=== PATIENT | male | born 1955 | race Caucasian/White ===

== ENCOUNTER 2023-08-25 13:01 | Inpatient (IN) ==
--- NOTE | 2023-08-25 13:27 | ED Triage Note ---
Date of Service August 25, 2023 Provider in Triage Author: Stephanie Wiggins History of Present Illness This patient was briefly evaluated while in triage. An abbreviated physical exam was performed. This patient is a 68-year-old Male who presents to the ED for evaluation of trembling, hallucination, dizziness and difficulty sleeping for past 2 weeks. On Jul 16, had 2nd Hep B vaccine, dizziness started the next day after that. ALl the other symptoms have progressively developed since then. Also having headaches that come and go. No fevers. Has been having some "liver issues." States "he's never been right after a bad concussion in March 2022." Physical Exam CONSTITUTIONAL: No acute distress. Well appearing. HEENT: Atraumatic, PERRL. NECK: Full ROM RESPIRATORY: Clear to auscultation bilaterally. Equal expansion bilaterally. CARDIOVASCULAR: Regular rate and rhythm. GASTROINTESTINAL: Soft NEUROLOGIC: Alert and oriented X 4 with normal affect. Initial orders for labs and / or imaging were placed and patient was placed in the waiting area until a bed is available. Please see further documentation for the full ED course.
--- NOTE | 2023-08-25 13:54 | CT Scan Report ---
CT head/brain wo con CLINICAL HISTORY: 68 years-old Male with headaches, hallucinations, dizziness. Acute headache with d izziness TECHNIQUE: Multiple axial CT images of the head were obtained without contrast. A dose lowering tech nique was utilized adhering to the principles of ALARA. CT DOSE: 625.8 mGy.cm COMPARISON: 04/03/2022 FINDINGS: No acute intracranial hemorrhage, midline shift, intracranial mass, hydrocephalus, territorial ischem ia or abnormal extra-axial collection. White matter hypodensities are again seen suggestive of chroni c microvascular ischemic disease. The calvarium is intact. The paranasal sinuses, mastoid air cells, and middle ear cavities are clear . IMPRESSION: No acute intracranial abnormality. ACT 112: Negative or not required by law. The above report was generated using voice recognition software. It may contain grammatical, syntax o r spelling errors. Electronically signed by: Teodoro Boles M.D. 08/25/2023 1:53 PM
[2023-08-25 15:37] LABS: Basophils # (auto) 0.07 K/uL (0.00-0.20); Basophils % (auto) 0.7 %; Eosinophils # (auto) 0.08 K/uL (0.00-0.50); Eosinophils % (auto) 0.8 %; Hematocrit (blood only) 53.2 % (42.0-52.0); Hemoglobin 17.7 g/dl (14.0-18.0); Immature Granulocytes # (auto) 0.04 K/uL (0.01-0.20); Immature Granulocytes % (auto) 0.4 %; Lymphocytes # (auto) 1.51 K/uL (1.20-3.40); Lymphocytes % (auto) 15.9 %; Mean Corpuscular Hemoglobin 30.2 pg (25.0-34.0); Mean Corpuscular Hgb Conc 33.3 g/dL (32.0-36.0); Mean Corpuscular Volume 90.6 fL (80.0-100.0); Mean Platelet Volume 10.2 fL (9.4-12.4); Monocytes # (auto) 0.76 K/uL (0.11-0.59); Neutrophils # (auto) 7.05 K/uL (1.40-6.50); Neutrophils % (auto) 74.2 %; Platelet Count 303 K/uL (130-400); RDW Coefficient of Variation 15.1 % (11.5-14.5); RDW Standard Deviation 50.1 fL (36.4-46.3); Red Blood Count 5.87 M/uL (4.70-6.10); White Blood Count 9.51 K/ul (4.8-10.8)
[2023-08-25 15:54] LABS: Alanine Aminotransferase 97 U/L (7-52); Albumin Globulin Ratio 1.4 (0.9-2); Albumin Level 4.9 gm/dl (3.4-5.0); Alkaline Phosphatase 27 U/L (34-104); Anion Gap 9 (3-11); Aspartate Aminotransferase 61 U/L (13-39); BUN Creatinine Ratio 24.3 (10-20); Bilirubin,Total 1.1 mg/dl (0.2-1.0); Blood Urea Nitrogen 26 mg/dl (6-23); Calcium 9.7 mg/dl (8.6-10.3); Carbon Dioxide 27 mmol/L (21-32); Chloride 100 mmol/L (98-107); Est GFR (African American) 83.4 ml/min; Globulin 3.5 gm/dl (2.5-4.0); Glucose 92 mg/dl (70-99(Fasting)); Potassium 4.2 mmol/L (3.5-5.1); Sodium 136 mmol/L (136-145); Total Protein 8.4 gm/dl (6.0-8.3)
[2023-08-25 16:00] LABS: Troponin I High Sensitivity 6.8 pg/ml (0-20)
[2023-08-25 16:02] LABS: INR 1.1 (0.9-1.1); Partial Thromboplastin Time 27 Seconds (21-31); Prothrombin Time 12.2 Seconds (9.0-12.0)
[2023-08-25 16:42] LABS: Appearance Urine Clear (Clear); Bacteria Urine Automated Negative (Negative); Blood Urine Negative (Negative); Color Urine Dark Yellow; Glucose Urine UA Negative (Negative); Ketones Urine 2+ (Negative); Leukocyte Esterase Urine Negative (Negative); Nitrite Urine Negative (Negative); Protein Urine 2+ (Negative); RBC Urine Automated 0-4 /hpf (0-4); Urobilinogen Urine Negative (Negative)
[2023-08-25 16:45] LABS: Magnesium 2.2 mg/dl (1.7-2.4)
[2023-08-25 16:50] LABS: Acetaminophen 5 ug/ml (10-30); Salicylate < 3.0 mg/dl (3.0-30)
[2023-08-25 16:55] LABS: Bilirubin Urine 1+ (Negative)
--- NOTE | 2023-08-25 16:59 | Electrocardiogram Report ---
Test Reason : Blood Pressure : / mmHG Vent. Rate : 080 BPM Atrial Rate : 080 BPM P-R Int : 144 ms QRS Dur : 086 ms QT Int : 348 ms P-R-T Axes : 083 116 080 degrees QTc Int : 401 ms Normal sinus rhythm Right axis deviation Abnormal ECG Confirmed by Irving Carvalho ([id number]) on 08/25/2023 4:59:11 PM Referred By: Confirmed By:Serafin Carvalho
[2023-08-25 17:06] LABS: Amphetamines+Metham, Urine Neg (Neg); Barbiturates, Urine Neg (Neg); Benzodiazepine, Urine Pos (Neg); Cocaine, Urine Neg (Neg); MDMA (Ecstacy), Urine Neg (Neg); Marijuana, Urine Neg (Neg); Methadone, Urine Neg (Neg); Opiate, Urine Neg (Neg); Phencyclidine, Urine Neg (Neg)
[2023-08-25 17:19] LABS: Thyroid Stimulating Hormone 3.214 uIu/ml (0.300-4.500)
[2023-08-25] MEDS ORDERED: ALUMINUM/MAGNESIUM SUSP 30 ML UDC PO PRN (20:10)
[2023-08-25] MEDS ORDERED: MAGNESIUM HYDROXIDE SUSP 30 ML UDC PO PRN (20:10)
[2023-08-25] MEDS ORDERED: SODIUM CHLORIDE 0.65% NA SOLN 45 ML (OCEAN) PRN (20:10)
[2023-08-25] MEDS ORDERED: BISMUTH SUBSALICYLATE LIQD 236 ML PO PRN (20:10)
[2023-08-25] MEDS: hydrOXYzine HCl 25 MG TAB PO PRN ×2 (21:11→23:35)
[2023-08-25] MEDS: NICOTINE POLACRILEX 2 MG GUM MT PRN (21:11)
--- NOTE | 2023-08-25 23:56 | Emergency Department Note ---
History of Present Illness General Chief complaint: Mental Health Evaluation Stated complaint: HALLUCINATIONS/HAND TREMBLE/TROUBLES SLEEPING Time Seen by Provider: 08/25/23 15:58 Source: patient and family History of Present Illness Provider complaint: Hallucination Maximum Pain Intensity: 6 68-year-old male on Suboxone presents emergency department for hallucinations. Family reports that the patient's symptoms began worse over the last 2 months. They report he has had increased tremor, hallucinations, both visual and auditory. They report has not been eating or sleeping. Patient reports he has "mental problems" and wants to "shoot himself". Patient is also reporting homicidal ideation. Home Medications Medication Instructions Recorded Confirmed Type amlodipine 5 mg tablet 5 mg PO QAM 08/25/23 08/25/23 History buprenorphine 2 mg-naloxone 0.5 mg 0.5 tab sublingual QAM 08/25/23 08/25/23 History sublingual tablet famotidine 20 mg tablet 20 mg PO QAM 08/25/23 08/25/23 History levalbuterol tartrate 45 1 puff inhalation Q4H PRN Wheezing 08/25/23 08/25/23 History mcg/actuation aerosol inhaler levothyroxine 25 mcg tablet 25 mcg PO DAILYBB 08/25/23 08/25/23 History Allergies Allergy/AdvReac Type Severity Reaction Status Date / Time No Known Allergies Allergy Verified 08/25/23 16:19 Past Med/Surg History Medical History HTN (hypertension) Surgical History No pertinent past surgical history Social History Smoking Status: Current every day smoker Tobacco Type: Cigarettes Hx Alcohol Use: No Hx Substance Use: Yes Non-Prescribed Medications: Marijuana and Other Non- Prescribed Medications Comment: Opiates Preferred Language: Portuguese Communication Ability: Effective 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 Beliefs That Will Affect Care: None Feels Safe at Home: Yes Gender Identity: Male Assistive Devices: Glasses Physical Exam Vital Signs Vital Signs - 24 hr 08/25/23 13:25 08/25/23 15:58 08/25/23 15:58 Temperature 36.3 C L Temperature Source Temporal Artery Scan Pulse Rate 104 H Pulse Rate [Apical] 83 Pulse Rhythm [Apical] Pulse Strength [Apical] Respiratory Rate 18 20 Respiratory Effort / Characteristics Non-Labored Spontaneous Non-Labored Respiratory Depth Normal Normal Respiratory Pattern Regular Blood Pressure 189/100 H Blood Pressure [Right Arm] 189/102 H Blood Pressure Mean 129 Blood Pressure Mean [Right Arm] 131 Blood Pressure Position Sitting Blood Pressure Position [Right Arm] Pulse Oximetry 94 98 98 Oxygen Delivery Method Room Air Room Air Room Air Sepsis Recent Fever Within 48 Hours No Sepsis New/Unexplained Change in Mental Status N/A Sepsis Action Taken by Nursing No Action Required 08/25/23 16:21 08/25/23 18:32 08/25/23 20:11 Temperature Temperature Source Pulse Rate 78 Pulse Rate [Apical] 84 95 H Pulse Rhythm [Apical] Regular Pulse Strength [Apical] Normal Respiratory Rate 20 18 Respiratory Effort / Characteristics Non-Labored Spontaneous Respiratory Depth Normal Respiratory Pattern Regular Blood Pressure Blood Pressure [Right Arm] 139/81 197/93 H Blood Pressure Mean Blood Pressure Mean [Right Arm] 100 127 Blood Pressure Position Blood Pressure Position [Right Arm] Sitting Standing Pulse Oximetry 96 92 Oxygen Delivery Method Room Air Room Air Sepsis Recent Fever Within 48 Hours Sepsis New/Unexplained Change in Mental Status Sepsis Action Taken by Nursing 08/25/23 20:36 Temperature Temperature Source Pulse Rate Pulse Rate [Apical] Pulse Rhythm [Apical] Pulse Strength [Apical] Respiratory Rate Respiratory Effort / Characteristics Respiratory Depth Respiratory Pattern Blood Pressure Blood Pressure [Right Arm] Blood Pressure Mean Blood Pressure Mean [Right Arm] Blood Pressure Position Blood Pressure Position [Right Arm] Pulse Oximetry Oxygen Delivery Method Room Air Sepsis Recent Fever Within 48 Hours Sepsis New/Unexplained Change in Mental Status Sepsis Action Taken by Nursing Physical Exam GENERAL: He is oriented to person, place, and time. He appears well-developed and well-nourished. He does not appear distressed. HENT: Exam performed. - Head: Normocephalic and atraumatic. - Right Ear: External ear normal. No mastoid erythema - Left Ear: External ear normal. No mastoid erythema - Mouth/Throat: The oropharynx is clear and moist. No trismus in the jaw. No dental abscesses or uvula swelling. No oropharyngeal exudate or tonsillar abscesses. EYES: Conjunctivae and EOM are normal. Pupils are equal, round, and reactive to light. Right eye exhibits no discharge. Left eye exhibits no discharge. No scleral icterus. NECK: Normal range of motion. Neck supple. No JVD present. No rigidity. No tracheal deviation and normal range of motion present. No Brudzinski's sign and no Kernig's sign noted. CV: Normal rate, regular rhythm, normal heart sounds and intact distal pulses. There is no peripheral edema. Palpable radial pulses bue. PULM/CHEST: Effort normal and breath sounds normal. No respiratory distress. No stridor. He has no wheezes. He has no rales. - Chest Wall: He exhibits no tenderness. ABD: The abdomen is soft. He has no distension. No mass is present. There is no tenderness. There is no rebound, no guarding, no Abbott's sign and no tenderness at McBurney's point. Rovsig negative. MUSC/SKEL: Normal range of motion. There is no peripheral edema, tenderness or deformity. LYMPH: No cervical adenopathy. NEURO: He is alert and oriented to person, place, and time. He has normal strength. No cranial nerve deficit or sensory deficit. Coordination and gait normal. GCS eye subscore is 4. GCS verbal subscore is 5. GCS motor subscore is 6. Cerebellar tests wnl. Mild tremor. SKIN: Skin is warm and dry. He is not diaphoretic. PSYCH: Suicidal homicidal ideation. Course Course 1558: The patient was evaluated in room B4. A complete history and physical exam was performed Cardiac monitoring: An order was placed for continuous cardiac monitoring. The monitor shows a rate of 80 with sinusrhythm interpreted by me Patient will be moved back to the mental health area of the emergency department. 2030: Patient medically cleared. Patient will be admitted to [facility] [address]. for inpatient psychiatric treatment. Administered Medications Hydroxyzine HCl (Hydroxyzine Hcl 25 Mg Tab) 50 mg PO HSZ PRN PRN Reason: Insomnia Stop: 09/24/23 20:09 Last Admin: 08/25/23 23:35 Dose: 50 mg Documented By: DMT Hydroxyzine HCl (Hydroxyzine Hcl 25 Mg Tab) 25 mg PO Q4H PRN PRN Reason: Anxiety Stop: 09/24/23 20:09 Last Admin: 08/25/23 21:11 Dose: 25 mg Documented By: ANAI Nicotine Polacrilex (Nicotine Polacrilex 2 Mg Gum) 2 piece MT PRN PRN PRN Reason: Nicotine Withdrawal Symptoms Stop: 09/24/23 20:09 Last Admin: 08/25/23 21:11 Dose: 2 piece Documented By: ANAI Medical Decision Making Laboratory Data Attestation: I reviewed the patient's lab results. 08/25/23 15:15 08/25/23 15:15 Lab Results 08/25/23 08/25/23 08/25/23 Range/Units 15:15 16:17 16:47 WBC 9.51 (4.8-10.8) K/ul RBC 5.87 (4.70-6.10) M/uL Hgb 17.7 (14.0-18.0) g/dl Hct 53.2 H (42.0-52.0) % MCV 90.6 (80.0-100.0) fL MCH 30.2 (25.0-34.0) pg MCHC 33.3 (32.0-36.0) g/dL RDW Std Deviation 50.1 H (36.4-46.3) fL RDW Coeff of Naun 15.1 H (11.5-14.5) % Plt Count 303 (130-400) K/uL MPV 10.2 (9.4-12.4) fL Immature Gran % (Auto) 0.4 % Neut % (Auto) 74.2 % Lymph % (Auto) 15.9 % Alexander % (Auto) 8.0 % Eos % (Auto) 0.8 % Baso % (Auto) 0.7 % Neut # (Auto) 7.05 H (1.40-6.50) K/uL Lymph # (Auto) 1.51 (1.20-3.40) K/uL Alexander # (Auto) 0.76 H (0.11-0.59) K/uL Eos # (Auto) 0.08 (0.00-0.50) K/uL Baso # (Auto) 0.07 (0.00-0.20) K/uL Immature Gran # (Auto) 0.04 (0.01-0.20) K/uL PT 12.2 H (9.0-12.0) Seconds INR 1.1 (0.9-1.1) APTT 27 (21-31) Seconds PTT Ratio 1.0 Sodium 136 (136-145) mmol/L Potassium 4.2 (3.5-5.1) mmol/L Chloride 100 (98-107) mmol/L Carbon Dioxide 27 (21-32) mmol/L Anion Gap 9 (3-11) BUN 26 H (6-23) mg/dl Creatinine 1.07 (0.6-1.4) mg/dl Est Cr Clr Drug Dosing Not Reportable Est GFR ( Amer) 83.4 ml/min Est GFR (Non-Af Amer) 72.0 ml/min BUN/Creatinine Ratio 24.3 H (10-20) Glucose 92 (70-99(Fasting)) mg/dl Calcium 9.7 (8.6-10.3) mg/dl Magnesium 2.2 (1.7-2.4) mg/dl Total Bilirubin 1.1 H (0.2-1.0) mg/dl AST 61 H (13-39) U/L ALT 97 H (7-52) U/L Alkaline Phosphatase 27 L (34-104) U/L Ammonia 25.0 (18-72) umol/L Troponin I High Sens 6.8 (0-20) pg/ml Total Protein 8.4 H (6.0-8.3) gm/dl Albumin 4.9 (3.4-5.0) gm/dl Globulin 3.5 (2.5-4.0) gm/dl Albumin/Globulin Ratio 1.4 (0.9-2) TSH 3.214 (0.300-4.500) uIu/ml Urine Color Dark Yellow Urine Appearance Clear (Clear) Urine pH 5.0 (4.5-7.5) Ur Specific Radcliffe 1.030 (1.000-1.030) Urine Protein 2+ H (Negative) Urine Glucose (UA) Negative (Negative) Urine Ketones 2+ H (Negative) Urine Blood Negative (Negative) Urine Nitrite Negative (Negative) Urine Bilirubin 1+ H (Negative) Urine Urobilinogen Negative (Negative) Ur Leukocyte Esterase Negative (Negative) Urine WBC (Auto) 1-5 (0-5) /hpf Urine RBC (Auto) 0-4 (0-4) /hpf U Hyaline Cast (Auto) 1-5 (0-5) /lpf U Epithel Cells (Auto) 5-10 H (0-5) /lpf Urine Bacteria (Auto) Negative (Negative) Salicylates < 3.0 L (3.0-30) mg/dl Urine Opiates Screen Neg (Neg) Ur Methadone, Qual Neg (Neg) Acetaminophen 5 L (10-30) ug/ml Urine Barbiturates Neg (Neg) Ur Phencyclidine (PCP) Neg (Neg) U Amphetamin/Meth Scrn Neg (Neg) MDMA (Ecstasy) Screen Neg (Neg) U Benzodiazepines Scrn Pos H (Neg) Ur Cocaine Metabolite Neg (Neg) U Marijuana (THC) Screen Neg (Neg) Ethyl Alcohol mg/dL < 10.0 (<10.0) mg/dl SARS-CoV-2, RNA, NAAT (NEGATIVE) 08/25/23 Range/Units 18:45 WBC (4.8-10.8) K/ul RBC (4.70-6.10) M/uL Hgb (14.0-18.0) g/dl Hct (42.0-52.0) % MCV (80.0-100.0) fL MCH (25.0-34.0) pg MCHC (32.0-36.0) g/dL RDW Std Deviation (36.4-46.3) fL RDW Coeff of Naun (11.5-14.5) % Plt Count (130-400) K/uL MPV (9.4-12.4) fL Immature Gran % (Auto) % Neut % (Auto) % Lymph % (Auto) % Alexander % (Auto) % Eos % (Auto) % Baso % (Auto) % Neut # (Auto) (1.40-6.50) K/uL Lymph # (Auto) (1.20-3.40) K/uL Alexander # (Auto) (0.11-0.59) K/uL Eos # (Auto) (0.00-0.50) K/uL Baso # (Auto) (0.00-0.20) K/uL Immature Gran # (Auto) (0.01-0.20) K/uL PT (9.0-12.0) Seconds INR (0.9-1.1) APTT (21-31) Seconds PTT Ratio Sodium (136-145) mmol/L Potassium (3.5-5.1) mmol/L Chloride (98-107) mmol/L Carbon Dioxide (21-32) mmol/L Anion Gap (3-11) BUN (6-23) mg/dl Creatinine (0.6-1.4) mg/dl Est Cr Clr Drug Dosing Est GFR ( Amer) ml/min Est GFR (Non-Af Amer) ml/min BUN/Creatinine Ratio (10-20) Glucose (70-99(Fasting)) mg/dl Calcium (8.6-10.3) mg/dl Magnesium (1.7-2.4) mg/dl Total Bilirubin (0.2-1.0) mg/dl AST (13-39) U/L ALT (7-52) U/L Alkaline Phosphatase (34-104) U/L Ammonia (18-72) umol/L Troponin I High Sens (0-20) pg/ml Total Protein (6.0-8.3) gm/dl Albumin (3.4-5.0) gm/dl Globulin (2.5-4.0) gm/dl Albumin/Globulin Ratio (0.9-2) TSH (0.300-4.500) uIu/ml Urine Color Urine Appearance (Clear) Urine pH (4.5-7.5) Ur Specific Radcliffe (1.000-1.030) Urine Protein (Negative) Urine Glucose (UA) (Negative) Urine Ketones (Negative) Urine Blood (Negative) Urine Nitrite (Negative) Urine Bilirubin (Negative) Urine Urobilinogen (Negative) Ur Leukocyte Esterase (Negative) Urine WBC (Auto) (0-5) /hpf Urine RBC (Auto) (0-4) /hpf U Hyaline Cast (Auto) (0-5) /lpf U Epithel Cells (Auto) (0-5) /lpf Urine Bacteria (Auto) (Negative) Salicylates (3.0-30) mg/dl Urine Opiates Screen (Neg) Ur Methadone, Qual (Neg) Acetaminophen (10-30) ug/ml Urine Barbiturates (Neg) Ur Phencyclidine (PCP) (Neg) U Amphetamin/Meth Scrn (Neg) MDMA (Ecstasy) Screen (Neg) U Benzodiazepines Scrn (Neg) Ur Cocaine Metabolite (Neg) U Marijuana (THC) Screen (Neg) Ethyl Alcohol mg/dL (<10.0) mg/dl SARS-CoV-2, RNA, NAAT NEGATIVE (NEGATIVE) Imaging Data Radiologist's Impression: Head CT 08/25/23 13:28 CT head/brain wo con CLINICAL HISTORY: 68 years-old Male with headaches, hallucinations, dizziness. Acute headache with dizziness TECHNIQUE: Multiple axial CT images of the head were obtained without contrast. A dose lowering technique was utilized adhering to the principles of ALARA. CT DOSE: 625.8 mGy.cm COMPARISON: 04/03/2022 FINDINGS: No acute intracranial hemorrhage, midline shift, intracranial mass, hydrocephalus, territorial ischemia or abnormal extra-axial collection. White matter hypodensities are again seen suggestive of chronic microvascular ischemic disease. The calvarium is intact. The paranasal sinuses, mastoid air cells, and middle ear cavities are clear. IMPRESSION: No acute intracranial abnormality. ACT 112: Negative or not required by law. The above report was generated using voice recognition software. It may contain grammatical, syntax or spelling errors. Electronically signed by: Teodoro Boles M.D. 08/25/2023 1:53 PM ECG Data Attestation: I personally reviewed and interpreted this ECG as follows: Rate (beats per minute): 80 Rhythm: + normal sinus ECG Intervals/blocks: + Normal QRS, + Normal SC and + Normal QT-c ECG ST segments: + Normal ST segments ECG Findings: + Peaked T waves MDM Narrative 1558: The patient was evaluated in room B4. A complete history and physical exam was performed Cardiac monitoring: An order was placed for continuous cardiac monitoring. The monitor shows a rate of 80 with sinusrhythm interpreted by me Patient will be moved back to the mental health area of the emergency department. 2030: Patient medically cleared. Patient will be admitted to 3 [facility]. for inpatient psychiatric treatment. Impression & Plan Depression with suicidal ideation, Homicidal ideations Discharge Plan Visit Data Chief Complaint: Mental Health Evaluation Stated Complaint: HALLUCINATIONS/HAND TREMBLE/TROUBLES SLEEPING ED Provider: Osman Beltre Discharge Problem: Depression with suicidal ideation, Homicidal ideations Patient Disposition: Admitted As Inpatient Discharge Instructions Interventions: ED Discharge Assessment Last Done: 08/25/23 20:36
--- OUTSIDE RECORDS SUMMARY | 2023-08-26 09:14 | External Medical Summary | Summary of Care ---
Author Name Unknown Organization [facility] Address [address] [place] [address] Phone [phone] Care Team Providers Care Cook Pie Name Role Phone Nitin Sarah PA-C Primary Care Provider [phone] Encounter Details Date Type Department Care Team (Late st Contact Info) Description 07/15/2023 Orders Only General [facility] Medicine [facility] [address] [facility] [address] [facility]itin [facility] [address] [facility] [address] Subclinical hypothyroidism* Allergies No known active allergiesdocumented as of this encounter (statuses as of 07/15/2023) Medications Medication Sig Dispensed Refills Start Date End Date Status amLODIPine Besylate 5 MG Oral Tablet (Norvasc)Indications:HT N, goal below 130/80 Take 1 Tablet by mouth in the morning. 30 Tablet 03/17/2023 Active Levalbuterol Tartrate 45 MCG/ACT Inhalation Aerosol (Xopenex HFA)Indications:Pulmona ry emphysema, unspecified emphysema type (HCC) Inhale 1 Puff by mouth every 4 hours as needed for Wheezing. 15 g 12 03/17/2023 Active Zoster Vac Recomb Adjuvanted 50 MCG/0.5ML Intramuscular Suspension Reconstituted (Shingrix)Indications:N eed for shingles vaccine Inject 0.5 mL into a large muscle now and repeat dose in 60 to 180 days 1 Each 1 04/16/2023 Active Buprenorphine HCl-Naloxone HCl 8-2 MG Sublingual Tablet Sublingual (Suboxone) Place under the tongue daily. 0 Active Famotidine 20 MG Oral Tablet (Pepcid)Indications:Gas troesophageal reflux disease with esophagitis without hemorrhage Take 1 Tablet by mouth in the morning. 30 Tablet 11 07/14/2023 Active Levothyroxine Sodium 25 MCG Oral Tablet (Levoxyl)Indications:Jaime bclinical hypothyroidism Take 1 Tablet by mouth daily first thing in the morning. on an empty stomach. 30 Tablet 5 07/15/2023 Active documented as of this encounter (statuses as of 07/15/2023) Active Problems Problem Noted Date Diagnosed Date Substance dependence 03/17/2023 History of heroin use 03/17/2023 Amnesia 03/17/2023 Chronic hepatitis C without hepatic coma 023 HTN, goal below 130/80 03/17/2023 Pulmonary emphysema 03/17/2023 documented as of this encounter (statuses as of 07/15/2023) Resolved Problems Problem Noted Date Diagnosed Date Resolved Date Elevated hemoglobin 03/17/2023 03/17/20 documented as of this encounter (statuses as of 07/15/2023) Immunizations Name Administration Dates Next Due Hepatitis B, 20+ yrs 07/14/2023 Seasonal Influenza, PF, 6 M & above, IM , (FluLaval or Fluzone) 04/16/2023 documented as of this encounter Social History Tobacco Use Types Packs/Day Years Used Date Smoking Tobacco: Every Day Cigarettes 1 50 Started: 1972 Smokeless Tobacco: Never Alcohol Use Standard Drinks/Week Comments No 0 (1 standard drink = 0.6 oz pur e alcohol) AUDIT-C Answer Date Recorded Frequency of Alcohol Consumption Never 08/10/2018 Average Number of Drinks Not on file 019 Frequency of Binge Drinking Not on file 12/2018 PHQ-2 Answer Date Recorded PHQ Adult Total Score 1 07/12/2023 Hunger Vital Sign Answer Date Recorded Within the past 12 months, y ou worried that your food would run out before you got the money to buy more. Never true 04/23/20 23 Within the past 12 months, t he food you bought just didn't last and you didn't have money to get more. Never true 04/23/2023 Sex and Gender Information Value Date Recorded Sex Assigned at Not on file Gender Identity Not on file Sexual Orientation Not on file Job Start Date Occupation Industry Not on file Not on file Not on file documented as of this encounter Plan of Treatment Upcoming Encounters Date Type Department Care Team (Late st Contact Info) Description 08/16/2023 11:00 AM EST Nurse Only Ancillary [place] [facility] [place] [address] [place] [address] Nurse, Int Med [address] [place] [address] 10/07/2023 8:30 AM EDT Procedure Only Endoscopy, [facility] [address] [place] [address] Mirela Aguayo, DO [address] [place], [place] [address] 10/07/2023 9:00 AM EDT Procedure Only Endoscopy, [facility] [address] [place] [address] Mirela Aguayo, DO [address] [place], [place] [address] 10/12/2023 10:30 AM EDT Office Visit Gastroenterology, [facility] [address] [place], [place] [address] Clarissa Reyes CRNP [address] [place] [address] 10/13/2023 7:00 AM EDT Pharmacy Hepatology, [place] [address] [place] [address] [place], Pharmacist Hepatology [address] [place] [address] 10/18/2023 4:00 PM EDT Office Visit Neurology, [place] [address] [place] [id number] Anny Turner, [address] [place] [address] 11/12/2023 10:40 AM EDT Office Visit [facility] [address] [place] [address] Ngoc Briseno MD [address] [place] [address] Scheduled Orders Name Type Priority Associated Diagnoses Orde r Schedule TSH Lab Routine Subclinical hypothyroidism Expected: 08/26/2023 (Approximate), Expires: 07/14/2024 Health Maintenance Due Date Last Done Comments DISCUSS TOBACCO CESSATION (R EFER TO SMARTSET #3291) 1957 COVID-19 Vaccine (#1) 01/06/1958 Pneumococcal Vaccine: 65+ Ye ars (1 - PCV) 1963 DTaP,Tdap,and Td Vaccines (1 - Tdap) 1976 Cologuard 2002 Colonoscopy 2002 Colorectal Cancer Screening 2002 Fecal Occult Blood Test 2002 Sigmoidoscopy 2002 LUNG CANCER SCREENING - USE SMARTSET 52984 2007 Zoster Vaccines (1 of 2) 2007 *COPD SEVERITY VERIFIED BY PFT 03/31/2023 *CXR OR CT FOR COPD EVER 03/31/2023 Hepatitis B (2 of 3 - 19+ 3- dose series) 08/11/2023 07/14/2023 GFR 02/02/2024 02/01/2023 Depression Screening 07/12/2024 07/12/2023 O2 ASSESSMENT COMPLETED IN P AST YEAR FOR COPD 07/14/2024 07/14/2023 Albumin/Creatinine Ratio 04/16/2026 04/16/2023 Lipid Panel 02/02/2028 02/01/2023 AAA Screening Completed 02/10/2023 Alpha-1 Antitrypsin Completed 03/15/2023 Influenza Vaccine (FLU shot) Completed 04/16/2023 GARDASIL-HPV IMMUNIZATION SERIES Aged Out No longer eligible based on patient's age to complete this topic MENINGOCOCCAL (MENACTRA/MENVEO) Aged Out No longer eligible based on patient's age to complete this topic documented as of this encounter Medical Devices Not on filedocumented as of this encounter Visit Diagnoses Diagnosis Subclinical hypothyroidism- Primary Other specified acquired hypothyroidism documented in this encounter Care Teams Cook Pie Relationship Specialty Start Date End Date Nitin Sarah PA-C [address] [place] [address] [place], [place] [address] PCP - General Physician Vehicle Service Agent 02/01/23 documented as of this encounter
--- OUTSIDE RECORDS SUMMARY | 2023-08-26 09:14 | External Medical Summary | Summary of Care ---
Author Name Unknown Organization [facility] Address [address] [place] [address] Phone [phone] Care Team Providers Care Motor Builder Assembler Name Role Phone Nitin Sarah PA-C Primary Care Provider +1- [phone] Reason for Visit * Reason Onset Date Comments Appointment 07/30/2023 Encounter Details Date Type Department Care Team (Late st Contact Info) Description 07/30/2023 Telephone Care at Home [address] [place] [address] Services, Scheduling [address] [place] [address] Appointment Allergies No known active allergiesdocumented as of this encounter (statuses as of 07/30/2023) Medications Medication Sig Dispensed Refills Start Date End Date Status amLODIPine Besylate 5 MG Oral Tablet (Norvasc)Indications:HT N, goal below 130/80 Take 1 Tablet by mouth in the morning. 30 Tablet 12 03/17/2023 Active Levalbuterol Tartrate 45 MCG/ACT Inhalation [...] as of this encounter (statuses as of 07/30/2023) Active Problems Problem Noted Date Diagnosed Date Substance dependence 03/17/2023 History of heroin use 03/17/2023 Amnesia 03/17/2023 Chronic hepatitis C without hepatic coma 023 HTN, goal below 130/80 03/17/2023 Pulmonary emphysema 03/17/2023 documented as of this encounter (statuses as of 07/30/2023) Resolved Problems Problem Noted Date Diagnosed Date Resolved Date Elevated hemoglobin 03/17/2023 03/17/20 23 documented as of this encounter (statuses as of 07/30/2023) Immunizations Name Administration Dates Next Due Hepatitis [...] on file documented as of this encounter Miscellaneous Notes * Telephone Encounter - Juana Corado OSA - 07/30/2023 3:06 PM EST Patient call me back and does not wish to schedule AWV at all. SALAZAR Poe * Telephone Encounter - Juana Corado OSA - 07/30/2023 2:52 PM EST Care At Home Outreach Call attempt: 1st Call Call result: Call Unsuccessful - Spoke to patient/family/caregiver and instructed to call back Patient is asking if AWV can be complete at [facility]. Please reach out to patient, if this can not be completed Care at Home can see him at home. SALAZAR Poe documented in this encounter Plan of Treatment Upcoming Encounters Date Type Department Care Team (Late st Contact Info) Description 08/16/2023 11:00 AM EST Nurse Only Ancillary [facility] [place] [address] Nurse, Int Med 200 [facility] [address] 10/07/2023 8:30 AM EDT Procedure Only Endoscopy, [facility] [address] [place] [address] Mirela Aguayo, DO [address] [place] [address] 10/07/2023 9:00 AM EDT Procedure Only Endoscopy, [facility] [address] [place] [address] Mirela Aguayo, DO [address] [place] [address] 10/12/2023 10:30 AM EDT Office Visit Gastroenterology, [facility] [address] [place] [address] Clarissa Reyes CRNP [address] [place] [address] 10/13/2023 7:00 AM EDT Pharmacy Hepatology, [place] [address] [place] [address] [place], Pharmacist Hepatology [address] [place] [address] 10/18/2023 4:00 PM EDT Office Visit Neurology, [place] [address] [place] [phone] Anny Turner DO [address] [place] [address] 11/12/2023 10:40 AM EDT Office Visit Family Practice [facility] 200 [place] [address] Ngoc Briseno MD 200 [place] [address] Health Maintenance Due Date Last Done Comments DISCUSS TOBACCO CESSATION (REFER TO SMARTSET #5441) 1957 Pneumococcal Vaccine: 65+ Years (1 - PCV) 1963 Cologuard 2002 Colonoscopy 2002 Colorectal Cancer Screening 2002 Fecal Occult Blood Test 2002 Sigmoidoscopy 2002 LUNG CANCER SCREENING - USE SMARTSET 11798 2007 COVID-19 Vaccine (4 - 2022-2 4 season) 2023 05/10/2021, 08/31/2020, 08/10/2020 *COPD SEVERITY VERIFIED BY PFT 03/31/2023 *CXR OR CT FOR COPD EVER 03/31/2023 Zoster Vaccines (2 of 2) 07/30/2023 06/04/2023 Hepatitis B (2 of 3 - 19+ 3-dose series) 08/11/2023 07/14/2023 GFR 02/02/2024 02/01/2023 Depression Screening 07/12/2024 07/12/2023 O2 ASSESSMENT COMPLETED IN PAST YEAR FOR COPD 07/14/2024 07/14/2023 TSH 07/14/2024 07/14/2023, 04/10/2023, 02/01/2023 Albumin/Creatinine Ratio 04/16/2026 04/16/2023 Lipid Panel 02/02/2028 02/01/2023 DTaP,Tdap,and Td Vaccines (2 - Td or Tdap) 06/04/2033 06/04/2023 AAA Screening Completed 02/10/2023 Alpha-1 Antitrypsin Completed 03/15/2023 Influenza Vaccine (FLU shot) Completed , 04/16/2023 GARDASIL-HPV IMMUNIZATION SERIES Aged Out No longer eligible b ased on patient's age to complete this topic MENINGOCOCCAL (MENACTRA/MENVEO) Aged Out No longer eligible b ased on patient's age to complete this topic documented as of this encounter Medical Devices Not on filedocumented as of this encounter Care Teams Motor Builder Assembler Relationship Specialty Start Date End Date Nitin Sarah PA-C [address] [place] [address] PCP - General Physician Hospital Aides And Assistants Teacher 02/01/23 documented as of this encounter
--- OUTSIDE RECORDS SUMMARY | 2023-08-26 09:14 | External Medical Summary | Summary of Care ---
Author Name Unknown Organization [facility] Address [address] [place] [address] Phone [phone] Care Team Providers Care Tree Feller Operator Name Role Phone Nitin Sarah PA-C Primary Care Provider +1- [phone] Encounter Details Date Type Department Care Team (Late st Contact Info) Description 08/16/2023 11:00 AM EST Nurse Only Ancillary [facility] [address] [place] [address] Nurse, Int Med 200 [facility] [place] [address] Allergies No known active allergiesdocumented as of this encounter (statuses as of 08/16/2023) Medications Medication Sig Dispensed Refills Start Date End Date Status amLODIPine Besylate 5 MG Oral Tablet (Norvasc)Indications:HT N, goal below 130/80 Take 1 Tablet by mouth in the morning. 30 Tablet 12 03/17/2023 Active Levalbuterol Tartrate 45 MCG/ACT Inhalation Aerosol (Xopenex HFA)Indications:Pulmona ry emphysema, unspecified emphysema type (HCC) Inhale 1 Puff by mouth every 4 hours as needed for Wheezing. 15 g 03/17/2023 Active Zoster Vac Recomb Adjuvanted 50 [...] as of this encounter (statuses as of 08/16/2023) Active Problems Problem Noted Date Diagnosed Date Substance dependence 03/17/2023 History of heroin use 03/17/2023 Amnesia 03/17/2023 Chronic hepatitis C without hepatic coma 023 HTN, goal below 130/80 03/17/2023 Pulmonary emphysema 03/17/2023 documented as of this encounter (statuses as of 08/16/2023) Resolved Problems Problem Noted Date Diagnosed Date Resolved Date Elevated hemoglobin 03/17/2023 03/17/20 23 documented as of this encounter (statuses as of 08/16/2023) Immunizations Name Administration Dates Next Due Hepatitis B, 20+ yrs 08/16/2023,07/14/2023 Seasonal Influenza, PF, 6 M & above, [...] Care Team (Late st Contact Info) Description 10/07/2023 8:30 AM EDT Procedure Only Endoscopy, [facility] [place] [address] [place] [address] Mirela Aguayo, DO [address] [place] [address] 10/07/2023 9:00 AM EDT Procedure Only Endoscopy, [place] [address] [place] [address] Mirela Aguayo, DO [address] [place] [address] 10/12/2023 10:30 AM EDT Office Visit Gastroenterology, [facility] [address] [place] [address] Clarissa Reyes CRNP [address] [place] [address] 10/13/2023 7:00 AM EDT Pharmacy Hepatology, [place] [address] [place] [address] [place], Pharmacist Hepatology [address] [place] [address] 10/18/2023 4:00 PM EDT Office Visit Neurology, [place] [address] [place] [phone] Anny Turner, DO [address] [place] [address] 11/12/2023 10:40 AM EDT Office Visit Family Practice [facility] [address] [place], [place] [address] Ngoc Briseno MD [address] [place] [address] 02/14/2024 10:00 AM EDT Nurse Only Ancillary [place] [address] [place], [place] [address] Nurse, Int Med [address] [place] [address] Health Maintenance Due Date Last Done Comments DISCUSS TOBACCO CESSATION (REFER TO SMARTSET #7954) 1955 Pneumococcal Vaccine: 65+ Years (1 - PCV) 1963 Cologuard 2002 Colonoscopy 2002 Colorectal Cancer Screening 2002 Fecal Occult Blood Test 2002 Sigmoidoscopy 2002 LUNG CANCER SCREENING - USE SMARTSET 09981 2007 COVID-19 Vaccine (4 - 2022-2 4 season) 2023 05/10/2021, 08/31/2020, 08/10/2020 *COPD SEVERITY VERIFIED BY PFT 03/31/2023 *CXR OR CT FOR COPD EVER 03/31/2023 Zoster Vaccines (2 of 2) 07/30/2023 06/04/2023 Hepatitis B (3 of 3 - 19+ 3-dose series) 01/12/2024 08/16/2023, 07/14/2023 GFR 02/02/2024 02/01/2023 Depression Screening 07/12/2024 [...] as of this encounter Visit Diagnoses Diagnosis Need for vaccination for viral hepatitis- Primary Need for prophylactic vaccination and inoculation against viral hepatitis documented in this encounter Care Teams Tree Feller Operator Relationship Specialty Start Date End Date Nitin Sarah PA-C [address] [facility] [place] [address] PCP - General Physician Recreation Teacher 02/01/23 documented as of this encounter
--- OUTSIDE RECORDS SUMMARY | 2023-08-26 09:14 | External Medical Summary | Summary of Care ---
Author Name Unknown Organization [facility] Address [address] [place] [address] Phone [phone] Care Team Providers Care Pulmonary Function Technologist Name Role Phone Nitin Sarah PA-C Primary Care Provider +1- [phone] Reason for Visit * Reason Onset Date Comments Test Results 07/15/2023 Encounter Details Date Type Department Care Team (Late st Contact Info) Description 07/15/2023 Telephone General Internal Medicine [facility] 200 [facility] [place] [address] Nitin Sarah PA-C [facility] [place] [address] Test Results Allergies No known active allergiesdocumented as of [...] encounter Miscellaneous Notes * Telephone Encounter - Raquel Duval CMA - 07/15/2023 1:37 PM EST Attempted to call patient, VM is not set up yet. * Telephone Encounter - Raquel Duval CMA - 07/15/2023 1:31 PM EST ----- Message from Nitin Sarah PA-C sent at 07/15/2023 12:42 PM EST ----- Patient with subclinical hypothyroidism. TSH elevated, but T4 at a good level. Cognitive change could possible be secondary though so I recommend a trial of 25 mcg daily in the morning on empty stomach with water only to see if helps reduce symptoms. Recheck level in 6 weeks. White count has returned to normal. Slight improvement in hematocrit and overall hgb. Ammonia level is normal so not having issue with liver causing his mentation changes. documented in this encounter Plan of Treatment Upcoming Encounters Date Type Department Care Team (Late st Contact Info) Description 08/16/2023 11:00 AM EST Nurse Only Ancillary [facility] 200 [facility] [place] [address] Nurse, Int Med 200 [facility] [place] [address] 10/07/2023 8:30 AM EDT Procedure Only Endoscopy, [place] [address] [place] [address] Mirela Aguayo DO [address] [place] [address] 10/07/2023 9:00 AM EDT Procedure Only Endoscopy, [place] [address] [place] [address] Mirela Aguayo, DO [address] [place], [place] [address] 10/12/2023 10:30 AM EDT Office Visit Gastroenterology, [facility] [address] [facility] [place] [address] Clarissa Reyes CRNP [address] [place] [address] 10/13/2023 7:00 AM EDT Pharmacy Hepatology, [place] [address] [place] [address] [place], Pharmacist Hepatology [address] [place] [address] 10/18/2023 4:00 PM EDT Office Visit Neurology, [place] [address] [place] [phone] Anny Turner [address] [place] [address] 11/12/2023 10:40 AM EDT Office Visit Family Practice [facility] 200 [place] [address] Ngoc Briseno MD 200 [place] [address] Health Maintenance Due Date Last Done Comments DISCUSS TOBACCO CESSATION (R EFER TO SMARTSET #3016) 1955 COVID-19 Vaccine (#1) 01/06/1958 Pneumococcal Vaccine: 65+ Ye ars (1 - PCV) 1963 DTaP,Tdap,and Td Vaccines (1 - Tdap) 1976 Cologuard 2002 Colonoscopy 2002 Colorectal Cancer Screening 2002 Fecal Occult Blood Test 2002 Sigmoidoscopy 2002 LUNG CANCER SCREENING - USE SMARTSET 48857 2007 Zoster Vaccines (1 of 2) 2007 [...] filedocumented as of this encounter Care Teams Pulmonary Function Technologist Relationship Specialty Start Date End Date Nitin Sarah PA-C [address] [place], [place] [address] PCP - General Physician Transit Mechanic 02/01/23 documented as of this encounter
--- OUTSIDE RECORDS SUMMARY | 2023-08-26 09:14 | External Medical Summary | Summary of Care ---
Author Name Unknown Organization [facility] Address [address] [place] [address] Phone [phone] Care Team Providers Care Clinical Services Director Name Role Phone Nitin Sarah PA-C Primary Care Provider +1- [phone] Reason for Visit * Reason Onset Date Comments Appointment 07/30/2023 Encounter Details Date Type Department Care Team (Late st Contact Info) Description 07/30/2023 Telephone Care at Home [address] [place] [address] Services, Scheduling [address] [place] [address] Appointment Allergies No known active allergiesdocumented as [...] asking if AWV can be complete at [facility]. Please reach out to patient, if this can not be completed Care at Home can see him at home. SALAZAR Poe documented in this encounter Plan of Treatment Upcoming Encounters Date Type Department Care Team (Late st Contact Info) Description 08/16/2023 11:00 AM EST Nurse Only Ancillary [facility] 200 [facility] [place] [address] Nurse, [facility] 200 [facility] [place] [address] 10/07/2023 8:30 AM EDT Procedure Only Endoscopy, [facility] [address] [place] [address] Mirela Aguayo, DO [address] [place] [address] 10/07/2023 9:00 AM EDT Procedure Only Endoscopy, [facility] [address] [place] [address] Mirela Aguayo, DO [address] [place] [address] 10/12/2023 10:30 AM EDT Office Visit Gastroenterology, [facility] [address] [place] [address] Clarissa Reyes CRNP [address] [place] [address] 10/13/2023 7:00 AM EDT Pharmacy [address]atology, [address] [id number] [place], Pharmacist Hepatology [address] [place] [address] 10/18/2023 4:00 PM EDT Office Visit Neurology, [place] [address] [facility] [phone] Anny Turner, DO [address] [place] [address] 11/12/2023 10:40 AM EDT Office Visit Family Practice [facility] 200 [facility] [place] [address] Ngoc Briseno MD 200 [facility] [place] [address] Health Maintenance Due Date Last Done Comments DISCUSS TOBACCO CESSATION (REFER TO SMARTSET #9791) 1955 Pneumococcal Vaccine: 65+ Years (1 - PCV) 1963 Cologuard 2002 Colonoscopy 2002 Colorectal Cancer Screening 2002 Fecal Occult Blood Test 2002 Sigmoidoscopy 2002 LUNG CANCER SCREENING - USE SMARTSET 18490 2007 COVID-19 Vaccine (4 - 2022-2 4 [...] filedocumented as of this encounter Care Teams Clinical Services Director Relationship Specialty Start Date End Date Nitin Sarah PA-C 200 [facility] [place] [address] PCP - General Physician Apprentice Machinist Outside 02/01/23 documented as of this encounter
--- OUTSIDE RECORDS SUMMARY | 2023-08-26 09:14 | External Medical Summary | Summary of Care ---
Author Name Unknown Organization [facility] Address [address] [place] [address] Phone [phone] Care Team Providers Care Narcotics Agent Name Role Phone Nitin Sarah PA-C Primary Care Provider +1- [phone] Reason for Visit * Reason Onset Date Comments Appointment 07/30/2023 Encounter Details Date Type Department Care Team (Late st Contact Info) Description 07/30/2023 Telephone Care at Home [address] [place] [address] Services, Scheduling [address] [place] [address] Appointment Allergies No known active allergiesdocumented as [...] asking if AWV can be complete at [facility]. Please reach out to patient, if this can not be completed Care at Home can see him at home. SALAZAR Poe documented in this encounter Plan of Treatment Upcoming Encounters Date Type Department Care Team (Late st Contact Info) Description 08/16/2023 11:00 AM EST Nurse Only Ancillary [facility] 200 [facility] [place] [address] Nurse, Int Med 200 [facility] [place] [address] 10/07/2023 8:30 AM EDT Procedure Only Endoscopy, [facility] [address] [place] [address] Mirela Aguayo, DO [address] [place] [address] 10/07/2023 9:00 AM EDT Procedure Only Endoscopy, [facility] [address] [place] [address] Mirela Aguayo, DO [address] [place] [address] 10/12/2023 10:30 AM EDT Office Visit Gastroenterology, [facility] [address] [place] [address] Clarissa Reyes CRNP [address] [place] [address] 10/13/2023 7:00 AM EDT Pharmacy Hepatology, [place] [address] [place] [address] [place], Pharmacist Hepatology [address] [place] [address] 10/18/2023 4:00 PM EDT Office Visit Neurology, [place] [address] [place] [phone] Anny Turner DO [address] [place] [address] 11/12/2023 10:40 AM EDT Office Visit Family Practice [facility] 200 [facility] [place] [address] Ngoc Briseno MD 200 [place] [address] Health Maintenance Due Date Last Done Comments DISCUSS TOBACCO CESSATION (REFER TO SMARTSET #2962) 1955 Pneumococcal Vaccine: 65+ Years (1 - PCV) 1963 Cologuard 2002 Colonoscopy 2002 Colorectal Cancer Screening 2002 Fecal Occult Blood Test 2002 Sigmoidoscopy 2002 LUNG CANCER SCREENING - USE SMARTSET 28193 2007 COVID-19 Vaccine (4 - 2022-2 4 [...] filedocumented as of this encounter Care Teams Narcotics Agent Relationship Specialty Start Date End Date Nitin Sarah PA-C [address] [place] [address] PCP - General Physician Smart Grid Engineer 02/01/23 documented as of this encounter
--- OUTSIDE RECORDS SUMMARY | 2023-08-26 09:14 | External Medical Summary | Summary of Care ---
Author Name Unknown Organization [facility] Address [address] [place] [address] Phone [phone] Care Team Providers Care Corn Detasseler Name Role Phone Nitin Sarah PA-C Primary Care Provider +1- [phone] Reason for Visit * Reason Onset Date Comments Advice 07/16/2023 Encounter Details Date Type Department Care Team (Late st Contact Info) Description 07/16/2023 Telephone General Internal Medicine [facility] 200 [place] [address] Nitin Sarah PA-C [facility] [place] [address] Advice Allergies No known active allergiesdocumented as of this encounter (statuses as of 07/21/2023) Medications Medication Sig Dispensed Refills Start Date [...] as of this encounter (statuses as of 07/21/2023) Active Problems Problem Noted Date Diagnosed Date Substance dependence 03/17/2023 History of heroin use 03/17/2023 Amnesia 03/17/2023 Chronic hepatitis C without hepatic coma 023 HTN, goal below 130/80 03/17/2023 Pulmonary emphysema 03/17/2023 documented as of this encounter (statuses as of 07/21/2023) Resolved Problems Problem Noted Date Diagnosed Date Resolved Date Elevated hemoglobin 03/17/2023 03/17/20 23 documented as of this encounter (statuses as of 07/21/2023) Immunizations Name Administration Dates Next Due Hepatitis [...] Telephone Encounter - Raquel Duval CMA - 07/21/2023 2:06 PM EST Patient aware and verbalized understanding * Telephone Encounter - Juan Pablo Thomson OSA - 07/17/2023 11:41 AM EST Pt is calling in requesting a callback about previous notes. * Telephone Encounter - Manuelito Richardson LPN - 07/16/2023 4:49 PM EST Pt had poor cell service where he currently was and requested that we MyG him a good number to callus back, but he does not have MyG services setup. Pt given office phone number verbally. Will attempt to contact patient at a later time. * Telephone Encounter - Cici Moura OSA - 07/16/2023 2:15 PM EST Kaylene/sister calling in regards to Levothyroxine medication. Pt wants to know why he is taking thismedication and to go over test results. documented in this encounter Plan of Treatment Upcoming Encounters Date Type Department Care Team (Late st Contact Info) Description 08/16/2023 11:00 AM EST Nurse Only Ancillary [facility] [address] [place] [address] Nurse, Int Med [address] [place] [address] 10/07/2023 8:30 AM EDT Procedure Only Endoscopy, [facility] 132 [facility] [place] [address] Mirela Aguayo, DO [address] [place] [address] 10/07/2023 9:00 AM EDT Procedure Only Endoscopy, [facility] [address] [place] [address] Mirela Aguayo, DO [address] [place] [address] 10/12/2023 10:30 AM EDT Office Visit Gastroenterology, [facility] [address] [place] [address] Clarissa Reyes CRNP [address] [place] [address] 10/13/2023 7:00 AM EDT Pharmacy Hepatology, [place] [address] [place] [address] [place], Pharmacist Hepatology [address] [place] [address] 10/18/2023 4:00 PM EDT Office Visit Neurology, [place] [address] [place] [phone] Anny Turner [address] [place] [address] 11/12/2023 10:40 AM EDT Office Visit Family Practice [facility] 200 [facility] [place] [address] Ngoc Briseno MD 200 [facility] [place] [address] Health Maintenance Due Date Last Done Comments DISCUSS TOBACCO CESSATION (REFER TO SMARTSET #5909) 1955 COVID-19 Vaccine (#1) 01/06/1958 Pneumococcal Vaccine: 65+ Years (1 - PCV) 1963 DTaP,Tdap,and Td Vaccines (1 - Tdap) 1976 Cologuard 2002 Colonoscopy 2002 Colorectal Cancer Screening 2002 Fecal Occult Blood Test 2002 Sigmoidoscopy 2002 LUNG CANCER SCREENING - USE SMARTSET 79312 2007 Zoster Vaccines (1 of 2) 2007 [...] filedocumented as of this encounter Care Teams Corn Detasseler Relationship Specialty Start Date End Date Nitin Sarah PA-C [address] [place] [address] PCP - General Physician Certified Forklift Operator 02/01/23 documented as of this encounter
--- OUTSIDE RECORDS SUMMARY | 2023-08-26 09:15 | External Medical Summary ---
Author Name Unknown Address Unknown Organization K[facility] [place] [address] Laboratory Report Ordering Provider Test Date Status ADELE FANG 07/14/2023 11:02:22 Final Observation Date Value Abnormality Reference (Units ) Status WBC, Total 07/14/2023 11:02:22 7.09 4.00-10.8 0 (K/uL) Final RBC 07/14/2023 11:02:22 5.75 4.50-5.25 (M/uL) Final Hemoglobin 07/14/2023 11:02:22 17.1 Above high normal 1 4.0-16.8 (g/dL) Final HCT 07/14/2023 11:02:22 52.3 Above high normal 40 .0-48.4 (%) Final MCV 07/14/2023 11:02:22 91.0 82.0-99.5 (fL) Final MCH 07/14/2023 11:02:22 29.7 27.0-34.0 (pg) Final MCHC 07/14/2023 11:02:22 32.7 32.0-36.0 (g/dL) Final RDW 07/14/2023 11:02:22 17.2 11.5-15.5 (%) Final Platelets 07/14/2023 11:02:22 325 140-400 (K /uL) Final MPV 07/14/2023 11:02:22 9.8 6.6-11.1 ( fL) Final Performing Location [facility] [place] [address]
--- OUTSIDE RECORDS SUMMARY | 2023-08-26 09:15 | External Medical Summary | Summary of Care ---
Author Name Unknown Organization [facility] Address [address] [place] [address] Phone [phone] Care Team Providers Care Database Analyst Name Role Phone Nitin Sarah PA-C Primary Care Provider [phone]- [phone] Reason for Visit * Reason Comments Status Check Encounter Details Date Type Department Care Team (Late st Contact Info) Description 07/15/2023 7:00 AM [facility] Pharmacy Hepatology, [place] [address] [place], [place] [id number] [place], Pharmacist Hepatology [address], [place] [id number] Chronic hepatitis C without hepatic coma (HCC)*; Need for vaccination for viral hepatitis; Advanced hepatic fibrosis Allergies No known active allergiesdocumented as of [...] the morning. 30 Tablet 11 07/14/2023 Active documented as of this encounter (statuses [...] on file documented as of this encounter Progress Notes * Anuradha Chun, [facility] - 07/15/2023 8:33 AM EST MTM Hepatitis C Management Patient Name: Dylan Martell History of Current Illness: Dylan is a 68 year old male with chronic Hepatitis C, genotype 3, fibrosis unknown, last seen in the Gastroenterology clinic at [facility] on 07/14/2023. Per message from HO Ruth, the patient is to have EUS/liver biopsy to further assess fibrosis status. This is scheduled for 10/07/2023 and he has a return appointment scheduled in the clinic the following week. The patient has initiated the hepatitis B vaccination series; his next injection is scheduled for 08/16/2023 and the final will be arranged for ~01/12/2024. Vaccines ordered so they're available for future appointments. Of note, per PCP's office note dated 07/14/2023, "Sister present today who notes amnesia/delirium episodes getting more frequent and lasting longer." Will need to assure there's a method in place to confirm the patient is adherent to the medication regimen. Provider initiating work-up: HO Ruth Date of clinic appointment: 10/12/2023 @10:30 am Latest Reference Range & Units 02/01/23 15:53 03/15/23 12:06 03/17/23 10:19 03/24/23 14:09 Sodium 135 - 146 mmol/L 137 Potassium 3.5 - 5.1 mmol/L 4.8 Chloride 98 - 107 mmol/L 97 (L) CO2 22 - 32 mmol/L 27 BUN 6 - 20 mg/dL 19 Creatinine 0.6 - 1.2 mg/dL 1.1 Estimated Glomerular Filtration Rate >=60 mL/min 77 Anion Gap 7 - 15 mmol/L 13 Glucose 70 - 120 mg/dL 82 Calcium 8.4 - 10.2 mg/dL 10.4 (H) 10.1 Protein 6.0 - 8.3 g/dL 7.7 INR 0.8 - 1.2 1.0 Prothrombin Time 11.6 - 15.2 sec 13.0 WBC 4.00 - 10.80 K/uL 11.84 (H) 11.76 (H) HGB 14.0 - 16.8 g/dL 18.9 (H) 17.2 (H) HCT 40.0 - 48.4 % 57.6 (H) 51.1 (H) MCV 82.0 - 99.5 fL 98.5 93.2 PLT 140 - 400 K/uL 318 458 (H) Hepatitis A Antibodies IgG and IgM Negative Positive ! Hepatitis B Surface Antigen Negative Negative Hepatitis B Surface Antibody, Quantitative mIU/mL Negative <3.5 Hepatitis B Core Antibodies IgG and IgM Negative Negative HEPATITIS C GENOTYPE, PCR 3 HEPATITIS C RNA QUANTITATIVE 5,610,000 HIV Antigen & Antibody Negative Negative Albumin 3.8 - 5.0 g/dL 4.5 AST 10 - 50 U/L 181 (H) ALT 10 - 50 U/L 231 (H) Alkaline Phosphatase 35 - 130 U/L 31 (L) Bilirubin, Total <=1.2 mg/dL 0.9 ETHANOL,MEDICAL Negative Negative 03/17/2023 Urine Toxicology Ref Range & Units Amphetamine Negative Negative Benzodiazepines Negative Negative Cannabinoids Negative Positive Abnormal Cocaine Metabolite Negative Negative Fentanyl Negative Negative Hydrocodone / Hydromorphone Negative Negative Methadone Metabolite Negative Negative Morphine / Codeine Negative Negative Oxycodone / Oxymorphone Negative Negative FIB-4 score = FIB-4 Calculation: 2.5 at 04/10/2023 1:56 PM Calculated from: SGOT/AST: 181 U/L at 02/01/2023 3:53 PM SGPT/ALT: 231 U/L at 02/01/2023 3:53 PM Platelets: 310 K/uL at 04/10/2023 1:56 PM Age: 67 years Interpretation: Using a lower cutoff value of 1.45, a FIB-4 score <1.45 had a negative predictive value of 90% for advanced fibrosis (Sara fibrosis score 4-6 which includes early bridging fibrosis to cirrhosis).In contrast, a FIB-4 >3.25 would have a 97% specificity and a positive predictive value of 65% for advanced fibrosis. In the patient cohort in which this formula was first validated, at least 70% patients had values <1.45 or >3.25. 02/10/2023 US Abdomen: LIVER: Normal size and echogenicity. No mass. Smooth surface. SPLEEN: 9.5 cm. Normal size without mass. OTHER: No ascites. IMPRESSION Increased bilateral cortical renal echogenicity suggestive of medical renal disease. MTM Plan: Will follow-up after the patient is seen back in clinic. Vaccines ordered: hepatitis B series Anuradha Chun, JevonD, BCPS Clinical Pharmacist, Hepatology 07/15/2023 8:40 AM documented in this encounter Plan of Treatment Upcoming Encounters Date Type Department Care Team (Late st Contact Info) Description 08/16/2023 11:00 AM EST Nurse Only Ancillary [facility] [place] [address] [place] [address] Nurse, Int Med [address] [facility] [place] [address] 10/07/2023 8:30 AM EDT Procedure Only Endoscopy, [facility] [address] [place] [address] Mirela Aguayo, DO [address] [place], [place] [address] 10/07/2023 9:00 AM EDT Procedure Only Endoscopy, [facility] [address] [place] [address] Mirela Aguayo, DO [address] [place] [address] 10/12/2023 10:30 AM EDT Office Visit Gastroenterology, [facility] [address] [place], [place] [address] Clarissa Reyes CRNP [address] [place] [address] 10/13/2023 7:00 AM EDT Pharmacy Hepatology, [address] [address] [place], Pharmacist Hepatology [address] [place] [address], [place] [address] 10/18/2023 4:00 PM EDT Office Visit Neurology, [place] [address] [place] [address] Yue Libertadpablo Yary, [address] [place] [address] 11/12/2023 10:40 AM EDT Office Visit [facility] [address] [facility] [place] [address] Ngoc Briseno MD [address] [facility] [place] [address] Health Maintenance Due Date Last Done Comments DISCUSS TOBACCO CESSATION (R EFER TO SMARTSET #0711) 1957 COVID-19 Vaccine (#1) 01/06/1958 Pneumococcal Vaccine: 65+ Ye ars (1 - PCV) 1963 DTaP,Tdap,and Td Vaccines (1 - Tdap) 1976 Cologuard 2002 Colonoscopy 2002 Colorectal Cancer Screening 2002 Fecal Occult Blood Test 2002 Sigmoidoscopy 2002 LUNG CANCER SCREENING - USE SMARTSET 11384 2007 Zoster Vaccines (1 of 2) 2007 [...] as of this encounter Visit Diagnoses Diagnosis Chronic hepatitis C without hepatic coma (HCC)- Primary Chronic hepatitis C without mention of hepatic coma Need for vaccination for viral hepatitis Need for prophylactic vaccination and inoculation against viral hepatitis Advanced hepatic fibrosis documented in this encounter Care Teams Database Analyst Relationship Specialty Start Date End Date Nitin Sarah PA-C [address] [facility] [place] [address] PCP - General Physician Health And Safety Manager 02/01/23 documented as of this encounter
--- OUTSIDE RECORDS SUMMARY | 2023-08-26 09:15 | External Medical Summary | Summary of Care ---
Author Name Unknown Organization [facility] Address [address] [place] [address] Phone [phone] Care Team Providers Care Furnace Worker Name Role Phone Nitin Sarah PA-C Primary Care Provider +1- [phone] Reason for Visit * Reason Comments Follow Up 3 month. Patient sta megan nothing is better, continued HOFFMAN, dizziness, tremors. Encounter Details Date Type Department Care Team (Latest Contact Info) Description 07/14/2023 10:00 AM EST Office Visit General Internal Medicine [facility] [place] [facility] [address] Nitin Sarah PA-C [facility] [place] [address] Gastroesophageal reflux disease with esophagitis without hemorrhage*; Amnesia; Elevated hematocrit; Pulmonary emphysema, unspecified emphysema type (HCC); HTN, goal below 130/80; Chronic hepatitis C without hepatic coma (HCC); History of heroin use; Substance dependence (HCC) Allergies No known active allergiesdocumented as of this encounter (statuses as of 07/14/2023) Medications Medication Sig Dispensed Refills Start Date End Date Status amLODIPine Besylate 5 MG Oral Tablet (Norvasc)Indication s:HTN, goal below 130/80 Take 1 Tablet by mouth in the morning. 30 Tablet 03/17/2023 Active Levalbuterol Tartrate 45 MCG/ACT Inhalation Aerosol (Xopenex HFA)Indications:Pul monary emphysema, unspecified emphysema type (HCC) Inhale 1 Puff by mouth every 4 hours as needed for Wheezing. 15 g 03/17/2023 Active Zoster Vac Recomb Adjuvanted 50 MCG/0.5ML Intramuscular Suspension Reconstituted (Shingrix)Indicatio ns:Need for shingles vaccine Inject 0.5 mL into a large muscle now and repeat dose in 60 to 180 days 1 Each 1 04/16/2023 Active Buprenorphine HCl-Naloxone HCl 8-2 MG Sublingual Tablet Sublingual (Suboxone) Place under the tongue daily. 0 Active Famotidine 20 MG Oral Tablet (Pepcid)Indications :Gastroesophageal reflux disease with esophagitis without hemorrhage Take 1 Tablet by mouth in the morning. 30 Tablet 11 07/14/2023 Active Buprenorphine HCl-Naloxone HCl 8-[address] under the tongue daily. 0 4 Discontinued Reensgh-Zuhfdh-Qtvj l Pertussis 5-2.5-18.5 LF-MCG/0.5 Suspension Prefilled Syringe (Boostrix)Indicatio ns:Need for diphtheria-tetanus- pertussis (Tdap) vaccine Inject 0.5 mL into a large muscle once for 1 dose. As directed 0.5 mL 0 04/16/2023 4 Discontinued Testosterone Cypionate 200 MG/ML Injection Solution Inject 200 mg as directed once a week. 0 4 Discontinued documented as of this encounter (statuses as of 07/14/2023) Active Problems Problem Noted Date Diagnosed Date Substance dependence 03/17/2023 History of heroin use 03/17/2023 Amnesia 03/17/2023 Chronic hepatitis C without hepatic coma 023 HTN, goal below 130/80 03/17/2023 Pulmonary emphysema 03/17/2023 documented as of this encounter (statuses as of 07/14/2023) Resolved Problems Problem Noted Date Diagnosed Date Resolved Date Elevated hemoglobin 03/17/2023 03/17/20 23 documented as of this encounter (statuses as of 07/14/2023) Immunizations Name Administration Dates Next Due Hepatitis B, 20+ yrs 07/14/2023 Seasonal Influenza, PF, 6 M & above, IM , (FluLaval or Fluzone) 04/16/2023 documented as of this encounter Social History Tobacco Use Types Packs/Day Years Used Date Smoking Tobacco: Every Day Cigarettes 1 50 Started: 1972 Smokeless Tobacco: Never Tobacco Cessation:Ready to Q uit: Not Asked; Counseling Given: Not Answered Alcohol Use Standard Drinks/Week Comments No 0 [...] on file documented as of this encounter Last Filed Vital Signs Vital Sign Reading Time Taken Comments Blood Pressure 122/76 07/14/2023 10:01 AM EST Pulse 71 07/14/2023 10:01 AM EST Temperature 36 C (96.8 F) 07/14/2023 10:01 AM EST Respiratory Rate - - Oxygen Saturation 93% 07/14/2023 10:01 AM EST Inhaled Oxygen Concentration - - Weight 67 kg (147 lb 11.2 oz) 07/14/2023 10:01 A M EST Height 177 cm (5' 9.69") 07/14/2023 10:01 AM EST Body Mass Index 21.38 07/14/2023 10:01 AM EST documented in this encounter Progress Notes * Nitin Sarah PA-C - 07/14/2023 9:52 AM EST Subjective: Dylan Martell is a 68 year old male. Chief Complaint Patient presents with Follow Up 3 month. Patient states nothing is better, continued HOFFMAN, dizziness, tremors. HPI: 68 y/o male with HTN. Pulmonary emphysema, HCV, substance dependence seen today for follow up.Continue with mentation changes and amnesia episodes. Still using Suboxone. Has stopped testosterone per his report. Now seeing [facility]. Sister present today who notes amnesia/delirium episodes getting more frequent and lasting longer. Having heartburn 2-3 times per week with spicy foods. Using sister's PPI. Does not help if already has the heartburn. No dysphagia. PMH: Patient Active Problem List Diagnosis Code Substance dependence (HCC) F19.20 History of heroin use F11.91 Amnesia R41.3 Chronic hepatitis C without hepatic coma (HCC) B18.2 HTN, goal below 130/80 I10 Pulmonary emphysema (HCC) J43.9 Current Outpatient Medications Medication Sig Dispense Refill amLODIPine Besylate 5 MG Oral Tablet (Norvasc) Take 1 Tablet by mouth in the morning. 30 Tablet 12 Levalbuterol Tartrate 45 MCG/ACT Inhalation Aerosol (Xopenex HFA) Inhale 1 Puff by mouth every 4 hours as needed for Wheezing. 15 g 12 Zoster Vac Recomb Adjuvanted 50 MCG/0.5ML Intramuscular Suspension Reconstituted (Shingrix) Inject 0.5 mL into a large muscle now and repeat dose in 60 to 180 days 1 Each 1 Buprenorphine HCl-Naloxone HCl 8-2 MG Sublingual Tablet Sublingual (Suboxone) Place under the tongue daily. Famotidine 20 MG Oral Tablet (Pepcid) Take 1 Tablet by mouth in the morning. 30 Tablet 11 No current facility-administered medications for this visit. Review of patient's allergies indicates: No Known Allergies All other review of systems reviewed and negative other than mentioned in HPI. Objective: BP 122/76 | Pulse 71 | Temp 36 C (96.8 F) | Ht 1.77 m (5' 9.69") | Wt 67 kg (147 lb 11.2 oz) | SpO2 93% | BMI 21.38 kg/m | BSA 1.81 m Results for orders placed or performed in visit on 04/16/23 CRP (INFLAMMATORY MARKER) Result Value Ref Range CRP (Inflammatory Marker) <3 <=5 mg/L ERYTHROPOIETIN (EPO) Result Value Ref Range Erythropoietin (EPO) 13.3 2.6 - 18.5 mIU/mL TESTOSTERONE: TOTAL, FREE AND BIOAVAILABLE Result Value Ref Range Albumin 4.2 3.8 - 5.0 g/dL Sex Hormone Binding Globulin 11 (L) 12 - 91 nmol/L Testosterone, Total >1,500.0 (H) 193.0 - 740.0 ng/dL Free Testosterone Uninterpretable Result Bioavailable Testosterone Uninterpretable Result ALBUMIN / CREATININE RATIO, URINE Result Value Ref Range Albumin, Random Urine 1.98 mg/dL Creatinine, Random Urine 134 mg/dL Albumin / Creatinine Ratio, Urine 15 <30 mg/g Creat Physical Exam Constitutional: General: He is not in acute distress. Appearance: Normal appearance. He is normal weight. He is not ill-appearing or toxic-appearing. HENT: Head: Normocephalic and atraumatic. Eyes: General: No scleral icterus. Extraocular Movements: Extraocular movements intact. Conjunctiva/sclera: Conjunctivae normal. Pupils: Pupils are equal, round, and reactive to light. Cardiovascular: Rate and Rhythm: Normal rate and regular rhythm. Heart sounds: Normal heart sounds. No murmur heard. No friction rub. No gallop. Pulmonary: Effort: Pulmonary effort is normal. Breath sounds: Normal breath sounds. No wheezing, rhonchi or rales. Abdominal: General: Bowel sounds are normal. There is no distension. Palpations: Abdomen is soft. There is no mass. Tenderness: There is no abdominal tenderness. There is no guarding or rebound. Neurological: General: No focal deficit present. Mental Status: He is alert. Cranial Nerves: No cranial nerve deficit. Motor: No weakness. Gait: Gait normal. Deep Tendon Reflexes: Reflexes normal. Psychiatric: Mood and Affect: Mood normal. ASSESSMENT: Gastroesophageal reflux disease with esophagitis without hemorrhage (Primary) - Famotidine 20 MG Oral Tablet (Pepcid); Take 1 Tablet by mouth in the morning. Amnesia - AMMONIA; Future; Expected date: 07/14/2023 Episodes more consistent with delirum. Ammonia level not specific and could elevate with suboxone, Hep C. If negative, is more occlusive that episodes are note related to those processes. Seemed to start after previous head injury. Has upcoming neurology evaluation. Elevated hematocrit - CBC; Future; Expected date: 07/14/2023 Secondary to exogenous testosterone which he has stopped. Will repeat CBC if trending down. Pulmonary emphysema, unspecified emphysema type (HCC) Xopenex prn HTN, goal below 130/80 Controlled. Continue norvasc. Chronic hepatitis C without hepatic coma (HCC) - HEP B VACCINE, 20+ YRS (3-DOSE) Seeing GI. Plan for liver biopsy. Agreeable to hep B series since he is not immune. History of heroin use As below. Substance dependence (HCC) Seeing [facility]. Follow-up: Return in 4 months (on 11/12/2023), or if symptoms worsen or fail to improve. | Check-outnote: Dr. Briseno 1 month and 6 months nurse visits for Hep B vaccine Nitin Sarah PA-C documented in this encounter Plan of Treatment Upcoming Encounters Date Type Department Care Team (Late st Contact Info) Description 07/15/2023 7:00 AM EST Pharmacy Hepatology, [place] [address] [place] [address] [place], Pharmacist Hepatology [address] [place] [address] 08/16/2023 11:00 AM EST Nurse Only Ancillary [facility] [place] [address] [place] [address] Nurse, Int Med [address] [place] [address] 10/07/2023 8:30 AM EDT Procedure Only Endoscopy, [facility] [address] [place], [place] [address] Mirela Aguayo, DO [address] [place], [place] [address] 10/07/2023 9:00 AM EDT [facility] [address] [place] [address] Mirela Aguayo, DO [address] [place] [address] 10/12/2023 10:30 AM EDT Office Visit Gastroenterology, [facility] [address] [place] [address] Clarissa Reyes CRNP [address] [place] [address] 10/18/2023 4:00 PM EDT Office Visit Neurology, [place] [address] [place] [address] Anny Turner DO [address] [place] [address] 11/12/2023 10:40 AM EDT Office Visit Family Practice [facility] [address] [facility] [place] [address] Ngoc Briseno MD 200 [facility] [place], [place] [address] Pending Results Name Type Priority Associated Diagnoses Date /Time AMMONIA Lab Routine Amnesia 07/14/2023 11:02 AM EST Scheduled Orders Name Type Priority Associated Diagnoses Orde r Schedule AMMONIA Lab Routine Amnesia Expected: 07/14/2023 (Approximate), Expires: 07/14/2024 Health Maintenance Due Date Last Done Comments DISCUSS TOBACCO CESSATION (R EFER TO SMARTSET #5441) 1957 COVID-19 Vaccine (#1) 01/06/1958 Pneumococcal Vaccine: 65+ Ye ars (1 - PCV) 1963 DTaP,Tdap,and Td Vaccines (1 - Tdap) 1976 Cologuard 2002 Colonoscopy 2002 Colorectal Cancer Screening 2002 Fecal Occult Blood Test 2002 Sigmoidoscopy 2002 LUNG CANCER SCREENING - USE SMARTSET 61479 2007 Zoster Vaccines (1 of 2) 2007 [...] Not on filedocumented as of this encounter Results * (ABNORMAL) CBC (07/14/2023 11:02 AM EST) WBC 7.09 4.00 - 10.80 K/uL 07/14/2023 11:20 AM [facility] 56- RBC 5.75 4.50 - 5.25 M/uL 07/14/2023 11:20 AM [facility] 56-02 HGB 17.1(H) 14.0 - 16.8 g/dL 07/14/2023 11:20 AM [facility] 56- HCT 52.3(H) 40.0 - 48.4 % 07/14/2023 11:20 AM [facility] 56- MCV 91.0 82.0 - 99.5 fL 07/14/2023 11:20 AM [facility] 56-02 MCH 29.7 27.0 - 34.0 pg 07/14/2023 11:20 AM [facility] 56-02 MCHC 32.7 32.0 - 36.0 g/dL 07/14/2023 11:20 AM [facility] 56-02 RDW 17.2 11.5 - 15.5 % 07/14/2023 11:20 AM [facility] 56-02 PLT 325 140 - 400 K/uL 07/14/2023 11:20 AM [facility] 56-02 MPV 9.8 6.6 - 11.1 fL 07/14/2023 11:20 AM [facility] 56-02 Blood Venous blood specimen / Unknown Venipuncture / Unknown 07/14/2023 11:02 AM EST 07/14/2023 11:02 AM EST Nitin Sarah PA-C LAB BLOOD ORDERABL ES [facility] 56-02 [facility] [address] documented in this encounter Visit Diagnoses Diagnosis Gastroesophageal reflux disease with esophagitis without hemorrhage- Primary Amnesia Memory loss Elevated hematocrit Other hemoglobinopathies Pulmonary emphysema, unspecified emphysema type (HCC) HTN, goal below 130/80 Unspecified essential hypertension Chronic hepatitis C without hepatic coma (HCC) Chronic hepatitis C without mention of hepatic coma History of heroin use Substance dependence (HCC) Unspecified drug dependence, unspecified documented in this encounter Care Teams Furnace Worker Relationship Specialty Start Date End Date Nitin Sarah PA-C [address] [facility] [address] PCP - General Physician Project Finance Analyst 02/01/23 documented as of this encounter
--- OUTSIDE RECORDS SUMMARY | 2023-08-26 09:15 | External Medical Summary | Summary of Care ---
Author Name Unknown Organization [facility] Address [address] [place] [address] Phone [phone] Care Team Providers Care Hospital Cleaner Name Role Phone Nitin Sarah PA-C Primary Care Provider +1- [phone] Reason for Visit * Reason Comments NEW PATIENT Chronic hepatitis C * Evaluate & Treat - Unlimited Visits (Within 10 days (routine)) - Authorized Specialty Diagnoses / Procedures Referred By Shaji becerril Referred To Contact Gastroenterology Diagnoses Chronic hepatitis C without hepatic coma (HCC) Nitin Sarah PA-C [address] [place] [address] Referral ID Status Reason Start Date Expiration Date Visits Requested Visits Authorized [id number] Authorized Specialty Services Required 03/16/2023 [id number] Encounter Details Date Type Department Care Team (Late st Contact Info) Description 07/14/2023 8:00 AM EST Office Visit [facility], [facility] [address] Clarissa Reyes CRNP [address] [place] [address] Chronic hepatitis C without hepatic coma (HCC)*; Advanced hepatic fibrosis Allergies No known active allergiesdocumented as of this encounter (statuses as of 07/14/2023) Medications Medication Sig Dispensed Refills Start Date End Date Status Buprenorphine HCl-Naloxone HCl 8-[address] under the tongue daily. 0 Active amLODIPine Besylate 5 MG Oral Tablet (Norvasc)Indications:H TN, goal below 130/80 Take 1 Tablet by mouth in the morning. 30 Tablet 12 03/17/2023 Active Levalbuterol Tartrate 45 MCG/ACT Inhalation Aerosol (Xopenex HFA)Indications:Pulmon nohemi emphysema, unspecified emphysema type (HCC) Inhale 1 Puff by mouth every 4 hours as needed for Wheezing. 15 g 12 03/17/2023 Active Zoster Vac Recomb Adjuvanted 50 MCG/0.5ML Intramuscular Suspension Reconstituted (Shingrix)Indications: Need for shingles vaccine Inject 0.5 mL into a large muscle now and repeat dose in 60 to 180 days 1 Each 1 04/16/2023 Active Testosterone Cypionate 200 MG/ML Injection Solution Inject 200 mg as directed once a week. 0 Active documented as of this encounter (statuses [...] 07/14/2023) Immunizations Name Administration Dates Next Due Seasonal Influenza, PF, 6 M & above, [...] Sign Reading Time Taken Comments Blood Pressure 132/80 07/14/2023 8:04 AM EST Pulse 64 07/14/2023 8:04 AM EST Temperature 36.6 C (97.9 F) 07/14/2023 8:04 AM ES T Respiratory Rate - - Oxygen Saturation 97% 07/14/2023 8:04 AM EST Inhaled Oxygen Concentration - - Weight 67 kg (147 lb 12.8 oz) 07/14/2023 8:04 AM EST Height 177 cm (5' 9.69") 07/14/2023 8:04 AM EST Body Mass Index 21.4 07/14/2023 8:04 AM EST documented in this encounter Progress Notes * Clarissa Reyes CRNP - 07/14/2023 8:15 AM EST Images from the original note were not included. Liver Clinic Note [facility] [place] [facility], [address] [place] [address] Date of Appointment: 07/14/2023 Name: Dylan Martell Date of : 1955 Primary Care Provider: Nitin Sarah PA-C Chief Complaint: Hepatitis C History of Current Illness: Dylan Martell is a 68 year old male here for evaluation and management of Chronic Hepatitis C. The patient has medical history as listed below. The diagnosis of hepatitis C was made in about 30 yrs ago The patient has history of the following risk of yani Hepatitis C: history of injection druguser. Symptoms of Hepatitis C: The patient has Has balance and memory issues since a concussion a year ago but none of the above symptoms are present that are thought to be from the HCV. Hepatitis C Treatment History: Treatment Vera Co-Infections: None HCV Genotype: 3 Fibrosis Staging: unknown Fib 4 score is 1.45 Last Viral Load : tested in Mar 2023: HCV RNA Result <=0 IU/mL 5,610,000 High HCV LOG Result <=0.00 log IU/mL 6.75 High . Social History related to Hepatitis C Management: Drug use: Illicit/recreational drug use: history of previous use; last use:2012 IV injection of heroin Patient has a history of illicit/recreational drug use. Patient was made aware of the risks of druguse on the liver. Encouraged continued abstinence. Patient was offered a referral to a substance abuse treatment program. Alcohol use: No history of alcohol use Other: no psych hx but memory issues w concussion in 2021. On suboxone. Review of Systems: Constitutional: (-) none Eyes: (+) decreased vision and (+) gets blurred vision since the concussion ENT: (-) negative: no acute hearing loss, sinus, ear or throat problems Cardiovascular: (-) negative: no chest pain, dyspnea, palpitations, or syncope Pulmonary: (+) cough and (+) SOB if doing really aggressive exercise - has an inhalers; hx of copd GI: as per HPI, otherwise negative, (+) hematochezia, and (-) otherwise negative has hemorrhoids. No hx of colonoscopy - will consider when we have completed the HCV tx. Musculoskeletal: (-) negative: no joint swelling or tenderness Endocrine: (-) negative: no weight change, heat or cold intolerance, polyuria Hem/Onc: (-) negative: no night sweats, masses, or swollen nodes Skin: (-) negative: no rash or jaundice Neuro: (+) confusion, (+) loss of balance, (+) tremor, and (+) Has had periods of time that he has memory issues, then after having several episodes of this, he "snaps out of it" and is back to normal w/o any confusion. He follows w the sports med concussion specialist. No past medical history on file. No past surgical history on file. Social History Tobacco Use Smoking status: Every Day Packs/day: 1.00 Years: 50.00 Additional pack years: 0.00 Total pack years: 50.00 Types: Cigarettes Start date: 1972 Smokeless tobacco: Never Substance Use Topics Alcohol use: No Drug use: Yes Comment: [place] Family History Problem Relation Age of Onset Transient ischemic attack Mother Heart Disorder Father heart failure Cancer Father lung Gastro-intestinal disorder Sister GERD Hypertension Sister Cancer Brother Colon Lung Disorder Brother COPD Other (alpha-1 antitrypsin deficiency) Brother Current Outpatient Medications Medication Sig Dispense Refill Buprenorphine HCl-Naloxone HCl 8-[address] under the tongue daily. amLODIPine Besylate 5 MG Oral Tablet (Norvasc) Take 1 Tablet by mouth in the morning. 30 Tablet 12 Zoster Vac Recomb Adjuvanted 50 MCG/0.5ML Intramuscular Suspension Reconstituted (Shingrix) Inject 0.5 mL into a large muscle now and repeat dose in 60 to 180 days 1 Each 1 Levalbuterol Tartrate 45 MCG/ACT Inhalation Aerosol (Xopenex HFA) Inhale 1 Puff by mouth every 4 hours as needed for Wheezing. 15 g 12 Testosterone Cypionate 200 MG/ML Injection Solution Inject 200 mg as directed once a week. (Patientnot taking: Reported on 07/14/2023) No current facility-administered medications for this visit. Review of patient's allergies indicates: No Known Allergies Physical Exam: BP 132/80 (BP Site: Left Arm, BP Position: Sitting, BP Cuff Size: Regular) | Pulse 64 | Temp 36.6 C (97.9 F) (Tympanic) | Ht 1.77 m (5' 9.69") | Wt 67 kg (147 lb 12.8 oz) | SpO2 97% | BMI 21.40 kg/m | BSA 1.81 m Constitutional: normal: well nourished, well developed, no acute distress HEENT: normal: normocephalic, atraumatic; no masses, tenderness, or adenopathy Neck: supple, normal range of motion CV: normal rate and rhythm, no murmur, gallops or rub Chest: normal respiratory effort Abdomen: normal: soft, bowel sounds normal, no masses, tenderness or appreciable ascites Musculoskeletal: (-) no joint effusions or tenderness Extremities: no clubbing, cyanosis, or edema Lymph Nodes: no adenopathy Skin: warm and dry, no rashes Neuro: alert, oriented to person, place, and time, (+) tremor minor, hands; thoughts seem slightly scattered but overall logical. Psych: normal mood and affect, nonsuicidal, judgement normal, (+) mild memory impairment - possibly- not obvious during exam. Recent Labs: Hb 17.2, Hct 51, Plts 458, AST 181, ALT 231, ALk Phos 31, T Bili 0.9, ETOH (-), INR 1.0 Recent Imaging Studies: Liver US normal Assessment: 68 year old male with Chronic Hepatitis C: Genotype 3. Fibrosis Staging: Fib 4 score is 1.69 . Cirrhosis: without cirrhosis. Treatment: vera. No diagnosis found. Plan: We discussed about the natural history of the disease, prognosis and treatment options today at length. We may need to rule out other causes of liver disease such as autoimmune hepatitis before proceeding with treatment. Patient is to avoid liver toxins. The patient may take Acetaminophen 2 grams a day. Avoid NSAIDs. Avoid alcoholic drinks. Avoid sharing toothbrushes, razors, etc. Reviewed modes of Hepatitis C transmission. Hepatitis A immunity status: has documented immunity Hepatitis B immunity status: never received vaccinations, will need the three dose series. Told to make appt w PCP for HBV vaccine series. Orders today include: Chronic hepatitis C without hepatic coma (HCC) (Primary) Because Fib 4 score is not low (though also not high), I suggest EGD/EUS. Fibroscan not ordered instead because he doesn't have transportation to [place] and because it is less accurate in the caseof advanced fibrosis or cirrhosis. Advanced hepatic fibrosis (possibly). - EGD, W/ENDOSCOPIC US. - EGD, W/ENDOSCOPIC US With regards to treatment, we discussed about Standard of Care. I have explained all options available using current FDA approved treatment regimens including Sovaldi, Olysio, Harvoni, Technivie, Daklinza, Viekira, Epclusa, Vosevi, Mavyret, and Zepatier with/without the use of Ribavirin. Plan to treat with: Treatment to be determined. Patient is aware of the side effects pertaining to Hepatitis C Medication therapy with or without Ribavirin; including interactions with [place]'s Wort, and Milk Thistle. I explained to the patient that if it is determined that the patient is going to initiate HepatitisC treatment, the prescriptions will go through insurance pre- authorization. If approved, the prescriptions will be processed through a specialty mail order pharmacy and will be sent directly to the patient's house. Patient should NOT start taking the medication until receiving instructions from oneof our clinic nurses. This way proper follow up care can be arranged. Compliance to the medication regimen, follow up lab tests and clinic visits was stressed. Without strict compliance, the treatment will likely fail. I would like to thank Nitin Sarah PA-C for this referral. Return in 2-3 months. I spent a total of 60 minutes on the date of service in review of patient's record, and previously obtained information in person and appropriate medical visit, discussion and education of plan, withpatient and/or caregiver, placing orders for tests/referral/procedures as medically necessary and documentation of pertinent clinical information in patient's medical records for their visit today. HO Benitez documented in this encounter Nursing Notes * Mak Martinez CMA - 07/14/2023 8:04 AM EST Chief Complaint Patient presents with NEW PATIENT Chronic hepatitis C Dylan Martell is a 68 year old male who presents today for chronic hepatitis C. He was referred by his PCP. He denies any symptoms. documented in this encounter Plan of Treatment Upcoming Encounters Date Type Department Care Team (Late st Contact Info) Description 07/14/2023 10:00 AM EST Office Visit General Internal Medicine [facility] [address] [facility] [place], [place] [address] Nitin Sarah PA-C [address] [facility] [place] [address] 07/15/2023 7:00 AM EST Pharmacy Hepatology, [place] [address] [place] [address] [place], Pharmacist Hepatology [address] [place] [facility] [place] [address] 10/07/2023 8:30 AM EDT [facility] [address] [place] [address] Mirela Aguayo DO [address] [place] [address] 10/07/2023 9:00 AM EDT Procedure Only Endoscopy, [facility] [address] [place] [address] Mirela Aguayo DO [address] [place] [address] 10/12/2023 10:30 AM EDT Office Visit Gastroenterology, [facility] [address] [place] [address] Clarissa Reyes CRNP [address] [place] [address] 10/18/2023 4:00 PM EDT Office Visit Neurology, [place] [address] [place] [address] Anny Turner, [address] [place] [address] Scheduled Orders Name Type Priority Associated Diagnoses Orde r Schedule EGD, W/ENDOSCOPIC US Procedures Routine Chronic hepatitis C without hepatic coma (HCC) Advanced hepatic fibrosis Ordered: 07/14/2023 Health Maintenance Due Date Last Done Comments DISCUSS TOBACCO CESSATION (R GRAYSONER TO SMARTSET #3328) 1955 COVID-19 Vaccine (#1) 01/06/1958 Pneumococcal Vaccine: 65+ Ye ars (1 - PCV) 1963 DTaP,Tdap,and Td Vaccines (1 - Tdap) 1976 Cologuard 2002 Colonoscopy 2002 Colorectal Cancer Screening 2002 Fecal Occult Blood Test 2002 Sigmoidoscopy 2002 LUNG CANCER SCREENING - USE SMARTSET 46359 2007 Zoster Vaccines (1 of 2) 2007 *COPD SEVERITY VERIFIED BY PFT 03/31/2023 *CXR OR CT FOR COPD EVER 03/31/2023 GFR 02/02/2024 02/01/2023 Depression Screening 07/12/2024 07/12/2023 O2 ASSESSMENT COMPLETED IN P AST YEAR FOR COPD 07/14/2024 07/14/2023 Albumin/Creatinine Ratio 04/16/2026 04/16/2023 Lipid Panel 02/02/2028 02/01/2023 AAA Screening Completed 02/10/2023 Alpha-1 Antitrypsin Completed 03/15/2023 Influenza Vaccine (FLU shot) Completed 04/16/2023 GARDASIL-HPV IMMUNIZATION SERIES Aged Out No longer eligible based on patient's age to complete this topic Hepatitis B Aged Out No longer eligi ble based on patient's age to complete this topic MENINGOCOCCAL (MENACTRA/MENVEO) Aged Out No longer eligible based on patient's age to complete this topic documented as of this encounter Medical Devices Not on filedocumented as of this encounter Visit Diagnoses Diagnosis Chronic hepatitis C without hepatic coma (HCC)- Primary Chronic hepatitis C without mention of hepatic coma Advanced hepatic fibrosis documented in this encounter Care Teams Hospital Cleaner Relationship Specialty Start Date End Date Nitin Sarah PA-C [address] [place] [address] PCP - General Physician Risk Management Specialist 02/01/23 documented as of this encounter
--- OUTSIDE RECORDS SUMMARY | 2023-08-26 09:15 | External Medical Summary | Summary of Care ---
Author Name Unknown Organization [facility] Address [address] [place] [address] Phone [phone] Care Team Providers Care Graduate Teacher Education Name Role Phone Nitin Sarah PA-C Primary Care Provider +1- [phone] Reason for Visit * Reason Comments Follow Up 3 month. Patient sta megan nothing is better, continued HOFFMAN, dizziness, tremors. Encounter Details Date Type Department Care Team (Latest Contact Info) Description 07/14/2023 10:00 AM EST Office Visit General Internal Medicine [facility] [place] [facility] [address] Nitin Sarah PA-C [facility] [place] [address] Gastroesophageal reflux disease with esophagitis without hemorrhage*; [...] under the tongue daily. 0 4 Discontinued Epdamqc-Jaflvl-Njwe l Pertussis 5-2.5-18.5 LF-MCG/0.5 Suspension Prefilled Syringe [...] previous head injury. Has upcoming neurology evaluation. Did reach out to hepatology. If ammonia elevated, they do not suspect related to hepatic encephalopathy. Elevated hematocrit - CBC; Future; Expected date: [...] use As below. Substance dependence (HCC) Seeing [facility]. Follow-up: Return in 4 months (on 11/12/2023), or if symptoms worsen or fail to improve. | Check-outnote: Dr. Briseno 1 month and 6 months nurse visits for Hep B vaccine Nitin Sarah PA-C documented in this encounter Plan of Treatment Upcoming Encounters Date Type Department Care Team (Late st Contact Info) Description 07/15/2023 7:00 AM EST Pharmacy Hepatology, [place] [address] [place] [address] [place], Pharmacist Hepatology [address] [place] [address] 08/16/2023 11:00 AM EST Nurse Only Ancillary [facility] [address] [place] [address] Nurse, Int Med 200 [facility] [place] [address] 10/07/2023 8:30 AM EDT Procedure Only Endoscopy, [facility] [address] [place], [place] [address] Mirela Aguayo, DO [address] [place] [address] 10/07/2023 9:00 AM EDT Procedure Only Endoscopy, [facility] [address] [place] [address] Mirela Aguayo, DO [address] [place], [place] [address] 10/12/2023 10:30 AM EDT Office Visit Gastroenterology, [facility] [address] [place] [address] Clarissa Reyes CRNP [address] [place] [address] 10/18/2023 4:00 PM EDT Office Visit Neurology, [place] [address] [place] [facility] [place] [address] Yue Libertadpablo YaryDO [address] [facility] [place], [place] [address] 11/12/2023 10:40 AM EDT Office Visit [facility] [address] [facility] [place], [place] [address] Ngoc Briseno MD 200 [facility] [place] [address] Pending Results Name Type Priority Associated Diagnoses Date /Time AMMONIA Lab Routine Amnesia 07/14/2023 11:02 AM EST Scheduled Orders Name Type Priority Associated Diagnoses Orde r Schedule AMMONIA Lab Routine Amnesia Expected: 07/14/2023 (Approximate), Expires: 07/14/2024 Health Maintenance Due Date Last Done Comments DISCUSS TOBACCO CESSATION (R EFER TO SMARTSET #0809) 1955 COVID-19 Vaccine (#1) 01/06/1958 Pneumococcal Vaccine: 65+ Ye ars (1 - PCV) 1963 DTaP,Tdap,and Td Vaccines (1 - Tdap) 1976 Cologuard 2002 Colonoscopy 2002 Colorectal Cancer Screening 2002 Fecal Occult Blood Test 2002 Sigmoidoscopy 2002 LUNG CANCER SCREENING - USE SMARTSET 88850 2007 Zoster Vaccines (1 of 2) 2007 [...] 4.00 - 10.80 K/uL 07/14/2023 11:20 AM [facility] 56-02 RBC 5.75 4.50 - 5.25 M/uL 07/14/2023 11:20 AM [facility] 56-02 HGB 17.1(H) 14.0 - 16.8 g/dL 07/14/2023 11:20 AM [facility] 56-02 HCT 52.3(H) 40.0 - 48.4 % 07/14/2023 11:20 AM [facility] 56-02 MCV 91.0 82.0 - 99.5 fL 07/14/2023 11:20 AM [facility] 56-02 MCH 29.7 27.0 - 34.0 pg 07/14/2023 11:20 AM [facility] 56-02 MCHC 32.7 32.0 - 36.0 g/dL 07/14/2023 11:20 AM [facility] 56-02 RDW 17.2 11.5 - 15.5 % 07/14/2023 11:20 AM [facility] 56-02 PLT 325 140 - 400 K/uL 07/14/2023 11:20 AM [facility] 56-02 MPV 9.8 6.6 - 11.1 fL 07/14/2023 11:20 AM [facility] 56-02 Blood Venous blood specimen / Unknown Venipuncture / Unknown 07/14/2023 11:02 AM EST 07/14/2023 11:02 AM EST Nitin Sarah PA-C LAB BLOOD ORDERABL ES [facility] [address] documented in this encounter Visit Diagnoses Diagnosis [...] unspecified documented in this encounter Care Teams Graduate Teacher Education Relationship Specialty Start Date End Date Nitin Sarah PA-C [facility] [address] PCP - General Physician Drum Builder 02/01/23 documented as of this encounter
--- OUTSIDE RECORDS SUMMARY | 2023-08-26 09:15 | External Medical Summary ---
Author Name Unknown Address Unknown Organization [id number]:[facility] [place] [address] [place] [address] Laboratory Report Ordering Provider Test Date Status ADELE FANG 07/14/2023 11:02:22 Final Observation Date Value Abnormality Reference (Units ) Status Ammonia 07/14/2023 11:02:22 33 11-35 (umo l/L) Final Performing Location [facility] [place] [address] [place] [address]
--- OUTSIDE RECORDS SUMMARY | 2023-08-26 09:15 | External Medical Summary ---
Author Name Unknown Address Unknown Organization [id number]:[facility] [place] - [address] [facility] [address] Laboratory Report Ordering Provider Test Date Status ADELE FANG 07/14/2023 11:02:22 Final Observation Date Value Abnormality Reference (Units ) Status TSH 07/14/2023 11:02:22 7.85 Above high normal 0. 27-4.20 (uIU/mL) Final Performing Location [facility] [place] - [address] [place] [address]
--- OUTSIDE RECORDS SUMMARY | 2023-08-26 09:15 | External Medical Summary | Summary of Care ---
Author Name Unknown Organization [facility] Address [address] [facility] [place] [address] Phone [phone] Care Team Providers Care Caterpillar Mechanic Name Role Phone Nitin Sarah PA-C Primary Care Provider +1- [phone] Reason for Visit * Reason Comments Outpatient Testing Encounter Details Date Type Department Care Team (Late st Contact Info) Description 07/14/2023 11:10 AM EST Laboratory Laboratory [facility] [address] [place] [id number] [facility] [address] [place] [address] Subclinical hypothyroidism; Amnesia; Elevated hematocrit Allergies No known active allergiesdocumented as of [...] Description 07/15/2023 7:00 AM EST Pharmacy Hepatology, [place] [address] [place] [facility] [place] [place] [address] [place], Pharmacist Hepatology [address] [place] [facility] [place] [address] 08/16/2023 11:00 AM EST Nurse Only Ancillary [facility] [address] [place], [place] [address] Nurse, Int Med 200 [facility] [place] [address] 10/07/2023 8:30 AM EDT Procedure Only Endoscopy, [facility] [address] [place] [address] Mirela Aguayo, DO [address] [place] [address] 10/07/2023 9:00 AM EDT Procedure Only Endoscopy, [facility] [address] [place] [address] Mirela Aguayo, DO [address] [place] [address] 10/12/2023 10:30 AM EDT Office Visit Gastroenterology, [facility] [address] [place] [address] Clarissa Reyes CRNP [address] [place] [address] 10/18/2023 4:00 PM EDT Office Visit Neurology, [place] [address] [place] [facility] [place] [phone] Anny Turner, DO [address] [facility] [place] [address] 11/12/2023 10:40 AM EDT Office Visit Family Practice [facility] [address] [place] [address] Ngoc Briseno MD [address] [place] [address] Pending Results Name Type Priority Associated Diagnoses Date /Time TSH WITH FREE T4 IF INDICATED Lab Routine Subclinical hypothyroidism 07/14/2023 11:02 AM EST AMMONIA Lab Routine Amnesia 07/14/2023 11:02 AM EST CBC Lab Routine Elevated hematocrit 07/14/2023 11:02 AM EST Health Maintenance Due Date Last Done Comments DISCUSS TOBACCO CESSATION (R EFER TO SMARTSET #3291) 1955 COVID-19 Vaccine (#1) 01/06/1958 Pneumococcal Vaccine: 65+ Ye ars (1 - PCV) 1963 DTaP,Tdap,and Td Vaccines (1 - Tdap) 1976 Cologuard 2002 Colonoscopy 2002 Colorectal Cancer Screening 2002 Fecal Occult Blood Test 2002 Sigmoidoscopy 2002 LUNG CANCER SCREENING - USE SMARTSET 37285 2007 Zoster Vaccines (1 of 2) 2007 [...] of this encounter Visit Diagnoses Diagnosis Subclinical hypothyroidism Other specified acquired hypothyroidism Amnesia Memory loss Elevated hematocrit Other hemoglobinopathies documented in this encounter Care Teams Caterpillar Mechanic Relationship Specialty Start Date End Date Nitin Sarah PA-C [address] [facility] [place], [place] [address] PCP - General Physician Lye Machine Operator 02/01/23 documented as of this encounter
--- OUTSIDE RECORDS SUMMARY | 2023-08-26 09:15 | External Medical Summary ---
Author Name Unknown Address Unknown Organization K01:[facility] - [address] [place] [address] Laboratory Report Ordering Provider Test Date Status ADELE FANG 07/14/2023 11:02:22 Final Observation Date Value Abnormality Reference (Units ) Status T4, Free 07/14/2023 11:02:22 1.1 0.9-1.7 (n g/dL) Final Performing Location [facility] - [address] [place] [address]
--- OUTSIDE RECORDS SUMMARY | 2023-08-26 09:16 | External Medical Summary | Summary of Care ---
Author Name Unknown Organization [facility] Address [address] [place] [address] Phone [phone] Care Team Providers Care Research Contracts Supervisor Name Role Phone Nitin Sarah PA-C Primary Care Provider +1- [phone] Reason for Visit * Reason Onset Date Comments Test Results 04/21/2023 Encounter Details Date Type Department Care Team Description 04/21/2023 Telephone General Internal Medicine [facility] [address] [facility] [place] [address] Nitin Sarah PA-C 200 [facility] [place] [address] Test Results Allergies No known active allergiesdocumented as of this encounter (statuses as of 04/21/2023) Medications Medication Sig Dispensed Refills Start Date [...] as of this encounter (statuses as of 04/21/2023) Active Problems Problem Noted Date Substance dependence 03/17/2023 History of heroin use 03/17/2023 Amnesia 03/17/2023 Chronic hepatitis C without hepatic coma 03/17/2023 HTN, goal below 130/80 03/17/2023 Pulmonary emphysema 03/17/2023 documented as of this encounter (statuses as of 04/21/2023) Resolved Problems Problem Noted Date Resolved Date Elevated hemoglobin 03/17/2023 03/17/2023 documented as of this encounter (statuses as of 04/21/2023) Immunizations Name Administration Dates Next Due SEASONAL INFLUENZA, PF, 6 M & Above, IM , (FLULAVAL or FLUZONE) 04/16/2023 documented as of this encounter Social History Tobacco Use Types Packs/Day Years Used Date Smoking Tobacco: Every Day Cigarettes 1 50 Started: 1972 Smokeless Tobacco: Never Alcohol Use Standard Drinks/Week Comments No 0 (1 standard drink = 0.6 oz pur e alcohol) Alcohol Habits Answer Date Recorded How often do you have a drink containing alcohol ? Never 08/10/2018 How many drinks containing a lcohol do you have on a typical day when you are drinking? Not asked How often do you have six or more drinks on one occasion? Not asked Food Insecurity Answer Date Recorded Within the past 12 months, y ou worried that your food would run out before you got money to buy more. Never true 02/01/2023 Within the past 12 months, t he food you bought just didn't last and you didn't have money to get more. 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 Recommend patient stop. Testosterone level greater than twice the upper limit of normal documented in this encounter Plan of Treatment Upcoming Encounters Date Type Specialty Care Team Description 07/12/2023 Pharmacy Gastroenterology [place], Pharmacist Hepatology [address] [place] [address] 07/14/2023 Office Visit [facility] [address] [facility] [address] 07/15/2023 Pharmacy Gastroenterology [place], Pharmacist Hepatology [address] [place] [address] 07/19/2023 Office Visit Internal Medicine Nitin Sarah PA-C [address] [place] [address] 10/18/2023 Office Visit Neurology Anny Turner DO [address] [place] [address] Health Maintenance Due Date Last Done Comments DISCUSS TOBACCO CESSATION (R EFER TO SMARTSET #7986) 1957 COVID-19 Vaccine (#1) 01/06/1958 Pneumococcal Vaccine: 65+ Ye ars (1 - PCV) 1963 DTaP,Tdap,and Td Vaccines (1 - Tdap) 1976 Cologuard 2002 Colonoscopy 2002 Colorectal Cancer Screening 2002 Fecal Occult Blood Test 2002 Sigmoidoscopy 2002 LUNG CANCER SCREENING - USE SMARTSET 65886 2007 Zoster Vaccines (1 of 2) 2007 *COPD SEVERITY VERIFIED BY PFT 03/31/2023 *CXR OR CT FOR COPD EVER 03/31/2023 Depression Screening 02/02/2024 02/01/2023 GFR 02/02/2024 02/01/2023 O2 ASSESSMENT COMPLETED IN P AST YEAR FOR COPD 04/16/2024 04/16/2023 Albumin/Creatinine Ratio 04/16/2026 04/16/2023 Lipid Panel 02/02/2028 [...] filedocumented as of this encounter Care Teams Research Contracts Supervisor Relationship Specialty Start Date End Date Nitin Sarah PA-C [address] [place] [address] PCP - General Physician Director [facility] 02/01/23 documented as of this encounter
--- OUTSIDE RECORDS SUMMARY | 2023-08-26 09:16 | External Medical Summary | Summary of Care ---
Author Name Unknown Organization [facility] Address [address] [place] [address] Phone [phone] Care Team Providers Care Certified Welder Name Role Phone Nitin Sarah PA-C Primary Care Provider +1- [phone] Reason for Visit * Reason Onset Date Comments case management 03/30/2023 Encounter Details Date Type Department Care Team Description 03/30/2023 Mold [employer]er Telephone Care Coordination [address] [place] [address] Liyah Ram LCSW case management Allergies No known active allergiesdocumented as of this encounter (statuses as of 04/16/2023) Medications Medication Sig Dispensed Refills Start Date End Date Status Buprenorphine HCl-Naloxone HCl 8-[address] under the tongue daily. 0 Active amLODIPine Besylate 5 MG Oral Tablet (Norvasc)Indicatio ns:HTN, goal below 130/80 Take 1 Tablet by mouth in the morning. 30 Tablet 12 03/17/2023 Active Levalbuterol Tartrate 45 MCG/ACT Inhalation Aerosol (Xopenex HFA)Indications:Pu lmonary emphysema, unspecified emphysema type (HCC) Inhale 1 Puff by mouth every 4 hours as needed for Wheezing. 15 g 12 03/17/2023 Active Naproxen Sodium 220 MG Oral Capsule Take 1 Capsule by mouth as needed. 0 04/16/2023 Discontinued documented as of this encounter (statuses as of 04/16/2023) Active Problems Problem Noted Date Substance dependence 03/17/2023 History of heroin use 03/17/2023 Amnesia 03/17/2023 Chronic hepatitis C without hepatic coma 03/17/2023 HTN, goal below 130/80 03/17/2023 Pulmonary emphysema 03/17/2023 documented as of this encounter (statuses as of 04/16/2023) Resolved Problems Problem Noted Date Resolved Date Elevated hemoglobin 03/17/2023 03/17/2023 documented as of this encounter (statuses as of 04/16/2023) Social History Tobacco Use Types Packs/Day Years [...] encounter Miscellaneous Notes * Telephone Encounter - Nitin Sarah PA-C - 04/16/2023 10:35 AM EDT Met with patient today. He is agreeable to discussing treatment options. He works long hours daily states attending appointment is difficult, but would like to discuss his options. * Telephone Encounter - Liyah Ram LCSW - 03/30/2023 4:25 PM EDT NHAN Alert/178 Referral S: [facility] spoke with patient today via phone. Introduced self, role, and reason for call and call then immediately disconnected. Attempted outreach again and spoke with patient. Informed of referral received from PCP to assess for support needs. Pt reports he has been able to deal with his HERMELINDA issueshimself and is not currently using any substances. He was able to wean himself off the Suboxone gradually. He reports he is taking his medications as prescribed otherwise. He states at first he did not feel the greatest but is now able to sleep well and is not having any cravings or withdrawal symptoms. He did receive the list of HERMELINDA counseling providers from [facility] team, but did not feel he neededthat at this time. He reports he does have a hep C diagnosis and is in process of getting established with Hepatology MTM for treatment. Reviewed follow up schedule for 04/13 and with PCP on 04/16. Pt requested to complete call as he had just been woken up by the call and had to use the bathroom. O: Phone encounter. Speech normal rate and tone. Pt was polite and appreciative of the outreach. A: AAOx3. Pt denies any symptoms of depression or anxiety at this time. Denies need for HERMELINDA supports. P: CM to close referral at this time as patient denied needs. Pt encouraged to reach out to [facility] for CM support if needed in the future, he is agreeable. Liyah Ram LCSW Behavioral Health Mold Tooler - [facility] [phone] [email or web address] documented in this encounter Plan of Treatment Upcoming Encounters Date Type Specialty Care Team Description 07/12/2023 Pharmacy Gastroenterology [place], Pharmacist Hepatology [address] [place] [facility] [place] [address] 07/14/2023 Office Visit Gastroenterology Clarissa Reyes CRNP [address] [facility] [place] [address] 07/15/2023 Pharmacy [facility]enterology [place], Pharmacist [facility] [address] [facility] [address] 10/18/2023 Office Visit Neurology Anny Turner DO [address] [place] [facility] [place] [address] Health Maintenance Due Date Last Done Comments DISCUSS TOBACCO CESSATION (R EFER TO SMARTSET #5090) 1957 COVID-19 Vaccine (#1) 01/06/1958 Pneumococcal Vaccine: 65+ Ye ars (1 - PCV) 1963 Albumin/Creatinine Ratio 1975 DTaP,Tdap,and Td Vaccines (1 - Tdap) 1976 Cologuard 2002 Colonoscopy 2002 Colorectal Cancer Screening 2002 Fecal Occult Blood Test 2002 Sigmoidoscopy 2002 LUNG CANCER SCREENING - USE SMARTSET 72000 2007 Zoster Vaccines (1 of 2) 2007 Influenza Vaccine (FLU shot) (#1) 2023 *COPD SEVERITY VERIFIED BY PFT 03/31/2023 *CXR OR CT FOR COPD EVER 03/31/2023 Depression Screening 02/02/2024 02/01/2023 GFR 02/02/2024 02/01/2023 O2 ASSESSMENT COMPLETED IN P AST YEAR FOR COPD 03/17/2024 03/17/2023 Lipid Panel 02/02/2028 02/01/2023 AAA Screening Completed 02/10/2023 Alpha-1 Antitrypsin Completed 03/15/2023 GARDASIL-HPV IMMUNIZATION SERIES Aged Out No longer eligible based on patient's age to complete this topic Hepatitis B Aged Out No longer eligi ble based on patient's age to complete this topic MENINGOCOCCAL (MENACTRA/MENVEO) Aged Out No longer eligible based on patient's age to complete this topic documented as of this encounter Medical Devices Not on filedocumented as of this encounter Care Teams Certified Welder Relationship Specialty Start Date End Date Nitin Sarah PA-C [address] [place] [address] PCP - General Physician Belt Operator 02/01/23 documented as of this encounter
--- OUTSIDE RECORDS SUMMARY | 2023-08-26 09:16 | External Medical Summary | Summary of Care ---
Author Name Unknown Organization [facility] Address [address] [place] [address] Phone [phone] Care Team Providers Care Meteorology Teacher Name Role Phone Nitin Sarah PA-C Primary Care Provider +1- [phone] Reason for Visit * Reason Comments Dosage Adjustment Via Phone (anticoag Cl inic) Status Check Encounter Details Date Type Department Care Team (Late st Contact Info) Description 2023 7:00 AM [facility] Pharmacy Hepatology, [place] [address] [place], [place] [id number] [place], Pharmacist Hepatology [address] [place] [address] Chronic hepatitis C without hepatic coma (HCC)* Allergies No known active allergiesdocumented as of this encounter (statuses as of 2023) Medications Medication Sig Dispensed Refills Start Date [...] as of this encounter (statuses as of 2023) Active Problems Problem Noted Date Diagnosed Date Substance dependence 03/17/2023 History of heroin use 03/17/2023 Amnesia 03/17/2023 Chronic hepatitis C without hepatic coma 023 HTN, goal below 130/80 03/17/2023 Pulmonary emphysema 03/17/2023 documented as of this encounter (statuses as of 2023) Resolved Problems Problem Noted Date Diagnosed Date Resolved Date Elevated hemoglobin 03/17/2023 03/17/20 documented as of this encounter (statuses as of 2023) Immunizations Name Administration Dates Next Due Seasonal [...] Answer Date Recorded PHQ Adult Total Score 0 02/01/2023 Hunger Vital Sign Answer Date Recorded Within [...] this encounter Progress Notes * Anuradha Chun, [facility] - 2023 1:39 PM EST [facility] Hepatitis C Treatment Follow-Up Patient Name: Dylan Martell Appointment reminder phone call Treatment Overview: Hepatology Provider: HO Ruth Date of clinic appointment: 07/14/2023 @8 am This is a phone call to remind the patient they are scheduled for a clinic appointment Is the patient aware of the appointment date/time/location:Yes. I called the mobile phone, but no answer and voicemail is not set up. The patient immediatley called back. He verbally confirmed his appointment for next week. MTM Plan: Will follow-up after the patient is seen in clinic. Anuradha Chun, JevonD, [facility] Clinical Pharmacist, Hepatology 2023 1:39 PM documented in this encounter Plan of Treatment Upcoming Encounters Date Type Department Care Team (Late st Contact Info) Description 07/14/2023 8:00 AM EST Office Visit Gastroenterology, [facility] [address] [facility] [address] [facility] [address] 07/14/2023 10:00 AM EST Office Visit General Internal Medicine [facility] [address] [facility] [place] [address] Nitin Sarah PA-C [address] [place] [address] 07/15/2023 7:00 AM EST Pharmacy Hepatology, [place] [address] [place] [address] [place], Pharmacist Hepatology [facility] [address] [place], [place] [address] 10/18/2023 4:00 PM EDT Office Visit Neurology, [place] [address] [place] [id number] Anny Turner, [address] [place], [place] [address] Health Maintenance Due Date Last Done Comments DISCUSS TOBACCO CESSATION (R EFER TO SMARTSET #9061) 1957 COVID-19 Vaccine (#1) 01/06/1958 Pneumococcal Vaccine: 65+ Ye ars (1 - PCV) 1963 DTaP,Tdap,and Td Vaccines (1 - Tdap) 1976 Cologuard 2002 Colonoscopy 2002 Colorectal Cancer Screening 2002 Fecal Occult Blood Test 2002 Sigmoidoscopy 2002 LUNG CANCER SCREENING - USE SMARTSET 59556 2007 Zoster Vaccines (1 of 2) 2007 [...] hepatitis C without mention of hepatic coma documented in this encounter Care Teams Meteorology Teacher Relationship Specialty Start Date End Date Nitin Sarah PA-C [address] [place] [address] PCP - General Physician Mechanical Cad Designer 02/01/23 documented as of this encounter
--- OUTSIDE RECORDS SUMMARY | 2023-08-26 09:16 | External Medical Summary ---
Author Name Unknown Address Unknown Organization K01:[facility] - [address] [facility] [address] Laboratory Report Ordering Provider Test Date Status ADELE FANG 04/16/2023 10:58:08 Final Normal: <30 mg/g creatinine< br/>High: 30-300 mg/g creatinine
Very High: >300 mg/g creatinine
Nephrotic: >2200 mg/g creatinine Observation Date Value Abnormality Reference (Units ) Status Albumin, Urine 04/16/2023 10:58:08 1.98 (mg/dL) Final Creatinine, Urine 04/16/2023 10:58:08 134 (mg/dL) Final Albumin/Creatinine [Mass Ratio] in Urine 04/16/2023 10:58:08 15 <30 (mg/g Creat) Final Performing Location [facility] - [address] [place] [address]
--- OUTSIDE RECORDS SUMMARY | 2023-08-26 09:16 | External Medical Summary | Summary of Care ---
Author Name Unknown Organization [facility] Address [address] [place] [address] Phone [phone] Care Team Providers Care Historic Sites Registrar Name Role Phone Nitin Sarah PA-C Primary Care Provider +1- [phone] Reason for Visit * Reason Comments Outpatient Testing Encounter Details Date Type Department Care Team Description 04/16/2023 Laboratory Laboratory [facility] [address] [place] [address] [facility] [address] [place] [address] Elevated hemoglobin (HCC); Leukocytosis, unspecified type; Long-term current use of testosterone replacement therapy; HTN, goal below 130/80 Allergies No known active allergiesdocumented as of this encounter (statuses as of 04/16/2023) Medications Medication Sig Dispensed Refills Start Date End Date Status Buprenorphine HCl-Naloxone HCl 8-[address] under the tongue daily. 0 Active amLODIPine Besylate 5 MG Oral Tablet (Norvasc)Indications: HTN, goal below 130/80 Take 1 Tablet by mouth in the morning. 30 Tablet 12 03/17/2023 Active Levalbuterol Tartrate 45 MCG/ACT Inhalation Aerosol (Xopenex HFA)Indications:Pulmo nary emphysema, unspecified emphysema type (HCC) Inhale 1 Puff by mouth every 4 hours as needed for Wheezing. 15 g 12 03/17/2023 Active Sdrqlyv-Whwxyg-Niffe Pertussis 5-2.5-18.5 LF-MCG/0.5 Suspension Prefilled Syringe (Boostrix)Indications :Need for oabjotmxgt-tglmzqd-er rtussis (Tdap) vaccine Inject 0.5 mL into a large muscle once for 1 dose. As directed 0.5 mL 0 04/16/2023 04/16/2023 Active Zoster Vac Recomb Adjuvanted 50 MCG/0.5ML Intramuscular Suspension Reconstituted (Shingrix)Indications :Need for shingles vaccine Inject 0.5 mL into [...] of this encounter (statuses as of 04/16/2023) Immunizations Name Administration Dates Next Due SEASONAL [...] Specialty Care Team Description 07/12/2023 Pharmacy Gastroenterology [place], Pharmacist Hepatology [address] [place] [address] 07/14/2023 Office Visit Gastroenterology Clarissa Reyes CRNP [address] [place] [address] 07/15/2023 Pharmacy Gastroenterology [place], Pharmacist Hepatology [address] [place] [address] 07/19/2023 Office Visit Internal Medicine Nitin Sarah PA-C [address] [place] [address] 10/18/2023 Office Visit Neurology Anny Turner DO [address] [place] [address] Pending Results Name Type Priority Associated Diagnoses Date /Time CRP (INFLAMMATORY MARKER) Lab Routine Elevated hemoglobin (HCC) Leukocytosis, unspecified type 04/16/2023 10:57 AM EDT ERYTHROPOIETIN (EPO) Lab Routine Elevated hemoglobin (HCC) Leukocytosis, unspecified type 04/16/2023 10:57 AM EDT TESTOSTERONE: TOTAL, FREE AND BIOAVAILABLE Lab Routine Long-term current use of testosterone replacement therapy 04/16/2023 10:57 AM EDT ALBUMIN / CREATININE RATIO, URINE Lab Routine HTN, goal below 130/80 04/16/2023 10:58 AM EDT Health Maintenance Due Date Last Done Comments DISCUSS TOBACCO CESSATION (R EFER TO SMARTSET #9507) 1955 COVID-19 Vaccine (#1) 01/06/1958 Pneumococcal Vaccine: 65+ Ye ars (1 - PCV) 1963 Albumin/Creatinine Ratio 1975 DTaP,Tdap,and Td Vaccines (1 - Tdap) 1976 Cologuard 2002 Colonoscopy 2002 Colorectal Cancer Screening 2002 Fecal Occult Blood Test 2002 Sigmoidoscopy 2002 LUNG CANCER SCREENING - USE SMARTSET 27562 2007 Zoster Vaccines (1 of 2) 2007 [...] as of this encounter Visit Diagnoses Diagnosis Elevated hemoglobin (HCC) Other hemoglobinopathies Leukocytosis, unspecified type Long-term current use of testosterone replacement therapy HTN, goal below 130/80 Unspecified essential hypertension documented in this encounter Care Teams Historic Sites Registrar Relationship Specialty Start Date End Date Nitin Sarah PA-C [address] [facility] [place] [address] PCP - General Physician Digital Marketing Analyst 02/01/23 documented as of this encounter
--- OUTSIDE RECORDS SUMMARY | 2023-08-26 09:16 | External Medical Summary | Summary of Care ---
Author Name Unknown Organization [facility] Address [address] [place] [address] Phone [phone] Care Team Providers Care Swimming Professor Name Role Phone Nitin Sarah PA-C Primary Care Provider +1- [phone] Reason for Visit * Reason Onset Date Comments case management 04/30/2023 Encounter Details Date Type Department Care Team (Late st Contact Info) Description 04/30/2023 Registrar Nurses' Registry Telephone Care Coordination [address] [place] [address] Liyah Ram LCSW case management Allergies No known active allergiesdocumented as of this encounter (statuses as of 04/30/2023) Medications Medication Sig Dispensed Refills Start Date [...] as of this encounter (statuses as of 04/30/2023) Active Problems Problem Noted Date Diagnosed Date Substance dependence 03/17/2023 History of heroin use 03/17/2023 Amnesia 03/17/2023 Chronic hepatitis C without hepatic coma 023 HTN, goal below 130/80 03/17/2023 Pulmonary emphysema 03/17/2023 documented as of this encounter (statuses as of 04/30/2023) Resolved Problems Problem Noted Date Diagnosed Date Resolved Date Elevated hemoglobin 03/17/2023 03/17/20 documented as of this encounter (statuses as of 04/30/2023) Immunizations Name Administration Dates Next Due SEASONAL INFLUENZA, PF, 6 M & Above, IM , (FLULAVAL or FLUZONE) 04/16/2023 documented as of this encounter Social History Tobacco Use Types Packs/Day Years Used Date Smoking Tobacco: Every Day Cigarettes 1 50 Started: 1970 Smokeless Tobacco: Never Alcohol Use Standard Drinks/Week Comments No 0 (1 standard drink = 0.6 oz pur e alcohol) PHQ-2 Answer Date Recorded PHQ Adult Total Score 0 02/01/2023 Hunger Vital Sign Answer Date Recorded Within the past 12 months, y ou worried that your food would run out before you got the money to buy more. Never true 02/02/20 Within the past 12 months, t he food you bought just didn't last and you didn't have money to get more. Never true 02/01/2023 Sex and Gender Information Value Date Recorded Sex Assigned at Not on file Gender Identity Not on file Sexual Orientation Not on file Job Start Date Occupation Industry Not on file Not on file Not on file documented as of this encounter Miscellaneous Notes * Telephone Encounter - Yasmeen RamTANA grossman - 04/30/2023 4:19 PM EDT [facility] spoke with patient briefly today via phone for follow up. He reports he contacted [facility] and is set up with an appointment for Wednesday05/05/23 with the plan to wean off the suboxone. He will be able to go there once a month due to the low dose he will be on. He was not able to talk long as he was waiting for the bus and it had arrived. Will follow up with patient within 1 week to ensure he gets established with MAT as planned. Liyah Ram LCSW Behavioral Health Registrar Nurses' Registry - [facility] [employer] [facility] [phone] [email or web address] documented in this encounter Plan of Treatment Upcoming Encounters Date Type Department Care Team (Late st Contact Info) Description 07/12/2023 7:00 AM EST Pharmacy Hepatology, [place] [address] [place] [address] [place], Pharmacist Hepatology [address] [place], [place] [id number] 07/14/2023 8:00 AM EST Office Visit Gastroenterology, [facility] [address] [place] [address] Clarissa Reyes CRNP [address] [place] [address] 07/15/2023 7:00 AM EST Pharmacy Hepatology, [place] [address] [place] [address] [place], Pharmacist Hepatology [facility] [place] [address] 07/19/2023 10:00 AM EST Office Visit General Internal Medicine [facility] [address] [place] [address] Nitin Sarah PA-C 200 [facility] [place] [place] [address] 10/18/2023 4:00 PM EDT Office Visit Neurology, [place] [address] [place] [address] Anny Turner DO [address] [place], [place] [address] Health Maintenance Due Date Last Done Comments DISCUSS TOBACCO CESSATION (R SHASHANK TO SMARTSET #4837) 1955 COVID-19 Vaccine (#1) 01/06/1958 Pneumococcal Vaccine: 65+ Ye ars (1 - PCV) 1963 DTaP,Tdap,and Td Vaccines (1 - Tdap) 1976 Cologuard 2002 Colonoscopy 2002 Colorectal Cancer Screening 2002 Fecal Occult Blood Test 2002 Sigmoidoscopy 2002 LUNG CANCER SCREENING - USE SMARTSET 80618 2007 Zoster Vaccines (1 of 2) 2007 [...] filedocumented as of this encounter Care Teams Swimming Professor Relationship Specialty Start Date End Date Nitin Sarah PA-C [address] [place] [address] PCP - General Physician Travel Trailer Components Assembler 02/01/23 documented as of this encounter
--- OUTSIDE RECORDS SUMMARY | 2023-08-26 09:16 | External Medical Summary ---
Author Name Unknown Address Unknown Organization K01:[facility] - [address] [place] [address] Laboratory Report Ordering Provider Test Date Status ADELE FANG 04/16/2023 10:57:47 Final Observation Date Value Abnormality Reference (Units ) Status CRP, low-sensitivity 04/16/2023 10:57:47 <3 <=5 (mg/L) Final Performing Location [facility] - [address] [place] [address]
--- OUTSIDE RECORDS SUMMARY | 2023-08-26 09:16 | External Medical Summary | Summary of Care ---
Author Name Unknown Organization [facility] Address [address] [place] [address] Phone [phone] Care Team Providers Care Typing Section Chief Name Role Phone Nitin Sarah PA-C Primary Care Provider +1- [phone] Reason for Visit * Reason Onset Date Comments Follow Up 1 month. Patient states HOFFMAN have lessened. But dizziness occurs. Medication Administration 04/16/2023 Flu an d/or Pneumo Inj Encounter Details Date Type Department Care Team Description 04/16/2023 Office Visit General Internal Medicine [facility] [address] [facility] [address] Nitin Sarah PA-C [address] [facility] [place] [address] HTN, goal below 130/80*; Abnormal CBC; Long-term current use of testosterone replacement therapy; Substance dependence (HCC); Need for shingles vaccine; Need for ofhiccxbse-tzqumbj-cuw tussis (Tdap) vaccine; Need for prophylactic vaccination and inoculation against influenza; Chronic hepatitis C without hepatic coma (HCC) Allergies No known active allergiesdocumented as of this encounter (statuses as of 04/16/2023) Medications Medication Sig Dispensed Refills Start Date End Date Status Buprenorphine HCl-Naloxone HCl 8-[address] under the tongue daily. 0 Active amLODIPine Besylate 5 MG Oral Tablet (Norvasc)Indication s:HTN, goal below 130/80 Take 1 Tablet by mouth in the morning. 30 Tablet 12 03/17/2023 Active Levalbuterol Tartrate 45 MCG/ACT Inhalation Aerosol (Xopenex HFA)Indications:Pul monary emphysema, unspecified emphysema type (HCC) Inhale 1 Puff by mouth every 4 hours as needed for Wheezing. 15 g 12 03/17/2023 Active Wpagtmp-Mtcwgi-Uzoi l Pertussis 5-2.5-18.5 LF-MCG/0.5 Suspension Prefilled Syringe (Boostrix)Indicatio ns:Need for diphtheria-tetanus- pertussis (Tdap) vaccine Inject 0.5 mL into a large muscle once for 1 dose. As directed 0.5 mL 0 04/16/2023 Active Zoster Vac Recomb Adjuvanted 50 MCG/0.5ML Intramuscular Suspension Reconstituted (Shingrix)Indicatio ns:Need for shingles vaccine Inject 0.5 mL into a large muscle now and repeat dose in 60 to 180 days 1 Each 1 04/16/2023 Active Testosterone Cypionate 200 MG/ML Injection Solution Inject 200 mg as directed once a week. 0 Active Naproxen Sodium 220 MG Oral Capsule Take 1 Capsule by mouth as needed. 0 Discontinued documented as of this encounter (statuses [...] Sign Reading Time Taken Comments Blood Pressure 128/78 04/16/2023 10:21 AM EDT Pulse 91 04/16/2023 10:21 AM EDT Temperature 37.1 C (98.7 F) 04/16/2023 10:21 AM E DT Respiratory Rate - - Oxygen Saturation 97% 04/16/2023 10:21 AM EDT Inhaled Oxygen Concentration - - Weight 64 kg (141 lb 1.6 oz) 04/16/2023 10:21 AM EDT Height 177.2 cm (5' 9.75") 04/16/2023 10:21 AM E DT Body Mass Index 20.39 04/16/2023 10:21 AM EDT documented in this encounter Progress Notes * Veronika Pratt LPN - 04/16/2023 10:50 AM EDT PRE - ADMINISTRATION DOCUMENTATION Are you experiencing any cold symptoms or fever? No Have you had Guillain-Lincoln Syndrome (an illness that causes paralysis) within the last 6 weeks? No Have you had the flu shot in the past? YES Have you ever had a reaction to the flu shot? No Veronika Pratt LPN, 04/16/2023 10:50 AM Immunization Administration Documentation Time Out Procedure Performed: Yes Patient Identified (Ask Name/Date of ): Yes Does the patient have a fever greater than 101 degrees today? No Patient allergic to latex? No VFC Stock: No Immunization(s) verified: Yes, Immunization Name: Flu, VIS Sheet(s) given: Yes Verified Side and Site: Yes Verified Shot(s) with Parent(s)/Patient: Yes * Nitin Sarah PA-C - 04/16/2023 10:31 AM EDT Subjective: Dylan Martell is a 67 year old male. Chief Complaint Patient presents with Follow Up 1 month. Patient states HOFFMAN have lessened. But dizziness occurs. HPI: 67 y/o male with HTN, pulmonary emphysema, chronic hepatitis C. Taking amlodipine. Headaches have improved. Much less frequent. Occasionally dizzy with exertion atthis point Reviewed his elevated blood counts and hematology recommendations. He now informs me that he is using 200 mg of testosterone cypionate a week. Has been doing for manyyears. PMH: Patient Active Problem List Diagnosis Code [...] as needed for Wheezing. 15 g 12 Zuhwtzi-Qdnssw-Fayee Pertussis 5-2.5-18.5 LF-MCG/0.5 Suspension Prefilled Syringe (Boostrix) Inject0.5 mL into a large muscle once for 1 dose. As directed 0.5 mL 0 Zoster Vac Recomb Adjuvanted 50 MCG/0.5ML Intramuscular Suspension Reconstituted (Shingrix) Inject 0.5 mL into a large muscle now and repeat dose in 60 to 180 days 1 Each 1 Testosterone Cypionate 200 MG/ML Injection Solution Inject 200 mg as directed once a week. No current facility-administered medications for this visit. Review of patient's allergies indicates: No Known Allergies All other review of systems reviewed and negative other than mentioned in HPI. Objective: BP 128/78 | Pulse 91 | Temp 37.1 C (98.7 F) | Ht 1.772 m (5' 9.75") | Wt 64 kg (141 lb 1.6 oz) | SpO2 97% | BMI 20.39 kg/m | BSA 1.77 m Results for orders placed or performed in visit on 04/10/23 TSH WITH FREE T4 IF INDICATED Result Value Ref Range TSH 4.22 (H) 0.27 - 4.20 uIU/mL CBC Result Value Ref Range WBC 10.91 (H) 4.00 - 10.80 K/uL RBC 5.62 4.50 - 5.25 M/uL HGB 17.7 (H) 14.0 - 16.8 g/dL HCT 53.0 (H) 40.0 - 48.4 % MCV 94.3 82.0 - 99.5 fL MCH 31.5 27.0 - 34.0 pg MCHC 33.4 32.0 - 36.0 g/dL RDW 16.5 11.5 - 15.5 % PLT 310 140 - 400 K/uL MPV 9.3 6.6 - 11.1 fL DIFFERENTIAL, AUTOMATED Result Value Ref Range WBC 10.91 (H) 4.00 - 10.80 K/uL Neutrophils % 78.7 (H) 40.0 - 75.0 % Lymphocytes % 11.5 (L) 18.0 - 42.0 % Monocytes % 8.3 1.0 - 11.0 % Eosinophils % 1.1 0.0 - 6.0 % Basophils % 0.4 0.0 - 2.0 % Absolute Neutrophils 8.59 (H) 1.80 - 7.70 K/uL Absolute Lymphocytes 1.25 1.00 - 4.80 K/ul Absolute Monocytes 0.91 0.00 - 1.10 K/uL Absolute Eosinophils 0.12 0.00 - 0.70 K/uL Absolute Basophils 0.04 0.00 - 0.20 K/uL DIFFERENTIAL, TECHNOLOGIST REVIEW Result Value Ref Range nRBCs T4, FREE Result Value Ref Range T4, Free 1.1 0.9 - 1.7 ng/dL Physical Exam Constitutional: General: He is not in acute distress. Appearance: Normal appearance. He is normal weight. He is not ill-appearing or toxic-appearing. Neurological: Mental Status: He is alert. ASSESSMENT: HTN, goal below 130/80 (Primary) - ALBUMIN / CREATININE RATIO, URINE; Future; Expected date: 04/16/2023 Continue norvasc. BP improved. Abnormal CBC Most likely related to testosterone use and hep C. Advised against testosterone use as can lead to hyperviscosity and thromboembolism. He states he did not take it today when he typically does. Check Epo level and CRP Long-term current use of testosterone replacement therapy - TESTOSTERONE: TOTAL, FREE AND BIOAVAILABLE; Future; Expected date: 04/16/2023 Substance dependence (HCC) Discussed seeking treatment. He is agreeable to discuss with human services case manager again. His concern is work conflicts and appointment times. Message sent back to case management. Need for shingles vaccine - Zoster Vac Recomb Adjuvanted 50 MCG/0.5ML Intramuscular Suspension Reconstituted (Shingrix); Inject 0.5 mL into a large muscle now and repeat dose in 60 to 180 days Need for edriimwcgb-ncqlhif-aiwgqbtrh (Tdap) vaccine - Yaicnxc-Rtzueg-Orcpr Pertussis 5-2.5-18.5 LF-MCG/0.5 Suspension Prefilled Syringe (Boostrix); Inject 0.5 mL into a large muscle once for 1 dose. As directed Need for prophylactic vaccination and inoculation against influenza - INFLUENZA VACC, QUAD, PF, 6 MONTHS & UP, 0.5 ML, IM Follow Up: Return in about 3 months (around 07/17/2023), or if symptoms worsen or fail to improve, for Return with AP. | For: Return with [facility] Nitin Sarah PA-C documented in this encounter Plan of Treatment Upcoming Encounters Date Type Specialty Care Team Description 07/12/2023 Pharmacy Gastroenterology [place], Pharmacist Hepatology [address] [facility] [place] [address] 07/14/2023 Office Visit Gastroenterology Clarissa Reyes CRNP [address] [place] [address] 07/15/2023 Pharmacy Gastroenterology [place], Pharmacist Hepatology [address] [facility] [address] 07/19/2023 Office Visit Internal Medicine Nitin Sarah PA-C [address] [place] [address] 10/18/2023 [facility] Visit [facility] Turner, DO [address] [facility] [address] Pending Results Name Type Priority Associated Diagnoses Date /Time TESTOSTERONE: TOTAL, FREE AND BIOAVAILABLE Lab Routine Long-term current use of testosterone replacement therapy 04/16/2023 10:57 AM EDT ALBUMIN / CREATININE RATIO, URINE Lab Routine HTN, goal below 130/80 04/16/2023 10:58 AM EDT Scheduled Orders Name Type Priority Associated Diagnoses Orde r Schedule TESTOSTERONE: TOTAL, FREE AND BIOAVAILABLE Lab Routine Long-term current use of testosterone replacement therapy Expected: 04/16/2023 (Approximate), Expires: 04/15/2024 ALBUMIN / CREATININE RATIO, URINE Lab Routine HTN, goal below 130/80 Expected: 04/16/2023 (Approximate), Expires: 04/16/2024 Health Maintenance Due Date Last Done Comments DISCUSS TOBACCO CESSATION (R EFER TO SMARTSET #1571) 1957 COVID-19 Vaccine (#1) 01/06/1958 Pneumococcal Vaccine: 65+ Ye ars (1 - PCV) 1963 Albumin/Creatinine Ratio 1975 DTaP,Tdap,and Td Vaccines (1 - Tdap) 1976 Cologuard 2002 Colonoscopy 2002 Colorectal Cancer Screening 2002 Fecal Occult Blood Test 2002 Sigmoidoscopy 2002 LUNG CANCER SCREENING - USE SMARTSET 38996 2007 Zoster Vaccines (1 of 2) 2007 [...] as of this encounter Visit Diagnoses Diagnosis HTN, goal below 130/80- Primary Unspecified essential hypertension Abnormal CBC Other abnormal blood chemistry Long-term current use of testosterone replacement therapy Substance dependence (HCC) Unspecified drug dependence, unspecified Need for shingles vaccine Need for prophylactic vaccination and inoculation against other viral diseases Need for toumlqhnub-voqieba-abfqobubd (Tdap) vaccine Need for prophylactic vaccination with combined pjaxczolny-znnfzpg-mjxmadljh (DTP) vaccine Need for prophylactic vaccination and inoculation against influenza Chronic hepatitis C without hepatic coma (HCC) Chronic hepatitis C without mention of hepatic coma documented in this encounter Care Teams Typing Section Chief Relationship Specialty Start Date End Date Nitin Sarah PA-C [address] [facility] [place] [address] PCP - General Physician Bumper Operator 02/01/23 documented as of this encounter
--- OUTSIDE RECORDS SUMMARY | 2023-08-26 09:16 | External Medical Summary | Summary of Care ---
Author Name Unknown Organization [facility] Address [address] [place] [address] Phone [phone] Care Team Providers Care Director Process Improvement Name Role Phone Nitin Sarah PA-C Primary Care Provider +1- [phone] Reason for Visit * Reason Onset Date Comments Encounter Created in Error 04/23/2023 Encounter Details Date Type Department Care Team Description 04/23/2023 [employer] Developer Telephone Care Coordination [address] [place] [address] Liyah Ram LCSW Encounter Created in Error Allergies No known active allergiesdocumented as of this encounter (statuses as of 04/23/2023) Medications Medication Sig Dispensed Refills Start Date [...] as of this encounter (statuses as of 04/23/2023) Active Problems Problem Noted Date Substance dependence 03/17/2023 History of heroin use 03/17/2023 Amnesia 03/17/2023 Chronic hepatitis C without hepatic coma 03/17/2023 HTN, goal below 130/80 03/17/2023 Pulmonary emphysema 03/17/2023 documented as of this encounter (statuses as of 04/23/2023) Resolved Problems Problem Noted Date Resolved Date Elevated hemoglobin 03/17/2023 03/17/2023 documented as of this encounter (statuses as of 04/23/2023) Immunizations Name Administration Dates Next Due SEASONAL [...] Care Team Description 07/12/2023 Pharmacy Gastroenterology [place], Fernanda Hepatology [address] [facility] [place] [address] 07/14/2023 Office Visit Gastroenterology Clarissa Reyes CRNP [address] [place] [address] 07/15/2023 Pharmacy Gastroenterology [place], Pharmacist Hepatology [address] [place] [address] 07/19/2023 Office Visit Internal Medicine Nitin Sarah PA-C [address] [place] [address] 10/18/2023 Office Visit Neurology Anny Turner DO [address] [place] [address] Health Maintenance Due Date Last Done Comments DISCUSS TOBACCO CESSATION (R EFER TO SMARTSET #3291) 1955 COVID-19 Vaccine (#1) 01/06/1958 Pneumococcal Vaccine: 65+ Ye ars (1 - PCV) 1963 DTaP,Tdap,and Td Vaccines (1 - Tdap) 1976 Cologuard 2002 Colonoscopy 2002 Colorectal Cancer Screening 2002 Fecal Occult Blood Test 2002 Sigmoidoscopy 2002 LUNG CANCER SCREENING - USE SMARTSET 78237 2007 Zoster Vaccines (1 of 2) 2007 [...] filedocumented as of this encounter Care Teams Director Process Improvement Relationship Specialty Start Date End Date Nitin Sarah PA-C [address] [facility] [place], [place] [address] PCP - General Physician Associate Financial Advisor 02/01/23 documented as of this encounter
--- OUTSIDE RECORDS SUMMARY | 2023-08-26 09:16 | External Medical Summary | Summary of Care ---
Author Name Unknown Organization [facility] Address [address] [place] [facility] [place] [place] [address] Phone [phone] Care Team Providers Care Mortician Supplies Sales Representative Name Role Phone Nitin Sarah PA-C Primary Care Provider +1- [phone] Encounter Details Date Type Department Care Team (Late st Contact Info) Description 04/23/2023 Population Health External Data Unspecified Department Allergies No known active allergiesdocumented as of this encounter (statuses as of 05/17/2023) Medications Medication Sig Dispensed Refills Start Date [...] as of this encounter (statuses as of 05/17/2023) Active Problems Problem Noted Date Diagnosed Date Substance dependence 03/17/2023 History of heroin use 03/17/2023 Amnesia 03/17/2023 Chronic hepatitis C without hepatic coma 023 HTN, goal below 130/80 03/17/2023 Pulmonary emphysema 03/17/2023 documented as of this encounter (statuses as of 05/17/2023) Resolved Problems Problem Noted Date Diagnosed Date Resolved Date Elevated hemoglobin 03/17/2023 03/17/20 23 documented as of this encounter (statuses as of 05/17/2023) Immunizations Name Administration Dates Next Due SEASONAL [...] money to buy more. Never true 02/02/20 23 Within the past 12 months, t [...] Description 07/12/2023 7:00 AM EST Pharmacy Hepatology, [place] [address] [place] [address] [place], Pharmacist Hepatology [address] [place] [address] 07/14/2023 8:00 AM EST Office Visit Gastroenterology, [facility] [address] [address] Clarissa Reyes CRNP [address] [place] [address] 07/15/2023 7:00 AM EST Pharmacy Hepatology, [place] [address] [place] [address] [place], Pharmacist Hepatology [address] [place] [address] 07/19/2023 10:00 AM EST Office Visit General Internal Medicine [facility] [address] [facility] [place] [address] Nitin Sarah PA-C [address] [facility] [place] [place] [address] 10/18/2023 4:00 PM EDT Office Visit Neurology, [place] [address] [place] [id number] Anny Turner DO [address] [place] [address] Health Maintenance Due Date Last Done Comments DISCUSS TOBACCO CESSATION (R EFER TO SMARTSET #9999) 1957 COVID-19 Vaccine (#1) 01/06/1958 Pneumococcal Vaccine: 65+ Ye ars (1 - PCV) 1963 DTaP,Tdap,and Td Vaccines (1 - Tdap) 1976 Cologuard 2002 Colonoscopy 2002 Colorectal Cancer Screening 2002 Fecal Occult Blood Test 2002 Sigmoidoscopy 2002 LUNG CANCER SCREENING - USE SMARTSET 49886 2007 Zoster Vaccines (1 of 2) 2007 [...] filedocumented as of this encounter Care Teams Mortician Supplies Sales Representative Relationship Specialty Start Date End Date Nitin Sarah PA-C [address] [facility] [place] [place] [address] PCP - General Physician Public School Teacher 02/01/23 documented as of this encounter
--- OUTSIDE RECORDS SUMMARY | 2023-08-26 09:16 | External Medical Summary ---
Author Name Unknown Address Unknown Organization : Laboratory Report Ordering Provider Test Date Status ANNALISAADELE 04/16/2023 10:57:47 Final Observation Date Value Abnormality Reference (Units ) Status ERYTHROPOIETIN (EPO) 04/16/2023 10:57:47 13.3 2.6-18.5 (mIU/mL) Final
Test Performed at:
[email or web address]
[address] [facility]
[place] [address]
Ge Lucas M.D., Ph.D.,Director of Laboratories Performing Location
--- OUTSIDE RECORDS SUMMARY | 2023-08-26 09:16 | External Medical Summary | Summary of Care ---
Author Name Unknown Organization [facility] Address [address] [place] [address] Phone [phone] Care Team Providers Care Livestock Agent Name Role Phone Nitin Sarah PA-C Primary Care Provider +1- [phone] Reason for Visit * Reason Onset Date Comments Advice 04/10/2023 Encounter Details Date Type Department Care Team Description 04/10/2023 Telephone General Internal Medicine [facility] [address] [facility] [place] [address] Nitin Sarah PA-C [address] [place] [address] Advice Allergies No known active allergiesdocumented as [...] encounter Miscellaneous Notes * Telephone Encounter - Christi Goyal LPN - 04/16/2023 3:38 PM EDT Had appt * Telephone Encounter - Nitin Sarah PA-C - 04/13/2023 11:56 AM EDT Can perform lab orders I just placed to further evaluate abnormal CBC. Can review results at appointment. * Telephone Encounter - SALAZAR Troy - 04/10/2023 11:59 AM EDT Pt has an upcoming appointment on 04/16/2023 at 10:20 am. Pt is wondering if he needs lab work donebefore appointment. Please call pt back at [phone]. documented in this encounter Plan of Treatment Upcoming Encounters Date Type Specialty Care Team Description 07/12/2023 Pharmacy Gastroenterology [place], Pharmacist Hepatology [address] [place] [address] 07/14/2023 Office Visit [facility]astroenterology [facility] CRNP [address] [facility] [address] 07/15/2023 Pharmacy Gastroenterology [place], Pharmacist Hepatology [address] [place] [address] 07/19/2023 Office Visit Internal Medicine Nitin Sarah PA-C [address] [place] [address] 10/18/2023 Office Visit Neurology Anny Turner DO [address] [place] [address] Health Maintenance Due Date Last Done Comments DISCUSS TOBACCO CESSATION (R EFER TO SMARTSET #2893) 1957 COVID-19 Vaccine (#1) 01/06/1958 Pneumococcal Vaccine: 65+ Ye ars (1 - PCV) 1963 Albumin/Creatinine Ratio 1975 DTaP,Tdap,and Td Vaccines (1 - Tdap) 1976 Cologuard 2002 Colonoscopy 2002 Colorectal Cancer Screening 2002 Fecal Occult Blood Test 2002 Sigmoidoscopy 2002 LUNG CANCER SCREENING - USE SMARTSET 09083 2007 Zoster Vaccines (1 of 2) 2007 *COPD SEVERITY VERIFIED BY PFT 03/31/2023 *CXR OR CT FOR COPD EVER 03/31/2023 Depression Screening 02/02/2024 02/01/2023 GFR 02/02/2024 02/01/2023 O2 ASSESSMENT COMPLETED IN P AST YEAR FOR COPD 03/17/2024 04/16/2023 Lipid Panel 02/02/2028 02/01/2023 AAA Screening [...] filedocumented as of this encounter Care Teams Livestock Agent Relationship Specialty Start Date End Date Nitin Sarah PA-C [address] [facility] [place] [address] PCP - General Physician Knitted Cloth Examiner 02/01/23 documented as of this encounter
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
--- OUTSIDE RECORDS SUMMARY | 2023-08-26 09:16 | External Medical Summary | Summary of Care ---
Author Name Unknown Organization [facility] Address [address] [place] [address] Phone [phone] Care Team Providers Care Hard Candy Batch Mixer Name Role Phone Nitin Sarah PA-C Primary Care Provider +1- [phone] Reason for Visit * Reason Comments Outpatient Testing Encounter Details Date Type Department Care Team Description 04/16/2023 Laboratory Laboratory [facility] [address] [place] [address] [facility] [address] [place] [address] Elevated hemoglobin (HCC); Leukocytosis, unspecified type; Long-term [...] for Wheezing. 15 g 12 03/17/2023 Active Wdlodsi-Xojxbz-Mhool Pertussis 5-2.5-18.5 LF-MCG/0.5 Suspension Prefilled Syringe (Boostrix)Indications :Need for tyyenftclk-srmyqzs-tj rtussis (Tdap) vaccine Inject 0.5 mL into [...] Specialty Care Team Description 07/12/2023 Pharmacy Gastroenterology [place], Pharmacist Hepatology [address] [place] [address] 07/14/2023 Office Visit Gastroenterology Clarissa Reyes CRNP [address] [place] [address] 07/15/2023 Pharmacy Gastroenterology [place], Pharmacist Hepatology [address] [place] [address] 07/19/2023 Office Visit Internal Medicine Nitin Sarah PA-C [address] [place] [address] 10/18/2023 Office Visit Neurology Anny Turner DO [address] [place] [address] Pending Results Name Type Priority Associated Diagnoses [...] DISCUSS TOBACCO CESSATION (R EFER TO SMARTSET #3218) 1957 COVID-19 Vaccine (#1) 01/06/1958 Pneumococcal Vaccine: 65+ Ye ars (1 - PCV) 1963 Albumin/Creatinine Ratio 1975 DTaP,Tdap,and Td Vaccines (1 - Tdap) 1976 Cologuard 2002 Colonoscopy 2002 Colorectal Cancer Screening 2002 Fecal Occult Blood Test 2002 Sigmoidoscopy 2002 LUNG CANCER SCREENING - USE SMARTSET 49170 2007 Zoster Vaccines (1 of 2) 2007 [...] hypertension documented in this encounter Care Teams Hard Candy Batch Mixer Relationship Specialty Start Date End Date Nitin Sarah PA-C [address] [facility] [place] [address] PCP - General Physician Dental Officer 02/01/23 documented as of this encounter
--- OUTSIDE RECORDS SUMMARY | 2023-08-26 09:16 | External Medical Summary | Summary of Care ---
Author Name Unknown Organization [facility] Address [address] [place] [address] Phone [phone] Care Team Providers Care Physician Coder Name Role Phone Nitin Sarah PA-C Primary Care Provider +1- [phone] Reason for Visit * Reason Onset Date Comments Advice 03/18/2023 Encounter Details Date Type Department Care Team (Late st Contact Info) Description 03/18/2023 Telephone General Internal Medicine [facility] [address] [facility] [place] [address] Nitin Sarah PA-C [address] [place] [address] Advice Allergies No known active allergiesdocumented as of this encounter (statuses as of 06/17/2023) Medications Medication Sig Dispensed Refills Start Date [...] as of this encounter (statuses as of 06/17/2023) Active Problems Problem Noted Date Diagnosed Date Substance dependence 03/17/2023 History of heroin use 03/17/2023 Amnesia 03/17/2023 Chronic hepatitis C without hepatic coma 023 HTN, goal below 130/80 03/17/2023 Pulmonary emphysema 03/17/2023 documented as of this encounter (statuses as of 06/17/2023) Resolved Problems Problem Noted Date Diagnosed Date Resolved Date Elevated hemoglobin 03/17/2023 03/17/20 documented as of this encounter (statuses as of 06/17/2023) Social History Tobacco Use Types Packs/Day Years [...] money to buy more. Never true 04/23/20 Within the past 12 months, t he [...] Telephone Encounter - Nitin Sarah PA-C - 03/19/2023 7:06 AM EDT See 03/17/23 encounter. He was contacted by field nurse case manager to assist with help with substance use. * Telephone Encounter - Misti Yan LPN - 03/18/2023 3:17 PM EDT Provider to address: Pt's EC Kaylene is calling and states that the pt received a call today about repeat tests. Is asking which repeat tests? Made Kaylene aware that there is no documentation stating that the pt was called today about repeat tests. Is there any additional testing the pt should have done? Please advise. Reason for Call: Advice Contact: Telephone Call Contact Type: Care Coordination Total Time including non face to face (minutes): 5 * Telephone Encounter - Merna Schwab OSA - 03/18/2023 3:12 PM EDT Reason for patient's call: requesting to speak to nurse Caller was transferred to Misti at the nurse line. documented in this encounter Plan of Treatment Upcoming Encounters Date Type Department Care Team (Late st Contact Info) Description 07/12/2023 7:00 AM EST Pharmacy Hepatology, [address] [address] [place], Pharmacist Hepatology [address] [place] [address] 07/14/2023 8:00 AM EST Office Visit Gastroenterology, [facility] [address] [place] [address] Clarissa Reyes CRNP [address] [place] [address] 07/15/2023 7:00 AM EST Pharmacy Hepatology, [place] [address] [place] [address] [place], Pharmacist Hepatology [address] [place] [address] 07/19/2023 10:00 AM EST Office Visit General Internal Medicine [facility] [address] [place] [address] Nitin Sarah PA-C [address] [facility] [place] [address] 10/18/2023 4:00 PM EDT Office Visit Neurology, [place] [address] [place] [address] Anny Turner DO [address] [place] [address] Health Maintenance Due Date Last Done Comments DISCUSS TOBACCO CESSATION (R EFER TO SMARTSET #3291) 1957 COVID-19 Vaccine (#1) 01/06/1958 Pneumococcal Vaccine: 65+ Ye ars (1 - PCV) 1963 DTaP,Tdap,and Td Vaccines (1 - Tdap) 1976 Cologuard 2002 Colonoscopy 2002 Colorectal Cancer Screening 2002 Fecal Occult Blood Test 2002 Sigmoidoscopy 2002 LUNG CANCER SCREENING - USE SMARTSET 71657 2007 Zoster Vaccines (1 of 2) 2007 [...] filedocumented as of this encounter Care Teams Physician Coder Relationship Specialty Start Date End Date Nitin Sarah PA-C [address] [place] [address] PCP - General Physician Florist Designer 02/01/23 documented as of this encounter
--- OUTSIDE RECORDS SUMMARY | 2023-08-26 09:16 | External Medical Summary | Summary of Care ---
Author Name Unknown Organization [facility] Address [address] [place] [address] Phone [phone] Care Team Providers Care Grounds Worker Name Role Phone Nitin Sarah PA-C Primary Care Provider +1- [phone] Reason for Visit * Reason Onset Date Comments case management 05/07/2023 Encounter Details Date Type Department Care Team (Late st Contact Info) Description 05/07/2023 Tape Weaver Telephone Care Coordination [address] [place], [place] [id number] Liyah Ram LCSW [address] [place], [place] [phone] case management Allergies No known active allergiesdocumented as of this encounter (statuses as of 05/07/2023) Medications Medication Sig Dispensed Refills Start Date [...] as of this encounter (statuses as of 05/07/2023) Active Problems Problem Noted Date Diagnosed Date Substance dependence 03/17/2023 History of heroin use 03/17/2023 Amnesia 03/17/2023 Chronic hepatitis C without hepatic coma 023 HTN, goal below 130/80 03/17/2023 Pulmonary emphysema 03/17/2023 documented as of this encounter (statuses as of 05/07/2023) Resolved Problems Problem Noted Date Diagnosed Date Resolved Date Elevated hemoglobin 03/17/2023 03/17/20 documented as of this encounter (statuses as of 05/07/2023) Immunizations Name Administration Dates Next Due SEASONAL [...] encounter Miscellaneous Notes * Telephone Encounter - Liyah Ram LCSW - 05/07/2023 4:12 PM EDT AC Follow up [facility] spoke with patient briefly today via phone. He reports he was able to attend his appointment to get started with MAT with Zully Ambrosio. He reports the appointment went well and he had a good talk with the provider about his goal of getting off of it completely. He continues to attend meetings and plans to work on getting a sponsor. He was leaving to go steel pickler his prescription so call was brief. No additional needs identified at this time. Will follow up with patient within 2 weeks. Liyah Ram LCSW Behavioral Health Tape Weaver - Tim (she, her, hers) [facility] [phone] documented in this encounter Plan of Treatment Upcoming Encounters Date Type Department Care Team (Late st Contact Info) Description 07/12/2023 7:00 AM EST Pharmacy Hepatology, [address] [address] [place], Pharmacist Hepatology [address] [place] [address] 07/14/2023 8:00 AM EST Office Visit Gastroenterology, [facility] [address] [place] [address] Clarissa Reyes CRNP [address] [place] [address] 07/15/2023 7:00 AM EST Pharmacy Hepatology, [address] [address] [place], Pharmacist Hepatology [address] [place] [address] 07/19/2023 10:00 AM EST Office Visit General Internal Medicine [facility] [place] [address] [place] [address] Nitin Sarah PA-C [address] [place] [address] 10/18/2023 4:00 PM EDT Office Visit Neurology, [address] [id number] Anny Turner DO [address] [place], [place] [address] Health Maintenance Due Date Last Done Comments DISCUSS TOBACCO CESSATION (R EFER TO SMARTSET #3081) 1957 COVID-19 Vaccine (#1) 01/06/1958 Pneumococcal Vaccine: 65+ Ye ars (1 - PCV) 1963 DTaP,Tdap,and Td Vaccines (1 - Tdap) 1976 Cologuard 2002 Colonoscopy 2002 Colorectal Cancer Screening 2002 Fecal Occult Blood Test 2002 Sigmoidoscopy 2002 LUNG CANCER SCREENING - USE SMARTSET 53964 2007 Zoster Vaccines (1 of 2) 2007 [...] filedocumented as of this encounter Care Teams Grounds Worker Relationship Specialty Start Date End Date Nitin Sarah PA-C [address] [place] [address] PCP - General Physician Deli Clerk 02/01/23 documented as of this encounter
--- OUTSIDE RECORDS SUMMARY | 2023-08-26 09:17 | External Medical Summary ---
Author Name Unknown Address Unknown Organization [facility] [address] [place] [address] Laboratory Report Ordering Provider Test Date Status ADELE FANG 04/10/2023 13:56:19 Final Observation Date Value Abnormality Reference (Units ) Status SYNC LEUKOCYTES IN BLOOD BY AUTOMATED COUNT 04/10/2023 13:56:19 10.91 Above high normal 4.00-10.80 (K/uL) Final Segs 04/10/2023 13:56:19 78.7 Above high normal 40.0-75.0 (%) Final Lymphs % 04/10/2023 13:56:19 11.5 Below low normal 18.0-42.0 (%) Final Monos 04/10/2023 13:56:19 8.3 1.0-11.0 (%) Final Eosinophils 04/10/2023 13:56:19 1.1 0.0-6.0 (%) Final Basos 04/10/2023 13:56:19 0.4 0.0-2.0 (%) Final Absolute Segs 04/10/2023 13:56:19 8.59 Above high normal 1.80-7.70 (K/uL) Final Lymphs, absolute 04/10/2023 13:56:19 1.25 1.00-4.80 (K/ul) Final Monos, Abs 04/10/2023 13:56:19 0.91 0.00-1.10 (K/uL) Final Eos, Abs 04/10/2023 13:56:19 0.12 0.00-0.70 (K/uL) Final Basos, Abs 04/10/2023 13:56:19 0.04 0.00-0.20 (K/uL) Final Performing Location [facility] [address] [place] [address]
--- OUTSIDE RECORDS SUMMARY | 2023-08-26 09:17 | External Medical Summary | Summary of Care ---
Author Name Unknown Organization [facility] Address [address] [place] [address] Phone [phone] Care Team Providers Care Pediatric Psychologist Name Role Phone Nitin Sarah PA-C Primary Care Provider [phone] Reason for Referral * Evaluate & Treat - Unlimited Visits (Within 10 days (routine)) - Authorized Specialty Diagnoses / Procedures Referred By Shaji becerril Referred To Contact Infant Nanny Diagnoses History of heroin use Substance dependence (HCC) Nitin Sarah PA-C [address] [place] [address] Referral ID Status Reason Start Date Expiration Date Visits Requested Visits Authorized [id number] Authorized Specialty Services Required 03/17/2023 999 999 Question Answer Referral Priority Within 10 days (routine) Role Behavioral Health Infant [facility]anny[facility] [employer] Health Infant Nanny Referral Reason Active Substance Abuse Comments Is patient being transitioned from [facility] to Complex Case Management? No * Precert (Within 10 days (routine)) - Pending Review Specialty Diagnoses / Procedures Referred By Shaji becerril Referred To Contact Radiology Diagnoses Intractable chronic post-traumatic headache Procedures MRI BRAIN W WO CONTRAST Nitin Sarah PA-C [address] [place] [address] Referral ID Status Reason Start Date Expiration Date V isits Requested Visits Authorized [id number] Pending Review 03/17/2023 999 999 Reason for Visit * Reason Comments Follow Up 1 month. Patient sta megan ongoing HOFFMAN with disorientation and memory loss. Encounter Details Date Type Department Care Team Description 03/17/2023 Office Visit General Internal Medicine [facility] [place] [address] [place] [address] Nitin Sarah PA-C [address] [facility] [place] [address] Chronic hepatitis C without hepatic coma (HCC)*; Abnormal CBC; Elevated TSH; Amnesia; History of heroin use; Intractable chronic post-traumatic headache; HTN, goal below 130/80; Pulmonary emphysema, unspecified emphysema type (HCC); Substance dependence (HCC) Allergies No known active allergiesdocumented as of this encounter (statuses as of 03/28/2023) Medications Medication Sig Dispensed Refills Start Date End Date Status Naproxen Sodium 220 MG Oral Capsule Take 1 Capsule by mouth as needed. 0 Active Buprenorphine HCl-Naloxone HCl 8-2 MG Sublingual Film (Suboxone) Place under the tongue daily. 0 Active amLODIPine Besylate 5 MG Oral Tablet (Norvasc)Indications: HTN, goal below 130/80 Take 1 Tablet by mouth in the morning. 30 Tablet 12 03/17/2023 Active Levalbuterol Tartrate 45 MCG/ACT Inhalation Aerosol (Xopenex HFA)Indications:Pulmo nary emphysema, unspecified emphysema type (HCC) Inhale 1 Puff by mouth every 4 hours as needed for Wheezing. 15 g 12 03/17/2023 Active documented as of this encounter (statuses as of 03/28/2023) Active Problems Problem Noted Date Substance dependence 03/17/2023 History of heroin use 03/17/2023 Amnesia 03/17/2023 Chronic hepatitis C without hepatic coma 03/17/2023 HTN, goal below 130/80 03/17/2023 Pulmonary emphysema 03/17/2023 documented as of this encounter (statuses as of 03/28/2023) Resolved Problems Problem Noted Date Resolved Date Elevated hemoglobin 03/17/2023 03/17/2023 documented as of this encounter (statuses as of 03/28/2023) Social History Tobacco Use Types Packs/Day Years [...] Sign Reading Time Taken Comments Blood Pressure 176/90 03/17/2023 9:25 AM EDT Pulse 80 03/17/2023 9:25 AM EDT Temperature 36.7 C (98 F) 03/17/2023 9:25 AM EDT Respiratory Rate - - Oxygen Saturation 92% 03/17/2023 9:25 AM EDT Inhaled Oxygen Concentration - - Weight 61.3 kg (135 lb 3.2 oz) 03/17/2023 9:25 A M EDT Height 177.2 cm (5' 9.75") 03/17/2023 9:25 AM ED T Body Mass Index 19.54 03/17/2023 9:25 AM EDT documented in this encounter Progress Notes * Nitin Sarah PA-C - 03/17/2023 9:19 AM EDT Subjective: Dylan Martell is a 67 year old male. Chief Complaint Patient presents with Follow Up 1 month. Patient states ongoing HOFFMAN with disorientation and memory loss. HPI: 67 y/o male seen today in follow up. He was found to have hepatitis C on screening. Today he admits to many years of drug abuse including heroin, marijuana, benzodiazepines, and currently using Suboxone he is purchasing. Having amnesia episodes which he does not attribute to his drug use.See last note. Still having daily headache and dizziness. Headaches did start after previous head injury. Pressureelevated today. Declined treatment last visit, but agreeable today. Notes intermittent LOYA with activity. Albuterol has helped in past. Declines CT screening for lung cancer. PMH: Patient Active Problem List Diagnosis Code Substance dependence (HCC) F19.20 History of heroin use F11.91 Amnesia R41.3 Chronic hepatitis C without hepatic coma (HCC) B18.2 HTN, goal below 130/80 I10 Pulmonary emphysema (HCC) J43.9 Current Outpatient Medications Medication Sig Dispense Refill Naproxen Sodium 220 MG Oral Capsule Take 1 Capsule by mouth as needed. Buprenorphine HCl-Naloxone HCl 8-2 MG Sublingual Film (Suboxone) Place under the tongue daily. amLODIPine Besylate 5 MG Oral Tablet (Norvasc) Take 1 Tablet by mouth in the morning. 30 Tablet 12 Levalbuterol Tartrate 45 MCG/ACT Inhalation Aerosol (Xopenex HFA) Inhale 1 Puff by mouth every 4 hours as needed for Wheezing. 15 g 12 No current facility-administered medications for this visit. Review of patient's allergies indicates: No Known Allergies All other review of systems reviewed and negative other than mentioned in HPI. Objective: BP 176/90 | Pulse 80 | Temp 36.7 C (98 F) | Ht 1.772 m (5' 9.75") | Wt 61.3 kg (135 lb 3.2 oz) | SpO2 92% | BMI 19.54 kg/m | BSA 1.74 m Results for orders placed or performed in visit on 03/15/23 CALCIUM Result Value Ref Range Calcium 10.1 8.4 - 10.2 mg/dL FERRITIN Result Value Ref Range Ferritin 340 30 - 400 ng/mL IRON SCREEN, INCLUDING TIBC Result Value Ref Range Iron 92 45 - 176 ug/dL Iron Binding Capacity 333 250 - 425 ug/dL Transferrin Saturation Percent 28 15 - 55 % CBC Result Value Ref Range WBC 11.76 (H) 4.00 - 10.80 K/uL RBC 5.48 4.50 - 5.25 M/uL HGB 17.2 (H) 14.0 - 16.8 g/dL HCT 51.1 (H) 40.0 - 48.4 % MCV 93.2 82.0 - 99.5 fL MCH 31.4 27.0 - 34.0 pg MCHC 33.7 32.0 - 36.0 g/dL RDW 16.0 11.5 - 15.5 % PLT 458 (H) 140 - 400 K/uL MPV 9.3 6.6 - 11.1 fL HEPATITIS C ANTIBODY Result Value Ref Range Hepatitis C Antibody Positive (A) Negative HEPATITIS C RNA QUANTITATIVE Specimen: Blood, Venous Result Value Ref Range HCV RNA Result 5,610,000 (H) <=0 IU/mL HCV LOG Result 6.75 (H) <=0.00 log IU/mL Clinical Significance Test results have been reported to [facility]. The HCV assay is an in vitro nucleic acid amplification test for both the detection and quantitation of hepatitis C virus (HCV) RNA, in human EDTA plasma, of HCV antibody positive or HCV-infected individuals. Specimens containing HCV genotypes 1 to 6 are validated for detection and quantitation in the assay. This assay is intended for use as an aid in the diagnosis of HCV infection in the following populations: individuals who are HCV antibody-positive and with evidence of liver disease, individuals suspected to be actively infected with HCV antibody evidence, and individuals at risk for HCV infection with antibodies to HCV. Detection of HCV RNA indicates that the virus is replicating and th erefore is evidence of active infection. This assay is intended for use as an aid in the managementof HCV-infected patients undergoing anti-viral therapy. The assay can be used to quantify HCV RNA in serum of patients with chronic HCV infection (HCV antibody-positive), monitor disease progression in chronic HCV infection and response to antiviral therapy and determine cure and detection of relapse after completion of antiviral therapy. The results must be interpreted within the context of all relevant clinical and laboratory findings. This assay has not been approved for use as a screening test for the presence of HCV in blood or blood products. Result Comment The HCV assay is an in vitro nucleic acid amplification test using an automated system for specimenprocessing, amplification and detection. Detection of antibodies to HCV (anti-HCV) indicates prior exposure to hepatitis C but does not distinguish between cleared or active infection (i.e where the virus is still replicating). Detection of HCV RNA with the detection of anti-HCV identifies an active hepatitis C infection. The results of HCV RNA testing together with other biochemical and clinicalinformation, may be used to confirm an active HCV infection, measure the level of virus in the blood and assist in HCV prevention counseling, medical care and treatment decision making. The test can quantitate HCV RNA over the reportable range of 15-100,000,000 IU/mL (1.18 log to 8.00 log IU/mL). Comment The assay was verified and performance characteristics determined by the [facility] Laboratory at [facility]. This test is used for clinical purposes. References 1. Farias P, Litzy Chen, Nohemy S: How to Use Virological Tools for the Optimal Management of Chronic Hepatitis C. Liver Int 2011;31 Suppl 1:3-12. 2. Centers for Disease Control and Prevention. Testing for HCV Infection: an Update of Guidance forClinicians and Laboratorians. MMWR Morb Mortal Wkly Rep 2013;62(18):362-365. 3. [place] Association for the Study of Liver Diseases and Infectious Diseases Society of [place]:HCV Guidance: Recommendations for Testing, Managing, and Treating Hepatitis C. Accessed January 15, 2017. Available at www.hcvguidelines.org/dyis-iswire-szrc Physical Exam Constitutional: General: He is not in acute distress. Appearance: Normal appearance. He is normal weight. He is not ill-appearing or toxic-appearing. HENT: Head: Normocephalic and atraumatic. Right Ear: Tympanic membrane normal. Left Ear: Tympanic membrane normal. Mouth/Throat: Mouth: Mucous membranes are moist. Pharynx: Oropharynx is clear. No oropharyngeal exudate or posterior oropharyngeal erythema. Eyes: Extraocular Movements: Extraocular movements intact. Conjunctiva/sclera: Conjunctivae [...] There is no guarding or rebound. Neurological: Mental Status: He is alert. ASSESSMENT: Chronic hepatitis C without hepatic coma (HCC) (Primary) - PT INR; Future; Expected date: 03/17/2023 US negative for mass or cirrhosis. Update INR. Schedule hepatology for treatment. Abnormal CBC - CBC WITH WBC DIFFERENTIAL; Future; Expected date: 04/16/2023 Elevated hgb WBC and platelet. Suspect secondary to inflammatory and smoking from hep C and emphysema. Repeat in one month to trend. Elevated TSH Repeat today Amnesia - TOXICOLOGY, URINE SCREEN W/ CONFIRMATION; Future; Expected date: 03/17/2023 - VITAMIN B1 (THIAMINE), BLOOD, LC/MS/MS; Future; Expected date: 03/17/2023 Concern related to his drug use. He is agreeable to tox screen and seeing addiction medicine. Update MRI. Spoke with neurology who agrees with planned work up. They can see sooner, but may not have much additional to offer once testing complete. History of heroin use - TOXICOLOGY, URINE SCREEN W/ CONFIRMATION; Future; Expected date: 03/17/2023 - POPULATION HEALTH REFERRAL OP Intractable chronic post-traumatic headache - MRI BRAIN W WO CONTRAST; Future; Expected date: 03/17/2023 If negative and pressure control does not alleviate him, will talk to him about prophylactic medication. HTN, goal below 130/80 - amLODIPine Besylate 5 MG Oral Tablet (Norvasc); Take 1 Tablet by mouth in the morning. Discussed possible side effects. Agreeable. Pulmonary emphysema, unspecified emphysema type (HCC) - Levalbuterol Tartrate 45 MCG/ACT Inhalation Aerosol (Xopenex HFA); Inhale 1 Puff by mouth every 4hours as needed for Wheezing. Substance dependence (HCC) - POPULATION HEALTH REFERRAL OP Follow Up: Return in about 1 month (around 04/16/2023), or if symptoms worsen or fail to improve. I spent a total of 40-54 minutes (exact time 50 mins) on the date of service in preparation, delivery, and documentation of the care provided to Dylan Martell excluding any time spent in the performance of separately billed services. Nitin Sarah PA-C documented in this encounter Nursing Notes * Veronika Pratt LPN - 03/17/2023 9:25 AM EDT Chief Complaint Patient presents with Follow Up 1 month. Patient states ongoing HOFFMAN with disorientation and memory loss. documented in this encounter Miscellaneous Notes * Addendum Note - SALAZAR Restrepo - 03/23/2023 3:23 PM EDTAddended by: NHI BAHENA on: 03/23/2023 03:23 PM Modules accepted: Orders documented in this encounter Plan of Treatment Upcoming Encounters Date Type Specialty Care Team Description 04/13/2023 Pharmacy Gastroenterology Jolon, Pharmacist Hepatology [address] [place] [address] 04/16/2023 Office Visit Internal Medicine Nitin Sarah PA-C [address] [place] [address] 10/18/2023 Office Visit Neurology Anny Turner DO [address], [place] [id number] Scheduled Orders Name Type Priority Associated Diagnoses Orde r Schedule CBC WITH WBC DIFFERENTIAL Lab Routine Abnormal CBC Expected: 04/16/2023 (Approximate), Expires: 03/17/2024 Scheduled Referrals Name Type Priority Associated Diagnoses Orde r Schedule POPULATION HEALTH REFERRAL OP Referral Within 10 days (routine) History of heroin use Substance dependence (HCC) Ordered: 03/17/2023 Health Maintenance Due Date Last Done Comments DISCUSS TOBACCO CESSATION (R EFER TO SMARTSET #7164) 1957 COVID-19 Vaccine (#1) 01/06/1958 Pneumococcal Vaccine: 65+ Ye ars (1 - PCV) 1963 Albumin/Creatinine Ratio 1975 DTaP,Tdap,and Td Vaccines (1 - Tdap) 1976 Cologuard 2002 Colonoscopy 2002 Colorectal Cancer Screening 2002 Fecal Occult Blood Test 2002 Sigmoidoscopy 2002 LUNG CANCER SCREENING - USE SMARTSET 33590 2007 Zoster Vaccines (1 of 2) 2007 Influenza Vaccine (FLU shot) (#1) 2023 Depression Screening 02/02/2024 02/01/2023 GFR 02/02/2024 02/01/2023 O2 ASSESSMENT COMPLETED IN P AST YEAR FOR COPD 03/17/2024 03/17/2023 Lipid Panel 02/02/2028 02/01/2023 AAA Screening Completed 02/10/2023 Alpha-1 Antitrypsin Completed 03/15/2023 HIV Screening Completed 03/24/2023 GARDASIL-HPV IMMUNIZATION SERIES Aged Out No longer eligible based on patient's age to complete this topic Hepatitis B Aged Out No longer eligi ble based on patient's age to complete this topic MENINGOCOCCAL (MENACTRA/MENVEO) Aged Out No longer eligible based on patient's age to complete this topic documented as of this encounter Medical Devices Not on filedocumented as of this encounter Procedures Procedure Name Priority Date/Time Associated Diagnosis Comments VITAMIN B1 (THIAMINE), BLOOD, LC/MS/MS Routine 03/17/2023 10:19 AM EDT Chronic hepatitis C without hepatic coma (HCC) documented in this encounter Results * MRI BRAIN W WO CONTRAST (03/18/2023 1:29 PM EDT) Anatomical Region Laterality Modality Neuro, Head Magnetic Resonan ce 03/20/2023 2:14 PM EDT Impressions 03/20/2023 2:12 PM EDT IMPRESSION No acute intracranial abnormality. Narrative 03/20/2023 2:12 PM EDT EXAM MRI BRAIN W WO CONTRAST-03/18/2023 1:29 pm HISTORY Headache; Neurologic deficit, non-traumatic; Altered mental status; Neurologic deficit onset <= 24 hours; No known/automatically detected potential contraindications to iodinated contrast COMPARISON None available. TECHNIQUE Multiplanar multisequence MRI brain performed with and without IV contrast. FINDINGS Generalized volume loss is present with prominence of the ventricles and sulci. Patchy foci of hyperintense T2 FLAIR signal within the cerebral white matter likely related to moderately advanced chronic small vessel ischemia. No acute infarct, intraparenchymal mass, edema, or midline shift. Basilar cisterns are patent. No abnormal intracranial enhancement. Cerebellar tonsils are normal in position and configuration. The sellar and parasellar regions are within normal limits. Vascular flow voids are maintained at the skull base. No suspicious calvarial signal abnormality. Orbits are unremarkable on this nondedicated exam. No significant signal abnormality within the visualized paranasal sinuses or mastoid air cells. Procedure Note Eric Marlow MD - 03/20/2023 EXAM MRI BRAIN W WO CONTRAST-03/18/2023 1:29 pm HISTORY Headache; Neurologic deficit, non-traumatic; Altered mental status;Neurologic deficit onset <= 24 hours; No known/automatically detectedpotential contraindications to iodinated contrast COMPARISON None available. TECHNIQUE Multiplanar multisequence MRI brain performed with and without IVcontrast. FINDINGS Generalized volume loss is present with prominence of the ventricles andsulci. Patchy foci of hyperintense T2 FLAIR signal within the cerebralwhite matter likely related to moderately advanced chronic small vesselischemia. No acute infarct, intraparenchymal mass, edema, or midlineshift. Basilar cisterns are patent. No abnormal intracranialenhancement. Cerebellar tonsils are normal in position and configuration. The sellarand parasellar regions are within normal limits. Vascular flow voids aremaintained at the skull base. No suspicious calvarial signal abnormality.Orbits are unremarkable on this nondedicated exam. No significant signal abnormality within the visualized paranasal sinusesor mastoid air cells. IMPRESSION IMPRESSION No acute intracranial abnormality. Nitin Sarah PA-C RAD MRI-MRA * (ABNORMAL) TOXICOLOGY, URINESCREEN W/ CONFIRMATION (03/17/2023 10:21 AM EDT) Amphetamine Negative Negative 03/17/2023 5:48 PM EDT LABORATORY C Benzodiazepines Negative Negative 5:48 PM EDT [facility] Cannabinoids Positive(A) Negative 03/17/2023 5:48 PM EDT [facility] Cocaine Metabolite Negative Negative 2022 5:48 PM EDT [facility] Fentanyl Negative Negative 03/17/2023 5:48 PM EDT LABORATORY C Hydrocodone / Hydromorphone Negative Negative 03/17/2023 5:48 PM EDT [facility] Methadone Metabolite Negative Negative 03/17/2023 5:48 PM EDT LABORATORY [facility] Morphine / Codeine Negative Negative 2022 5:48 PM EDT [facility] Oxycodone / Oxymorphone Negative Negative 03/17/2023 5:48 PM EDT [facility] Urine Urine specimen obtained by clean catch procedure / Unknown Non-blood Collection / Unknown 03/17/2023 10:21 AM EDT 03/17/2023 10:21 AM EDT Narrative [facility] - 03/17/2023 5:48 PM EDT Cutoff Concentrations: Drug Level Amphetamines 500 ng/mL Benzodiazepines 100 ng/mL Cannabinoids 50 ng/mL Cocaine Metabolite 150 ng/mL Fentanyl 1 ng/mL Hydrocodone / Hydromorphone 300 ng/mL Methadone Metabolite 100 ng/mL Morphine / Codeine 300 ng/mL Oxycodone / Oxymorphone 100 ng/mL Screening results are presumptive and can only be used for medical purposes. Positive screening results are reflexed to confirmatory testing. Nitin Sarah PA-C LAB URINE ORDERABL ES [facility] [address] [place] [address] * VITAMIN B1 (THIAMINE), BLOOD, LC/MS/MS (03/17/2023 10:19 AM EDT) Pathologist [facility] Vitamin B1 (Thiamine),B 159 78 - 185 nmol/L 03/28/2023 11:32 AM EDT [email or web address] [facility] Comment: Vitamin supplementation within 24 hours prior to blood draw may affect the accuracy of the results. This test was developed and its analytical performance characteristics have been determined by [facility] [place], [place]. It has not been cleared or approved by the U.S. Food and Drug Administration. This assay has been validated pursuant to the CLIA regulations and is used for clinical purposes. Test Performed at: [facility] [address] [place] [address] Ge Lucas M.D., Ph.D.,Director of Laboratories Blood Venous blood specimen / Unknown Venipuncture / Unknown 03/17/2023 10:19 AM EDT 03/23/2023 3:23 PM EDT Nitin Sarah PA-C LAB BLOOD ORDERABL ES [email or web address] [facility] [address] [place] [address] * PT INR (03/17/2023 10:19 AM EDT) Prothrombin Time 13.0 11.6 - 15.2 seconds 03/17/2023 10:51 AM EDT [facility] 56- INR 1.0 0.8 - 1.2 03/17/2023 10:51 AM EDT [facility] 56- Blood Venous blood specimen / Unknown Venipuncture / Unknown 03/17/2023 10:19 AM EDT 03/17/2023 10:20 AM EDT [facility] 56-02 - 03/17/2023 10:51 AM EDT Warfarin Therapy INR: 2.0-3.0 conventional anticoagulation INR: 2.5-3.5 high intensity anticoagulation Nitin Sarah PA-C LAB BLOOD ORDERABL ES [facility] [facility] [address] documented in this encounter Visit Diagnoses Diagnosis Chronic hepatitis C without hepatic coma (HCC)- Primary Chronic hepatitis C without mention of hepatic coma Abnormal CBC Other abnormal blood chemistry Elevated TSH Other abnormal blood chemistry Amnesia Memory loss History of heroin use Intractable chronic post-traumatic headache Chronic post-traumatic headache HTN, goal below 130/80 Unspecified essential hypertension Pulmonary emphysema, unspecified emphysema type (HCC) Substance dependence (HCC) Unspecified drug dependence, unspecified Intractable chronic post-traumatic headache Chronic post-traumatic headache documented in this encounter Care Teams Pediatric Psychologist Relationship Specialty Start Date End Date [facility] [address] [facility] [address] [facility] - General Physician Bankruptcy Attorney 02/01/23 documented as of this encounter
--- OUTSIDE RECORDS SUMMARY | 2023-08-26 09:17 | External Medical Summary ---
Author Name Unknown Address Unknown Organization [id number]:[facility] [address] [facility] [address] Laboratory Report Ordering Provider Test Date Status ADELE FANG 04/10/2023 13:56:19 Final Observation Date Value Abnormality Reference (Units ) Status TSH 04/10/2023 13:56:19 4.22 Above high normal 0. 27-4.20 (uIU/mL) Final Performing Location [facility] [place] [address] [facility] [address]
--- OUTSIDE RECORDS SUMMARY | 2023-08-26 09:17 | External Medical Summary | Summary of Care ---
Author Name Unknown Organization [facility] Address [address] [place] [address] Phone [phone] Care Team Providers Care Manager Integrated Name Role Phone Nitin Sarah PA-C Primary Care Provider +1- [phone] Reason for Visit * Reason Onset Date Comments case management 03/30/2023 Encounter Details Date Type Department Care Team Description 03/30/2023 Can Sterilizer Telephone Care Coordination [address] [place] [address] Liyah Ram LCSW case management Allergies No known active allergiesdocumented as of this encounter (statuses as of 03/30/2023) Medications Medication Sig Dispensed Refills Start Date [...] as of this encounter (statuses as of 03/30/2023) Active Problems Problem Noted Date Substance dependence 03/17/2023 History of heroin use 03/17/2023 Amnesia 03/17/2023 Chronic hepatitis C without hepatic coma 03/17/2023 HTN, goal below 130/80 03/17/2023 Pulmonary emphysema 03/17/2023 documented as of this encounter (statuses as of 03/30/2023) Resolved Problems Problem Noted Date Resolved Date Elevated hemoglobin 03/17/2023 03/17/2023 documented as of this encounter (statuses as of 03/30/2023) Social History Tobacco Use Types Packs/Day Years [...] Miscellaneous Notes * Telephone Encounter - Liyah Ram, MASTER SCHEDULER - 03/30/2023 4:25 PM EDT OBEYIS Alert/178 Referral S: [facility] spoke with patient today via phone. [...] the list of HERMELINDA counseling providers from [facility] team, but did not feel he neededthat [...] time. Denies need for HERMELINDA supports. P: [facility] to close referral at this time as patient denied needs. Pt encouraged to reach out to [facility] for CM support if needed in the future, he is agreeable. Liyah Ram LCSW Behavioral Health Can Sterilizer - [facility] [phone] [email or web address] documented in this encounter Plan of Treatment Upcoming Encounters Date Type Specialty Care Team Description 04/13/2023 Pharmacy Gastroenterology [place], Pharmacist Hepatology [address] [place] [address] 04/16/2023 Office Visit Internal Medicine Nitin Sarah PA-C [address] [place] [address] 10/18/2023 Office Visit Neurology Anny Turner DO [address] [place] [address] Health Maintenance Due Date Last Done Comments DISCUSS TOBACCO CESSATION (R EFER TO SMARTSET #8331) 1957 COVID-19 Vaccine (#1) 01/06/1958 Pneumococcal Vaccine: 65+ Ye ars (1 - PCV) 1963 Albumin/Creatinine Ratio 1975 DTaP,Tdap,and Td Vaccines (1 - Tdap) 1976 Cologuard 2002 Colonoscopy 2002 Colorectal Cancer Screening 2002 Fecal Occult Blood Test 2002 Sigmoidoscopy 2002 LUNG CANCER SCREENING - USE SMARTSET 03019 2007 Zoster Vaccines (1 of 2) 2007 [...] filedocumented as of this encounter Care Teams Manager Integrated Relationship Specialty Start Date End Date Nitin Sarah PA-C [address] [facility] [place] [address] PCP - General Physician Insurance Executive 02/01/23 documented as of this encounter
--- OUTSIDE RECORDS SUMMARY | 2023-08-26 09:17 | External Medical Summary | Summary of Care ---
Author Name Unknown Organization [facility] Address [address] [place] [address] Phone [phone] Care Team Providers Care Animal Tech Name Role Phone Nitin Sarah PA-C Primary Care Provider +1- [phone] Reason for Visit * Reason Comments Outpatient Testing Encounter Details Date Type Department Care Team Description 03/24/2023 Laboratory Laboratory, [facility] [address] [facility] [place] [address] [facility] [address] [facility] [place] [address] Hepatitis C virus infection without hepatic coma, unspecified chronicity; Exposure to hepatitis C; Blood tests prior to treatment or procedure; Other problems related to lifestyle; Screening for viral disease; Immunity status testing Allergies No known active allergiesdocumented as of this encounter (statuses as of 03/24/2023) Medications Medication Sig Dispensed Refills Start Date [...] as of this encounter (statuses as of 03/24/2023) Active Problems Problem Noted Date Substance dependence 03/17/2023 History of heroin use 03/17/2023 Amnesia 03/17/2023 Chronic hepatitis C without hepatic coma 03/17/2023 HTN, goal below 130/80 03/17/2023 Pulmonary emphysema 03/17/2023 documented as of this encounter (statuses as of 03/24/2023) Resolved Problems Problem Noted Date Resolved Date Elevated hemoglobin 03/17/2023 03/17/2023 documented as of this encounter (statuses as of 03/24/2023) Social History Tobacco Use Types Packs/Day Years [...] Specialty Care Team Description 04/13/2023 Pharmacy Gastroenterology [place], Pharmacist Hepatology [address] [place] [address] 04/16/2023 Office Visit Internal Medicine Nitin Sarah PA-C [address] [place] [address] 10/18/2023 Office Visit Neurology Anny Turner DO [address] [place] [address] Pending Results Name Type Priority Associated Diagnoses Date /Time HEPATITIS C GENOTYPE, PCR Lab Routine Hepatitis C virus infection without hepatic coma, unspecified chronicity Exposure to hepatitis C Blood tests prior to treatment or procedure Other problems related to lifestyle Screening for viral disease 03/24/2023 2:09 PM EDT HEPATITIS A ANTIBODIES IGG AND IGM Lab Routine Hepatitis C virus infection without hepatic coma, unspecified chronicity Exposure to hepatitis C Blood tests prior to treatment or procedure Immunity status testing Other problems related to lifestyle Screening for viral disease 03/24/2023 2:09 PM EDT HEPATITIS B SURFACE ANTIBODY Lab Routine Hepatitis C virus infection without hepatic coma, unspecified chronicity Exposure to hepatitis C Blood tests prior to treatment or procedure Immunity status testing Other problems related to lifestyle Screening for viral disease 03/24/2023 2:09 PM EDT HEPATITIS B SURFACE ANTIGEN Lab Routine Hepatitis C virus infection without hepatic coma, unspecified chronicity Exposure to hepatitis C Blood tests prior to treatment or procedure Other problems related to lifestyle Screening for viral disease 03/24/2023 2:09 PM EDT HEPATITIS B CORE ANTIBODIES IGG AND IGM Lab Routine Hepatitis C virus infection without hepatic coma, unspecified chronicity Exposure to hepatitis C Blood tests prior to treatment or procedure Other problems related to lifestyle Screening for viral disease 03/24/2023 2:09 PM EDT HIV ANTIGEN & ANTIBODY SCREEN W/ CONFIRMATION Lab Routine Hepatitis C virus infection without hepatic coma, unspecified chronicity Exposure to hepatitis C Blood tests prior to treatment or procedure Other problems related to lifestyle Screening for viral disease 03/24/2023 2:09 PM EDT ETHANOL, MEDICAL Lab Routine Hepatitis C virus infection without hepatic coma, unspecified chronicity Exposure to hepatitis C Blood tests prior to treatment or procedure Other problems related to lifestyle Screening for viral disease 03/24/2023 2:09 PM EDT Health Maintenance Due Date Last Done Comments DISCUSS TOBACCO CESSATION (R EFER TO SMARTSET #6219) 1957 COVID-19 Vaccine (#1) 01/06/1958 Pneumococcal Vaccine: 65+ Ye ars (1 - PCV) 1963 HIV Screening 1972 Albumin/Creatinine Ratio 1975 DTaP,Tdap,and Td Vaccines (1 - Tdap) 1976 Cologuard 2002 Colonoscopy 2002 Colorectal Cancer Screening 2002 Fecal Occult Blood Test 2002 Sigmoidoscopy 2002 LUNG CANCER SCREENING - USE SMARTSET 85112 2007 Zoster Vaccines (1 of 2) 2007 [...] as of this encounter Visit Diagnoses Diagnosis Hepatitis C virus infection without hepatic coma, unspecified chronicity Exposure to hepatitis C Contact with or exposure to other viral diseases Blood tests prior to treatment or procedure Pre-procedural laboratory examination Other problems related to lifestyle Screening for viral disease Special screening examination for unspecified viral disease Immunity status testing Antibody response examination documented in this encounter Care Teams Animal Tech Relationship Specialty Start Date End Date Nitin Sarah PA-C [address] [facility] [place] [address] PCP - General Physician Clamp Forklift Operator 02/01/23 documented as of this encounter
--- OUTSIDE RECORDS SUMMARY | 2023-08-26 09:17 | External Medical Summary | Summary of Care ---
Author Name Unknown Organization [facility] Address [address] [place] [address] Phone [phone] Care Team Providers Care Metallurgical Tester Name Role Phone Nitin Sarah PA-C Primary Care Provider +1- [phone] Reason for Referral * Evaluate & Treat - Unlimited Visits (Within 10 days (routine)) - Authorized Specialty Diagnoses / Procedures Referred By Shaji becerril Referred To Contact Entry Level Manager Diagnoses History of heroin use Substance dependence (HCC) Nitin Sarah PA-C [address] [place] [address] Referral ID Status Reason Start Date Expiration Date Visits Requested Visits Authorized [id number] Authorized Specialty Services Required 03/17/2023 999 999 Question Answer Referral Priority Within 10 days (routine) Role Behavioral Health Entry Level ManagerLathe Machine Operator Health Entry Level Manager Referral Reason Active Substance Abuse Comments Is patient being transitioned from [facility] to Complex Case Management? No * Precert (Within 10 days (routine)) - Pending Review Specialty Diagnoses / Procedures Referred By Shaji becerril Referred To Contact Radiology Diagnoses Intractable chronic post-traumatic headache Procedures MRI BRAIN W WO CONTRAST Nitin Sarah PA-C [address] [place] [address] Referral ID Status Reason Start Date Expiration Date V isits Requested Visits Authorized [id number] Pending Review 03/17/2023 999 999 Reason for Visit * Reason Comments Follow Up 1 month. Patient sta megan ongoing HOFFMAN with disorientation and memory loss. Encounter Details Date Type Department Care Team Description 03/17/2023 Office Visit General Internal Medicine [facility] [place] [address] [place] [address] Nitin Sarah PA-C [address] [facility] [place] [address] Chronic hepatitis C without hepatic coma (HCC)*; [...] Significance Test results have been reported to [facility]. The HCV assay is an in vitro [...] determined by the Molecular Diagnostics Laboratory at [facility]. This test is used for clinical purposes. References 1. Farias P, Litzy Chen, Nohemy S: How to Use Virological Tools for the Optimal Management of Chronic Hepatitis C. Liver Int 2011;31 Suppl 1:3-12. 2. Centers for Disease Control and Prevention. Testing for HCV Infection: an Update of Guidance forClinicians and Laboratorians. MMWR Morb Mortal Wkly Rep 2013;62(18):362-365. 3. [place] Association for the Study of Liver Diseases and Infectious Diseases Society of [place]:HCV Guidance: Recommendations for Testing, Managing, and Treating Hepatitis C. Accessed January 15, 2017. Available at www.hcvguidelines.org/atir-jujdom-peqk Physical Exam Constitutional: General: He is not [...] Specialty Care Team Description 04/13/2023 Pharmacy Gastroenterology [place], Pharmacist Hepatology [address] [place] [address] 04/16/2023 Office Visit Internal Medicine Nitin Sarah PA-C [address] [place] [address] 10/18/2023 Office Visit Neurology Anny Turner DO [address], [place] [id number] Scheduled Orders Name Type Priority Associated Diagnoses [...] DISCUSS TOBACCO CESSATION (R EFER TO SMARTSET #9566) 1957 COVID-19 Vaccine (#1) 01/06/1958 Pneumococcal Vaccine: 65+ Ye ars (1 - PCV) 1963 Albumin/Creatinine Ratio 1975 DTaP,Tdap,and Td Vaccines (1 - Tdap) 1976 Cologuard 2002 Colonoscopy 2002 Colorectal Cancer Screening 2002 Fecal Occult Blood Test 2002 Sigmoidoscopy 2002 LUNG CANCER SCREENING - USE SMARTSET 54487 2007 Zoster Vaccines (1 of 2) 2007 [...] Benzodiazepines Negative Negative 5:48 PM EDT [facility] Cannabinoids Positive(A) Negative 03/17/2023 5:48 PM EDT [facility] Cocaine Metabolite Negative Negative 2022 5:48 PM EDT [facility] Fentanyl Negative Negative 03/17/2023 5:48 PM EDT LABORATORY C Hydrocodone / Hydromorphone Negative Negative 03/17/2023 5:48 PM EDT [facility] Methadone Metabolite Negative Negative 03/17/2023 5:48 PM EDT [facility] Morphine / Codeine Negative Negative 2022 5:48 PM EDT [facility] Oxycodone / Oxymorphone Negative Negative 03/17/2023 5:48 PM EDT [facility] Urine Urine specimen obtained by clean catch procedure / Unknown Non-blood Collection / Unknown 03/17/2023 10:21 AM EDT 03/17/2023 10:21 AM EDT Narrative [facility] - 03/17/2023 5:48 PM EDT Cutoff Concentrations: [...] Sarah PA-C LAB URINE ORDERABL ES [facility] [address] [place] [address] * VITAMIN B1 (THIAMINE), BLOOD, LC/MS/MS (03/17/2023 10:19 AM EDT) Pathologist [facility] Vitamin B1 (Thiamine),B 159 78 - 185 nmol/L 03/28/2023 11:32 AM EDT [facility] [facility] [place] Comment: Vitamin supplementation within 24 hours prior to blood draw may affect the accuracy of the results. This test was developed and its analytical performance characteristics have been determined by [facility] [place], [place]. It has not been cleared or approved by the U.S. Food and Drug Administration. This assay has been validated pursuant to the CLIA regulations and is used for clinical purposes. Test Performed at: [facility] [address] [place] [address] Ge Lucas M.D., Ph.D.,Director of Laboratories Blood Venous blood specimen / Unknown Venipuncture / Unknown 03/17/2023 10:19 AM EDT 03/23/2023 3:23 PM EDT Nitin Sarah PA-C LAB BLOOD ORDERABL ES [facility] [place] [address] [place] [address] * PT INR (03/17/2023 10:19 AM EDT) Prothrombin Time 13.0 11.6 - 15.2 seconds 03/17/2023 10:51 AM EDT [facility] 56- INR 1.0 0.8 - 1.2 03/17/2023 10:51 AM EDT [facility] 56- Blood Venous blood specimen / Unknown Venipuncture / Unknown 03/17/2023 10:19 AM EDT 03/17/2023 10:20 AM EDT [facility] 56-02 - 03/17/2023 10:51 AM EDT Warfarin Therapy INR: 2.0-3.0 conventional anticoagulation INR: 2.5-3.5 high intensity anticoagulation Nitin Sarah PA-C LAB BLOOD ORDERABL ES [facility] 56[facility] [address] [facility] [address] documented in this encounter Visit Diagnoses Diagnosis [...] headache documented in this encounter Care Teams Metallurgical Tester Relationship Specialty Start Date End Date [facility] [address] [facility] [address] PCP - General Physician Rib Stiffener And Heel Dipper 02/01/23 documented as of this encounter
--- OUTSIDE RECORDS SUMMARY | 2023-08-26 09:17 | External Medical Summary | Summary of Care ---
Author Name Unknown Organization [facility] Address [address] [place] [address] Phone [phone] Care Team Providers Care Soaker Meat Name Role Phone Nitin Sarah PA-C Primary Care Provider +1- [phone] Encounter Details Date Type Department Care Team Description 04/12/2023 Orders Only General Internal Medicine [facility] [address] [facility] [place] [address] Nitin Sarah PA-C [address] [facility] [place] [address] Subclinical hypothyroidism* Allergies No known active allergiesdocumented as of this encounter (statuses as of 04/12/2023) Medications Medication Sig Dispensed Refills Start Date [...] as of this encounter (statuses as of 04/12/2023) Active Problems Problem Noted Date Substance dependence 03/17/2023 History of heroin use 03/17/2023 Amnesia 03/17/2023 Chronic hepatitis C without hepatic coma 03/17/2023 HTN, goal below 130/80 03/17/2023 Pulmonary emphysema 03/17/2023 documented as of this encounter (statuses as of 04/12/2023) Resolved Problems Problem Noted Date Resolved Date Elevated hemoglobin 03/17/2023 03/17/2023 documented as of this encounter (statuses as of 04/12/2023) Social History Tobacco Use Types Packs/Day Years [...] Encounters Date Type Specialty Care Team Description 04/16/2023 Office Visit Internal Medicine Nitin Sarah PA-C [address] [place] [address] 07/12/2023 Pharmacy [facility] [place] [address] [facility] [address] 07/14/2023 Office Visit Gastroenterology Clarisas Reyes CRNP [address] [place] [address] 07/15/2023 Pharmacy [facility]ology [place], Pharmacist [facility] [address] [facility] [address] 10/18/2023 Office Visit Neurology Anny Turner, DO [address] [place] [address] Scheduled Orders Name Type Priority Associated Diagnoses Orde r Schedule TSH WITH FREE T4 IF INDICATED Lab Routine Subclinical hypothyroidism Expected: 07/13/2023 (Approximate), Expires: 04/11/2024 Health Maintenance Due Date Last Done Comments DISCUSS TOBACCO CESSATION (R EFER TO SMARTSET #5835) 1957 COVID-19 Vaccine (#1) 01/06/1958 Pneumococcal Vaccine: 65+ Ye ars (1 - PCV) 1963 Albumin/Creatinine Ratio 1975 DTaP,Tdap,and Td Vaccines (1 - Tdap) 1976 Cologuard 2002 Colonoscopy 2002 Colorectal Cancer Screening 2002 Fecal Occult Blood Test 2002 Sigmoidoscopy 2002 LUNG CANCER SCREENING - USE SMARTSET 56072 2007 Zoster Vaccines (1 of 2) 2007 [...] hypothyroidism documented in this encounter Care Teams Soaker Meat Relationship Specialty Start Date End Date Nitin Sarah PA-C [address] [place], [place] [address] PCP - General Physician Space Controller 02/01/23 documented as of this encounter
--- OUTSIDE RECORDS SUMMARY | 2023-08-26 09:17 | External Medical Summary | Summary of Care ---
Author Name Unknown Organization [facility] Address [address] [place] [address] Phone [phone] Care Team Providers Care Casino Operations Supervisor Name Role Phone Nitin Sarah PA-C Primary Care Provider +1- [phone] Reason for Referral * Evaluate & Treat - Unlimited Visits (Within 10 days (routine)) - Authorized Specialty Diagnoses / Procedures Referred By Contkonstantin t Referred To Contact Pharmacist / Pharmacy Diagnoses Hepatitis C virus infection without hepatic coma, unspecified chronicity [facility] [address] [place] [address] Referral ID Status Reason Start Date Expiration Date Visits Requested Visits Authorized [id number] Authorized Specialty Services Required 03/19/2023 1 1 Question Answer Department: Specialist Specialty: GI/Hep Reason for Referral: HCV Referral Priority Within 10 days (routine) Comments Pharmacist Medication Therapy Management: Minimum frequency patient should be seen in person for medication management: as appropriate per clinical condition and patient status By my signature, I understand that my patient Dylan Martell will have his medication therapy managed by the [facility] Medication Therapy Disease Management Clinic ([facility]) per established policies, procedures, and protocols. I also certify that this referral may serve as an initiation of service for the management of drug therapy in the above noted patient. [facility] providers will be responsible for scheduling patient visits, obtaining appropriate laboratory studies, and adjusting medication management therapy per patient's need, in addition to those roles spelled out in the clinic policy, procedures, and drug management protocols. I understand that the service provided by the [facility] Clinic is voluntary and have informed patient that they can refuse the service at their discretion. I am aware that the [facility] will provide me with a copy of the patient encounter via my [facility]. I authorize the [facility] Clinic to carry out these activities on my behalf. I consider this program to be a necessary part of the patient's medical care. Anuradha Chun [facility] Reason for Visit * Reason Onset Date Comments Referral 03/19/2023 Encounter Details Date Type Department Care Team Description 03/19/2023 New Patient Triage (RUBBER AND POUNDER USE ONLY) Hepatology, [place] [address] [place] [address] Anuradha Chun, [facility] [address] [place] [address] Referral Allergies No known active allergiesdocumented as of this encounter (statuses as of 03/29/2023) Medications Medication Sig Dispensed Refills Start Date [...] as of this encounter (statuses as of 03/29/2023) Active Problems Problem Noted Date Substance dependence 03/17/2023 History of heroin use 03/17/2023 Amnesia 03/17/2023 Chronic hepatitis C without hepatic coma 03/17/2023 HTN, goal below 130/80 03/17/2023 Pulmonary emphysema 03/17/2023 documented as of this encounter (statuses as of 03/29/2023) Resolved Problems Problem Noted Date Resolved Date Elevated hemoglobin 03/17/2023 03/17/2023 documented as of this encounter (statuses as of 03/29/2023) Social History Tobacco Use Types Packs/Day Years [...] as of this encounter Progress Notes * Singh Wilcox MD - 03/29/2023 7:12 AM EDT Attending Attestation: I have reviewed Anuradha Chun RPh note and agree with plan of care. Please refer to the documented findings and plan of care. Singh Wilcox MD Gastroenterology/Hepatology [place], [place] [address] * Anuradha Chun RPh - 03/19/2023 2:18 PM EDT New Patient Triage What is the diagnosis/reason for referral?: HCV Enter order ID here: [id number] Specialty specific documentation: Hepatology MT HEPATITIS C TRIAGE NOTE Patient Name: Dylan Martell Patient History: Dylan Martell is a 67 year old male referred to Hepatology for evaluation and treatment of Hepatitis C virus. This is the initial contact to arrange laboratory studies prior to initial office visit. Have you ever seen a liver specialist before? No. He was told years ago that his Ab was positive. All of his questions were answered to his satisfaction. Who is your current insurance carrier? [employer] If patient has Medicare, do you have a Part D plan for prescription coverage? N/A If female: Are you currently on any form of estrogen-based therapy ( control, hormone replacement, etc)? N/A Patient is treatment naive Latest Reference Range & Units 02/01/23 15:53 03/15/23 12:06 03/17/23 10:19 Sodium 135 - 146 mmol/L 137 Potassium [...] - 400 K/uL 318 458 (H) Hepatitis C Antibody Negative Positive ! HEPATITIS C RNA QUANTITATIVE 5,610,000 Albumin 3.8 - 5.0 g/dL 4.5 AST 10 - 50 U/L 181 (H) ALT 10 - 50 U/L 231 (H) Alkaline Phosphatase 35 - 130 U/L 31 (L) Bilirubin, Total <=1.2 mg/dL 0.9 03/17/2023 Urine Toxicology Ref Range & Units Amphetamine Negative Negative Benzodiazepines Negative Negative Cannabinoids Negative Positive Abnormal Cocaine Metabolite Negative Negative Fentanyl Negative Negative Hydrocodone / Hydromorphone Negative Negative Methadone Metabolite Negative Negative Morphine / Codeine Negative Negative Oxycodone / Oxymorphone Negative Negative 02/10/2023 US Abdomen: LIVER: Normal size and echogenicity. No mass. Smooth surface. SPLEEN: 9.5 cm. Normal size without mass. OTHER: No ascites. IMPRESSION Increased bilateral cortical renal echogenicity suggestive of medical renal disease. Were you able to contact the patient? Yes Patient's preferred location of laboratory testing: [facility] or [facility] I spoke with the patient who agreed to have the below ordered [facility]; verbal, informed consent was received for all tests to be performed, including specifically HIV testing, after I reviewed each individually. The patient declined the offer to schedule a lab appointment. The patient was informed that it is his responsibility to have the labs completedin order to be scheduled for a clinic appointment. Education: Discussed with the patient the overall expectations of the Hepatitis C Treatment Program. It was made very clear to the patient that compliance is santacruz in this process to obtain a possible cure of thevirus. Patient was made aware that all aspects of this program are being monitored for compliance, starting with today's encounter. Compliance is monitored from receiving phone calls and/or returningcalls in a timely manner, having a valid form of communication during the entire treatment process,having blood work completed in a timely fashion, and attending scheduled office visits and follow up with the Pharmacy program. Patient was advised that if at any time throughout this process they display non-compliance, it may delay or inhibit them from being treated at the appropriate time. I have emphasized the need for being compliant and adherent to HCV therapy once initiated. With the new treatment regimens available, compliance is crucial to optimizing patient outcomes. Encouraged and stressed again the importance for strict compliance with medication regimens, follow up labs, and phone calls/office visits. MTM Plan: Will follow-up with the patient once lab results are available to review, to schedule a clinic appointment.. Labs ordered: HCV Genotype, HBsAg, HBsAb, HBcAb G+M, HAVAb, HIV, Medical Ethanol MTM referral placed. Does patient need to be seen?: Yes Modality: Office visit Urgency: Once triage labs are completed Discussed care plan with patient or proxy?: Yes I spoke with the patient on the mobile phone Communicated with patient on Date (mm/dd/yyyy): 03/19/2023 at Time ([facility] [id number] Anuradha Chun, [place], [facility] Clinical Pharmacist, Hepatology 03/19/2023 2:48 PM documented in this encounter Plan of Treatment Upcoming Encounters Date Type Specialty Care Team Description 04/13/2023 Pharmacy Gastroenterology [place], Pharmacist Hepatology [address] [place] [address] 04/16/2023 Office Visit Internal Medicine Nitin Sarah PA-C [address] [place] [address] 10/18/2023 Office Visit Neurology Anny Turner DO [address] [place] [address] Pending Results Name Type Priority Associated Diagnoses Date /Time HEPATITIS C GENOTYPE, PCR Lab Routine Hepatitis C virus infection without hepatic coma, unspecified chronicity Exposure to hepatitis C Blood tests prior to treatment or procedure Other problems related to lifestyle Screening for viral disease 03/24/2023 2:09 PM EDT Scheduled Orders Name Type Priority Associated Diagnoses Orde r Schedule HEPATITIS C GENOTYPE, PCR Lab Routine Hepatitis C virus infection without hepatic coma, unspecified chronicity Exposure to hepatitis C Blood tests prior to treatment or procedure Other problems related to lifestyle Screening for viral disease Expected: 03/19/2023 (Approximate), Expires: 03/17/2024 Scheduled Referrals Name Type Priority Associated Diagnoses Orde r Schedule PHARMACIST MEDS THERAPY MGMT REFERRAL OP Referral Within 10 days (routine) Hepatitis C virus infection without hepatic coma, unspecified chronicity Ordered: 03/19/2023 Health Maintenance Due Date Last Done Comments DISCUSS TOBACCO CESSATION (R EFER TO SMARTSET #8816) 1957 COVID-19 Vaccine (#1) 01/06/1958 Pneumococcal Vaccine: 65+ Ye ars (1 - PCV) 1963 Albumin/Creatinine Ratio 1975 DTaP,Tdap,and Td Vaccines (1 - Tdap) 1976 Cologuard 2002 Colonoscopy 2002 Colorectal Cancer Screening 2002 Fecal Occult Blood Test 2002 Sigmoidoscopy 2002 LUNG CANCER SCREENING - USE SMARTSET 89251 2007 Zoster Vaccines (1 of 2) 2007 [...] filedocumented as of this encounter Results * ETHANOL, MEDICAL (03/24/2023 2:09 PM EDT) ETHANOL, MEDICAL Negative Negative 03/25/2023 1:52 AM EDT [facility] Blood Venous blood specimen / Unknown Venipuncture / Unknown 03/24/2023 2:09 PM EDT 03/24/2023 2:09 PM EDT Anuradha Chun [facility] LAB BLOOD ORDERABLE S [facility] [address] [place] [address] * HIV ANTIGEN & ANTIBODY SCREEN W/ CONFIRMATION (03/24/2023 2:09 PM EDT) HIV Antigen & Antibody Negative Negative 03/25/2023 1:05 AM EDT [facility] Comment:Negative HIV-1/2 ant igen and antibody screening tset results usually indicate the absence of HIV-1 and HIV-2 infection. However, such negative results do not rule-out acute HIV infection. If acute HIV-1 infection is highly suspected, it is recommended that a specimen be submitted for detection of HIV-1 RNA. Blood Venous blood specimen / Unknown Venipuncture / Unknown 03/24/2023 2:09 PM EDT 03/24/2023 2:09 PM EDT Anuradha Chun [facility] LAB BLOOD ORDERABLE S [facility] [address] [place] [address] * HEPATITIS B CORE ANTIBODIES IGG AND IGM (03/24/2023 2:09 PM EDT) Pathologist [facility] Hepatitis B Core Antibodies IgG and IgM Negative Negative 03/25/2023 1:05 AM EDT [facility] Blood Venous blood specimen / Unknown Venipuncture / Unknown 03/24/2023 2:09 PM EDT 03/24/2023 2:09 PM EDT Anuradha Chun [facility] LAB BLOOD ORDERABLE S Performing Organization Address [facility]/ZIP Co de Phone Number [facility] [address] [place] [address] * HEPATITIS B SURFACE ANTIGEN (03/24/2023 2:09 PM EDT) Pathologist [facility] Hepatitis B Surface Antigen Negative Negative 03/25/2023 1:05 AM EDT [facility] Blood Venous blood specimen / Unknown Venipuncture / Unknown 03/24/2023 2:09 PM EDT 03/24/2023 2:09 PM EDT Anuradha Chun [facility] LAB BLOOD ORDERABLE S Performing Organization Address City/[facility]/ZIP Co de Phone Number [facility] [address] [place] [address] * HEPATITIS B SURFACE ANTIBODY (03/24/2023 2:09 PM EDT) Pathologist [facility] Hepatitis B Surface Antibody, Quantitative <3.5 mIU/mL 03/25/2023 1:05 AM EDT [facility] Hepatitis B Surface Antibody, Qualitative Negative 03/25/2023 1:05 AM EDT [facility] Hepatitis B Surface Antibody, Interpretation NOT immune to Hepatitis B Virus 03/25/2023 1:05 AM EDT [facility] Comment: POSITIVE: >=11.5 mIU/mL INDETERMINATE: 8.5-<11.5 mIU/mL NEGATIVE: <8.5 mIU/mL Blood Venous blood specimen / Unknown Venipuncture / Unknown 03/24/2023 2:09 PM EDT 03/24/2023 2:09 PM EDT Anuradha Chun [facility] LAB BLOOD ORDERABLE S Performing Organization Address [facility] Co de Phone Number [facility] [address] [place] [address] * (ABNORMAL) HEPATITIS A ANTIBODIES IGG AND IGM (03/24/2023 2:09 PM EDT) Pathologist [facility] Hepatitis A Antibodies IgG and IgM Positive( A) Negative 03/25/2023 1:05 AM EDT [facility] Blood Venous blood specimen / Unknown Venipuncture / Unknown 03/24/2023 2:09 PM EDT 03/24/2023 2:09 PM EDT Anuradha Chun [facility] LAB BLOOD ORDERABLE S Performing Organization Address [facility] de Phone Number [facility] [address] [place] [address] documented in this encounter Visit Diagnoses Diagnosis Hepatitis C virus infection without hepatic coma, unspecified chronicity- Primary Exposure to hepatitis C Contact with or exposure to other viral diseases Blood tests prior to treatment or procedure Pre-procedural laboratory examination Immunity status testing Antibody response examination Other problems related to lifestyle Screening for viral disease Special screening examination for unspecified viral disease documented in this encounter Care Teams Casino Operations Supervisor Relationship Specialty Start Date End Date Nitin Sarah PA-C [address] [facility] [place] [address] PCP - General Physician Superintendent Operations Division 02/01/23 documented as of this encounter
--- OUTSIDE RECORDS SUMMARY | 2023-08-26 09:17 | External Medical Summary | Summary of Care ---
Author Name Unknown Organization [facility] Address [address] [place] [address] Phone [phone] Care Team Providers Care Database Design Analyst Name Role Phone Nitin Sarah PA-C Primary Care Provider +1- [phone] Reason for Referral * Evaluate & Treat - Unlimited Visits (Within 10 days (routine)) - Authorized Specialty Diagnoses / Procedures Referred By Shaji becerril Referred To Contact Behavioral Psychologist Diagnoses History of heroin use Substance dependence (HCC) Nitin Sarah PA-C [address] [place] [address] Referral ID Status Reason Start Date Expiration Date Visits Requested Visits Authorized [id number] Authorized Specialty Services Required 03/17/2023 999 999 Question Answer Referral Priority Within 10 days (routine) Role Behavioral Health Behavioral PsychologistClaims Adjuster Supervisor Health Behavioral Psychologist Referral Reason Active Substance Abuse Comments Is patient being transitioned from [facility] to Complex Case Management? No * Precert (Within 10 days (routine)) - Pending Review Specialty Diagnoses / Procedures Referred By Shaji becerril Referred To Contact Radiology Diagnoses Intractable chronic post-traumatic headache Procedures MRI BRAIN W WO CONTRAST Nitin Sarah PA-C [address] [place] [address] Referral ID Status Reason Start Date Expiration Date V isits Requested Visits Authorized [id number] Pending Review 03/17/2023 999 999 Reason for Visit * Reason Comments Follow Up 1 month. Patient sta megan ongoing HOFFMAN with disorientation and memory loss. Encounter Details Date Type Department Care Team Description 03/17/2023 Office Visit General Internal Medicine [facility] [place] [address] [place] [address] Nitin Sarah PA-C [address] [facility] [place] [address] Chronic hepatitis C without hepatic coma (HCC)*; [...] Significance Test results have been reported to [facility]. The HCV assay is an in [...] determined by the Molecular Diagnostics Laboratory at [facility]. This test is used for clinical purposes. References 1. Farias P, Litzy Chen, Nohemy S: How to Use Virological Tools for the Optimal Management of Chronic Hepatitis C. Liver Int 2011;31 Suppl 1:3-12. 2. Centers for Disease Control and Prevention. Testing for HCV Infection: an Update of Guidance forClinicians and Laboratorians. MMWR Morb Mortal Wkly Rep 2013;62(18):362-365. 3. [place] Association for the Study of Liver Diseases and Infectious Diseases Society of [place]:HCV Guidance: Recommendations for Testing, Managing, and Treating Hepatitis C. Accessed January 15, 2017. Available at www.hcvguidelines.org/xndi-dusbfi-ggvs Physical Exam Constitutional: General: He is not [...] Specialty Care Team Description 04/13/2023 Pharmacy Gastroenterology [place], Pharmacist Hepatology [address] [place] [address] 04/16/2023 Office Visit Internal Medicine Nitin Sarah PA-C [address] [place] [address] 10/18/2023 Office Visit Neurology Anny Turner DO [address] [place], [place] [id number] Scheduled Orders Name Type Priority Associated Diagnoses [...] DISCUSS TOBACCO CESSATION (R EFER TO SMARTSET #1536) 1957 COVID-19 Vaccine (#1) 01/06/1958 Pneumococcal Vaccine: 65+ Ye ars (1 - PCV) 1963 Albumin/Creatinine Ratio 1975 DTaP,Tdap,and Td Vaccines (1 - Tdap) 1976 Cologuard 2002 Colonoscopy 2002 Colorectal Cancer Screening 2002 Fecal Occult Blood Test 2002 Sigmoidoscopy 2002 LUNG CANCER SCREENING - USE SMARTSET 37540 2007 Zoster Vaccines (1 of 2) 2007 [...] Benzodiazepines Negative Negative 5:48 PM EDT [facility] Cannabinoids Positive(A) Negative 03/17/2023 5:48 PM EDT [facility] Cocaine Metabolite Negative Negative 2022 5:48 PM EDT [facility] Fentanyl Negative Negative 03/17/2023 5:48 PM EDT LABORATORY C Hydrocodone / Hydromorphone Negative Negative 03/17/2023 5:48 PM EDT [facility] Methadone Metabolite Negative Negative 03/17/2023 5:48 PM EDT [facility] Morphine / Codeine Negative Negative 2022 5:48 PM EDT [facility] Oxycodone / Oxymorphone Negative Negative 03/17/2023 5:48 PM EDT [facility] Urine Urine specimen obtained by clean catch procedure / Unknown Non-blood Collection / Unknown 03/17/2023 10:21 AM EDT 03/17/2023 10:21 AM EDT Narrative [facility] - 03/17/2023 5:48 PM EDT Cutoff Concentrations: [...] Sarah PA-C LAB URINE ORDERABL ES [facility] [address] [place] [address] * VITAMIN B1 (THIAMINE), BLOOD, LC/MS/MS (03/17/2023 10:19 AM EDT) Pathologist [facility] Vitamin B1 (Thiamine),B 159 78 - 185 nmol/L 03/28/2023 11:32 AM EDT [email or web address] Comment: Vitamin supplementation within 24 hours prior to blood draw may affect the accuracy of the results. This test was developed and its analytical performance characteristics have been determined by [facility] [place], [place]. It has not been cleared or approved by the U.S. Food and Drug Administration. This assay has been validated pursuant to the CLIA regulations and is used for clinical purposes. Test Performed at: [facility] [id number] [place] [address] Ge Lucas M.D., Ph.D.,Director of Laboratories Blood Venous blood specimen / Unknown Venipuncture / Unknown 03/17/2023 10:19 AM EDT 03/23/2023 3:23 PM EDT Nitin Sarah PA-C LAB BLOOD ORDERABL ES [id number] [address] [place] [address] * PT INR (03/17/2023 10:19 AM EDT) Prothrombin Time 13.0 11.6 - 15.2 seconds 03/17/2023 10:51 AM EDT [facility] 56- INR 1.0 0.8 - 1.2 03/17/2023 10:51 AM EDT [facility] 56- Blood Venous blood specimen / Unknown Venipuncture / Unknown 03/17/2023 10:19 AM EDT 03/17/2023 10:20 AM EDT [facility] 56-02 - 03/17/2023 10:51 AM EDT Warfarin Therapy INR: 2.0-3.0 conventional anticoagulation INR: 2.5-3.5 high intensity anticoagulation Nitin Sarah PA-C LAB BLOOD ORDERABL ES [facility]- [address] [facility] [address] documented in this encounter Visit Diagnoses Diagnosis [...] headache documented in this encounter Care Teams Database Design Analyst Relationship Specialty Start Date End Date [facility]-C [address] [facility] [address] PCP - General Physician Art Handler 02/01/23 documented as of this encounter
--- OUTSIDE RECORDS SUMMARY | 2023-08-26 09:17 | External Medical Summary ---
Author Name Unknown Address Unknown Organization [id number][facility] [place] [address] Laboratory Report Ordering Provider Test Date Status ADELE FANG 04/10/2023 13:56:19 Final Observation Date Value Abnormality Reference (Units ) Status Nucleated erythrocytes/100 leukocytes [Ratio] in Blood by Automated count 04/10/2023 13:56:19 Final Performing Location [facility] [place] [address]
--- OUTSIDE RECORDS SUMMARY | 2023-08-26 09:17 | External Medical Summary ---
Author Name Unknown Address Unknown Organization K01:[facility] - [address] [place] [address] Laboratory Report Ordering Provider Test Date Status ADELE FANG 04/10/2023 13:56:19 Final Observation Date Value Abnormality Reference (Units ) Status T4, Free 04/10/2023 13:56:19 1.1 0.9-1.7 (n g/dL) Final Performing Location [facility] - [address] [place] [address]
--- OUTSIDE RECORDS SUMMARY | 2023-08-26 09:17 | External Medical Summary ---
Author Name Unknown Address Unknown Organization K01:[facility]ATORY [place] [address] [place] [address] Laboratory Report Ordering Provider Test Date Status SABINO SOLIS 03/24/2023 14:09:04 Final Observation Date Value Abnormality Reference (Units) Status Hepatitis B virus surface Ab [Units/volume] in Serum or Plasma by Immunoassay 03/24/2023 14:09:04 <3.5 (mIU/mL) Final Hepatitis B virus surface Ab [Presence] in Serum by Immunoassay 03/24/2023 14:09:04 Negative Final HEPATITIS B SURFACE ANTIBODY, INTERPRETATION 03/24/2023 14:09:04 NOT immune to Hepatitis B Virus Final POSITIVE: >=11.5 mIU/mL
INDETERMINATE: 8.5-<11.5 mIU/mL
NEGATIVE: <8.5 mIU/mL Performing Location LAB[facility]ATORY [place] [address] [place] [address]
--- OUTSIDE RECORDS SUMMARY | 2023-08-26 09:17 | External Medical Summary | Summary of Care ---
Author Name Unknown Organization [facility] Address [address] [place] [address] Phone [phone] Care Team Providers Care Call Center Associate Name Role Phone Nitin Sarah PA-C Primary Care Provider +1- [phone] Reason for Referral * Evaluate & Treat - Unlimited Visits (Within 10 days (routine)) - Authorized Specialty Diagnoses / Procedures Referred By Shaji becerril Referred To Contact Lot Boss Diagnoses History of heroin use Substance dependence (HCC) Nitin Sarah PA-C [address] [place] [address] Referral ID Status Reason Start Date Expiration Date Visits Requested Visits Authorized [id number] Authorized Specialty Services Required 03/17/2023 999 999 Question Answer Referral Priority Within 10 days (routine) Role Behavioral Health Lot BossMounted Police Officer Health Lot Boss Referral Reason Active Substance Abuse Comments Is patient being transitioned from [facility] to Complex Case Management? No * Precert (Within 10 days (routine)) - Pending Review Specialty Diagnoses / Procedures Referred By Shaji becerril Referred To Contact Radiology Diagnoses Intractable chronic post-traumatic headache Procedures MRI BRAIN W WO CONTRAST Nitin Sarah PA-C [address] [place] [address] Referral ID Status Reason Start Date Expiration Date V isits Requested Visits Authorized [id number] Pending Review 03/17/2023 999 999 Reason for Visit * Reason Comments Follow Up 1 month. Patient sta megan ongoing HOFFMAN with disorientation and memory loss. Encounter Details Date Type Department Care Team Description 03/17/2023 Office Visit General Internal Medicine [facility] [place] [address] [place] [address] Nitin Sarah PA-C [address] [facility] [place] [address] Chronic hepatitis C without hepatic coma (HCC)*; [...] Significance Test results have been reported to [facility]. The HCV assay is an in vitro [...] determined by the Molecular Diagnostics Laboratory at [facility]. This test is used for clinical purposes. References 1. Farias P, Litzy Chen, Nohemy S: How to Use Virological Tools for the Optimal Management of Chronic Hepatitis C. Liver Int 2011;31 Suppl 1:3-12. 2. Centers for Disease Control and Prevention. Testing for HCV Infection: an Update of Guidance forClinicians and Laboratorians. MMWR Morb Mortal Wkly Rep 2013;62(18):362-365. 3. [place] Association for the Study of Liver Diseases and Infectious Diseases Society of [place]:HCV Guidance: Recommendations for Testing, Managing, and Treating Hepatitis C. Accessed January 15, 2017. Available at www.hcvguidelines.org/pyey-aplkog-dwxj Physical Exam Constitutional: General: He is not [...] Specialty Care Team Description 04/13/2023 Pharmacy [facility] [place], Pharmacist Hepatology [address] [place] [address] 04/16/2023 Office Visit Internal Medicine Nitin Sarah PA-C [address] [place] [address] 10/18/2023 Office Visit Neurology Anny Turner DO [address], [place] [id number] Scheduled Orders Name Type Priority Associated Diagnoses [...] DISCUSS TOBACCO CESSATION (R EFER TO SMARTSET #4671) 1957 COVID-19 Vaccine (#1) 01/06/1958 Pneumococcal Vaccine: 65+ Ye ars (1 - PCV) 1963 Albumin/Creatinine Ratio 1975 DTaP,Tdap,and Td Vaccines (1 - Tdap) 1976 Cologuard 2002 Colonoscopy 2002 Colorectal Cancer Screening 2002 Fecal Occult Blood Test 2002 Sigmoidoscopy 2002 LUNG CANCER SCREENING - USE SMARTSET 03899 2007 Zoster Vaccines (1 of 2) 2007 [...] Benzodiazepines Negative Negative 5:48 PM EDT [facility] Cannabinoids Positive(A) Negative 03/17/2023 5:48 PM EDT [facility] Cocaine Metabolite Negative Negative 2022 5:48 PM EDT [facility] Fentanyl Negative Negative 03/17/2023 5:48 PM EDT LABORATORY C Hydrocodone / Hydromorphone Negative Negative 03/17/2023 5:48 PM EDT [facility] Methadone Metabolite Negative Negative 03/17/2023 5:48 PM EDT [facility] Morphine / Codeine Negative Negative 2022 5:48 PM EDT [facility] Oxycodone / Oxymorphone Negative Negative 03/17/2023 5:48 PM EDT [facility] Urine Urine specimen obtained by clean catch procedure / Unknown Non-blood Collection / Unknown 03/17/2023 10:21 AM EDT 03/17/2023 10:21 AM EDT Narrative [facility] - 03/17/2023 5:48 PM EDT Cutoff Concentrations: [...] Sarah PA-C LAB URINE ORDERABL ES [facility] [address] [place] [address] * VITAMIN B1 (THIAMINE), BLOOD, LC/MS/MS (03/17/2023 10:19 AM EDT) Pathologist [facility] Vitamin B1 (Thiamine),B 159 78 - 185 nmol/L 03/28/2023 11:32 AM EDT [facility] [place] Comment: Vitamin supplementation within 24 hours prior to blood draw may affect the accuracy of the results. This test was developed and its analytical performance characteristics have been determined by [facility] [place], [place]. It has not been cleared or approved by the U.S. Food and Drug Administration. This assay has been validated pursuant to the CLIA regulations and is used for clinical purposes. Test Performed at: [facility] [id number] [place] [address] Ge Lucas M.D., Ph.D.,Director of Laboratories Blood Venous blood specimen / Unknown Venipuncture / Unknown 03/17/2023 10:19 AM EDT 03/23/2023 3:23 PM EDT Nitin Sarah PA-C LAB BLOOD ORDERABL ES [facility] [place] [address] [place] [address] * PT INR (03/17/2023 10:19 AM EDT) Prothrombin Time 13.0 11.6 - 15.2 seconds 03/17/2023 10:51 AM EDT [facility] 56- INR 1.0 0.8 - 1.2 03/17/2023 10:51 AM EDT [facility] 56- Blood Venous blood specimen / Unknown Venipuncture / Unknown 03/17/2023 10:19 AM EDT 03/17/2023 10:20 AM EDT [facility] 56-02 - 03/17/2023 10:51 AM EDT Warfarin Therapy INR: 2.0-3.0 conventional anticoagulation INR: 2.5-3.5 high intensity anticoagulation Nitin Sarah PA-C LAB BLOOD ORDERABL ES [facility]- [address] [facility] [address] documented in this encounter Visit Diagnoses Diagnosis [...] headache documented in this encounter Care Teams Call Center Associate Relationship Specialty Start Date End Date [facility] [address] [facility] [address] PCP - General Physician Commercial Credit Portfolio Manager 02/01/23 documented as of this encounter
--- OUTSIDE RECORDS SUMMARY | 2023-08-26 09:17 | External Medical Summary ---
Author Name Unknown Address Unknown Organization K0[facility] [address] [place] [address] Laboratory Report Ordering Provider Test Date Status ADELE FANG 04/10/2023 13:56:19 Final Observation Date Value Abnormality Reference (Units ) Status WBC, Total 04/10/2023 13:56:19 10.91 Above high normal 4 .00-10.80 (K/uL) Final RBC 04/10/2023 13:56:19 5.62 4.50-5.25 (M/uL) Final Hemoglobin 04/10/2023 13:56:19 17.7 Above high normal 1 4.0-16.8 (g/dL) Final HCT 04/10/2023 13:56:19 53.0 Above high normal 40 .0-48.4 (%) Final MCV 04/10/2023 13:56:19 94.3 82.0-99.5 (fL) Final MCH 04/10/2023 13:56:19 31.5 27.0-34.0 (pg) Final MCHC 04/10/2023 13:56:19 33.4 32.0-36.0 (g/dL) Final RDW 04/10/2023 13:56:19 16.5 11.5-15.5 (%) Final Platelets 04/10/2023 13:56:19 310 140-400 (K /uL) Final MPV 04/10/2023 13:56:19 9.3 6.6-11.1 ( fL) Final Performing Location [facility] [place] [address]
--- OUTSIDE RECORDS SUMMARY | 2023-08-26 09:17 | External Medical Summary | Summary of Care ---
Author Name Unknown Organization [facility] Address [address] [place] [address] Phone [phone] Care Team Providers Care Defence Force Member Other Ranks Name Role Phone Nitin Sarah PA-C Primary Care Provider +1- [phone] Reason for Visit * Reason Comments Dosage Adjustment Via Phone (anticoag Cl inic) Appointment Encounter Details Date Type Department Care Team Description 04/02/2023 Pharmacy Hepatology, [place] [address] [place], [place] [id number] [place], Pharmacist Hepatology [address] [place], [place] [phone] Hepatitis C virus infection without hepatic coma, unspecified chronicity* Allergies No known active allergiesdocumented as of this encounter (statuses as of 04/02/2023) Medications Medication Sig Dispensed Refills Start Date [...] as of this encounter (statuses as of 04/02/2023) Active Problems Problem Noted Date Substance dependence 03/17/2023 History of heroin use 03/17/2023 Amnesia 03/17/2023 Chronic hepatitis C without hepatic coma 03/17/2023 HTN, goal below 130/80 03/17/2023 Pulmonary emphysema 03/17/2023 documented as of this encounter (statuses as of 04/02/2023) Resolved Problems Problem Noted Date Resolved Date Elevated hemoglobin 03/17/2023 03/17/2023 documented as of this encounter (statuses as of 04/02/2023) Social History Tobacco Use Types Packs/Day Years [...] this encounter Progress Notes * Anuradha Chun, [facility] - 04/02/2023 9:10 AM EDT [facility] Hepatitis C Management Patient Name: Dylan Martell History of Current Illness: Dylan is a 67 year old male with chronic Hepatitis C, genotype 3, fibrosis unknown, referred to the Hepatology clinic. This is a follow-up phone call to review lab results & offer a clinic appointment. I called the mobile phone and spoke with the patient. We briefly reviewed his lab results and he expressed interest in the hepatitis B vaccination series, requesting to wait until after he is seen in the clinic in July. He agreed to the first available appointment at [facility], as noted below. I also advised the patient he will receive a reminder call 2 business days before his appointment to confirm. He expressed understanding and agreement. Provider initiating work-up: HO Ruth Date of clinic appointment: 07/14/2023 @8 am Latest Reference Range & Units 02/01/23 [...] Negative Negative FIB-4 score = FIB-4 Calculation: 1.69 at 03/15/2023 12:06 PM Calculated from: SGOT/AST: 181 U/L at 02/01/2023 3:53 PM SGPT/ALT: 231 U/L at 02/01/2023 3:53 PM Platelets: 458 K/uL at 03/15/2023 12:06 PM Age: 67 years Interpretation: Using a [...] after the patient is seen in clinic. Vaccine recommended: hepatitis B series Anuradha Chun, PharmD, [facility] Clinical Pharmacist, Hepatology 04/02/2023 11:01 AM documented in this encounter Plan of Treatment Upcoming Encounters Date Type Specialty Care Team Description 04/16/2023 Office Visit [facility] [address] 07/12/2023 Pharmacy Gastroenterology [place], Pharmacist Hepatology 100 [facility] [place] [address] 07/14/2023 Office Visit Gastroenterology Clarissa Reyes CRNP [address] [place] [address] 07/15/2023 Pharmacy [facility] [place], Pharmacist Hepatology [address] [place] [address] 10/18/2023 Office Visit Neurology Anny Turner, DO [address] [place] [address] Health Maintenance Due Date Last Done Comments DISCUSS TOBACCO CESSATION (R EFER TO SMARTSET #9358) 1957 COVID-19 Vaccine (#1) 01/06/1958 Pneumococcal Vaccine: 65+ Ye ars (1 - PCV) 1963 Albumin/Creatinine Ratio 1975 DTaP,Tdap,and Td Vaccines (1 - Tdap) 1976 Cologuard 2002 Colonoscopy 2002 Colorectal Cancer Screening 2002 Fecal Occult Blood Test 2002 Sigmoidoscopy 2002 LUNG CANCER SCREENING - USE SMARTSET 91347 2007 Zoster Vaccines (1 of 2) 2007 [...] infection without hepatic coma, unspecified chronicity- Primary documented in this encounter Care Teams Defence Force Member Other Ranks Relationship Specialty Start Date End Date Nitin Sarah PA-C [address] [place], [place] [address] PCP - General Physician Naturalist 02/01/23 documented as of this encounter
--- OUTSIDE RECORDS SUMMARY | 2023-08-26 09:18 | External Medical Summary | Summary of Care ---
Author Name Unknown Organization [facility] Address [address] [place] [address] Phone [phone] Care Team Providers Care Tuna Purse Seiner Name Role Phone Nitin Sarah PA-C Primary Care Provider +1- [phone] Reason for Visit * Reason Onset Date Comments Test Results 03/16/2023 Encounter Details Date Type Department Care Team Description 03/16/2023 Telephone General Internal Medicine [facility] 200 [facility] [place] [address] Nitin Sarah PA-C 200 [place] [address] Test Results Allergies No known active allergiesdocumented as of this encounter (statuses as of 03/16/2023) Medications Medication Sig Dispensed Refills Start Date End Date Status Naproxen Sodium 220 MG Oral Capsule Take 1 Capsule by mouth as needed. 0 Active documented as of this encounter (statuses as of 03/16/2023) Active Problems No known active problems documented as of this encounter (statuses as of 03/16/2023) Social History Tobacco Use Types Packs/Day Years [...] encounter Miscellaneous Notes * Telephone Encounter - Cindy Dasilva LPN - 03/16/2023 2:14 PM EDT Provider to address: Patient is aware and verbalizes understanding. Reason for Call: Test Results Contact: Telephone Call Contact Type: Information Total Time including non face to face (minutes): 5 * Telephone Encounter - SALAZAR Haji - 03/16/2023 2:12 PM EDT Pt calling back. Call sent to dedicated nurse line, Cindy took the call. * Telephone Encounter - Manuelito Richardson LPN - 03/16/2023 2:07 PM EDT Attempted to call pt, the phone disconnected after multiple rings. * Telephone Encounter - Manuelito Richardson LPN - 03/16/2023 2:06 PM EDT ----- Message from Nitin Sarah PA-C sent at 03/16/2023 2:01 PM EDT ----- Patient has hepatitis C. Blood changes most likely secondary. Still waiting result of a couple tests. Recommend seeing hepatology for treatment. documented in this encounter Plan of Treatment Upcoming Encounters Date Type Specialty Care Team Description 03/17/2023 Office Visit Internal Medicine Nitin Sarah PA-C [address] [place] [address] 10/18/2023 Office Visit Neurology Anny Turner, DO [address] [place] [address] Health Maintenance Due Date Last Done Comments COVID-19 Vaccine (#1) 01/06/1958 Pneumococcal Vaccine: 65+ Years (1 - PCV) 1963 HIV Screening 1972 DTaP,Tdap,and Td Vaccines (1 - Tdap) 1976 Cologuard 2002 Colonoscopy 2002 Colorectal Cancer Screening 2002 Fecal Occult Blood Test 2002 Sigmoidoscopy 2002 LUNG CANCER SCREENING - USE SMARTSET 34545 2007 Zoster Vaccines (1 of 2) 2007 Influenza Vaccine (FLU shot) (#1) 2023 Depression Screening 02/02/2024 02/01/2023 Lipid Panel 02/02/2028 02/01/2023 AAA Screening Completed 02/10/2023 Hepatitis C Screening Completed 03/15/2023 , 03/15/2023, 03/15/2023, Additional history exists GARDASIL-HPV IMMUNIZATION SERIES Aged Out No longer eligible based on patient's age to complete this topic Hepatitis B Aged Out No longer eligi ble based on patient's age to complete this topic MENINGOCOCCAL (MENACTRA/MENVEO) Aged Out No longer eligible based on patient's age to complete this topic documented as of this encounter Medical Devices Not on filedocumented as of this encounter Care Teams Tuna Purse Seiner Relationship Specialty Start Date End Date Nitin Sarah PA-C [address] [place] [address] PCP - General Physician B2B Sales Professional 02/01/23 documented as of this encounter
--- OUTSIDE RECORDS SUMMARY | 2023-08-26 09:18 | External Medical Summary | Summary of Care ---
Author Name Unknown Organization [facility] Address [address] [place] [address] Phone [phone] Care Team Providers Care Sales Training Manager Name Role Phone Nitin Sarah PA-C Primary Care Provider +1- [phone] Reason for Visit * Reason Comments Outpatient Testing Encounter Details Date Type Department Care Team Description 03/17/2023 Laboratory Laboratory [facility] [address] [place] [address] [facility] [address] [place] [address] Chronic hepatitis C without hepatic coma (HCC); Amnesia; History of heroin use Allergies No known active allergiesdocumented as of this encounter (statuses as of 03/17/2023) Medications Medication Sig Dispensed Refills Start Date [...] as of this encounter (statuses as of 03/17/2023) Active Problems Problem Noted Date Substance dependence 03/17/2023 History of heroin use 03/17/2023 Amnesia 03/17/2023 Chronic hepatitis C without hepatic coma 03/17/2023 HTN, goal below 130/80 03/17/2023 Pulmonary emphysema 03/17/2023 documented as of this encounter (statuses as of 03/17/2023) Resolved Problems Problem Noted Date Resolved Date Elevated hemoglobin 03/17/2023 03/17/2023 documented as of this encounter (statuses as of 03/17/2023) Social History Tobacco Use Types Packs/Day Years [...] Encounters Date Type Specialty Care Team Description 03/18/2023 Imaging Radiology 04/16/2023 Office Visit Internal Medicine Nitin Sarah PA-C [address] [facility] [place] [address] 10/18/2023 Office Visit Neurology Anny Turner, DO [address] [place], [place] [id number] Pending Results Name Type Priority Associated Diagnoses Date /Time PT INR Lab Routine Chronic hepatitis C without hepatic coma (HCC) 03/17/2023 10:19 AM EDT VITAMIN B1 (THIAMINE), BLOOD, LC/MS/MS Lab Routine Amnesia 03/17/2023 10:19 AM EDT TOXICOLOGY, URINESCREEN W/ CONFIRMATION Lab Routine Amnesia History of heroin use 03/17/2023 10:21 AM EDT Health Maintenance Due Date Last Done Comments COVID-19 Vaccine (#1) 01/06/1958 Pneumococcal Vaccine: 65+ Years (1 - PCV) 1963 HIV Screening 1972 DTaP,Tdap,and Td Vaccines (1 - Tdap) 1976 Cologuard 2002 Colonoscopy 2002 Colorectal Cancer Screening 2002 Fecal Occult Blood Test 2002 Sigmoidoscopy 2002 LUNG CANCER SCREENING - USE SMARTSET 95260 2007 Zoster Vaccines (1 of 2) 2007 [...] Diagnosis Chronic hepatitis C without hepatic coma (HCC) Chronic hepatitis C without mention of hepatic coma Amnesia Memory loss History of heroin use documented in this encounter Care Teams Sales Training Manager Relationship Specialty Start Date End Date Nitin Sarah PA-C [address] [place], [place] [address] PCP - General Physician Doubling Machine Operator 02/01/23 documented as of this encounter
--- OUTSIDE RECORDS SUMMARY | 2023-08-26 09:18 | External Medical Summary | Summary of Care ---
Author Name Unknown Organization [facility] Address [address] [place] [address] Phone [phone] Care Team Providers Care Marketing Systems Analyst Name Role Phone Nitin Sarah PA-C Primary Care Provider +1- [phone] Reason for Referral * Evaluate & Treat - Unlimited Visits (Within 10 days (routine)) - Authorized Specialty Diagnoses / Procedures Referred By Shaji becerril Referred To Contact Nematology Teacher Diagnoses History of heroin use Substance dependence (HCC) Nitin Sarah PA-C [address] [place] [address] Referral ID Status Reason Start Date Expiration Date Visits Requested Visits Authorized [id number] Authorized Specialty Services Required 03/17/2023 999 999 Question Answer Referral Priority Within 10 days (routine) Role Behavioral Health Nematology TeacherDirector Content Marketing Health Nematology Teacher Referral Reason Active Substance Abuse Comments Is patient being transitioned from [facility] to Complex Case Management? No * Precert (Within 10 days (routine)) - Pending Review Specialty Diagnoses / Procedures Referred By Shaji becerril Referred To Contact Radiology Diagnoses Intractable chronic post-traumatic headache Procedures MRI BRAIN W WO CONTRAST Nitin Sarah PA-C 200 [facility] [place] [address] Referral ID Status Reason Start Date Expiration Date V isits Requested Visits Authorized [id number] Pending Review 03/17/2023 999 999 Reason for Visit * Reason Comments Follow Up 1 month. Patient sta megan ongoing [place] with disorientation and memory loss. Encounter Details Date Type Department Care Team Description 03/17/2023 Office Visit General Internal Medicine [facility] [place] [address] [place] [address] Nitin Sarah PA-C 200 [facility] [place] [address] Chronic hepatitis C without hepatic coma (HCC)*; Abnormal CBC; Elevated TSH; Amnesia; History of heroin use; Intractable chronic post-traumatic headache; HTN, goal below 130/80; Pulmonary emphysema, unspecified emphysema type (HCC); Substance dependence (HCC) Allergies No known active allergiesdocumented as of this encounter (statuses as of 03/23/2023) Medications Medication Sig Dispensed Refills Start Date [...] as of this encounter (statuses as of 03/23/2023) Active Problems Problem Noted Date Substance dependence 03/17/2023 History of heroin use 03/17/2023 Amnesia 03/17/2023 Chronic hepatitis C without hepatic coma 03/17/2023 HTN, goal below 130/80 03/17/2023 Pulmonary emphysema 03/17/2023 documented as of this encounter (statuses as of 03/23/2023) Resolved Problems Problem Noted Date Resolved Date Elevated hemoglobin 03/17/2023 03/17/2023 documented as of this encounter (statuses as of 03/23/2023) Social History Tobacco Use Types Packs/Day Years [...] Significance Test results have been reported to [facility]. The HCV assay is an in [...] determined by the [facility] Diagnostics Laboratory at [facility]. This test is used for clinical purposes. References 1. Farias P, Litzy Chen, Nohemy S: How to Use Virological Tools for the Optimal Management of Chronic Hepatitis C. Liver Int 2011;31 Suppl 1:3-12. 2. Centers for Disease Control and Prevention. Testing for HCV Infection: an Update of Guidance forClinicians and Laboratorians. MMWR Morb Mortal Wkly Rep 2013;62(18):362-365. 3. [place] Association for the Study of Liver Diseases and Infectious Diseases Society of [place]:HCV Guidance: Recommendations for Testing, Managing, and Treating Hepatitis C. Accessed January 15, 2017. Available at www.hcvguidelines.org/locz-rjcjkq-jujq Physical Exam Constitutional: General: He is not [...] Specialty Care Team Description 04/13/2023 Pharmacy [facility] [place], Pharmacist Hepatology [address] [place] [address] 04/16/2023 Office Visit Internal Medicine Nitin Sarah PA-C [address] [place] [address] 10/18/2023 Office Visit Neurology Anny Turner DO [address] [place] [address] Pending Results Name Type Priority Associated Diagnoses Date /Time VITAMIN B1 (THIAMINE), BLOOD, LC/MS/MS Lab Routine Chronic hepatitis C without hepatic coma (HCC) 03/17/2023 10:19 AM EDT Scheduled Orders Name Type Priority [...] DISCUSS TOBACCO CESSATION (R EFER TO SMARTSET #7912) 1957 COVID-19 Vaccine (#1) 01/06/1958 Pneumococcal Vaccine: 65+ Ye ars (1 - PCV) 1963 HIV Screening 1972 Albumin/Creatinine Ratio 1975 DTaP,Tdap,and Td Vaccines (1 - Tdap) 1976 Cologuard 2002 Colonoscopy 2002 Colorectal Cancer Screening 2002 Fecal Occult Blood Test 2002 Sigmoidoscopy 2002 LUNG CANCER SCREENING - USE SMARTSET 14625 2007 Zoster Vaccines (1 of 2) 2007 [...] filedocumented as of this encounter Results * MRI BRAIN W [...] Benzodiazepines Negative Negative 5:48 PM EDT [facility] Cannabinoids Positive(A) Negative 03/17/2023 5:48 PM EDT [facility] Cocaine Metabolite Negative Negative 2022 5:48 PM EDT [facility] Fentanyl Negative Negative 03/17/2023 5:48 PM EDT LABORATORY C Hydrocodone / Hydromorphone Negative Negative 03/17/2023 5:48 PM EDT [facility] Methadone Metabolite Negative Negative 03/17/2023 5:48 PM EDT [facility] Morphine / Codeine Negative Negative 2022 5:48 PM EDT [facility] Oxycodone / Oxymorphone Negative Negative 03/17/2023 5:48 PM EDT [facility] Urine Urine specimen obtained by clean catch procedure / Unknown Non-blood Collection / Unknown 03/17/2023 10:21 AM EDT 03/17/2023 10:21 AM EDT Narrative [facility] - 03/17/2023 5:48 PM EDT Cutoff Concentrations: [...] Sarah PA-C LAB URINE ORDERABL ES [facility] [address] [place] [address] * PT INR (03/17/2023 10:19 AM EDT) Prothrombin Time 13.0 11.6 - 15.2 seconds 03/17/2023 10:51 AM EDT [facility] 56- INR 1.0 0.8 - 1.2 03/17/2023 10:51 AM EDT [facility] 56- Blood Venous blood specimen / Unknown Venipuncture / Unknown 03/17/2023 10:19 AM EDT 03/17/2023 10:20 AM EDT Narrative [facility] 56-02 - 03/17/2023 10:51 AM EDT Warfarin Therapy INR: 2.0-3.0 conventional anticoagulation INR: 2.5-3.5 high intensity anticoagulation Nitin Sarah PA-C LAB BLOOD ORDERABL ES [facility] [address] [place] [address] documented in this encounter Visit Diagnoses Diagnosis [...] headache documented in this encounter Care Teams Marketing Systems Analyst Relationship Specialty Start Date End Date Nitin Sarah PA-C [address] [place] [address] [place] [address] PCP - General Physician Hydraulic Lift Operator 02/01/23 documented as of this encounter
--- OUTSIDE RECORDS SUMMARY | 2023-08-26 09:18 | External Medical Summary | Summary of Care ---
Author Name Unknown Organization [facility] Address [address] [place] [address] Phone [phone] Care Team Providers Care Inventory Clerk Name Role Phone Nitin Sarah PA-C Primary Care Provider +1- [phone] Reason for Visit * Reason Onset Date Comments Test Results 03/16/2023 Encounter Details Date Type Department Care Team Description 03/16/2023 Telephone General Internal Medicine [facility] 200 [facility] [place] [address] Nitin Sarah PA-C 200 [place] [address] Test Results Allergies No known active allergiesdocumented [...] Medicine Nitin Sarah PA-C [address] [place] [address] 10/18/2023 Office Visit Neurology Anny Turner, DO [address] [place] [address] Health Maintenance Due Date Last Done Comments COVID-19 Vaccine (#1) 01/06/1958 Pneumococcal Vaccine: 65+ Years (1 - PCV) 1963 HIV Screening 1972 DTaP,Tdap,and Td Vaccines (1 - Tdap) 1976 Cologuard 2002 Colonoscopy 2002 Colorectal Cancer Screening 2002 Fecal Occult Blood Test 2002 Sigmoidoscopy 2002 LUNG CANCER SCREENING - USE SMARTSET 68359 2007 Zoster Vaccines (1 of 2) 2007 [...] filedocumented as of this encounter Care Teams Inventory Clerk Relationship Specialty Start Date End Date Nitin Sarah PA-C [address] [place] [address] PCP - General Physician Patent Legal Assistant 02/01/23 documented as of this encounter
--- OUTSIDE RECORDS SUMMARY | 2023-08-26 09:18 | External Medical Summary ---
Author Name Unknown Address Unknown Organization [id number]:LABORATORY C - [address] [facility] [address] Laboratory Report Ordering Provider Test Date Status SABINO SOLIS 03/24/2023 14:09:04 Final Observation Date Value Abnormality Reference (Units ) Status Ethanol 03/24/2023 14:09:04 Negative Negative Final Performing Location [facility] - [address] [facility] [address]
--- OUTSIDE RECORDS SUMMARY | 2023-08-26 09:18 | External Medical Summary ---
Author Name Unknown Address Unknown Organization [id number]:LABORATORY [facility] - [facility] [address] [facility] [address] Laboratory Report Ordering Provider Test Date Status SABINO SOLIS 03/24/2023 14:09:04 Final Observation Date Value Abnormality Reference (Units ) Status HIV 1+2 Ab+HIV1 p24 Ag [Presence] in Serum or Plasma by Immunoassay 03/24/2023 14:09:04 Negative Negative Final Negative HIV-1/2 antigen and antibody screening tset results usually indicate the absence of HIV-1 and HIV-2 infection. However, such negative results do not rule-out acute HIV infection. If acute HIV-1 infection is highly suspected, it is recommended that a specimen be submitted for detection of HIV-1 RNA. Performing Location LABORATORY [facility] - [facility] [address] [facility] [address]
--- OUTSIDE RECORDS SUMMARY | 2023-08-26 09:18 | External Medical Summary | Summary of Care ---
Author Name Unknown Organization [facility] Address [address] [place] [address] Phone [phone] Care Team Providers Care Liquor Bridge Operator Helper Name Role Phone Nitin Sarah PA-C Primary Care Provider +1- [phone] Reason for Visit * Reason Onset Date Comments Scheduling 03/17/2023 Hepatology Encounter Details Date Type Department Care Team Description 03/17/2023 Telephone General Internal Medicine [facility] [address] [place] [address] Nitin Sarah PA-C [address] [place] [facility] [address] Scheduling (Hepatology) Allergies No known active allergiesdocumented as of [...] encounter Miscellaneous Notes * Telephone Encounter - Danika Hare - 03/17/2023 10:07 AM EDT Pt would like scheduling to call him to schedule appt//does not do well with texting or email documented in this encounter Plan of Treatment Upcoming Encounters Date Type Specialty Care Team Description 03/17/2023 Laboratory [facility] [address] [place] [address] Chronic hepatitis C without hepatic coma (HCC); Amnesia; History of heroin use 03/18/2023 Imaging Radiology 04/16/2023 Office Visit Internal Medicine Nitin Sarah PA-C [address] [place] [address] 10/18/2023 Office Visit Neurology Anny Turner, DO [address] [place] [address] Health Maintenance Due Date Last Done Comments COVID-19 Vaccine (#1) 01/06/1956 Pneumococcal Vaccine: 65+ Years (1 - PCV) 1963 HIV Screening 1972 DTaP,Tdap,and Td Vaccines (1 - Tdap) 1976 Cologuard 2002 Colonoscopy 2002 Colorectal Cancer Screening 2002 Fecal Occult Blood Test 2002 Sigmoidoscopy 2002 LUNG CANCER SCREENING - USE SMARTSET 55655 2007 Zoster Vaccines (1 of 2) 2007 [...] filedocumented as of this encounter Care Teams Liquor Bridge Operator Helper Relationship Specialty Start Date End Date Nitin Sarah PA-C [address] [place], [place] [address] PCP - General Physician Medical Record Transcriber 02/01/23 documented as of this encounter
--- OUTSIDE RECORDS SUMMARY | 2023-08-26 09:18 | External Medical Summary ---
Author Name Unknown Address Unknown Organization K09:[facility] [place] [address] Laboratory Report Ordering Provider Test Date Status ADELE FANG 03/17/2023 10:19:42 Final Warfarin Therapy
INR: 2 .0-3.0 conventional anticoagulation
INR: 2.5- 3.5 high intensity anticoagulation Observation Date Value Abnormality Reference (Units ) Status PT 03/17/2023 10:19:42 13.0 11.6-15.2 (seconds) Final INR 03/17/2023 10:19:42 1.0 0.8-1.2 Final Performing Location [facility] [place] [address]
--- OUTSIDE RECORDS SUMMARY | 2023-08-26 09:18 | External Medical Summary ---
Author Name Unknown Address Unknown Organization K01:LABORATORY [facility] - [address] [facility] [address] Laboratory Report Ordering Provider Test Date Status SABINO SOLIS 03/24/2023 14:09:04 Final Observation Date Value Abnormality Reference (Units) Status Hep C Genotype 03/24/2023 14:09:04 HCV Genotype 3 Abnormal Not Detected Final Additional comments [RFC] 03/24/2023 14:09:04 Test results have been reported to [facility]. Final Additional comments [RFC] 03/24/2023 14:09:04 Final Additional comments [RFC] 03/24/2023 14:09:04 The test determines hepatitis C virus (HCV) genotype (1 to 4) and their most common subtypes. It helps guide antiviral therapy in patients with chronic hepatitis C. Therapeutic response rates for HCV genotype 1 infection are improved significantly (80%-90%) when oral direct acting antiviral agents are added or used in lieu of interferon-based combination therapy. The level of detection (LoD) of the assay is 500 IU/mL for HCV genotypes 1 to 4. This assay should not be used as a screening test for HCV infection. Final Additional comments [RFC] 03/24/2023 14:09:04 The [facility] uses RT-PCR and eSensor HCVg Direct Test ([employer]) to determine HCV genotype. Final Additional comments [RFC] 03/24/2023 14:09:04 Final Additional comments [RFC] 03/24/2023 14:09:04 The performance characteristics of this assay have been validated by the [facility] at [facility]. It has not been cleared or approved by the FDA. The laboratory is regulated under CLIA as qualified to perform high complexity testing. This test is used for clinical purposes. It should not be regarded as investigational or for research. Final Additional comments [RFC] 03/24/2023 14:09:04 Final Additional comments [RFC] 03/24/2023 14:09:04 1. Keke CHUA, Brittany ROSE, Maddison JL, et al: Hepatitis C Virus Genotypes in Clinical Specimens Tested at a National Reference Testing Laboratory in the [place]. J Clin Microbiol 2011;49:6471-3500. Final Additional comments [RFC] 03/24/2023 14:09:04 2. [place] Association for the Study of Liver Diseases and the Infectious Diseases Society of [place]. Recommendations for Testing, Managing, and Treating Hepatitis C. Accessed February,. Available at www.hcvguidelines.org/ weou-odkgoj-juvx Final Additional comments [RFC] 03/24/2023 14:09:04 Final Pathologist review of results 03/24/2023 14:09:04 Dr. Huy Trinidad Final Performing Location LABORATORY [facility] - [address] [facility] [facility] [place] [address]
--- OUTSIDE RECORDS SUMMARY | 2023-08-26 09:18 | External Medical Summary ---
Author Name Unknown Address Unknown Organization K01:LABORATORY [facility] - [address] [place] [address] Laboratory Report Ordering Provider Test Date Status ADELE FANG 03/15/2023 12:06:02 Final Observation Date Value Abnormality Reference (Units ) Status Ferritin 03/15/2023 12:06:02 340 30-400 (ng /mL) Final Performing Location LABORATORY [facility] - [address] [place] [address]
--- OUTSIDE RECORDS SUMMARY | 2023-08-26 09:18 | External Medical Summary | Summary of Care ---
Author Name Unknown Organization [facility] Address [address] [place] [address] Phone [phone] Care Team Providers Care Watch Hairspring Assembler Name Role Phone Nitin Sarah PA-C Primary Care Provider +1- [phone] Reason for Referral * Evaluate & Treat - Unlimited Visits (Within 10 days (routine)) - Authorized Specialty Diagnoses / Procedures Referred By Shaji becerril Referred To Contact Gastroenterology Diagnoses Chronic hepatitis C without hepatic coma (HCC) Nitin Sarah PA-C 200 [place] [address] Referral ID Status Reason Start Date Expiration Date Visits Requested Visits Authorized [id number] Authorized Specialty Services Required 03/16/2023 999 999 Question Answer Referral Priority Within 10 days (routine) For what condition is the patient being referred? Hepatitis C Encounter Details Date Type Department Care Team Description 03/16/2023 Orders Only General Internal Medicine [place] [address] [facility] [place] [address] Nitin Sarah PA-C 200 [place] [address] Chronic hepatitis C without hepatic coma (HCC)* [...] Internal Medicine Nitin Sarah PA-C [address] [place] [address] 10/18/2023 Office Visit Neurology Anny Turner, DO [address] [place] [address] Scheduled Referrals Name Type Priority Associated Diagnoses Orde r Schedule HEPATOLOGY REFERRAL OP Referral Within 10 days (routine) Chronic hepatitis C without hepatic coma (HCC) Ordered: 03/16/2023 Health Maintenance Due Date Last Done Comments COVID-19 Vaccine (#1) 01/06/1956 Pneumococcal Vaccine: 65+ Years (1 - PCV) 1963 HIV Screening 1972 DTaP,Tdap,and Td Vaccines (1 - Tdap) 1976 Cologuard 2002 Colonoscopy 2002 Colorectal Cancer Screening 2002 Fecal Occult Blood Test 2002 Sigmoidoscopy 2002 LUNG CANCER SCREENING - USE SMARTSET 74855 2007 Zoster Vaccines (1 of 2) 2007 [...] coma documented in this encounter Care Teams Watch Hairspring Assembler Relationship Specialty Start Date End Date Nitin Sarah PA-Gustavo [address] [place] [address] PCP - General Physician Multiple Launch Rocket System Crewmember 02/01/23 documented as of this encounter
--- OUTSIDE RECORDS SUMMARY | 2023-08-26 09:18 | External Medical Summary | Summary of Care ---
Author Name Unknown Organization [facility] Address [address] [place] [address] Phone [phone] Care Team Providers Care Conveyor Console Operator Name Role Phone Nitin Sarah PA-C Primary Care Provider +1- [phone] Reason for Visit * Reason Onset Date Comments Test Results 03/16/2023 Encounter Details Date Type Department Care Team Description 03/16/2023 Telephone General Internal Medicine [facility] 200 [facility] [place] [address] Nitin Sarah PA-C 200 [place] [address] Test Results Allergies No known active allergiesdocumented [...] encounter Miscellaneous Notes * Telephone Encounter - SALAZAR Haji - [...] Visit Internal Medicine Nitin Sarah PA-C [address] [place] [address] 10/18/2023 Office Visit Neurology Anny Turner, DO [address] [place], [place] [address] Health Maintenance Due Date Last Done Comments COVID-19 Vaccine (#1) 01/06/1956 Pneumococcal Vaccine: 65+ Years (1 - PCV) 1963 HIV Screening 1972 DTaP,Tdap,and Td Vaccines (1 - Tdap) 1976 Cologuard 2002 Colonoscopy 2002 Colorectal Cancer Screening 2002 Fecal Occult Blood Test 2002 Sigmoidoscopy 2002 LUNG CANCER SCREENING - USE SMARTSET 17164 2007 Zoster Vaccines (1 of 2) 2007 [...] filedocumented as of this encounter Care Teams Conveyor Console Operator Relationship Specialty Start Date End Date Nitin Sarah PA-C [address] [place] [address] PCP - General Physician Building Rental Superintendent 02/01/23 documented as of this encounter
--- OUTSIDE RECORDS SUMMARY | 2023-08-26 09:18 | External Medical Summary | Summary of Care ---
Author Name Unknown Organization [facility] Address [address] [place] [address] Phone [phone] Care Team Providers Care Die Trouble Shooter Name Role Phone Nitin Sarah PA-C Primary Care Provider +1- [phone] Reason for Visit * Reason Comments Outpatient Testing Encounter Details Date Type Department Care Team Description 03/18/2023 Laboratory Laboratory, [facility] [address] [place] [address] [facility] [address] [place] [address] Arrived Allergies No known active allergiesdocumented as of this encounter (statuses as of 03/18/2023) Medications Medication Sig Dispensed Refills Start Date [...] as of this encounter (statuses as of 03/18/2023) Active Problems Problem Noted Date Substance dependence 03/17/2023 History of heroin use 03/17/2023 Amnesia 03/17/2023 Chronic hepatitis C without hepatic coma 03/17/2023 HTN, goal below 130/80 03/17/2023 Pulmonary emphysema 03/17/2023 documented as of this encounter (statuses as of 03/18/2023) Resolved Problems Problem Noted Date Resolved Date Elevated hemoglobin 03/17/2023 03/17/2023 documented as of this encounter (statuses as of 03/18/2023) Social History Tobacco Use Types Packs/Day Years [...] Internal Medicine Nitin Sarah PA-C [address] [place] [address] 10/18/2023 Office Visit Neurology Anny Turner, DO [address] [place] [address] Health Maintenance Due Date Last Done Comments DISCUSS TOBACCO CESSATION (R EFER TO SMARTSET #9911) 1957 COVID-19 Vaccine (#1) 01/06/1958 Pneumococcal Vaccine: 65+ Ye ars (1 - PCV) 1963 HIV Screening 1972 Albumin/Creatinine Ratio 1975 DTaP,Tdap,and Td Vaccines (1 - Tdap) 1976 Cologuard 2002 Colonoscopy 2002 Colorectal Cancer Screening 2002 Fecal Occult Blood Test 2002 Sigmoidoscopy 2002 LUNG CANCER SCREENING - USE SMARTSET 87154 2007 Zoster Vaccines (1 of 2) 2007 [...] filedocumented as of this encounter Care Teams Die Trouble Shooter Relationship Specialty Start Date End Date Nitin Sarah PA-C 200 [facility] [place] [address] PCP - General Physician Goal Umpire 02/01/23 documented as of this encounter
--- OUTSIDE RECORDS SUMMARY | 2023-08-26 09:18 | External Medical Summary | Summary of Care ---
Author Name Unknown Organization [facility] Address [address] [place] [address] Phone [phone] Care Team Providers Care Manager Heart Name Role Phone Nitin Sarah PA-C Primary Care Provider +1- [phone] Reason for Visit * Reason Comments Outpatient Testing Encounter Details Date Type Department Care Team Description 03/15/2023 Laboratory Laboratory, [facility] [address] [facility] [place] [address] [facility] [address] [facility] [place] [address] Serum calcium elevated; Elevated hemoglobin (HCC); Transaminitis; Pulmonary emphysema, unspecified emphysema type (HCC) Allergies No known active allergiesdocumented as of this encounter (statuses as of 03/15/2023) Medications Medication Sig Dispensed Refills Start Date End Date Status Naproxen Sodium 220 MG Oral Capsule Take 1 Capsule by mouth as needed. 0 Active documented as of this encounter (statuses as of 03/15/2023) Active Problems No known active problems documented as of this encounter (statuses as of 03/15/2023) Social History Tobacco Use Types Packs/Day Years [...] Visit Internal Medicine Nitin Sarah PA-C [address] [place] [address] 10/18/2023 Office Visit Neurology Anny Turner, DO [address] [place], [place] [id number] Pending Results Name Type Priority Associated Diagnoses Date /Time CALCIUM Lab Routine Serum calcium elevated 03/15/2023 12:06 PM EDT FERRITIN Lab Routine Elevated hemoglobin (HCC) Transaminitis 03/15/2023 12:06 PM EDT IRON SCREEN, INCLUDING TIBC Lab Routine Elevated hemoglobin (HCC) Transaminitis 03/15/2023 12:06 PM EDT HEPATITIS C ANTIBODY SCREEN WITH PROGRESSION TO HEPATITIS C RNA QUANTITATIVE Lab Routine Transaminitis 03/15/2023 12:06 PM EDT CBC Lab Routine Elevated hemoglobin (HCC) 03/15/2023 12:06 PM EDT HEPATITIS C ANTIBODY Lab Routine Transaminitis 03/15/2023 12:06 PM EDT HEPATITIS C RNA ADD ON Lab Routine Transaminitis 03/15/2023 12:06 PM EDT ERYTHROPOIETIN (EPO) Lab Routine Elevated hemoglobin (HCC) 03/15/2023 12:06 PM EDT [id number], QN Lab Routine Transaminitis Pulmonary emphysema, unspecified emphysema type (HCC) 03/15/2023 12:06 PM EDT Health Maintenance Due Date Last Done Comments COVID-19 Vaccine (#1) 01/06/1956 Pneumococcal Vaccine: 65+ Ye ars (1 - PCV) 1963 HIV Screening 1972 Hepatitis C Screening 1975 DTaP,Tdap,and Td Vaccines (1 - Tdap) 1976 Cologuard 2002 Colonoscopy 2002 Colorectal Cancer Screening 2002 Fecal Occult Blood Test 2002 Sigmoidoscopy 2002 LUNG CANCER SCREENING - USE SMARTSET 66298 2007 Zoster Vaccines (1 of 2) 2007 Influenza Vaccine (FLU shot) (#1) 2023 Depression Screening 02/02/2024 02/01/2023 Lipid Panel 02/02/2028 02/01/2023 AAA Screening Completed 02/10/2023 GARDASIL-HPV IMMUNIZATION SERIES Aged Out No longer [...] as of this encounter Visit Diagnoses Diagnosis Serum calcium elevated Hypercalcemia Elevated hemoglobin (HCC) Other hemoglobinopathies Transaminitis Nonspecific elevation of levels of transaminase or lactic acid dehydrogenase (LDH) Pulmonary emphysema, unspecified emphysema type (HCC) documented in this encounter Care Teams Manager Heart Relationship Specialty Start Date End Date Nitin Sarah PA-C [address] [facility] [place] [address] PCP - General Physician Upholsterer Outside 02/01/23 documented as of this encounter
--- OUTSIDE RECORDS SUMMARY | 2023-08-26 09:18 | External Medical Summary | Summary of Care ---
Author Name Unknown Organization [facility] Address [address] [place] [address] Phone [phone] Care Team Providers Care Pantograph Watcher Name Role Phone Nitin Sarah PA-C Primary Care Provider +1- [phone] Reason for Visit * Reason Comments Outpatient Testing Encounter Details Date Type Department Care Team Description 03/17/2023 Laboratory Laboratory [facility] [address] [place] [address] [facility] [address] [place] [address] Chronic hepatitis C without hepatic coma (HCC); [...] Visit Internal Medicine Nitin Sarah PA-C [address] [facility] [place] [address] 10/18/2023 Office Visit Neurology Anny Turner, DO [address] [place], [place] [phone] Pending Results Name Type Priority Associated Diagnoses [...] 2002 LUNG CANCER SCREENING - USE SMARTSET 89784 2007 Zoster Vaccines (1 of 2) 2007 [...] use documented in this encounter Care Teams Pantograph Watcher Relationship Specialty Start Date End Date Nitin Sarah PA-C [address] [place], [place] [address] PCP - General Physician Rod Placer 02/01/23 documented as of this encounter
--- OUTSIDE RECORDS SUMMARY | 2023-08-26 09:18 | External Medical Summary | Summary of Care ---
Author Name Unknown Organization [facility] Address [address] [place] [address] Phone [phone] Care Team Providers Care Stock Receiver Name Role Phone Nitin Sarah PA-C Primary Care Provider +1- [phone] Reason for Visit * Reason Onset Date Comments Referral 03/17/2023 Epic 178 Referra l Encounter Details Date Type Department Care Team Description 03/17/2023 Telephone BEHAVIORAL HEALTH IMAGER [address] [place] [address] [facility] Referral (Epic 178 Referral ) Allergies No known active allergiesdocumented as of [...] encounter Miscellaneous Notes * Telephone Encounter - Ted Flores - 03/17/2023 10:37 AM EDT Referred by Gen Int Med [facility] Pod3 Nitin Sarah PA-C no Active MyG Reason for referral; mbr admits to years of drug abuse including heroin, marijuana, benzo's and currently using Suboxone he is purchasing. Mbr is having episodes of amnesia which he does not attribute to his drug use. Outcome; Attempted to connect with mbr; phone rang several times then disconnected. Mbr does not utilize MyG. Mbr can be directed to CC Team Wednesday - Wednesday 8a-5p; [phone] Follow up on 03/22/2023 documented in this encounter Plan of Treatment Upcoming Encounters Date Type Specialty Care Team Description 03/18/2023 Imaging Radiology 04/16/2023 Office Visit Internal Medicine Nitin Sarah PA-C [address] [place] [address] 10/18/2023 Office Visit Neurology Anny Turner, DO [address] [place] [address] Health Maintenance Due Date Last Done Comments COVID-19 Vaccine (#1) 01[birth year]06/1956 Pneumococcal Vaccine: 65+ Years (1 - PCV) 1963 HIV Screening 1972 DTaP,Tdap,and Td Vaccines (1 - Tdap) 1976 Cologuard 2002 Colonoscopy 2002 Colorectal Cancer Screening 2002 Fecal Occult Blood Test 2002 Sigmoidoscopy 2002 LUNG CANCER SCREENING - USE SMARTSET 29933 2007 Zoster Vaccines (1 of 2) 2007 [...] filedocumented as of this encounter Care Teams Stock Receiver Relationship Specialty Start Date End Date Nitin Sarah PA-C [address] [place], [place] [address] PCP - General Physician Information Systems Planner 02/01/23 documented as of this encounter
--- OUTSIDE RECORDS SUMMARY | 2023-08-26 09:18 | External Medical Summary ---
Author Name Unknown Address Unknown Organization [id number]:LABORATORY [facility] - [facility] [address] [facility] [address] Laboratory Report Ordering Provider Test Date Status ADELE FANG 03/17/2023 10:21:56 Final Cutoff Concentrations:
Drug Level
Amphetamines 500 ng/mL
Benzodiazepines 100 ng/mL
Cannabinoids 50 ng/mL
Cocaine Metabolite 150 ng/mL
Fentanyl 1 ng/mL
Hydrocodone / Hydromorphone 300 ng/mL
Methadone Metabolite 100 ng/mL
Morphine / Codeine 300 ng/mL
Oxycodone / Oxymorphone 100 ng/mL

Screening results are presumptive and can only be used for medical purposes. Positive screening results are reflexed to confirmatory testing. Observation Date Value Abnormality Reference (Units ) Status Amphetamines, Urine screen 03/17/2023 10:21:56 Negative Negative Final Benzodiazepines, Urine screen 03/17/2023 10:21:56 Negative Negative Final Cannabinoids, Urine screen 03/17/2023 10:21:56 Positive Abnormal Negative Final Cocaine Metabolite, Urine screen 03/17/2023 10:21:56 Negative Negative Final fentaNYL [Presence] in Urine by Screen method 03/17/2023 10:21:56 Negative Negative Final HYDROcodone [Presence] in Urine by Screen method 03/17/2023 10:21:56 Negative Negative Final 3-Fezkomimoo-7,5-Dimeth yl-3,3-Diphenylpyrrolid ine (EDDP) [Presence] in Urine 03/17/2023 10:21:56 Negative Negative Final Opiates, Urine screen 03/17/2023 10:21:56 Negative Negative Final oxyCODONE [Presence] in Urine by Screen method 03/17/2023 10:21:56 Negative Negative Final Performing Location LABORATORY C - [address] [facility] [address]
--- OUTSIDE RECORDS SUMMARY | 2023-08-26 09:18 | External Medical Summary ---
Author Name Unknown Address Unknown Organization [id number]:[facility]ORY [facility] [place] [address] [facility] [address] Laboratory Report Ordering Provider Test Date Status SABINO SOLIS 03/24/2023 14:09:04 Final Observation Date Value Abnormality Reference (Units ) Status Hep B surface Ag 03/24/2023 14:09:04 Negative Neg ative Final Performing Location LABORATORY [facility] - [address] [facility] [address]
--- OUTSIDE RECORDS SUMMARY | 2023-08-26 09:18 | External Medical Summary ---
Author Name Unknown Address Unknown Organization [id number]:LABORATORY [facility] - [facility] [address] [facility] [address] Laboratory Report Ordering Provider Test Date Status ADELE FANG 03/17/2023 10:21:56 Final Cutoff Concentration:
D rug Level
THC-COOH 10 ng/mL

This test was developed and its performance characteristics determined by [employer]. It has not been cleared or approved by the US Food and Drug Administration.
null Observation Date Value Abnormality Reference (Units ) Status METHODOLOGY 03/17/2023 10:21:56 LC-MS/MS Final Cannabinoids, Urine confirmatory 03/17/2023 10:21:56 261 Above high normal Negative (ng/mL) Final Performing Location LABORATORY [facility] - [facility] [address] [facility] [address]
--- OUTSIDE RECORDS SUMMARY | 2023-08-26 09:18 | External Medical Summary ---
Author Name Unknown Address Unknown Organization : Laboratory Report Ordering Provider Test Date Status ADELE FANG 03/15/2023 12:06:19 Final Observation Date Value Abnormality Reference (Units ) Status ERYTHROPOIETIN (EPO) 03/15/2023 12:06:19 11.3 2.6-18.5 (mIU/mL) Final
Test Performed at:
[facility]
[address] [place] [address]
Ge Lucas M.D., Ph.D.,Director of Laboratories Performing Location
--- OUTSIDE RECORDS SUMMARY | 2023-08-26 09:18 | External Medical Summary | Summary of Care ---
Author Name Unknown Organization [facility] Address [address] [place] [address] Phone [phone] Care Team Providers Care Green End Man Name Role Phone Nitin Sarah PA-C Primary Care Provider +1- [phone] Reason for Referral * Evaluate & Treat - Unlimited Visits (Within 10 days (routine)) - Authorized Specialty Diagnoses / Procedures Referred By Shaji becerril Referred To Contact Cast Shell Grinder Diagnoses History of heroin use Substance dependence (HCC) Nitin Sarah PA-C [address] [place] [address] Referral ID Status Reason Start Date Expiration Date Visits Requested Visits Authorized [id number] Authorized Specialty Services Required 03/17/2023 999 999 Question Answer Referral Priority Within 10 days (routine) Role Behavioral Health Cast Shell GrinderStroke Coordinator Health Cast Shell Grinder Referral Reason Active Substance Abuse Comments Is patient being transitioned from [facility] to Complex Case Management? No * Precert (Within 10 days (routine)) - Pending Review Specialty Diagnoses / Procedures Referred By Shaji becerril Referred To Contact Radiology Diagnoses Intractable chronic post-traumatic headache Procedures MRI BRAIN W WO CONTRAST Nitin Sarah PA-C [address] [place] [address] Referral ID Status Reason Start Date Expiration Date V isits Requested Visits Authorized [id number] Pending Review 03/17/2023 999 999 Reason for Visit * Reason Comments Follow Up 1 month. Patient sta megan ongoing HOFFMAN with disorientation and memory loss. Encounter Details Date Type Department Care Team Description 03/17/2023 Office Visit General Internal Medicine [facility] [place] [address] [place] [address] Nitin Sarah PA-C [address] [facility] [place] [address] Chronic hepatitis C without hepatic coma (HCC)*; [...] 9:25 AM EDT documented in this encounter Nursing Notes * Veronika Pratt LPN - 03/17/2023 9:25 AM EDT Chief Complaint Patient presents with Follow Up 1 month. Patient states ongoing HOFFMAN with disorientation and memory loss. documented in this encounter Plan of Treatment Upcoming Encounters Date Type Specialty Care Team Description 03/18/2023 Imaging Radiology 04/16/2023 Office Visit Internal Medicine Nitin Sarah PA-C [address] [place] [address] 10/18/2023 Office Visit Neurology Anny Turner, DO [address] [place] [address] Pending Results Name Type Priority Associated Diagnoses Date /Time PT INR Lab Routine Chronic hepatitis C without hepatic coma (HCC) 03/17/2023 10:19 AM EDT TOXICOLOGY, URINESCREEN W/ CONFIRMATION Lab Routine Amnesia History of heroin use 03/17/2023 10:21 AM EDT VITAMIN B1 (THIAMINE), BLOOD, LC/MS/MS Lab Routine Amnesia 03/17/2023 10:19 AM EDT Scheduled Orders Name Type Priority Associated Diagnoses Orde r Schedule CBC WITH WBC DIFFERENTIAL Lab Routine Abnormal CBC Expected: 04/16/2023 (Approximate), Expires: 03/17/2024 PT INR Lab Routine Chronic hepatitis C without hepatic coma (HCC) Expected: 03/17/2023 (Approximate), Expires: 03/16/2024 TOXICOLOGY, URINESCREEN W/ CONFIRMATION Lab Routine Amnesia History of heroin use Expected: 03/17/2023 (Approximate), Expires: 03/17/2024 VITAMIN B1 (THIAMINE), BLOOD, LC/MS/MS Lab Routine Amnesia Expected: 03/17/2023 (Approximate), Expires: 03/17/2024 MRI BRAIN W WO CONTRAST Medical Imaging Routine Intractable chronic post-traumatic headache Expected: 03/17/2023 (Approximate), Expires: 04/16/2024 Scheduled Referrals Name Type Priority Associated Diagnoses [...] 2002 LUNG CANCER SCREENING - USE SMARTSET 27536 2007 Zoster Vaccines (1 of 2) 2007 [...] unspecified documented in this encounter Care Teams Green End Man Relationship Specialty Start Date End Date Nitin Sarah PA-C [address] [facility] [place] [address] PCP - General Physician Shingler 02/01/23 documented as of this encounter
--- OUTSIDE RECORDS SUMMARY | 2023-08-26 09:18 | External Medical Summary | Summary of Care ---
Author Name Unknown Organization [facility] Address [address] [place] [address] Phone [phone] Care Team Providers Care Osteopathic Resident Name Role Phone Nitin Sarah PA-C Primary Care Provider +1- [phone] Reason for Visit * Reason Onset Date Comments Referral 03/17/2023 Epic 178 Referra l Encounter Details Date Type Department Care Team Description 03/17/2023 Telephone BEHAVIORAL HEALTH MAIL DELIVERER [address] [place] [address] [facility] Referral (Epic 178 Referral ) Allergies No known active allergiesdocumented as of this encounter (statuses as of 03/22/2023) Medications Medication Sig Dispensed Refills Start Date [...] as of this encounter (statuses as of 03/22/2023) Active Problems Problem Noted Date Substance dependence 03/17/2023 History of heroin use 03/17/2023 Amnesia 03/17/2023 Chronic hepatitis C without hepatic coma 03/17/2023 HTN, goal below 130/80 03/17/2023 Pulmonary emphysema 03/17/2023 documented as of this encounter (statuses as of 03/22/2023) Resolved Problems Problem Noted Date Resolved Date Elevated hemoglobin 03/17/2023 03/17/2023 documented as of this encounter (statuses as of 03/22/2023) Social History Tobacco Use Types Packs/Day Years [...] encounter Miscellaneous Notes * Telephone Encounter - UDAY Olivares - 03/22/2023 1:01 PM EDT Made second attempt and contacted the patient. A list of HERMELINDA providers will be mailed to the patient's home. The referral has been submitted. Referral complete. * Telephone Encounter - Ted Flores - 03/17/2023 10:37 AM EDT Referred by Gen Int Med [facility] [place] Pod[address] Nitin Sarah PA-C no Active MyG [...] to CC Team Wednesday - Wednesday 8a-5p; [phone] Follow up on 03/22/2023 documented in this encounter Plan of Treatment Upcoming Encounters Date Type Specialty Care Team Description 04/13/2023 Pharmacy Gastroenterology [place], Pharmacist Hepatology [address] [place] [address] 04/16/2023 Office Visit Internal Medicine Nitin Sarah PA-C [address] [place] [address] 10/18/2023 Office Visit Neurology Anny Turner DO [address] [place] [address] Health Maintenance Due Date Last Done Comments DISCUSS TOBACCO CESSATION (R EFER TO SMARTSET #1255) 1957 COVID-19 Vaccine (#1) 01/06/1958 Pneumococcal Vaccine: 65+ Ye ars (1 - PCV) 1963 HIV Screening 1972 Albumin/Creatinine Ratio 1975 DTaP,Tdap,and Td Vaccines (1 - Tdap) 1976 Cologuard 2002 Colonoscopy 2002 Colorectal Cancer Screening 2002 Fecal Occult Blood Test 2002 Sigmoidoscopy 2002 LUNG CANCER SCREENING - USE SMARTSET 40571 2007 Zoster Vaccines (1 of 2) 2007 [...] filedocumented as of this encounter Care Teams Osteopathic Resident Relationship Specialty Start Date End Date Nitin Sarah PA-C [address] [facility] [place] [address] PCP - General Physician Limnology Teacher 02/01/23 documented as of this encounter
--- OUTSIDE RECORDS SUMMARY | 2023-08-26 09:19 | External Medical Summary ---
Author Name Unknown Address Unknown Organization K0G[facility] [address] [place] [address] Laboratory Report Ordering Provider Test Date Status ADELE FANG 03/15/2023 12:06:02 Final Observation Date Value Abnormality Reference (Units ) Status Calcium 03/15/2023 12:06:02 10.1 8.4-10.2 ( mg/dL) Final Performing Location [facility] - [address] [place] [address]
--- OUTSIDE RECORDS SUMMARY | 2023-08-26 09:19 | External Medical Summary ---
Author Name Unknown Address Unknown Organization K01:[facility]ORY [facility] [place] [address] [facility] [address] Laboratory Report Ordering Provider Test Date Status ADELE FANG 03/15/2023 12:06:02 Final Observation Date Value Abnormality Reference (Units) Status Hep C RNA viral load 03/15/2023 12:06:02 [id number] Above high normal <=0 (IU/mL) Final Log of HCV RNA 03/15/2023 12:06:02 6.75 Above high normal <=0.00 (log IU/mL) Final Genetic variant clinical significance [Interpretation] in Blood or Tissue by Molecular genetics method 03/15/2023 12:06:02 Test results have been reported to [facility]. Final Genetic variant clinical significance [Interpretation] in Blood or Tissue by Molecular genetics method 03/15/2023 12:06:02 Final Genetic variant clinical significance [Interpretation] in Blood or Tissue by Molecular genetics method 03/15/2023 12:06:02 The HCV assay is an in vitro [...] indicates that the virus is replicating and therefore is evidence of active infection. This assay is intended for use as an aid in the management of HCV-infected patients undergoing anti-viral therapy. The assay [...] of HCV in blood or blood products. Final Genetic variant clinical significance [Interpretation] in Blood or Tissue by Molecular genetics method 03/15/2023 12:06:02 Final Additional comments [RFC] 03/15/2023 12:06:02 The HCV assay is an in vitro nucleic acid amplification test using an automated system for specimen processing, amplification and detection. Detection of antibodies to HCV (anti-HCV) indicates prior exposure to hepatitis C but does not distinguish between cleared or active infection (i.e where the virus is still replicating). Detection of HCV RNA with the detection of anti-HCV identifies an active hepatitis C infection. The results of HCV RNA testing together with other biochemical and clinical information, may be used to confirm an active HCV infection, measure the level of virus in the blood and assist in HCV prevention counseling, medical care and treatment decision making. The test can quantitate HCV RNA over the reportable range of 15-100,000,000 IU/mL (1.18 log to 8.00 log IU/mL). Final Additional comments [RFC] 03/15/2023 12:06:02 Final Additional comments [RFC] 03/15/2023 12:06:02 The assay was verified and performance characteristics determined by the [facility] Diagnostics Laboratory at [facility]. This test is used for clinical purposes. Final FDA package insert References section 03/15/2023 12:06:02 1. Litzy Bartholomew, Nohemy S: How to Use Virological Tools for the Optimal Management of Chronic Hepatitis C. Liver Int 2011;31 Suppl 1:3-12. Final FDA package insert References section 03/15/2023 12:06:02 2. Centers for Disease Control and Prevention. Testing for HCV Infection: an Update of Guidance for Clinicians and Laboratorians. MMWR Morb Mortal Wkly Rep 2013;62(18):362-365. Final FDA package insert References section 03/15/2023 12:06:02 3. [place] Association for the Study of Liver Diseases and Infectious Diseases Society of [place]: HCV Guidance: Recommendations for Testing, Managing, and Treating Hepatitis C. Accessed January 15, 2017. Available at www.hcvguidelines.or g/qpix-bkiytg-yryn Final FDA package insert References section 03/15/2023 12:06:02 Final Performing Location LAB[facility]ORY [facility] [address] [facility] [address]
--- OUTSIDE RECORDS SUMMARY | 2023-08-26 09:19 | External Medical Summary ---
Author Name Unknown Address Unknown Organization K01:LABORATORY [facility] - [address] [place] [address] Laboratory Report Ordering Provider Test Date Status ADELE FANG 03/15/2023 12:06:02 Final Observation Date Value Abnormality Reference (Units ) Status Hep C Ab 03/15/2023 12:06:02 Positive Abnormal Negative Final Test results reported to [facility]. Per protocol, HCV RNA quantitative assay has been ordered. Performing Location LABORATORY [facility] - [address] [place] [address]
--- OUTSIDE RECORDS SUMMARY | 2023-08-26 09:19 | External Medical Summary ---
Author Name Unknown Address Unknown Organization K01:LABORATORY [facility] - [address] [place] [address] Laboratory Report Ordering Provider Test Date Status ADELE FANG 03/15/2023 12:06:02 Final Observation Date Value Abnormality Reference (Units ) Status Iron 03/15/2023 12:06:02 92 45-176 (ug /dL) Final Iron-binding capacity 03/15/2023 12:06:02 333 250-425 (ug/dL) Final Transferrin Sat % 03/15/2023 12:06:02 28 15 -55 (%) Final Performing Location LABORATORY [facility] - [address] [place] [address]
[2023-08-26] MEDS: amLODIPine BESYLATE 5 MG TAB PO SCH (09:59)
[2023-08-26] MEDS: BUPRENORPHINE/NALOXONE 2/0.5MG 1 TAB PO SCH (09:59)
[2023-08-26] MEDS: NICOTINE 14 MG/24 HR PATCH TD SCH (09:59)
[2023-08-26] MEDS: FAMOTIDINE 20 MG TAB PO SCH (10:00)
--- NOTE | 2023-08-26 11:31 | History & Physical ---
Date of Service August 26, 2023 Impression / Recommendations Impression 68 yo male with no psych hx prior to concussion last year with subsequent adjustment issues with depressive features but also acute onset of tremor and vague auditory hallucinations, worsening memory with periods of confusion at night. His symptoms could suggest onset of a lewy body type disease following his head injury. His head CT shows microvascular disease. Differential would include depression with psychotic features, seizure, etc. Family reports possible exacerbation of his condition on synthroid. His opiate use disorder remains in sustained remission on low dose suboxone. 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 The patient will participate in group, recreational, and milieu therapies and will be offered additional individual and family sessions as clinically appropriate. Risks/benefits/alternatives were reviewed re: antipsychotics for mood and/or psychosis. Discussion included but was not limited to metabolic side effects, risks of TD and suicidal thoughts. There were no abnormal motor movements at baseline. Fasting glucose and lipid panel ordered for baseline monitoring. He agreed to a trial of Seroquel, will start low and monitor for EPS. If recurring incontinence and ongoing BP elevation will consult [facility] hospitalist. Will hold synthroid for now pending availability of records. Overall, I spent a total of 68 minutes with this case, including review of chart, direct evaluation of the patient, counseling the patient, ordering medication, coordination with nursing, risk assessment, and documentation. 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 Chief Complaint "I can't do anything since the accident". History of Present Illness History reviewed and confirmed as per ED CM: Pt was brought to the ER by his sister whom he lives with. Pt reports that he has not slept for 4 months and if he does sleep for an hour or two he has nightmares. His sister reports that he has been talking to people who arent there. When asked if he hears voices he states only when we are talking to each other. He reports that he struggles because his hands shake sometimes. He is afraid to leave his house. He states that he feels confused at times. His sister reports that he is paranoid and ruminates on things like getting scammed on the internet, although that has never happened. He denies SI with a plan but reports he does not want to live like this. He reports that he got a concussion a year ago and some of these symptoms started at that time but it has gotten worse in the past 3 months. In the past two weeks his symptoms have gotten so bad that he cant function and wont leave the house. Pt lives with his sister and nephew. His sister reports that things have gotten so bad she is afraid to leave him alone. She reports that he cant sleep and walks around the house talking to people who arent there. Pt has no history of mental illness. Pt has rapid speech. He is pleasant and his affect is anxious. Pt has history of drug use but has been clean for several years. He smokes cigarettes daily. He denies D&A use. 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 Pt is requesting inpatient psychiatric treatment at this time and his sister also believes that is the best course of action. The patient states he used to be quite physically active and states that his "whole life" changed after falling from a 15 ft retaining wall in May 2023. He has been unable to work, struggles with focus and memory, and more recently developed an increase in tremor and new onset auditory hallucinations, typically at night. His anxiety about these nonspecific voices, "they say I should but don't say what" disrupts his sleep and he may wander and seem more confused, like urinating on himself and not realizing it. He was more irritable last pm and staff do report that he urinated on the floor in his room overnight. He feels that his tremor is worse with intention. Otherwise he has a history of opiod abuse but has been doing well on MAT for years following an extended rehab program 6-7 years ago while still residing in [place]. He moved with his sister to "make better choices" but has more limited vocational options. He denies wanting to harm himself but admit that he gets frustrated as he wants to get back to work again. His family reported that the timing of the worsening of his symptoms seems to have coincided with starting Synthroid which may or may not be related. Re: his positive drug screen, he denies use of benzodiazepines but does use NSAIDs regularly, mainly for back in am. Past Psychiatric History Previous Psych History: denied Current Psychiatric Diagnosis: None Outpatient Services: none Previous Psych Admissions: none Do You Have Access To A Gun?: No History of Previous Suicide Attempt: No Past Medication Trials: denied Past Head Trauma/Neuro History History of Concussion/Seizure: Yes (no seizure, brief LOC, denies brain bleed, was seen by sue ) Allergies Allergy/AdvReac Type Severity Reaction Status Date / Time No Known Allergies Allergy Verified 08/25/23 16:19 Home Medications Medication Instructions Recorded Confirmed Type amlodipine 5 mg tablet 5 mg PO QAM 08/25/23 08/25/23 History buprenorphine 2 mg-naloxone 0.5 mg 0.5 tab sublingual QAM 08/25/23 08/25/23 History sublingual tablet famotidine 20 mg tablet 20 mg PO QAM 08/25/23 08/25/23 History levalbuterol tartrate 45 1 puff inhalation Q4H PRN Wheezing 08/25/23 08/25/23 History mcg/actuation aerosol inhaler levothyroxine 25 mcg tablet 25 mcg PO DAILYBB 08/25/23 08/25/23 History Family History Family History of: Doesn't Know Family Mental Health History Comment: cousin completed suicide on mom's side Alcohol History Hx of Alcohol Use Over the Past 12 Months: No AUDIT Total Score: 0 Smoking Use Have You Smoked or Used Tobacco Products in the Last 30 Days: Yes tobacco type: cigarettes Smoking Status: Current every day smoker Smoking packs per day: 10 Substance History Hx of Prescription Med Misuse Over the Past 12 Months: No Hx of Over the Counter Med Misuse Over the Past 12 Months: No Hx of Inhalent Misuse Over the Past 12 Months: No Hx of Organic Substance Use Over the Past 12 Months: No Hx of Illegal Substances/Street Drug Use Over Past 12 Months: No Problems as a Result of Past Substance Use: Job Loss and Estranged from Family Problems as a Result of Past Substance Use Comments: ex-heroin user Personal History Living Arrangements: Home Highest Grade Completed: High School Graduate Employment Status: Other (on leave but has no STD or LTD insurance) Marital Status: (twice) Number Of Children: 5 Beliefs That Will Affect Care: None Current Legal Problems: No Hx Legal Problems: Yes (moving violations/fines, possible drug related) Hx Traumatic Life Events: Yes (loss of 2 children) Patient History Medical History Hepatitis C Acute exacerbation of chronic obstructive pulmonary disease Concussion HTN (hypertension) Surgical History No pertinent past surgical history Social History Smoking Status: Current every day smoker Tobacco Type: Cigarettes Hx Alcohol Use: No Hx Substance Use: Yes Non-Prescribed Medications: Marijuana and Other Non- Prescribed Medications Comment: Opiates Preferred Language: Omani Communication Ability: Effective Vocational Training Instructor Required: No Beliefs That Will Affect Care: None Feels Safe at Home: Yes Gender Identity: Male Assistive Devices: Glasses Review of Systems Review of Systems: All systems reviewed & are unremarkable except as noted in HPI & below Physical Exam Psychiatric: Orientation: alert and oriented x 3 Apperance: appropriately dressed and appropriately groomed Eye Contact: good eye contact Motor Behavior: + tremor Speech: normal rate/rhythm/volume of speech Affect: + anxious affect Mood: + anxious mood Thought Process: + circumstantial thought process Thought Content: reality based without delusions Suicidal Thoughts: denies suicidal thoughts Homicidal Thoughts: denies homicidal thoughts Hallucinations: no auditory hallucinations and no visual h allucinations Cognition: attention grossly intact and language grossly intact Estimated Intelligence: consistent with education level Insight: + limited insight Judgment: + limited judgement Vital Signs (Past 24 Hours): Last Vital Signs Temp 36.3 C L 08/26/23 05:58 Pulse 101 H 08/26/23 05:59 Resp 16 08/26/23 05:58 BP 165/99 H 08/26/23 05:59 Pulse Ox 99 08/25/23 20:54 O2 Del Method Room Air 08/25/23 20:54 Exam Statement: A physical exam was performed in the ED by Dr. Beltre for the purposes of medical clearance. I accept that physical as correct and adequate for the purposes of the inpatient physical exam. Results & Data ([facility]) Laboratory Results Laboratory Results - last 24 hr 08/25/23 08/25/23 08/25/23 15:15 16:17 16:47 WBC 9.51 RBC 5.87 Hgb 17.7 Hct 53.2 H MCV 90.6 MCH 30.2 MCHC 33.3 RDW Std Deviation 50.1 H RDW Coeff of Naun 15.1 H Plt Count 303 MPV 10.2 Immature Gran % (Auto) 0.4 Neut % (Auto) 74.2 Lymph % (Auto) 15.9 [place] % (Auto) 8.0 Eos % (Auto) 0.8 Baso % (Auto) 0.7 Neut # (Auto) 7.05 H Lymph # (Auto) 1.51 [place] # (Auto) 0.76 H Eos # (Auto) 0.08 Baso # (Auto) 0.07 Immature Gran # (Auto) 0.04 PT 12.2 H INR 1.1 APTT 27 PTT Ratio 1.0 Sodium 136 Potassium 4.2 Chloride 100 Carbon Dioxide 27 Anion Gap 9 BUN 26 H Creatinine 1.07 Est Cr Clr Drug Dosing Not Reportable Est GFR ( Amer) 83.4 Est GFR (Non-Af Amer) 72.0 BUN/Creatinine Ratio 24.3 H Glucose 92 Calcium 9.7 Magnesium 2.2 Total Bilirubin 1.1 H AST 61 H ALT 97 H Alkaline Phosphatase 27 L Ammonia 25.0 Troponin I High Sens 6.8 Total Protein 8.4 H Albumin 4.9 Globulin 3.5 Albumin/Globulin Ratio 1.4 TSH 3.214 Urine Color Dark Yellow Urine Appearance Clear Urine pH 5.0 Ur Specific [place] 1.030 Urine Protein 2+ H Urine Glucose (UA) Negative Urine Ketones 2+ H Urine Blood Negative Urine Nitrite Negative Urine Bilirubin 1+ H Urine Urobilinogen Negative Ur Leukocyte Esterase Negative Urine WBC (Auto) 1-5 Urine RBC (Auto) 0-4 U Hyaline Cast (Auto) 1-5 U Epithel Cells (Auto) 5-10 H Urine Bacteria (Auto) Negative Salicylates < 3.0 L Urine Opiates Screen Neg Ur Methadone, Qual Neg Acetaminophen 5 L Urine Barbiturates Neg Ur Phencyclidine (PCP) Neg U Amphetamin/Meth Scrn Neg MDMA (Ecstasy) Screen Neg U OH-Alprazolam Confrm Pending U Benzodiazepines Scrn Pos H 7-Amino Clonazepam Pending Ur Nordiazepam Confirm Pending U OH-ethylflurazepam Pending U Lorazepam Cnf GC/MS Pending U Oxazepam Confm GC/MS Pending Ur Temazepam Confirm Pending U OH-Triazolam Confirm Pending U OH-Midazolam Confirm Pending Ur Cocaine Metabolite Neg U Marijuana (THC) Screen Neg Drug Screen Comment Pending Ethyl Alcohol mg/dL < 10.0 SARS-CoV-2, RNA, NAAT 08/25/23 18:45 WBC RBC Hgb Hct MCV MCH MCHC RDW Std Deviation RDW Coeff of Naun Plt Count MPV Immature Gran % (Auto) Neut % (Auto) Lymph % (Auto) [place] % (Auto) Eos % (Auto) Baso % (Auto) Neut # (Auto) Lymph # (Auto) [place] # (Auto) Eos # (Auto) Baso # (Auto) Immature Gran # (Auto) PT INR APTT PTT Ratio Sodium Potassium Chloride Carbon Dioxide Anion Gap BUN Creatinine Est Cr Clr Drug Dosing Est GFR ( Amer) Est GFR (Non-Af Amer) BUN/Creatinine Ratio Glucose Calcium Magnesium Total Bilirubin AST ALT Alkaline Phosphatase Ammonia Troponin I High Sens Total Protein Albumin Globulin Albumin/Globulin Ratio TSH Urine Color Urine Appearance Urine pH Ur Specific [place] Urine Protein Urine Glucose (UA) Urine Ketones Urine Blood Urine Nitrite Urine Bilirubin Urine Urobilinogen Ur Leukocyte Esterase Urine WBC (Auto) Urine RBC (Auto) U Hyaline Cast (Auto) U Epithel Cells (Auto) Urine Bacteria (Auto) Salicylates Urine Opiates Screen Ur Methadone, Qual Acetaminophen Urine Barbiturates Ur Phencyclidine (PCP) U Amphetamin/Meth Scrn MDMA (Ecstasy) Screen U OH-Alprazolam Confrm U Benzodiazepines Scrn 7-Amino Clonazepam Ur Nordiazepam Confirm U OH-ethylflurazepam U Lorazepam Cnf GC/MS U Oxazepam Confm GC/MS Ur Temazepam Confirm U OH-Triazolam Confirm U OH-Midazolam Confirm Ur Cocaine Metabolite U Marijuana (THC) Screen Drug Screen Comment Ethyl Alcohol mg/dL SARS-CoV-2, RNA, NAAT NEGATIVE Current Inpatient Medications Current Inpatient Medications: Current Inpatient Medications Acetaminophen (Acetaminophen 325 Mg Tab) 650 mg PO Q4H PRN PRN Reason: Headache or Minor Fever Stop: 09/24/23 20:09 Al Hydrox/Mg Hydrox/Simethicone (Aluminum/Magnesium Susp 30 Ml Udc) 30 ml PO Q4H PRN PRN Reason: GI Upset Stop: 09/24/23 20:09 Amlodipine Besylate (Amlodipine Besylate 5 Mg Tab) 5 mg PO QAM [facility] Stop: 09/25/23 08:59 Last Admin: 08/26/23 09:59 Dose: 5 mg Bismuth Subsalicylate (Bismuth Subsalicylate Liqd 236 Ml) 15 ml PO PRN PRN PRN Reason: Loose Stool Stop: 09/24/23 20:09 Buprenorphine/Naloxone (Buprenorphine/Naloxone 2/0.5mg 1 Tab) 1 tab PO [facility] Stop: 09/25/23 08:59 Last Admin: 08/26/23 09:59 Dose: 1 tab Famotidine (Famotidine 20 Mg Tab) 20 mg PO [facility] Stop: 09/25/23 08:59 Last Admin: 08/26/23 10:00 Dose: 20 mg Hydroxyzine HCl (Hydroxyzine Hcl 25 Mg Tab) 50 mg PO HSZ PRN PRN Reason: Insomnia Stop: 09/24/23 20:09 Last Admin: 08/25/23 23:35 Dose: 50 mg Hydroxyzine HCl (Hydroxyzine Hcl 25 Mg Tab) 25 mg PO Q4H PRN PRN Reason: Anxiety Stop: 09/24/23 20:09 Last Admin: 08/25/23 21:11 Dose: 25 mg Magnesium Hydroxide (Magnesium Hydroxide Susp 30 Ml Udc) 30 ml PO DAILY PRN PRN Reason: Constipation Stop: 09/24/23 20:09 Miscellaneous (Remove Nicoderm Patch) 1 each N/A DAILY@0859 [facility] Stop: 09/25/23 08:58 Last Admin: 08/26/23 10:00 Dose: 1 each Nicotine (Nicotine 14 Mg/24 Hr Patch) 14 mg TD [facility] Stop: 09/25/23 08:59 Last Admin: 08/26/23 09:59 Dose: 14 mg Nicotine Polacrilex (Nicotine Polacrilex 2 Mg Gum) 2 piece MT PRN PRN PRN Reason: Nicotine Withdrawal Symptoms Stop: 09/24/23 20:09 Last Admin: 08/25/23 21:11 Dose: 2 piece Quetiapine Fumarate (Quetiapine Fumarate 25 Mg Tablet) 25 mg PO HS [facility] Stop: 09/25/23 21:59 Sodium Chloride (Sodium Chloride 0.65% Na Soln 45 Ml ([place])) 1 - 2 sprays NA PRN PRN PRN Reason: Nasal Dryness/Congestion Stop: 09/24/23 20:09
--- OUTSIDE RECORDS SUMMARY | 2023-08-26 18:42 | External Medical Summary | Summary of Care ---
Author Name Unknown Organization [facility] Address [address] [place] [facility] [place] [address] Phone [phone] Care Team Providers Care Housing Specialist Name Role Phone Nitin Sarah PA-C Primary Care Provider [phone] Encounter Details Date Type Department Care Team (Late st Contact Info) Description 08/25/2023 Telephone General Internal Medicine [facility] [address] [place] [address] Nathaniel Masterson MD [address] [place] [address] Allergies No known active allergiesdocumented as of this encounter (statuses as of 08/25/2023) Medications Medication Sig Dispensed Refills Start Date [...] as of this encounter (statuses as of 08/25/2023) Active Problems Problem Noted Date Diagnosed Date Substance dependence 03/17/2023 History of heroin use 03/17/2023 Amnesia 03/17/2023 Chronic hepatitis C without hepatic coma 023 HTN, goal below 130/80 03/17/2023 Pulmonary emphysema 03/17/2023 documented as of this encounter (statuses as of 08/25/2023) Resolved Problems Problem Noted Date Diagnosed Date Resolved Date Elevated hemoglobin 03/17/2023 03/17/20 23 documented as of this encounter (statuses as of 08/25/2023) Immunizations Name Administration Dates Next Due Hepatitis B, 20+ yrs 08/16/2023,07/14/2023 Seasonal Influenza, PF, 6 M & above, IM , (FluLaval or Fluzone) 04/16/2023 documented as of this encounter Social History Tobacco Use Types Packs/Day Years Used Date Smoking Tobacco: Every Day Cigarettes 1 51.1 Started: 1972 Smokeless Tobacco: Never Alcohol Use Standard Drinks/Week Comments No 0 (1 standard drink = 0.6 oz pur e alcohol) AUDIT-C Answer Date Recorded Frequency of Alcohol Consumption Never 08/10/2018 Average Number of Drinks Not on file 019 Frequency of Binge Drinking Not on file 12/2018 PHQ-2 Answer Date Recorded PHQ Adult Total Score 2 08/23/2023 Hunger Vital Sign Answer Date Recorded Within [...] encounter Miscellaneous Notes * Telephone Encounter - Araceli Reyes MED ASSIST - 08/25/2023 11:04 AM EST Patient aware and verbalized understanding. Patient will cancel appt and go to ER. * Telephone Encounter - Nathaniel Masterson MD - 08/25/2023 10:45 AM EST Please call, he is on schedule for "hands shaking bad, no sleeping, hallucinating" we will have no labs or xray tonight, if symptoms acute, I strongly suggest er now. documented in this encounter Plan of Treatment Upcoming Encounters Date Type Department Care Team (Late st Contact Info) Description 08/25/2023 6:00 PM EST Office Visit General Internal Medicine [facility] [address] [facility] [place], [place] [address] Nathaniel Masterson MD [address] [facility], [place] [address] 10/07/2023 8:30 AM EDT Procedure Only Endoscopy, [facility] [address] [place] [address] Mirela Aguayo DO [address] [place] [address] 10/07/2023 9:00 AM EDT Procedure Only Endoscopy, [facility] [address] [place] [address] Mirela Aguayo DO [address] [place] [address] 10/12/2023 10:30 AM EDT Office Visit Gastroenterology, [facility] [address] [place] [address] Clarissa Reyes CRNP [address] [place] [address] 10/13/2023 7:00 AM EDT Pharmacy Hepatology, [place] [address] [place] [facility] [address] [place], Pharmacist Hepatology [address] [place], [place] [id number] 10/18/2023 4:00 PM EDT Office Visit Neurology, [place] [address] [place] [id number] Anny Turner DO [address], [place] [id number] 11/12/2023 10:40 AM EDT Office Visit Family Practice [facility] [address] [facility] [place] [address] Ngoc Briseno MD [address] [facility] [place] [address] 02/14/2024 10:00 AM EDT Nurse Only Ancillary [facility] [address] [facility] [place] [address] Nurse, Int Med [address] [facility] [place] [address] Health Maintenance Due Date Last Done Comments DISCUSS TOBACCO CESSATION (REFER TO SMARTSET #9120) 1957 Pneumococcal Vaccine: 65+ Years (1 of 2 - PCV) 1963 Cologuard 2002 Colonoscopy 2002 Colorectal Cancer Screening 2002 Fecal Occult Blood Test 2002 Sigmoidoscopy 2002 LUNG CANCER SCREENING - USE SMARTSET 33140 2007 COVID-19 Vaccine (4 - 2022-2 4 season) 2023 05/10/2021, 08/31/2020, 08/10/2020 *COPD SEVERITY VERIFIED BY PFT 03/31/2023 *CXR OR CT FOR COPD EVER 03/31/2023 Zoster Vaccines (2 of 2) 07/30/2023 06/04/2023 Hepatitis B (3 of 3 - 19+ 3-dose series) 01/12/2024 08/16/2023, 07/14/2023 GFR 02/02/2024 02/01/2023 O2 ASSESSMENT COMPLETED IN PAST YEAR FOR COPD 07/14/2024 07/14/2023 TSH 07/14/2024 07/14/2023, 04/10/2023, 02/01/2023 Depression Screening 08/23/2024 08/23/2023 Albumin/Creatinine Ratio 04/16/2026 04/16/2023 Lipid Panel 02/02/2028 [...] filedocumented as of this encounter Care Teams Housing Specialist Relationship Specialty Start Date End Date Nitin Sarah PA-C [address] [place] [address] [place] [id number] PCP - General Physician Art Supervisor 02/01/23 documented as of this encounter
[2023-08-26] MEDS: ACETAMINOPHEN 325 MG TAB PO PRN (20:18)
[2023-08-26] MEDS: QUEtiapine FUMARATE 25 MG TABLET PO SCH (21:01)
[2023-08-27 08:41] LABS: Chol HDL Ratio 4.5 (0-5)
[2023-08-27] MEDS: OLANZAPINE 2.5 MG TAB PO ONE (12:07)
--- NOTE | 2023-08-27 12:46 | Consultation ---
Date of Consultation August 27, 2023 Assessment & Plan (1) Tachycardia: Palpitations Patient is 68 year old male with PMH HTN, chronic hepatitis C, history of drug abuse, hypothyroidism, GERD, emphysema, seen in medical consultation for evaluation of tachycardia. Patiently currently admitted to [facility] for auditory hallucinations, memory issues, confusion at night. Admission EKG on 08/25/2023: Sinus rhythm. Vitals obtained during behavioral health admission with reported variable pulse rates from 70s to reported 150s. The pulse of 150 it is reported patient was very tremulous. Vitals have been obtained using automatic machine. Patient with reported episode chest pain and palpitations last night. Unsure if this event correlates with any of the obtained vitals in the chart. Patient without any current chest pain, palpitations or shortness of breath. Repeat labs completed today with no significant electrolyte abnormality, negative troponin. EKG obtained showing sinus rhythm, right axis deviation. Upon evaluation patient with noted heart rate of 100 with regular rhythm to auscultation and after further interaction repeat pulse of 88 auscultated with regular rhythm. Suspect false pulse readings were obtained with patient's tremor Possible palpitations related to anxiety. 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 Since with mood changes, hallucinations, sleep issues, Psychiatry currently managing and suspect symptoms could suggest onset of a lewy body type disease following his head injury. Admitting CT head with microvascular disease Psychiatry has started Seroquel May need neuropsych evaluation (6) HTN (hypertension): Chronic, stable Continue amlodipine (7) Hypothyroidism: TSH: 3.2 Would recommend resuming levothyroxine (8) Chronic hepatitis: History of chronic hepatitis C Continue outpatient GI follow-up (9) Emphysema/COPD: No signs current exacerbation Continue as needed inhaler (10) History of drug abuse: On Suboxone Suboxone continued per psychiatry (11) GERD (gastroesophageal reflux disease): Continue famotidine (12) Tobacco use: Smoking cessation encouraged Nicotine patch Pt was seen and care coordinated with Dr Willis. See addendum Thank you for this consultation. We will follow the patient with you during their hospital stay. You can reach a member of the [facility] Hospitalist Team 25/01 via [facility], [place] Supervising Physician Co-Signing Physician Notes Pt was seen and examined agreed with Cathy ARECHIGA. Hospitalist medicine was consulted due to elevated HR. Pt denies any palpitation, chest pain. Elevated HR might be due to tremors recorded when checking HR with the oximetry pulse. EKG done showed NSR with HR in the 80's. Will check electrolytes, mag level and trop. Pt is taking suboxone and seroquel. No QTC prolongation noted on EKG. Will recommend to check EKG in 48hr to monitor for QTC prolongation. Will continue monitor pt during his hospital course. MD Lazaro History of Present Illness Requesting Physician: Dr Bell Reason for Consultation: Tachycardia Attending Physician: Estella Bell MD History of Present Illness Patient is 68 year old male with PMH HTN, chronic hepatitis C, history of drug abuse, hypothyroidism, GERD, emphysema, seen in medical consultation for evaluation of tachycardia. Patiently currently admitted to [facility] for auditory hallucinations, memory issues, confusion at night. Seen in [facility] ER on 08/25/23 and admitted that day. Admitting labs grossly unremarkable except for mildly elevated LFTs and had with normal high-sensitivity troponin. Admission EKG 08/25/2023: normal sinus rhythm, rate 80, right axis deviation. EKG 04/03/2022: Normal sinus rhythm, rate 84, right axis deviation, possible inferior infarct Admitting CT head: No acute intracranial hemorrhage, midline shift, intracranial mass, hydrocephalus, territorial ischemia or abnormal extra-axial collection. White matter hypodensities are again seen suggestive of chronic microvascular ischemic disease. Medicine consulted for evaluation of tachycardia. Of note vitals have been obtained through automatic machine and not manually. Patient states has had several episodes of chest discomfort described as "rubber bands squeezing my heart to " with associated palpitations, diaphoresis. Patient states first noticed this after he got his first hepatitis B vaccine. He states symptoms seem to start approximately an hour after the injection. He feels like the first time symptoms lasted 1 to 2 days and then resolved. He reports got his second hepatitis B vaccine and same symptoms occurred again lasting approximately 2 days. Patient states last night took Seroquel for the first time. He feels like after taking that he started getting chest discomfort described as "rubber band squeezing my heart", felt like he had palpitations and he was feeling very anxious. Denies any associated dizziness. He thinks he was feeling more short of breath. Patient reports chronic shortness of breath with exertion and usually uses inhaler with relief. Also will have increased shortness of breath if he is smoking. Patient states he is afraid of taking new medications or vaccinations. Patient reports ongoing tremors to bilateral upper and lower extremities, worse to upper extremities for months. Thinks may be progressive. Patient feels started after receiving new medication. Currently patient denies any shortness of breath, chest pain, palpitations. He denies any other complaint other than "being annoyed with all the questioning". Denies fever/chills, diaphoresis, N/V/D/C, HOFFMAN, dizziness, syncope, vision changes, neck pain, cough, sore throat, rhinorrhea, abdominal pain, paresthesias, extremity weakness, extremity edema, rashes, urinary symptoms. Per outpatient chart review History MRI brain 03/18/2023: Generalized volume loss present with prominence of the ventricles and sulcal. Patchy foci of hyperintense T2 flair signal within the cerebral white matter likely related to moderately advanced chronic small vessel ischemia. No acute infarct, intraparenchymal mass, edema, or midline shift. Basilar cisterns are patent. No abnormal intracranial enhancement. Allergies Allergy/AdvReac Type Severity Reaction Status Date / Time No Known Allergies Allergy Verified 08/25/23 16:19 Home Medications Medication Instructions Recorded Confirmed Type amlodipine 5 mg tablet 5 mg PO QAM 08/25/23 08/25/23 History buprenorphine 2 mg-naloxone 0.5 mg 0.5 tab sublingual QAM 08/25/23 08/25/23 History sublingual tablet famotidine 20 mg tablet 20 mg PO QAM 08/25/23 08/25/23 History levalbuterol tartrate 45 1 puff inhalation Q4H PRN Wheezing 08/25/23 08/25/23 History mcg/actuation aerosol inhaler levothyroxine 25 mcg tablet 25 mcg PO DAILYBB 08/25/23 08/25/23 History Patient History Medical History (Updated 08/27/23 @ 21:26 by Cathy De Luna PA-C) Hypothyroidism Tobacco use GERD (gastroesophageal reflux disease) History of drug abuse Emphysema/COPD Chronic hepatitis Hepatitis C Acute exacerbation of chronic obstructive pulmonary disease Concussion HTN (hypertension) Surgical History No pertinent past surgical history Family History (Updated 08/27/23 @ 14:04 by Cathy De Luna PA-C) Other Cancer Hypertension Social History Smoking Status: Current every day smoker Tobacco Type: Cigarettes Hx Alcohol Use: No Hx Substance Use: Yes Non-Prescribed Medications: Marijuana and Other Non-Pres cribed Medications Comment: Opiates Preferred Language: Greek Communication Ability: Effective Manager Biologics Required: No Beliefs That Will Affect Care: None Feels Safe at Home: Yes Gender Identity: Male Assistive Devices: Glasses Review of Systems Review of Systems: All systems reviewed & are unremarkable except as noted in HPI & below Physical Exam Physical Exam: General: +anxious affect, WDWN Head: normocephalic, atraumatic Eyes: conjunctiva non-injected, anicteric ENT: normal inspection external ears, nose, mucous membranes moist Neck: supple, trachea midline Lungs: clear, no respiratory distress, slightly diminished with no wheezing/rhonchi/rales CV: Initial HR 100, repeat HR 88 10 minutes later, regular rhythm, no murmur, no JVD, no pretibial edema Abd: normal BS, soft, non-tender Ext: no cyanosis, no calf tenderness Neuro: A&O x 3, anxious affect, +tremor bilateral upper and lower extremities noted with intentional movement with BUE worse. No significant tremors noted at rest. Strength 5/5 upper and lower extremities bilaterally Skin: warm, dry Results & Data Vital Signs (Past 12 Hours) Vital Signs Temp Pulse Resp BP 08/27/23 11:51 118 H 138/91 08/27/23 11:49 108 H 154/88 H 08/27/23 11:47 80 163/82 H 08/27/23 06:42 150 H 168/69 H 08/27/23 06:41 36.7 C 93 H 16 183/83 H Laboratory Results Short CBC 08/27/23 Range/Units 14:44 WBC 7.40 (4.8-10.8) K/ul Hgb 18.3 H (14.0-18.0) g/dl Hct 53.8 H (42.0-52.0) % Plt Count 290 (130-400) K/uL BMP 08/27/23 14:44 Sodium 137 Potassium 4.2 Chloride 104 Carbon Dioxide 27 BUN 22 Creatinine 1.04 Glucose 107 H Calcium 9.4 Liver Function 08/27/23 Range/Units 14:44 Total Bilirubin 0.7 (0.2-1.0) mg/dl AST 39 (13-39) U/L ALT 75 H (7-52) U/L Alkaline Phosphatase 30 L (34-104) U/L Albumin 4.4 (3.4-5.0) gm/dl Diagnostic Findings Head CT 08/25/23 13:28 CT head/brain wo con CLINICAL HISTORY: 68 years-old Male with headaches, hallucinations, dizziness. Acute headache with dizziness TECHNIQUE: Multiple axial CT images of the head were obtained without contrast. A dose lowering technique was utilized adhering to the principles of ALARA. CT DOSE: 625.8 mGy.cm COMPARISON: 04/03/2022 FINDINGS: No acute intracranial hemorrhage, midline shift, intracranial mass, hydrocephalus, territorial ischemia or abnormal extra-axial collection. White matter hypodensities are again seen suggestive of chronic microvascular ischemic disease. The calvarium is intact. The paranasal sinuses, mastoid air cells, and middle ear cavities are clear. IMPRESSION: No acute intracranial abnormality. ACT 112: Negative or not required by law. The above report was generated using voice recognition software. It may contain grammatical, syntax or spelling errors. Electronically signed by: Teodoro Boles M.D. 08/25/2023 1:53 PM ECG Additional Comments: EKG normal sinus rhythm, rate 87, right axis deviation
[2023-08-27 15:29] LABS: Hematocrit (blood only) 53.8 % (42.0-52.0); Hemoglobin 18.3 g/dl (14.0-18.0); Mean Corpuscular Hemoglobin 30.4 pg (25.0-34.0); Mean Corpuscular Volume 89.4 fL (80.0-100.0); Mean Platelet Volume 10.4 fL (9.4-12.4); Platelet Count 290 K/uL (130-400); RDW Coefficient of Variation 15.4 % (11.5-14.5); RDW Standard Deviation 49.6 fL (36.4-46.3); Red Blood Count 6.02 M/uL (4.70-6.10)
[2023-08-27 15:40] LABS: Albumin Globulin Ratio 1.4 (0.9-2); Albumin Level 4.4 gm/dl (3.4-5.0); BUN Creatinine Ratio 21.2 (10-20); Bilirubin,Total 0.7 mg/dl (0.2-1.0); Calcium 9.4 mg/dl (8.6-10.3); Creatinine Clr Calc Pharmacy 48.9 ml/min; Est GFR (African American) 86.3 ml/min; Est GFR (Non-African American) 74.5 ml/min; Globulin 3.2 gm/dl (2.5-4.0); Magnesium 2.1 mg/dl (1.7-2.4); Potassium 4.2 mmol/L (3.5-5.1); Total Protein 7.6 gm/dl (6.0-8.3)
[2023-08-27 15:47] LABS: Troponin I High Sensitivity 5.3 pg/ml (0-20)
[2023-08-27] MEDS ORDERED: OLANZAPINE 2.5 MG TAB PO PRN (16:26)
[2023-08-27] MEDS ORDERED: BENZTROPINE MESYLATE 0.5 MG TAB PO PRN (16:27)
--- NOTE | 2023-08-27 16:28 | Psychiatric Progress Note ---
Date of Service August 27, 2023 Impression / Recommendations Impression 68 yo male with no psych hx prior to concussion last year with subsequent adjustment issues with depressive features but also acute onset of tremor and vague auditory hallucinations, worsening memory with periods of confusion at night. His symptoms could suggest onset of a lewy body type disease following his head injury. His head CT shows microvascular disease. Differential would include depression with psychotic features, seizure, etc. Family reports possible exacerbation of his condition on synthroid. His opiate use disorder remains in sustained remission on low dose suboxone. 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 Overall, I spent a total of 80 minutes with this case, including review of chart, direct evaluation of the patient, counseling the patient, ordering medication, coordination with nursing and hospitalist service, risk assessment, and documentation. 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 Will schedule hs and allow for prn in place of Vistaril which may be adding to confusion due to anticholinergic effects. Will reserve low dose Cogentin (also anticholintergic) for more severe EPS which is unusual with low dose Zyprexa but may be relevant for patient. [facility]ist is following with serial EKG and restarted his thyroid medication. Recs/care of hospitalist appreciated. 08/26/23: The patient was admitted to the [facility] ([facility] inpatient mental health unit) on q15 min checks (behavioral with suicide precautions) for safety. The patient will participate in group, recreational, and milieu therapies and will be offered additional individual and family sessions as clinically appropriate. Risks/benefits/alternatives were reviewed re: antipsychotics for mood and/or psychosis. Discussion included but was not limited to metabolic side effects, risks of TD and suicidal thoughts. There were no abnormal motor movements at baseline. Fasting glucose and lipid panel ordered for baseline monitoring. He agreed to a trial of Seroquel, will start low and monitor for EPS. If recurring incontinence and ongoing BP elevation will consult [facility]. Will hold synthroid for now pending availability of records. 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 Chief Complaint "I had a bad night, I heard phones ringing, my tremor is worse, I felt like someone was coming to get me or I was having a heart attack." Review of Systems Sleep Information Total Hours of Sleep: 4.45 Sleep Comments: Has scheduled Seroquel and PRN Vistaril Meal Information Percent Meal Consumed - Breakfast: 50 Percent Meal Consumed - Lunch: 75 Percent Meal Consumed - Dinner: 100 Subjective Subjective Patient was seen & assessed and interval progress reviewed with treatment team. Patient continues to become more confused at night, had some tachy and some subjective chest discomfort after 1st dose of Seroquel but had difficulty verbalizing to staff due to his confusion. Believes he hears the other patient's phones ringing and is more paranoid this am. was unable to get up from bed due to upset. Did receive 1 dose of Zyprexa 2.5 mg hs and rested for awhile and was able to cooperate with medicine consult. He is now in the day room and gate appears steady. Remains overwhelmed with his condition and unable to care for self outside of hospital. Physical Exam Psychiatric Orientation: alert and oriented x 3 Apperance: appropriately dressed and appropriately groomed Eye Contact: good eye contact Motor Behavior: + tremor Speech: normal rate/rhythm/volume of speech Affect: + anxious affect Mood: + anxious mood Thought Process: + circumstantial thought process Thought Content: + paranoid and reality based without delusions Suicidal Thoughts: denies suicidal thoughts Homicidal Thoughts: denies homicidal thoughts Hallucinations: + auditory hallucinations; no visual hallucinations Cognition: attention grossly intact and language grossly intact Estimated Intelligence: consistent with education level Insight: + limited insight Judgment: + limited judgement Vital Signs (Past 24 Hours) Last Vital Signs Temp 36.7 C 08/27/23 06:41 Pulse 118 H 08/27/23 11:51 Resp 16 08/27/23 06:41 BP 138/91 08/27/23 11:51 Pulse Ox 99 08/25/23 20:54 O2 Del Method Room Air 08/25/23 20:54 Results & Data ([facility]) Laboratory Results Laboratory Results - last 24 hr 08/27/23 08/27/23 08:02 14:44 WBC 7.40 RBC 6.02 Hgb 18.3 H Hct 53.8 H MCV 89.4 MCH 30.4 MCHC 34.0 RDW Std Deviation 49.6 H RDW Coeff of Naun 15.4 H Plt Count 290 MPV 10.4 Sodium 137 Potassium 4.2 Chloride 104 Carbon Dioxide 27 Anion Gap 6 BUN 22 Creatinine 1.04 Est Cr Clr Drug Dosing 48.9 Est GFR ( Amer) 86.3 Est GFR (Non-Af Amer) 74.5 BUN/Creatinine Ratio 21.2 H Glucose 107 H Fasting Glucose 100 H Calcium 9.4 Magnesium 2.1 Total Bilirubin 0.7 AST 39 ALT 75 H Alkaline Phosphatase 30 L Troponin I High Sens 5.3 Total Protein 7.6 Albumin 4.4 Globulin 3.2 Albumin/Globulin Ratio 1.4 Triglycerides 70 Cholesterol 202 H LDL Cholesterol, Calc 143 VLDL Cholesterol, Calc 14 HDL Cholesterol 45 Cholesterol/HDL Ratio 4.5 Current Inpatient Medications Current Inpatient Medications: Current Inpatient Medications Acetaminophen (Acetaminophen 325 Mg Tab) 650 mg PO Q4H PRN PRN Reason: Headache or Minor Fever Stop: 09/24/23 20:09 Last Admin: 08/26/23 20:18 Dose: 650 mg Al Hydrox/Mg Hydrox/Simethicone (Aluminum/Magnesium Susp 30 Ml Udc) 30 ml PO Q4H PRN PRN Reason: GI Upset Stop: 09/24/23 20:09 Amlodipine Besylate (Amlodipine Besylate 5 Mg Tab) 5 mg PO QAM [facility] Stop: 09/25/23 08:59 Last Admin: 08/27/23 09:24 Dose: 5 mg Bismuth Subsalicylate (Bismuth Subsalicylate Liqd 236 Ml) 15 ml PO PRN PRN PRN Reason: Loose Stool Stop: 09/24/23 20:09 Buprenorphine/Naloxone (Buprenorphine/Naloxone 2/0.5mg 1 Tab) 1 tab PO QAM [facility] Stop: 09/25/23 08:59 Last Admin: 08/27/23 09:24 Dose: 1 tab Famotidine (Famotidine 20 Mg Tab) 20 mg PO QAM [facility] Stop: 09/25/23 08:59 Last Admin: 08/27/23 09:24 Dose: 20 mg Levalbuterol HCl (Levalbuterol Tartrate 15 Gm Hfa.Aer.Ad) 1 puffs INH Q4R PRN PRN Reason: Shortness Of Breath Or Wheezing Stop: 09/26/23 14:01 Levothyroxine Sodium (Levothyroxine Sodium 25 Mcg Tablet) 25 mcg PO DAILYBB [facility] Stop: 09/27/23 07:59 Magnesium Hydroxide (Magnesium Hydroxide Susp 30 Ml Udc) 30 ml PO DAILY PRN PRN Reason: Constipation Stop: 09/24/23 20:09 Miscellaneous (Remove Nicoderm Patch) 1 each N/A DAILY@0859 [facility] Stop: 09/25/23 08:58 Last Admin: 08/27/23 09:40 Dose: 1 each Nicotine (Nicotine 14 Mg/24 Hr Patch) 14 mg TD [facility] Stop: 09/25/23 08:59 Last Admin: 08/27/23 09:40 Dose: 14 mg Nicotine Polacrilex (Nicotine Polacrilex 2 Mg Gum) 2 piece MT PRN PRN PRN Reason: Nicotine Withdrawal Symptoms Stop: 09/24/23 20:09 Last Admin: 08/27/23 14:24 Dose: 2 piece Olanzapine (Olanzapine 2.5 Mg Tab) 2.5 mg PO HS [facility] Stop: 09/26/23 21:59 Olanzapine (Olanzapine 2.5 Mg Tab) 2.5 mg PO Q6 PRN PRN Reason: Anxiety/Insomnia Stop: 09/26/23 17:59 Sodium Chloride (Sodium Chloride 0.65% Na Soln 45 Ml ([place])) 1 - 2 sprays NA PRN PRN PRN Reason: Nasal Dryness/Congestion Stop: 09/24/23 20:09 Mental Health & Subst Abuse Tx Therapist Name of Therapist: None Lime Sludge Mixer Name of Lime Sludge Mixer: [facility]One Post Discharge Appointments Primary Care Physician Name Of Family Doctor/PCP: Liya Barraza [facility] Date of Future Appointment with PCP: 08/31/2023 Time of Appointment with PCP: 10:20am Provider Appointment Comment: [address] [place], [place] [address]
--- NOTE | 2023-08-27 17:03 | Electrocardiogram Report ---
Test Reason : Blood Pressure : / mmHG Vent. Rate : 087 BPM Atrial Rate : 087 BPM P-R Int : 152 ms QRS Dur : 078 ms QT Int : 340 ms P-R-T Axes : 086 246 082 degrees QTc Int : 409 ms Normal sinus rhythm Right atrial enlargement Right superior axis deviation Poor R wave progression, consider anterior MA vs. lead placement vs. LVH Abnormal ECG Confirmed by Irving Carvalho ([id number]) on 08/27/2023 5:02:43 PM Referred By: REFERRED SELF Confirmed By:Serafin Carvalho
[2023-08-27] MEDS: OLANZAPINE 2.5 MG TAB PO SCH (22:02)
[2023-08-27 22:19] LABS: 7-Aminoclonaz, Confirm NEGATIVE ng/mL (<25); Hydro-Alp Ur, GC/MS NEGATIVE ng/mL (<25); Hydroxyethylflurazepam, Conf NEGATIVE ng/mL (<50); Hydroxymidazolam Ur, GC/MS NEGATIVE ng/mL (<50); Hydroxytriazolam NEGATIVE ng/mL (<50); Lorazepam, Ur GC/MS NEGATIVE ng/mL (<50); Nordiazepam, Confirm NEGATIVE ng/mL (<50); Oxazepam Ur, GC/MS 331 ng/mL (<50); Temazepam, Confirm NEGATIVE ng/mL (<50)
[2023-08-28] MEDS: LEVOTHYROXINE SODIUM 25 MCG TABLET PO SCH (08:00)
[2023-08-28] MEDS: haloperidoL 5 MG TAB PO ONE ×2 (08:00→08:09)
[2023-08-28] MEDS: carvediloL 3.125 MG TAB PO SCH (11:40)
--- NOTE | 2023-08-28 15:01 | Psychiatric Progress Note ---
Date of Service August 28, 2023 Impression / Recommendations Impression 68 yo male with no psych hx prior to concussion last year with subsequent adjustment issues with depressive features but also acute onset of tremor and vague auditory hallucinations, worsening memory with periods of confusion at night. His symptoms could suggest onset of a lewy body type disease following his head injury. His head CT shows microvascular disease. Differential would include depression with psychotic features, seizure, etc. Family reports possible exacerbation of his condition on synthroid. His opiate use disorder remains in sustained remission on low dose suboxone. 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 08/28/23: We are still having some episodes of likely sundowning although it can happen at anytime of the day. The Haldol seem to be significantly helpful. However, we have to balance this with the parkinsonian risks. Overall, I spent a total of 41 minutes with this case, including review of chart, direct evaluation of the patient, counseling the patient, ordering medication, coordination with nursing, risk assessment, and documentation. 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 If that does not work, we will possibly switch to Haldol which might make his parkinsonian symptoms worse, but I hope we do not have to go to a very high dose that would make it more likely. He also will need to be careful of the interactions among the anticholinergic medications which include antipsychotics, benztropine, and the hydroxyzine. We continue to appreciate the help of the hospitalist who was involved. 08/27/23: The patient tolerated Zyprexa much better than SEroquel. Will schedule hs and allow for prn in place of Vistaril which may be adding to confusion due to anticholinergic effects. Will reserve low dose Cogentin (also anticholintergic) for more severe EPS which is unusual with low dose Zyprexa but may be relevant for patient. [facility] hospitalist is following with serial EKG and restarted his thyroid medication. Recs/care of hospitalist appreciated. 08/26/23: The patient was admitted to the [facility] ([facility]) on q15 min checks (behavioral with suicide precautions) for safety. The patient will participate in group, recreational, and milieu therapies and will be offered additional individual and family sessions as clinically appropriate. Risks/benefits/alternatives were reviewed re: antipsychotics for mood and/or psychosis. Discussion included but was not limited to metabolic side effects, risks of TD and suicidal thoughts. There were no abnormal motor movements at baseline. Fasting glucose and lipid panel ordered for baseline monitoring. He agreed to a trial of Seroquel, will start low and monitor for EPS. If recurring incontinence and ongoing [facility] Will hold synthroid for now pending availability of records. Inventory Assets Strengths: help seeking, sober Needs: vocational counseling, case management Suicide Risk Level Suicide Risk Level: Low (q15 min observation checks) Risk Factors Assessment Male: Yes : Yes Do You Have Access To A Gun?: No Health Problems: Yes Substance Use Disorders: Yes (but not active, on MAT) Previous Attempt: No Family History of Suicide: Yes (cousin) Previous Psychiatric Hospitalization: No Protective Factors Assessment : No Employed: Yes ([employer] but hasn't worked since May) Supportive Family: Yes Interval History Identifying Information ANGELICA LANDEROS is a 68-year-old M who currently lives in [place], has a history of TBI, and was admitted on 08/25/23 20:43 on a 201 voluntary commitment for inability to function, terrell, and suicidal statement. Chief Complaint "I don't like this shakiness." Review of Systems Sleep Information Total Hours of Sleep: 0.25 Sleep Comments: Has scheduled Seroquel and PRN Vistaril Meal Information Percent Meal Consumed - Breakfast: 50 Percent Meal Consumed - Lunch: 75 Percent Meal Consumed - Dinner: 50 Subjective Subjective Today I met with the patient, received nursing report, and reviewed his chart. I also reviewed the checkout notes from Dr. Padilla who had been working with the patient up until yesterday. We also had a multidisciplinary staff meeting to discuss his care. Angelica is in our hospital due to concerns of depression, vague hallucinations, and some agitation. Staff report that he still been pretty confused. He can get very easily paranoid. He was discovered to have oxazepam in his system. He also continues to take his Suboxone. Yesterday, he was having auditory hallucinations, mostly hearing noises or believing there were staff having a meeting in his bathroom. There did not seem to be any visual hallucinations. There were no sexual acting out behaviors. He does continue to have a parkinsonian tremor. Sister was visiting earlier today and commented that it looks much worse, but the staff say it was there even before he started some Haldol this morning. He only got about 15 minutes of sleep. This morning, before I arrived at the hospital, he was getting pretty agitated and pacing and wanting to leave the hospital. However, he was not willing to sign a 72-hour request for discharge. When I met with the patient this morning, he had just awakened from a nap after we had given him his Suboxone and 5 mg of oral Haldol. He was much more relaxed and cooperative and pleasant. When I saw him this afternoon, he was much better groomed. He said his mood was good but he is not happy about the shakiness that he is feeling and he also described feeling "hyper." He denied any suicidal or homicidal thoughts. However, he pointed out that if he has to keep living like this with the shakiness he does not know if he wants to. He had a good lunch and was hungry. Physical Exam Psychiatric Patient was alert and oriented x 3. He was clean and well-groomed. Eye contact was good. Speech was normal. Mood was described as "hyper." Affect was a little bit restricted in all appeared slightly anxious. Thought process was superficially logical, but I think he is confused. He was not asking me to leave. There was no evidence of any hallucinations or delusions when I met with him today. Patient denied any suicidal or homicidal thoughts. Memory and concentration are extremely distractible. Other than the shakiness in his hands, no other abnormal movements were seen. Gait was normal. Insight and judgment are impaired. Vital Signs (Past 24 Hours) Last Vital Signs Temp 37 C 08/28/23 07:10 Pulse 84 08/28/23 07:11 Resp 20 08/28/23 07:10 BP 168/95 H 08/28/23 07:11 Pulse Ox 99 08/25/23 20:54 O2 Del Method Room Air 08/25/23 20:54 Results & Data ([facility]) Laboratory Results Laboratory Results - last 24 hr 08/25/23 08/27/23 16:17 14:44 WBC 7.40 RBC 6.02 Hgb 18.3 H Hct 53.8 H MCV 89.4 MCH 30.4 MCHC 34.0 RDW Std Deviation 49.6 H RDW Coeff of Naun 15.4 H Plt Count 290 MPV 10.4 Sodium 137 Potassium 4.2 Chloride 104 Carbon Dioxide 27 Anion Gap 6 BUN 22 Creatinine 1.04 Est Cr Clr Drug Dosing 48.9 Est GFR ( Amer) 86.3 Est GFR (Non-Af Amer) 74.5 BUN/Creatinine Ratio 21.2 H Glucose 107 H Calcium 9.4 Magnesium 2.1 Total Bilirubin 0.7 AST 39 ALT 75 H Alkaline Phosphatase 30 L Troponin I High Sens 5.3 Total Protein 7.6 Albumin 4.4 Globulin 3.2 Albumin/Globulin Ratio 1.4 U OH-Alprazolam Confrm NEGATIVE 7-Amino Clonazepam NEGATIVE Ur Nordiazepam Confirm NEGATIVE U OH-ethylflurazepam NEGATIVE U Lorazepam Cnf GC/MS NEGATIVE U Oxazepam Confm GC/MS 331 H Ur Temazepam Confirm NEGATIVE U OH-Triazolam Confirm NEGATIVE U OH-Midazolam Confirm NEGATIVE Drug Screen Comment SEE NOTE Current Inpatient Medications Current Inpatient Medications: Current Inpatient Medications Acetaminophen (Acetaminophen 325 Mg Tab) 650 mg PO Q4H PRN PRN Reason: Headache or Minor Fever Stop: 09/24/23 20:09 Last Admin: 08/26/23 20:18 Dose: 650 mg Al Hydrox/Mg Hydrox/Simethicone (Aluminum/Magnesium Susp 30 Ml Udc) 30 ml PO Q4H PRN PRN Reason: GI Upset Stop: 09/24/23 20:09 Amlodipine Besylate (Amlodipine Besylate 5 Mg Tab) 5 mg PO QAM [facility] Stop: 09/25/23 08:59 Last Admin: 08/28/23 08:00 Dose: 5 mg Benztropine Mesylate (Benztropine Mesylate 0.5 Mg Tab) 0.5 mg PO Q6 PRN PRN Reason: Muscle Spasm Stop: 09/26/23 16:26 Bismuth Subsalicylate (Bismuth Subsalicylate Liqd 236 Ml) 15 ml PO PRN PRN PRN Reason: Loose Stool Stop: 03/22/24 20:09 Buprenorphine/Naloxone (Buprenorphine/Naloxone 2/0.5mg 1 Tab) 1 tab PO QAM [facility] Stop: 09/25/23 08:59 Last Admin: 08/28/23 08:00 Dose: 1 tab Carvedilol (Carvedilol 3.125 Mg Tab) 3.125 mg PO BIDM [facility] Stop: 09/27/23 08:59 Last Admin: 08/28/23 11:40 Dose: Not Given Famotidine (Famotidine 20 Mg Tab) 20 mg PO QAM [facility] Stop: 09/25/23 08:59 Last Admin: 08/28/23 08:00 Dose: 20 mg Levalbuterol HCl (Levalbuterol Tartrate 15 Gm Hfa.Aer.Ad) 1 puffs INH Q4R PRN PRN Reason: Shortness Of Breath Or Wheezing Stop: 09/26/23 14:01 Levothyroxine Sodium (Levothyroxine Sodium 25 Mcg Tablet) [facility]: 09/27/23 07:59 Last Admin: 08/28/23 08:00 Dose: 25 mcg Magnesium Hydroxide (Magnesium Hydroxide Susp 30 Ml Udc) 30 ml PO DAILY PRN PRN Reason: Constipation Stop: 09/24/23 20:09 Miscellaneous (Remove Nicoderm Patch) 1 each N/A DAILY@0859 [facility] Stop: 09/25/23 08:58 Last Admin: 08/28/23 08:00 Dose: 1 each Nicotine (Nicotine 14 Mg/24 Hr Patch) 14 mg TD [facility] Stop: 09/25/23 08:59 Last Admin: 08/28/23 08:01 Dose: 14 mg Nicotine Polacrilex (Nicotine Polacrilex 2 Mg Gum) 2 piece MT PRN PRN PRN Reason: Nicotine Withdrawal Symptoms Stop: 09/24/23 20:09 Last Admin: 08/27/23 14:24 Dose: 2 piece Olanzapine (Olanzapine 2.5 Mg Tab) 2.5 mg PO [facility] Stop: 09/26/23 21:59 Last Admin: 08/27/23 22:02 Dose: 2.5 mg Olanzapine (Olanzapine 2.5 Mg Tab) 2.5 mg PO Q6 PRN PRN Reason: Anxiety/Insomnia Stop: 09/26/23 17:59 Sodium Chloride (Sodium Chloride 0.65% Na Soln 45 Ml (Alsen)) 1 - 2 sprays NA PRN PRN PRN Reason: Nasal Dryness/Congestion Stop: 09/24/23 20:09 Mental Health & Subst Abuse Tx Therapist Name of Therapist: None Make Ready Mechanic Name of Make Ready Mechanic: NOne Post Discharge Appointments Primary Care Physician Name Of Family Doctor/PCP: [facility] Date of Future Appointment with PCP: 08/31/2023 Time of Appointment with PCP: 10:20am Provider Appointment Comment: [address] [place], [place] [address] Other #1: Name of Aftercare Appointment: [facility] Phone Number of Aftercare Appointment: [phone] Date of Aftercare Appointment: 09/21/23 Time of Aftercare Appointment: 1:45pm Aftercare Appointment Comment: [address], [place] [address]
--- NOTE | 2023-08-28 15:09 | Hospitalist Progress Note ---
Date of Service August 28, 2023 Assessment & Plan (1) Tachycardia: Plan: Patient is 68 year old male with PMH HTN, chronic hepatitis C, history of drug abuse, hypothyroidism, GERD, emphysema, seen in medical consultation for evaluation of tachycardia. Patiently currently admitted to [facility] for auditory hallucinations, memory issues, confusion at night. 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 Since with mood changes, hallucinations, sleep issues Psychiatry currently managing and suspect symptoms could suggest onset of a lewy body type disease following his head injury Admitting CT head with microvascular disease May need neuropsych evaluation Adjustment disorder Paranoia with depression Auditory hallucinations Management as per psychiatry (6) HTN (hypertension): Plan: Chronic, stable Continue amlodipine (7) Hypothyroidism: Plan: TSH: 3.2 continue levothyroxine (8) Chronic hepatitis: Plan: History of chronic hepatitis C Continue outpatient GI follow-up (9) Emphysema/COPD: Plan: No signs current exacerbation Continue as needed inhaler (10) History of drug abuse: Plan: On Suboxone Suboxone continued per psychiatry (11) GERD (gastroesophageal reflux disease): Plan: Continue famotidine (12) Tobacco use: Plan: Smoking cessation encouraged Nicotine patch DVT Px; Per Psychiatry Admission and Anticipated Discharge Date Admission Date: August 25, 2023 Subjective Patient is seen at bedside Hallucinating, and drowsy during my encounter Discussed with staff at bedside Blood pressure elevated this morning Unable to obtain history Review of Systems Review of Systems: Other Physical Exam Physical Exam: Not performed Results & Data Results & Data Vital Signs (Past 12 Hours) Vital Signs Temp Pulse Resp BP 08/28/23 07:11 84 168/95 H 08/28/23 07:10 37 C 87 20 172/92 H Laboratory Results Short CBC 08/27/23 Range/Units 14:44 WBC 7.40 (4.8-10.8) K/ul Hgb 18.3 H (14.0-18.0) g/dl Hct 53.8 H (42.0-52.0) % Plt Count 290 (130-400) K/uL BMP 08/27/23 14:44 Sodium 137 Potassium 4.2 Chloride 104 Carbon Dioxide 27 BUN 22 Creatinine 1.04 Glucose 107 H Calcium 9.4 Liver Function 08/27/23 Range/Units 14:44 Total Bilirubin 0.7 (0.2-1.0) mg/dl AST 39 (13-39) U/L ALT 75 H (7-52) U/L Alkaline Phosphatase 30 L (34-104) U/L Albumin 4.4 (3.4-5.0) gm/dl
[2023-08-28] MEDS: OLANZapine 5 MG TABLET PO SCH (21:50)
[2023-08-28] MEDS: LEVALBUTEROL TARTRATE 15 GM HFA.AER.AD INH PRN (22:51)
[2023-08-29] MEDS: haloperidoL 5 MG TAB PO ONE ×2 (07:03→07:21)
[2023-08-29] MEDS: LORazepam 0.5 MG TAB PO PRN (09:04)
--- NOTE | 2023-08-29 09:08 | Psychiatric Progress Note ---
Date of Service August 29, 2023 Impression / Recommendations Impression 68 yo male with no psych hx prior to concussion last year with subsequent adjustment issues with depressive features but also acute onset of tremor and vague auditory hallucinations, worsening memory with periods of confusion at night. His symptoms could suggest onset of a lewy body type disease following his head injury. His head CT shows microvascular disease. Differential would include depression with psychotic features, seizure, etc. Family reports possible exacerbation of his condition on synthroid. His opiate use disorder remains in sustained remission on low dose suboxone. 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 08/28/23: We are still having some episodes of likely sundowning although it can happen at anytime of the day. The Haldol seemed to be significantly helpful. However, we have to balance this with the parkinsonian risks. 08/29/23: Still very poor sleep, confusion, and hallucinations. Possibly more engaged in conversation and less confused. Concerned that the Zyprexa and Haldol could be making the movements worse. Overall, I spent a total of 36 minutes with this case, including review of chart, direct evaluation of the patient, counseling the patient, ordering medication, coordination with nursing, risk assessment, and documentation. 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 If the patient has agitation or anxiety, we will try a low-dose of lorazepam and try to monitor his gait carefully to be sure he is not going to fall. We will try to minimize any anticholinergics that could make him more confused. We will ask sister to search patient's living area to make sure there are no medications in there like a benzodiazepine that we need to know about. Tomorrow, if we do not see much improvement, I will consider a neurologic consult. 08/28/23: Staff have not seen much help with the Zyprexa, but I will try raising the dose to 5 mg to see what happens. If that does not work, we will possibly switch to Haldol which might make his parkinsonian symptoms worse, but I hope we do not have to go to a very high dose that would make it more likely. He also will need to be careful of the interactions among the anticholinergic medications which include antipsychotics, benztropine, and the hydroxyzine. We continue to appreciate the help of the hospitalist who was involved. 08/27/23: The patient tolerated Zyprexa much better than SEroquel. Will schedule hs and allow for prn in place of Vistaril which may be adding to confusion due to anticholinergic effects. Will reserve low dose Cogentin (also anticholintergic) for more severe EPS which is unusual with low dose Zyprexa but may be relevant for patient. [facility] and restarted his thyroid medication. Recs/care of hospitalist appreciated. 08/26/23: The patient was admitted to the [facility] ([facility] unit) on q15 min checks (behavioral with suicide precautions) for safety. The patient will participate in group, recreational, and milieu therapies and will be offered additional individual and family sessions as clinically appropriate. Risks/benefits/alternatives were reviewed re: antipsychotics for mood and/or psychosis. Discussion included but was not limited to metabolic side effects, risks of TD and suicidal thoughts. There were no abnormal motor movements at baseline. Fasting glucose and lipid panel ordered for baseline monitoring. He agreed to a trial of Seroquel, will start low and monitor for EPS. If recurring incontinence and ongoing BP elevation [facility] Will hold synthroid for now pending availability of records. 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 Chief Complaint "Nothing is better." Review of Systems Sleep Information Total Hours of Sleep: 0 Meal Information Percent Meal Consumed - Breakfast: 0 Percent Meal Consumed - Lunch: 100 Percent Meal Consumed - Dinner: 50 Subjective Subjective Today I met with the patient, received nursing report, and reviewed his chart. We also had a multidisciplinary staff meeting to discuss his case. Angelica is in our hospital due to concerns of hallucinations, new onset tremor, and some agitation. He had a pretty decent day yesterday after he received the Suboxone and Haldol in the morning. However, he had another difficult night with his tremors. He was up and pacing quite a bit. Nurses report that he was hallucinating and having conversations with people who were not there. His tremor was so bad that they could not draw his blood this morning. Staff is also noticed that he has an odd gait. This morning, he ended up getting a dose of Haldol 5 mg again to calm him down because of his agitation. We also gave him his Suboxone a little bit early. I referenced the PDMP and saw that there was no evidence of any benzodiazepine prescriptions in the last several years. The only thing that came up in the report was his Suboxone. When I met with him this morning, the biggest theme is that he is very frustrated. He admits to having thoughts of suicide "if I have to keep living like this" but he assures me that he has no plan or intention of doing anything at this time. He was hungry for breakfast. He said that he had some difficulty standing up because of the movements. Physical Exam Psychiatric Patient was alert and cooperative. He was clean and well-groomed. Eye contact was fair. Speech was normal. Mood was described as "frustrated." Affect was a little bit restricted and appeared slightly anxious. Thought process was superficially logical, but I think he is confused. He was not asking me to leave. There was no evidence of any hallucinations or delusions when I met with him today, but staff witnessed him having a conversation with nobody earlier this morning. Patient described some vague suicidal thoughts as I listed above. He denied any homicidal thoughts. Memory was poor but he seemed more engaged to me during our conversation than yesterday. Other than the shakiness in his hands and an occasional twist of his torso, no other abnormal movements were seen. Gait was normal. Insight and judgment are impaired. Vital Signs (Past 24 Hours) Last Vital Signs Temp 37 C 08/28/23 07:10 Pulse 110 H 08/29/23 06:00 Resp 22 08/29/23 06:00 BP 140/96 08/29/23 06:00 Pulse Ox 92 08/28/23 22:51 O2 Del Method Room Air 08/28/23 22:51 Results & Data ([facility]) Current Inpatient Medications Current Inpatient Medications: Current Inpatient Medications Acetaminophen (Acetaminophen 325 Mg Tab) 650 mg PO Q4H PRN PRN Reason: Headache or Minor Fever Stop: 09/24/23 20:09 Last Admin: 08/26/23 20:18 Dose: 650 mg Al Hydrox/Mg Hydrox/Simethicone (Aluminum/Magnesium Susp 30 Ml Udc) 30 ml PO Q4H PRN PRN Reason: GI Upset Stop: 09/24/23 20:09 Amlodipine Besylate (Amlodipine Besylate 5 Mg Tab) [facility] Stop: 09/25/23 08:59 Last Admin: 08/29/23 08:00 Dose: 5 mg Benztropine Mesylate (Benztropine Mesylate 0.5 Mg Tab) 0.5 mg PO Q6 PRN PRN Reason: Muscle Spasm Stop: 09/26/23 16:26 Bismuth Subsalicylate (Bismuth Subsalicylate Liqd 236 Ml) 15 ml PO PRN PRN PRN Reason: Loose Stool Stop: 09/24/23 20:09 Buprenorphine/Naloxone (Buprenorphine/Naloxone 2/0.5mg 1 Tab) [facility] Stop: 09/25/23 08:59 Last Admin: 08/29/23 07:03 Dose: 1 tab Carvedilol (Carvedilol 3.125 Mg Tab) 3.125 mg PO BIDM [facility] Stop: 09/27/23 08:59 Last Admin: 08/29/23 08:00 Dose: 3.125 mg Famotidine (Famotidine 20 Mg Tab) 20 mg PO QAM [facility] Stop: 09/25/23 08:59 Last Admin: 08/29/23 08:00 Dose: 20 mg Levalbuterol HCl (Levalbuterol Tartrate 15 Gm Hfa.Aer.Ad) 1 puffs INH Q4R PRN PRN Reason: Shortness Of Breath Or Wheezing Stop: 09/26/23 14:01 Last Admin: 08/28/23 22:51 Dose: 1 puffs Levothyroxine Sodium (Levothyroxine Sodium 25 Mcg Tablet) 25 mcg PO DAILYBB [facility] Stop: 09/27/23 07:59 Last Admin: 08/29/23 08:00 Dose: 25 mcg Lorazepam (Lorazepam 0.5 Mg Tab) 0.5 mg PO Q6H PRN PRN Reason: Anxiety/Agitation Stop: 09/28/23 08:59 Magnesium Hydroxide (Magnesium Hydroxide Susp 30 Ml Udc) 30 ml PO DAILY PRN PRN Reason: Constipation Stop: 09/24/23 20:09 Miscellaneous (Remove Nicoderm Patch) 1 each N/A DAILY@0859 [facility] Stop: 09/25/23 08:58 Last Admin: 08/29/23 08:10 Dose: Not Given Nicotine (Nicotine 14 Mg/24 Hr Patch) 14 mg TD QAM [facility] Stop: 09/25/23 08:59 Last Admin: 08/29/23 08:11 Dose: 14 mg Nicotine Polacrilex (Nicotine Polacrilex 2 Mg Gum) 2 piece MT PRN PRN PRN Reason: Nicotine Withdrawal Symptoms Stop: 09/24/23 20:09 Last Admin: 08/27/23 14:24 Dose: 2 piece Sodium Chloride (Sodium Chloride 0.65% Na Soln 45 Ml ([place])) 1 - 2 sprays NA PRN PRN PRN Reason: Nasal Dryness/Congestion Stop: 09/24/23 20:09 Mental Health & Subst Abuse Tx Therapist Name of Therapist: None Biometric Screener Name of Biometric Screener: NOne Post Discharge Appointments Primary Care Physician Name Of Family Doctor/PCP: [facility] Date of Future Appointment with PCP: 08/31/2023 Time of Appointment with PCP: 10:20am Provider Appointment Comment: [address] [place], [place] [address] Other #1: Name of Aftercare Appointment: Zully Ambrosio Phone Number of Aftercare Appointment: [phone] Date of Aftercare Appointment: 09/21/23 Time of Aftercare Appointment: 1:45pm Aftercare Appointment Comment: [address], [place] [address]
--- NOTE | 2023-08-29 13:52 | Electrocardiogram Report ---
Test Reason : Blood Pressure : / mmHG Vent. Rate : 109 BPM Atrial Rate : 109 BPM P-R Int : 152 ms QRS Dur : 080 ms QT Int : 314 ms P-R-T Axes : 085 184 085 degrees QTc Int : 422 ms Poor data quality, interpretation may be adversely affected Sinus tachycardia Right atrial enlargement Right superior axis deviation Abnormal ECG When compared with ECG of 27-AUG-2023 13:39, Questionable change in QRS axis Confirmed by Roger Scruggs ([id number]) on 08/29/2023 1:52:40 PM Referred By: REFERRED SELF Confirmed By:Roger Scruggs
--- NOTE | 2023-08-29 15:02 | Hospitalist Progress Note ---
Date of Service August 29, 2023 Assessment & Plan (1) Tachycardia: Plan: Patient is 68 year old male with PMH HTN, chronic hepatitis C, history of drug abuse, hypothyroidism, GERD, emphysema, seen in medical consultation for evaluation of tachycardia. Patiently currently admitted to [facility] for auditory hallucinations, memory issues, confusion at night. 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 Since with mood changes, hallucinations, sleep issues Psychiatry currently managing and suspect symptoms could suggest onset of a lewy body type disease following his head injury Admitting CT head with microvascular disease May need neuropsych evaluation Adjustment disorder Paranoia with depression Auditory hallucinations Management as per psychiatry (6) HTN (hypertension): Plan: Chronic, stable Continue amlodipine (7) Hypothyroidism: Plan: TSH: 3.2 continue levothyroxine (8) Chronic hepatitis: Plan: History of chronic hepatitis C Continue outpatient GI follow-up (9) Emphysema/COPD: Plan: No signs current exacerbation Continue as needed inhaler (10) History of drug abuse: Plan: On Suboxone Suboxone continued per psychiatry (11) GERD (gastroesophageal reflux disease): Plan: Continue famotidine (12) Tobacco use: Plan: Smoking cessation encouraged Nicotine patch Severe malnutrition BMI 15.8 DVT Px; Per Psychiatry Admission and Anticipated Discharge Date Admission Date: August 25, 2023 Subjective Patient is seen at bedside Hallucinating, and drowsy during my encounter Discussed with staff at bedside Blood pressure elevated this morning Unable to obtain history Review of Systems Review of Systems: All systems reviewed & are unremarkable except as noted in Subjective Physical Exam 2 Physical Exam: Physical Exam: Vitals signs as noted above General Appearance:Thin, frail, no apparent distress Head: normocephalic, Atraumatic Eyes: normal inspection, EOMI Neck: supple, Trachea midline Respiratory/Chest: Normal breath sounds, CTA, No accessory muscle use Cardiovascular: S1, S2, No murmur, +Tachycardia Abdomen/GI:Soft, Non tender, Bowel sounds present Extremities/Musculoskeletal:normal inspection, no edema Neurologic/Psych:AAOX3, grossly no focal neurological deficits, +Tremor Skin: normal color, warm Results & Data Results & Data Vital Signs (Past 12 Hours) Vital Signs Pulse Resp BP 08/29/23 06:00 110 H 22 140/96
[2023-08-29] MEDS ORDERED: LORazepam 1 MG TAB PO PRN (16:55)
[2023-08-29] MEDS: LORazepam 0.5 MG TAB PO ONE (17:15)
[2023-08-29] MEDS: LORazepam 1 MG TAB PO PRN (22:00)
[2023-08-30] MEDS: cloNIDine HCL 0.1 MG TAB PO ONE (00:35)
[2023-08-30] MEDS: MIRTAZAPINE TAB 15 MG TAB PO ONE (02:12)
[2023-08-30] MEDS: LORazepam 1 MG TAB PO ONE (03:25)
[2023-08-30] MEDS ORDERED: LORazepam 2 MG/1 ML VIAL ONE (06:18)
[2023-08-30] MEDS ORDERED: LORazepam 2 MG/1 ML VIAL IM STA (06:23)
[2023-08-30] MEDS ORDERED: LORazepam 1 MG/1 ML SYR ED Inj Use IM STA (06:24)
--- NOTE | 2023-08-30 06:25 | Communication Note ---
Date of Service: August 30, 2023 Code purple called Patient increasingly agitated and restless overnight. Blood pressure elevated. Patient tachycardic and tachypneic. Patient complained of chest pain but unable to give details. AP Agitation Chest pain Discharge from [facility] and admitted to PCU. Ativan as needed agitation Chest pain workup
[2023-08-30 07:30] LABS: Hemoglobin 16.1 g/dl (14.0-18.0); Mean Corpuscular Hemoglobin 30.7 pg (25.0-34.0); Mean Corpuscular Hgb Conc 34.3 g/dL (32.0-36.0); Mean Corpuscular Volume 89.5 fL (80.0-100.0); Mean Platelet Volume 10.8 fL (9.4-12.4); Platelet Count 256 K/uL (130-400); RDW Coefficient of Variation 14.6 % (11.5-14.5); RDW Standard Deviation 48.2 fL (36.4-46.3); Red Blood Count 5.25 M/uL (4.70-6.10); White Blood Count 10.85 K/ul (4.8-10.8)
[2023-08-30 07:54] LABS: Basophils # (auto) 0.05 K/uL (0.00-0.20); Basophils % (auto) 0.5 %; Eosinophils # (auto) 0.02 K/uL (0.00-0.50); Eosinophils % (auto) 0.2 %; Immature Granulocytes # (auto) 0.04 K/uL (0.01-0.20); Immature Granulocytes % (auto) 0.4 %; Lymphocytes # (auto) 1.09 K/uL (1.20-3.40); Monocytes # (auto) 0.37 K/uL (0.11-0.59); Monocytes % (auto) 3.4 %; Neutrophils # (auto) 9.37 K/uL (1.40-6.50); Neutrophils % (auto) 85.5 %
--- NOTE | 2023-08-30 16:30 | Discharge Summary ---
Date of Service August 30, 2023 History of Present Illness History reviewed and confirmed as per ED CM: Pt was brought to the ER by his sister whom he lives with. Pt reports that he has not slept for 4 months and if he does sleep for an hour or two he has nightmares. His sister reports that he has been talking to people who arent there. When asked if he hears voices he states only when we are talking to each other. He reports that he struggles because his hands shake sometimes. He is afraid to leave his house. He states that he feels confused at times. His sister reports that he is paranoid and ruminates on things like getting scammed on the internet, although that has never happened. He denies SI with a plan but reports he does not want to live like this. He reports that he got a concussion a year ago and some of these symptoms started at that time but it has gotten worse in the past 3 months. In the past two weeks his symptoms have gotten so bad that he cant function and wont leave the house. Pt lives with his sister and nephew. His sister reports that things have gotten so bad she is afraid to leave him alone. She reports that he cant sleep and walks around the house talking to people who arent there. Pt has no history of mental illness. Pt has rapid speech. He is pleasant and his affect is anxious. Pt has history of drug use but has been clean for several years. He smokes cigarettes daily. He denies D&A use. 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 Pt is requesting inpatient psychiatric treatment at this time and his sister also believes that is the best course of action. Per Dr. Bell who admitted the patient to the [facility]: The patient states he used to be quite physically active and states that his "whole life" changed after falling from a 15 ft retaining wall in May 2023. He has been unable to work, struggles with focus and memory, and more recently developed an increase in tremor and new onset auditory hallucinations, typically at night. His anxiety about these nonspecific voices, "they say I should but don't say what" disrupts his sleep and he may wander and seem more confused, like urinating on himself and not realizing it. He was more irritable last pm and staff do report that he urinated on the floor in his room overnight. He feels that his tremor is worse with intention. Otherwise he has a history of opiod abuse but has been doing well on MAT for years following an extended rehab program 6-7 years ago while still residing in [place]. He moved with his sister to "make better choices" but has more limited vocational options. He denies wanting to harm himself but admit that he gets frustrated as he wants to get back to work again. His family reported that the timing of the worsening of his symptoms seems to have coincided with starting Synthroid which may or may not be related. Re: his positive drug screen, he denies use of benzodiazepines but does use NSAIDs regularly, mainly for back in am. Physical Exam Psychiatric Patient was asleep when I met him today. He had been given Librium due to his delirium tremens. He was disheveled in a hospital gown. Eye contact was poor. He did not speak. Mood could not be assessed but affect was not distressed. We could nt assess thought process. There was no evidence of any hallucinations or delusions, but he had been hallucinating early this morning. We could not assess lethality. Memory and concentration were poor. No abnormal movements were seen while sleeping, but there were significant tremors early this morning. I did not evaluate gait. Insight and judgment are poor. Vital Signs (Past 24 Hours) Last Vital Signs Temp 36.4 C L 08/30/23 07:09 Pulse 110 H 08/30/23 07:09 Resp 22 08/30/23 07:09 BP 145/81 H 08/30/23 07:09 Pulse Ox 97 08/30/23 07:09 O2 Del Method Room Air 08/30/23 01:39 Principal Diagnosis Benzodiazepine Use Disorder, Severe Benzodiazepine Withdrawal Opioid Use Disorder, Severe Psychiatric Data Patient was admitted to our unit for safety, further evaluation, and treatment. At the time of admission, patient was denying any benzodiazepine use and had been on Suboxone since May. Over the next few days he became even more confused and somewhat agitated, often pacing and trying to exit seek. His tremors became worse over time and he had very poor sleep. He was very confused. Staff would often see him hallucinating and talking to people that were not there or believing there were people in his bathroom or in other places. This became worse as we progressed. Dr. Padilla met with the patient initially and started some Seroquel which made the patient somewhat dizzy and transitioned that to Zyprexa. That really did not help much. On August 28, I gave him a dose of Ativan which did offer a little bit of support along with some oral Haldol. However things continued to deteriorate and he became more confused over the weekend. On the evening of August 29, we pushed the lorazepam further and that offered a little bit of support but the patient became more confused. Medically, he was also somewhat unstable with tachycardia and elevated blood pressures. Our medical colleagues were following him and were trying to use some blood pressure medications to help. Over the weekend, we also found out that he was positive for oxazepam which was confirmed and was at a high level on admission. Early in the morning of August 30, we felt that this was very likely a benzodiazepine withdrawal and it was very likely that he was abusing a long-acting benzodiazepine and that it had just taken some time for delirium tremens to form. We do not think alcohol was really involved. That morning, early, we tried giving him a higher dose of lorazepam but he became more unsteady and had a fall in the bathroom. At that point, we called a code purple and he ended up being transferred to the intensive care unit and is currently on telemetry. Day of Discharge Assessment Pt is in delerium tremens from his benzodiazepine withdrawal and requires medical hospitalization. Transition of Care Transition Of Care Record: was reviewed with the patient (Patient was delirious at time of discharge and we could not review with patient.) Advance Directives Advance Directives Information Provided: Yes Advance Directives: No Mental Health Advance Directive: No Advance Directives on File: No Living Will: No Power of Dental Associate: No Advance Directives Reason:: Declines as Mental Health Visit. Suicide Risk Level Suicide Risk Level: Low (q15 min observation checks) Risk Factors Assessment Male: Yes : Yes Do You Have Access To A Gun?: No Health Problems: Yes Substance Use Disorders: Yes (but not active, on MAT) Previous Attempt: No Family History of Suicide: Yes (cousin) Previous Psychiatric Hospitalization: No Protective Factors Assessment : No Employed: Yes ([employer] but hasn't worked since May) Supportive Family: Yes Tobacco Cessation at Discharge Tobacco Cessation Medication Prescribed at Discharge: Offered & Pt Refused Antipsychotic Medications We were using antipsychotic medications early on for his psychotic symptoms, but but just symptomatically lately. Discharge Data Consultations 08/27/23 11:45 Consult Hospitalist Routine Lab Results 08/25/23 08/25/23 08/25/23 15:15 16:17 16:47 WBC 9.51 RBC 5.87 Hgb 17.7 Hct 53.2 H MCV 90.6 MCH 30.2 MCHC 33.3 RDW Std Deviation 50.1 H RDW Coeff of Naun 15.1 H Plt Count 303 MPV 10.2 Immature Gran % (Auto) 0.4 Neut % (Auto) 74.2 Lymph % (Auto) 15.9 [place] % (Auto) 8.0 Eos % (Auto) 0.8 Baso % (Auto) 0.7 Neut # (Auto) 7.05 H Lymph # (Auto) 1.51 [place] # (Auto) 0.76 H Eos # (Auto) 0.08 Baso # (Auto) 0.07 Immature Gran # (Auto) 0.04 PT 12.2 H INR 1.1 APTT 27 PTT Ratio 1.0 Sodium 136 Potassium 4.2 Chloride 100 Carbon Dioxide 27 Anion Gap 9 BUN 26 H Creatinine 1.07 Est Cr Clr Drug Dosing Not Reportable Est GFR ( Amer) 83.4 Est GFR (Non-Af Amer) 72.0 BUN/Creatinine Ratio 24.3 H Glucose 92 Fasting Glucose Calcium 9.7 Magnesium 2.2 Total Bilirubin 1.1 H AST 61 H ALT 97 H Alkaline Phosphatase 27 L Ammonia 25.0 Troponin I High Sens 6.8 Total Protein 8.4 H Albumin 4.9 Globulin 3.5 Albumin/Globulin Ratio 1.4 Triglycerides Cholesterol LDL Cholesterol, Calc VLDL Cholesterol, Calc HDL Cholesterol Cholesterol/HDL Ratio Lipase TSH 3.214 Urine Color Dark Yellow Urine Appearance Clear Urine pH 5.0 Ur Specific [place] 1.030 Urine Protein 2+ H Urine Glucose (UA) Negative Urine Ketones 2+ H Urine Blood Negative Urine Nitrite Negative Urine Bilirubin 1+ H Urine Urobilinogen Negative Ur Leukocyte Esterase Negative Urine WBC (Auto) 1-5 Urine RBC (Auto) 0-4 U Hyaline Cast (Auto) 1-5 U Epithel Cells (Auto) 5-10 H Urine Bacteria (Auto) Negative Salicylates < 3.0 L Urine Opiates Screen Neg Ur Methadone, Qual Neg Acetaminophen 5 L Urine Barbiturates Neg Ur Phencyclidine (PCP) Neg U Amphetamin/Meth Scrn Neg MDMA (Ecstasy) Screen Neg U OH-Alprazolam Confrm NEGATIVE U Benzodiazepines Scrn Pos H 7-Amino Clonazepam NEGATIVE Ur Nordiazepam Confirm NEGATIVE U OH-ethylflurazepam NEGATIVE U Lorazepam Cnf GC/MS NEGATIVE U Oxazepam Confm GC/MS 331 H Ur Temazepam Confirm NEGATIVE U OH-Triazolam Confirm NEGATIVE U OH-Midazolam Confirm NEGATIVE Ur Cocaine Metabolite Neg U Marijuana (THC) Screen Neg Drug Screen Comment SEE NOTE Ethyl Alcohol mg/dL < 10.0 SARS-CoV-2, RNA, NAAT 08/25/23 08/27/23 08/27/23 18:45 08:02 14:44 WBC 7.40 RBC 6.02 Hgb 18.3 H Hct 53.8 H MCV 89.4 MCH 30.4 MCHC 34.0 RDW Std Deviation 49.6 H RDW Coeff of Naun 15.4 H Plt Count 290 MPV 10.4 Immature Gran % (Auto) Neut % (Auto) Lymph % (Auto) [place] % (Auto) Eos % (Auto) Baso % (Auto) Neut # (Auto) Lymph # (Auto) [place] # (Auto) Eos # (Auto) Baso # (Auto) Immature Gran # (Auto) PT INR APTT PTT Ratio Sodium 137 Potassium 4.2 Chloride 104 Carbon Dioxide 27 Anion Gap 6 BUN 22 Creatinine 1.04 Est Cr Clr Drug Dosing 48.9 Est GFR ( Amer) 86.3 Est GFR (Non-Af Amer) 74.5 BUN/Creatinine Ratio 21.2 H Glucose 107 H Fasting Glucose 100 H Calcium 9.4 Magnesium 2.1 Total Bilirubin 0.7 AST 39 ALT 75 H Alkaline Phosphatase 30 L Ammonia Troponin I High Sens 5.3 Total Protein 7.6 Albumin 4.4 Globulin 3.2 Albumin/Globulin Ratio 1.4 Triglycerides 70 Cholesterol 202 H LDL Cholesterol, Calc 143 VLDL Cholesterol, Calc 14 HDL Cholesterol 45 Cholesterol/HDL Ratio 4.5 Lipase TSH Urine Color Urine Appearance Urine pH Ur Specific [place] Urine Protein Urine Glucose (UA) Urine Ketones Urine Blood Urine Nitrite Urine Bilirubin Urine Urobilinogen Ur Leukocyte Esterase Urine WBC (Auto) Urine RBC (Auto) U Hyaline Cast (Auto) U Epithel Cells (Auto) Urine Bacteria (Auto) Salicylates Urine Opiates Screen Ur Methadone, Qual Acetaminophen Urine Barbiturates Ur Phencyclidine (PCP) U Amphetamin/Meth Scrn MDMA (Ecstasy) Screen U OH-Alprazolam Confrm U Benzodiazepines Scrn 7-Amino Clonazepam Ur Nordiazepam Confirm U OH-ethylflurazepam U Lorazepam Cnf GC/MS U Oxazepam Confm GC/MS Ur Temazepam Confirm U OH-Triazolam Confirm U OH-Midazolam Confirm Ur Cocaine Metabolite U Marijuana (THC) Screen Drug Screen Comment Ethyl Alcohol mg/dL SARS-CoV-2, RNA, NAAT NEGATIVE 08/30/23 07:07 WBC 10.85 H RBC 5.25 Hgb 16.1 Hct 47.0 MCV 89.5 MCH 30.7 MCHC 34.3 RDW Std Deviation 48.2 H RDW Coeff of Naun 14.6 H Plt Count 256 MPV 10.8 Immature Gran % (Auto) 0.4 Neut % (Auto) 85.5 Lymph % (Auto) 10.0 [place] % (Auto) 3.4 Eos % (Auto) 0.2 Baso % (Auto) 0.5 Neut # (Auto) 9.37 H Lymph # (Auto) 1.09 L [place] # (Auto) 0.37 Eos # (Auto) 0.02 Baso # (Auto) 0.05 Immature Gran # (Auto) 0.04 PT INR APTT PTT Ratio Sodium Cancelled Potassium Cancelled Chloride Cancelled Carbon Dioxide Cancelled Anion Gap Cancelled BUN Cancelled Creatinine Cancelled Est Cr Clr Drug Dosing Cancelled Est GFR ( Amer) Cancelled Est GFR (Non-Af Amer) Cancelled BUN/Creatinine Ratio Cancelled Glucose Cancelled Fasting Glucose Calcium Cancelled Magnesium Cancelled Total Bilirubin Cancelled AST Cancelled ALT Cancelled Alkaline Phosphatase Cancelled Ammonia Troponin I High Sens Cancelled Total Protein Cancelled Albumin Cancelled Globulin Cancelled Albumin/Globulin Ratio Cancelled Triglycerides Cholesterol LDL Cholesterol, Calc VLDL Cholesterol, Calc HDL Cholesterol Cholesterol/HDL Ratio Lipase Cancelled TSH Urine Color Urine Appearance Urine pH Ur Specific [place] Urine Protein Urine Glucose (UA) Urine Ketones Urine Blood Urine Nitrite Urine Bilirubin Urine Urobilinogen Ur Leukocyte Esterase Urine WBC (Auto) Urine RBC (Auto) U Hyaline Cast (Auto) U Epithel Cells (Auto) Urine Bacteria (Auto) Salicylates Urine Opiates Screen Ur Methadone, Qual Acetaminophen Urine Barbiturates Ur Phencyclidine (PCP) U Amphetamin/Meth Scrn MDMA (Ecstasy) Screen U OH-Alprazolam Confrm U Benzodiazepines Scrn 7-Amino Clonazepam Ur Nordiazepam Confirm U OH-ethylflurazepam U Lorazepam Cnf GC/MS U Oxazepam Confm GC/MS Ur Temazepam Confirm U OH-Triazolam Confirm U OH-Midazolam Confirm Ur Cocaine Metabolite U Marijuana (THC) Screen Drug Screen Comment Ethyl Alcohol mg/dL SARS-CoV-2, RNA, NAAT Hospital Course (1) 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 08/29/23: I am going to eliminate the Zyprexa and try to hold off on Haldol for now because I am worried it is making the movements worse. If the patient has agitation or anxiety, we will try a low-dose of lorazepam and try to monitor his gait carefully to be sure he is not going to fall. We will try to minimize any anticholinergics that could make him more confused. We will ask sister to search patient's living area to make sure there are no medications in there like a benzodiazepine that we need to know about. Tomorrow, if we do not see much improvement, I will consider a neurologic consult. 08/28/23: Staff have not seen much help with the Zyprexa, but I will try raising the dose to 5 mg to see what happens. If that does not work, we will possibly switch to Haldol which might make his parkinsonian symptoms worse, but I hope we do not have to go to a very high dose that would make it more likely. He also will need to be careful of the interactions among the anticholinergic medications which include antipsychotics, benztropine, and the hydroxyzine. We continue to appreciate the help of the hospitalist who was involved. 08/27/23: The patient tolerated Zyprexa much better than SEroquel. Will schedule hs and allow for prn in place of Vistaril which may be adding to confusion due to anticholinergic effects. Will reserve low dose Cogentin (also anticholintergic) for more severe EPS which is unusual with low dose Zyprexa but may be relevant for patient. [facility] hospitalist is following with serial EKG and restarted his thyroid medication. Recs/care of hospitalist appreciated. 08/26/23: [facility]) on q15 min checks (behavioral with suicide precautions) for safety. The patient will participate in group, recreational, and milieu therapies and will be offered additional individual and family sessions as clinically appropriate. Risks/benefits/alternatives were reviewed re: antipsychotics for mood and/or psychosis. Discussion included but was not limited to metabolic side effects, risks of TD and suicidal thoughts. There were no abnormal motor movements at baseline. Fasting glucose and lipid panel ordered for baseline monitoring. He agreed to a trial of Seroquel, will start low and monitor for EPS. If recurring incontinence and ongoing BP elevation will consult Liya raderist. Will hold synthroid for now pending availability of records. Mental Health & Subst Abuse Tx Therapist Name of Therapist: None Trust Manager Assistant Name of Trust Manager Assistant: NOne Post Discharge Appointments Primary Care Physician Name Of Family Doctor/PCP: [facility] Date of Future Appointment with PCP: 08/31/2023 Time of Appointment with PCP: 10:20am Provider Appointment Comment: [address] [place], [place] [address] Home Health Services Home Health Services:: None Smoking Cessation Counseling Tobacco Cessation Medication Prescribed at Discharge: Offered & Pt Refused Tobacco Cessation Counseling: Offered and Refused Other #1: [facility]ment[facility] Phone Number of Aftercare Appointment: [phone] Date of Aftercare Appointment: 09/21/23 Time of Aftercare Appointment: 1:45pm Aftercare Appointment Comment: [address], [place] [address] Discharge Plan Discharge Items Patient Disposition: Transfer Acute Care Hospital Reason For Visit: DEPRESSIVE DISORDER Discharge Diagnosis: Benzodiazepine Use Disorder, Severe Benzodiazepine Withdrawal Opioid Use Disorder, Severe Condition on Discharge: Serious Activity: As commented below Activity Comment: Per ICU Non-emergency contact: Primary Care Provider, Psychiatrist and Therapist Call non-emergency contact if: you have any medication questions and your symptoms worsen Follow-up/Referrals: Nathaniel Masterson MD [Primary Care Provider] - Diet: Regular Addtl Attending Provider Instructions: SPECIAL CARE INSTRUCTIONS: 1. Follow through with your scheduled aftercare appointments. If unable to keep an appointment, please call to reschedule. 2. Take your medication only as prescribed. Medication should not be changed or stopped without the approval of your doctor. In the event of worsening symptoms or concerns about side effects, contact your doctor immediately. 3. Utilize new healthy coping skills, anger management skills, and stress management skills learned during your hospitalization. Journal feelings and process them with a support person. Identify stressors or situations that may result in relapse, deterioration or inappropriate behaviors and develop a plan to deal with those issues. 4. If your coping skills are ineffective and you are in crisis, contact your outpatient providers for direction. If unable to reach your providers, please call the [facility] CRISIS LINE AT , go to the [facility] walk-in center at [address], [address], [place], or go to the closest Emergency Room. 5. Avoid alcohol and un-prescribed drugs. 6. You have been provided with the Mental Health Advance Directives Pamphlet for your review. 7. Your condition is stable for discharge to outpatient level of care, but recovery is an ongoing process. Ifthoughts to harm yourself or others return, follow the safety plan developed during your stay. Planning for a safe return home includes securing weapons. Our treatment team recommends weaponsbe removed from the home until your outpatient provider reassesses your progress. In rare cases where the items themselvescannot be removed, guns and ammunitionshould be secured separatelyand keys stored by a reliable personoutside of the home. If you were admitted on an involuntary commitment, the police or other legal authorities may be involved in this process. AFTERCARE APPOINTMENTS: * Please call your insurance company prior to your scheduled appointment to confirm your aftercare providers are covered. Take your insurance information to your appointments. WHO TO CALL AND WHEN: Medical Emergencies: For questions or emergencies related to your hospital stay, please contact the Inpatient Behavioral Health Unit at [phone]. A cafeteria monitor is on-call 25/01 for the Behavioral Health Unit for emergencies At any time you feel your situation is an emergency, you may also call 911 immediately. Pending Studies at Discharge: Yes Studies:: labs in ICU Stand-Alone Forms: [facility] Skilled Items Patient informed of condition?: Yes DNR: Yes Discharge Level of Care: Other Communicable Disease: No Discharge Prognosis: Deteriorating Lines: Peripheral IV Urinary Catheter: No Medications and DC Order Prescriptions: New carvedilol 3.125 mg Tablet 3.125 mg PO BIDM Qty: 1 0RF Continued amlodipine 5 mg tablet 5 mg PO QAM levothyroxine 25 mcg tablet 25 mcg PO DAILYBB Rx Instructions: PER FAMILY "JUST STARTED THIS MED AND THIS MIND THING STARTED HAPPENING". famotidine 20 mg tablet 20 mg PO QAM levalbuterol tartrate 45 mcg/actuation HFA aerosol inhaler 1 puff INHALATION Q4H PRN (Reason: Wheezing) Discontinued buprenorphine-naloxone 2-0.5 mg tablet, sublingual 0.5 tab SUBLINGUAL QAM Discharge Orders: Discharge Order (Routine); Ordered 08/30/23 Ordered By: Deepak Osorio Jr Admission Data Admit Date/Time: 08/25/23 20:43 Attending Provider: Deepak Osorio Jr Admit Provider: Estella Bell Primary Care Provider: Nathaniel Masterson Other Providers: Nimo Zhong; Mariana Giraldo I.; Stefano Willis; Kaiser Bird; Valerie Cooper; Moraima Watt; Laura Garcia; Alexi Irvin; Anatoly Peck; Indio Lackey; Sharla Rubio; Sunday Chávez; Cathy De Luna; Octavia Collado; Cydney Erickson; Kaz Colorado; Jodie Mabry; Gurpreet Martini; Cheyenne Mcknight I.; Alberto Reyez; Daniel Man; Nghia Mendoza; Samuel Rosales; Leroy Frias; Osman Silverio; Nancy Brown; Sada Gross Other Interventions: Discharge Summary Assessment (RN) Last Done: 08/30/23 07:09 PSY Interdisciplinary Discharge Planning Last Done: 08/30/23 07:09 Coding Level of Care Code 03658 D/C day mgmt > 30 min Diagnoses 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
== END 2023-08-30 06:30 | disposition short-term general hospital (02) | DRG 897 ==
LOC: ED 13:01 → 3S 20:36 → SUATTDRO 20:43 → 3S 20:43

== ENCOUNTER 2023-08-30 06:29 | Inpatient (IN) ==
--- NOTE | 2023-08-30 06:42 | History & Physical Report ---
Date of Service August 30, 2023 Assessment & Plan (1) Chest pain: Plan: In the setting of agitation, involuntary movements, history of traumatic brain injury as per records substance withdrawal versus ADR versus primary pathology hypertension, SBP elevated at 160s from 1 AM COPD, no overt wheezing on exam hx HCV hypothyroidism, euthyroid as of inpatient TSH hx substance abuse ongoing tobacco abuse Malnutrition (low BMI) PCU Chest x-ray, EKG Nitro trial for chest pain chest pain CBC, CMP, troponin Ativan as needed agitation May benefit from Neurology consultation if involuntary movements continue. Further management pending initial workup results. Nutrition consult Nicotine patch as needed DVT prophylaxis. Heparin subcu Full code as per discussion with patient's sister, Ms. Kaylene Carrera. She requests updates from providers through [phone]. Text document was generated using [employer] voice recognition software. It may contain grammatical or spelling errors. Kindly contact undersigned for clarification of any documentation item in question. History of Present Illness Chief Complaint: Increased agitation, involuntary movements as per [facility] staff Primary Care Provider: Nathaniel Masterson MD History obtained from [facility] staff, family, and records. Unable to obtain history from patient secondary to agitated state. Medical history significant for hypertension, COPD, HCV, history of traumatic brain injury as per records, hypothyroidism, substance abuse, ongoing tobacco abuse. Patient confined at [facility] since 08/25/2023 for suicidality. Patient noted to have increased agitation, tremors, involuntary movements overnight. Code purple called at 6 AM today. Patient responded yes when asked about chest pain but unable to give additional details. 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 Allergies Allergy/AdvReac Type Severity Reaction Status Date / Time No Known Allergies Allergy Verified 08/25/23 16:19 Home Medications Medication Instructions Recorded Confirmed Type amlodipine 5 mg tablet 5 mg PO QAM 08/25/23 08/25/23 History famotidine 20 mg tablet 20 mg PO QAM 08/25/23 08/25/23 History levalbuterol tartrate 45 1 puff inhalation Q4H PRN Wheezing 08/25/23 08/25/23 History mcg/actuation aerosol inhaler levothyroxine 25 mcg tablet 25 mcg PO DAILYBB 08/25/23 08/25/23 History carvedilol 3.125 mg tablet 3.125 mg PO BIDM #1 tab 08/30/23 Rx Past Med/Surg History Medical History (Updated 08/30/23 @ 11:06 by Alexi Irvin MD) Hypothyroidism Tobacco use GERD (gastroesophageal reflux disease) History of drug abuse Emphysema/COPD Chronic hepatitis Hepatitis C Acute exacerbation of chronic obstructive pulmonary disease Concussion HTN (hypertension) Surgical History No pertinent past surgical history Family History (Updated 08/27/23 @ 14:04 by Cathy De Luna PA-C) Other Cancer Hypertension Social History Smoking Status: Current every day smoker Tobacco Type: Cigarettes Hx Alcohol Use: No Hx Substance Use: Yes Non-Prescribed Medications: Marijuana and Other Non- Prescribed Medications Comment: Opiates Last Used Substance: Unknown Substance Use Type Other:: Benzo's Preferred Language: Syriac Communication Ability: Effective Certified Nursing Assistant Required: No Beliefs That Will Affect Care: None Current Living Situation: Family Current Living Situation Comment: Lives with sister Other Information That Helps Us Care for You: No Feels Safe at Home: Yes Gender Identity: Male Assistive Devices: Denture - Upper, Denture - Lower and Glasses Review of Systems Review of Systems: Could not be reliably obtained secondary to agitation Physical Exam Physical Exam: GENERAL: Agitated, disoriented, underweight SKIN: Normal color, warm HEENT: Alopecia, [place] palpebral conjunctivae, no ptosis, dry buccal mucosa, nasal cannula in place NECK : Supple, no tenderness CHEST : Decreased breath sounds, no tenderness HEART : Tachycardic, no obvious murmurs ABDOMEN: no distention, nontender EXTREMITIES : No LE swelling/tenderness, no other conspicuous deformities noted NEUROLOGIC : Agitated, no facial asymmetry, incessant bilateral arm flailing
[2023-08-30] MEDS ORDERED: NITROGLYCERIN SL 0.4 MG/TAB TAB SL PRN (06:45)
[2023-08-30] MEDS ORDERED: XOPENEX/ATROVENT 1.25mg/0.5MG NEB COMBO NEB PRN (06:48)
[2023-08-30] MEDS ORDERED: LEVALBUTEROL 1.25 MG/3 ML NEB NEB PRN (06:48)
[2023-08-30] MEDS ORDERED: IPRATROPIUM BROMIDE NEB SOLN 0.02% 0.5MG/2.5ML VIAL INH PRN (06:48)
[2023-08-30] MEDS: LORazepam 0.25 MG in SYRINGE 0.125 ML IV STA (06:50)
--- NOTE | 2023-08-30 07:18 | XRay Report ---
SINGLE VIEW CHEST CLINICAL HISTORY: Atypical chest pain. FINDINGS: An AP, portable, upright chest radiograph is compared to study dated 04/03/2022. The heart i s mildly enlarged noting atherosclerotic calcification of the thoracic aorta. The pulmonary vasculatu re is noncongested. Emphysema and chronic interstitial thickening is similar to previous. There is bi basilar scarring/atelectasis. No airspace consolidation or large pleural effusion is identified. No p neumothorax is seen. The skeletal structures are osteopenic. The bony thorax is grossly intact. IMPRESSION: Cardiomegaly and emphysema with no acute cardiopulmonary abnormality identified. ACT 112: Negative or not required by law. Electronically signed by: Elder Chu M.D. 08/30/2023 7:16 AM
[2023-08-30] MEDS: Patient's HEIGHT &/or WEIGHT Needed STA (07:28)
[2023-08-30] MEDS: ACETAMINOPHEN 1,000 MG/100 ML VIAL IV STA (07:29)
[2023-08-30 07:44] LABS: Base Excess ABG -1.7 mEq/L (-9-1.8); HCO3 ABG 24 mmol/L (19-24); Oxygen Saturation ABG 95.3 % (90-95); PCO2 ABG 45 mmHg (35-46); PO2 ABG 138 mmHg (80-95); pH ABG 7.34 (7.35-7.45)
[2023-08-30 07:57] LABS: Partial Thromboplastin Ratio 0.9; Partial Thromboplastin Time 25 Seconds (21-31)
[2023-08-30 08:32] LABS: Allen Test Pos (Pos)
[2023-08-30 08:46] LABS: Albumin Level 4.5 gm/dl (3.4-5.0); Bilirubin,Total 1.2 mg/dl (0.2-1.0); Calcium 10.1 mg/dl (8.6-10.3); Magnesium 2.6 mg/dl (1.7-2.4); Potassium 4.8 mmol/L (3.5-5.1)
[2023-08-30 08:52] LABS: Albumin Globulin Ratio 1.6 (0.9-2); BUN Creatinine Ratio 48.2 (10-20); Est GFR (African American) 60.8 ml/min; Est GFR (Non-African American) 52.4 ml/min; Globulin 2.9 gm/dl (2.5-4.0); Total Protein 7.4 gm/dl (6.0-8.3)
[2023-08-30 08:57] LABS: Troponin I High Sensitivity 13.4 pg/ml (0-20)
--- NOTE | 2023-08-30 08:59 | Cardiology Consultation ---
Date of Consultation August 30, 2023 Assessment & Plan (1) Delirium: (2) Atrial fibrillation with RVR: (3) Mental status alteration: (4) Chest pain: Plan Patient admitted to [facility] on 08/[facility] with confusion/delirium/suicidal ideation. Since admission he has had progressive cognitive decline according to chart review and patient's sister. This morning he became acutely agitated, tachypneic and complained of chest pain. He was transferred from behavioral health unit to the ICU for mental status changes. EKG was without acute changes. HS troponin x1. Repeat troponin pending for 1:00 PM. Currently restrained in bed, not responsive. Echo was limited due to body positioning/restraints, but demonstrated preserved EF without wall motion abnormalities. During evaluation, patient developed new onset atrial fibrillation with mildly elevated ventricular rates. He did not receive oral carvedilol this morning due to mental status. Start IV metoprolol 2.5 mg q 4 hours for rate/rhythm control. No anticoagulation therapy for now given acute altered mental status. Neuro consulted for altered mental status. Would recommend repeat Head CT or Brain MRI. He has a history of hepatitis C LFT's trending upward. Repeat ammonia level. Repeat PT/INR Blood cultures ordered x2. HTN - continue IV metoprolol for now. Not taking oral medications currently. BP controlled this morning Further recommendations pending review of above test results. Case discussed with Dr. Wayne I spent a total of 65 minutes on the date of service in preparation, delivery, and documentation of the care provided to this patient, excluding any time spent in the performance of separately billed services. Radha Bautista PA-C Department of Cardiology, [facility] This chart was completed in part utilizing Speech Voice Recognition Software. Grammatical errors, random word insertions, pronoun errors, and incomplete sentences are an occasional consequence of this system due to software limitations, ambient noise, and hardware issues. Any formal questions or concerns about the content, text, or information contained within the body of this dictation should be directly addressed to the provider for clarification. Supervising Physician Co-Signing Physician Notes I have reviewed the advance practitioner's documentation, and I agree with, and take responsibility for the plan of care. 68-year-old male admitted to the hospital 08/25/2023 secondary to suicidal ideation, tremor, auditory hallucinations, memory issues and periods of confusion. A "code purple" was called in the a.m. 08/30/2023 due to agitation. When questioned by the hospitalist regarding chest pain patient reportedly answered yes although no further details were given. Currently, patient is sedated and unable to offer meaningful history. Converted to atrial fibrillation with heart rate 90-100 bpm on telemetry this morning. Sister present at bedside. Denies any cardiac history. PE: VSS. GEN: NAD, sedated. Heart: Irregular rhythm, normal S1-S2. No murmur. Lungs: Clear bilateral, no rales, rhonchi, wheeze. Extremities: No edema. Neuro: Sedated. A/P: 68-year-old patient with agitation and reported episode of chest discomfort. No evidence of acute coronary syndrome with negative high- sensitivity troponin, normal wall motion limited echo, and no ischemic ECG changes. Patient lapsed into atrial fibrillation this morning with fair rate control. He received 1 dose of IV Lopressor, 2.5 mg. Agree with IV Lopressor 2.5 mg every 4 hours [id number]. Convert to oral metoprolol 12.5 mg twice daily when able. Etiology of delirium/encephalopathy not well-defined. Hold off on anticoagulation for the time being and will discuss further with neurology. Consider adding IV heparin in 24 hours if patient remains in atrial fibrillation, no reversible causes identified, and there is no contraindication from a neurologic perspective. History of Present Illness Reason for Consultation: Chest Pain Requesting Physician: Dr. Chávez Attending Physician: Dr. Wayne History of Present Illness Patient is a 68 year old male who was admitted on 08/25/23 to the behavioral health unit with suicidal ideations, hallucinations, agitation. Followed by psych since admission. Hospitalist consulted on 08/27 for tachycardia and chest pain. EKG and HS troponin unremarkable at that time. He was hypertensive and started on coreg. No cardiac history per review of inpatient/outpatient records. History includes - HTN, chronic hepatitis C, history of drug abuse, hypothyroidism, GERD, emphysema, history of TBI. Patiently admitted to [facility] for auditory hallucinations, memory issues, confusion at night. Earlier this morning, Yessi larkin called Per notes: Patient increasingly agitated and restless overnight. Blood pressure elevated. Patient tachycardic and tachypneic. Patient complained of chest pain but unable to give details. Was transferred to ICU for work up. Repeat EKG reviewed demonstrating NSR with RAD. No acute ST changes. HS troponin at 7:00 AM unremarkable. Echo completed - limited views due to patient being restrained and laying supine. Prelim report - Hyperdynamic function without wall motion abnormalities. Review of systems not able to be performed. All information was obtained from records in chart. At time of consult, patient was laying in bed, tremors noted. Not responsive to questions. Sister at bedside who reports significant cognitive decline over the last 2 weeks. More confused at home and then since admission, he seems "worse" each day with increased confusion, delirium, and now mostly unresponsive. Head Ct on admission was unremarkable. WBC trending higher this morning, just above normal. LFT's trending higher this morning. Repeat chest xray unremarkable. While I was sitting conversing with sister and reviewing chart, at 9:49 AM patient converted from NSR with PAC's to atrial fibrillation with variable rates ranging 90-110. Per nurse, he did not receive AM carvedilol due to mental status changes. Allergies Allergy/AdvReac Type Severity Reaction Status Date / Time No Known Allergies Allergy Verified 08/25/23 16:19 Home Medications Medication Instructions Recorded Confirmed Type amlodipine 5 mg tablet 5 mg PO QAM 08/25/23 08/25/23 History famotidine 20 mg tablet 20 mg PO QAM 08/25/23 08/25/23 History levalbuterol tartrate 45 1 puff inhalation Q4H PRN Wheezing 08/25/23 08/25/23 History mcg/actuation aerosol inhaler levothyroxine 25 mcg tablet 25 mcg PO DAILYBB 08/25/23 08/25/23 History carvedilol 3.125 mg tablet 3.125 mg PO BIDM #1 tab 08/30/23 Rx Patient History Medical History (Updated 08/30/23 @ 12:22 by Deirdre Tadeo MD) Hypothyroidism Tobacco use GERD (gastroesophageal reflux disease) History of drug abuse Emphysema/COPD Chronic hepatitis Hepatitis C Acute exacerbation of chronic obstructive pulmonary disease Concussion HTN (hypertension) Surgical History No pertinent past surgical history Family History (Updated 08/27/23 @ 14:04 by Cathy De Luna PA-C) Other Cancer Hypertension Social History (Reviewed 08/27/23 @ 14:03 by MARY Hagan Smoking Status: Current every day smoker Tobacco Type: Cigarettes Hx Alcohol Use: No Hx Substance Use: Yes Non-Prescribed Medications: Marijuana and Other Non- Prescribed Medications Comment: Opiates Last Used Substance: Unknown Substance Use Type Other:: Benzo's Preferred Language: Hebrew Communication Ability: Effective Disk Grinder Required: No Beliefs That Will Affect Care: None Current Living Situation: Family Current Living Situation Comment: Lives with sister Other Information That Helps Us Care for You: No Feels Safe at Home: Yes Gender Identity: Male Assistive Devices: Denture - Upper, Denture - Lower and Glasses Review of Systems Review of Systems: Unobtainable due to cognitive status Physical Exam Constitutional: + thin and + lethargic Respiratory: no labored breathing Auscultation: lungs clear to auscultation bilaterally (anteriorly ) Cardiovascular: Rate/Rhythm: + tachycardic and + irregularly irregular Heart Sounds: normal S1 and normal S2; no murmur Vessels: no JVD Extre mities: no edema Gastrointestinal (Abdomen): normal bowel sounds, soft, nontender, no hepatosplenomegaly Neurologic: + obtunded Motor/Sensory: + tremor Results & Data Vital Signs (Past 12 Hours) Vital Signs Temp Pulse Pulse Resp BP BP Pulse Ox 08/30/23 08:39 94 H 27 H 130/60 96 08/30/23 08:00 08/30/23 08:00 99 H 31 H 145/81 H 94 08/30/23 07:01 37.2 C 105 H 32 H 137/79 96 08/30/23 07:00 107 H 27 H 137/79 95 08/30/23 06:54 114 H 39 H 141/96 H 92 O2 Del Method O2 Flow Rate 08/30/23 08:39 Oxymask 3 08/30/23 08:00 Oxymask 3 08/30/23 08:00 Oxymask 3 08/30/23 07:01 Oxymask 3 08/30/23 07:00 Oxymask 3 08/30/23 06:54 Oxymask 3 Laboratory Results Cardiac Enzymes 08/30/23 Range/Units 07:08 AST 89 H (13-39) U/L Troponin I High Sens 13.4 (0-20) pg/ml Coagulation 08/30/23 Range/Units 07:08 APTT 25 (21-31) Seconds CBC 08/30/23 Range/Units 07:08 WBC Cancelled RBC Cancelled Hgb Cancelled Hct Cancelled Plt Count Cancelled Neut # (Auto) Cancelled Lymph # (Auto) Cancelled Sullivan # (Auto) Cancelled Eos # (Auto) Cancelled Baso # (Auto) Cancelled Comprehensive Metabolic Panel 08/30/23 Range/Units 07:08 Sodium 143 (136-145) mmol/L Potassium 4.8 (3.5-5.1) mmol/L Chloride 105 (98-107) mmol/L Carbon Dioxide 23 (21-32) mmol/L BUN 67 H (6-23) mg/dl Creatinine 1.39 (0.6-1.4) mg/dl Glucose 73 (70-99(Fasting)) mg/dl Calcium 10.1 (8.6-10.3) mg/dl AST 89 H (13-39) U/L ALT 121 H (7-52) U/L Alkaline Phosphatase 24 L (34-104) U/L Total Protein 7.4 (6.0-8.3) gm/dl Albumin 4.5 (3.4-5.0) gm/dl Intake and Output 08/29/23 08/30/23 08/30/23 22:59 06:59 14:59 Intake Total 100 / 100 Output Total 250 / 250 Balance -150 / -150 Intake: IV 100 / 100 Acetaminophen 1,000 mg In 100 100 / 100 ml @ 400 mls/hr IV NOW STA Rx#: [id number] Output: Urine Amount (Catheter) 250 / 250 Turner/Indwelling 250 / 250 Other: Weight 55.4 kg Weight Measurement Method Built in [facility] Diagnostic Findings Telemetry reviewed: NSR with HR's in the 90's, frequent PACs; Then while reviewing patient's chart, patient converted to atrial fibrillation at 9:49 AM with rates ranging 90-110 bmp Repeat EKG demonstrated atrial fibrillation, no acute ST/T wave changes noted EKG reviewed from this morning: Normal sinus rhythm Rightward axis deviation. No acute ST change EKG reviewed from 08/29/23: Poor data quality, interpretation may be adversely affected Sinus tachycardia RAD No acute ischemic changes Echo report reviewed from 08/30/23: Limited views obtained. No comparison study available. LV is grossly normal in size. EF 60-65% [place] not well visualized otherwise no regional wall motion abnormalities RV is grossly normal in size. No pericardial effusion Chest X-Ray 08/30/23 06:46 SINGLE VIEW CHEST CLINICAL HISTORY: Atypical chest pain. FINDINGS: An AP, portable, upright chest radiograph is compared to study dated 04/03/2022. The heart is mildly enlarged noting atherosclerotic calcification of the thoracic aorta. The pulmonary vasculature is noncongested. Emphysema and chronic interstitial thickening is similar to previous. There is bibasilar scarring/atelectasis. No airspace consolidation or large pleural effusion is identified. No pneumothorax is seen. The skeletal structures are osteopenic. The bony thorax is grossly intact. IMPRESSION: Cardiomegaly and emphysema with no acute cardiopulmonary abnormality identified. ACT 112: Negative or not required by law. Electronically signed by: Elder Chu M.D. 08/30/2023 7:16 AM Medications Administered Current Inpatient Medications Acetaminophen (Acetaminophen 325 Mg Tab) 650 mg PO Q4H PRN PRN Reason: Pain or Fever Stop: 09/29/23 06:44 Amlodipine Besylate (Amlodipine Besylate 5 Mg Tab) 5 mg PO QAM [facility] Stop: 09/29/23 08:59 Buprenorphine/Naloxone (Buprenorphine/Naloxone 2/0.5mg 1 Tab) 0.5 tab SL QAM [facility] Stop: 09/29/23 08:59 Carvedilol (Carvedilol 3.125 Mg Tab) 3.125 mg PO BIDM [facility] Stop: 09/29/23 07:59 Famotidine (Famotidine 20 Mg Tab) 20 mg PO QAM [facility] Stop: 09/29/23 08:59 Heparin Sodium (Porcine) (Heparin Sod 5,000 Unit/0.5 Ml Vial) 5,000 units SQ Q8 [facility] Stop: 09/29/23 13:59 Lorazepam 0.5 mg/ Syringe 0.5 mls @ 2 mls/min IV Q4H PRN PRN Reason: Anxiety/Agitation Stop: 09/29/23 06:42 Sodium Chloride (Nss) 1,000 mls @ 80 mls/hr IV .[id number] [facility] Stop: 08/31/23 10:29 Ipratropium [place] (Ipratropium [place] Neb Soln 0.02% 0.5mg/2.5ml Vial) 0.5 mg INH Q4H PRN PRN Reason: sob Stop: 09/29/23 06:59 Levalbuterol HCl (Levalbuterol 1.25 Mg/3 Ml Neb) 1.25 mg NEB Q4H PRN PRN Reason: sob Stop: 09/29/23 06:59 Levothyroxine Sodium (Levothyroxine Sodium 25 Mcg Tablet) 25 mcg PO DAILYBB [facility] Stop: 09/30/23 06:29 Nitroglycerin (Nitroglycerin Sl 0.4 Mg/Tab Tab) 0.4 mg SL Q5M PRN PRN Reason: Chest Pain Stop: 09/29/23 06:44 (3) Mental status alteration Altered mental status type: unspecified Qualified Code(s): R41.82 - Altered mental status, unspecified (4) Chest pain Chest pain type: unspecified Qualified Code(s): R07.9 - Chest pain, unspecified
[2023-08-30] MEDS: LORazepam 0.5 MG in SYRINGE 0.25 ML IV PRN (10:30)
[2023-08-30] MEDS: SODIUM CHLORIDE 0.9% 1,000 ML IV SCH (10:30)
[2023-08-30] MEDS ORDERED: chlordiazePOXIDE ALCOHOL WITHDRAWL 50MG PO STA (10:47)
[2023-08-30] MEDS: METOPROLOL TARTRATE 1 MG/ML VIAL IV SCH (10:57)
[2023-08-30] MEDS: THIAMINE HCL 500 MG in SODIUM CHLORIDE 0.9% 50 ML IV SCH (11:18)
--- NOTE | 2023-08-30 11:20 | Neurology Consultation ---
Date of Consultation August 30, 2023 Assessment & Plan (1) Encephalopathy: Plan 68 y/o male with history of opioid use disorder on suboxone, HTN, TBI/concussion, and GERD that was admitted on 08/25 with suicidal ideation and hallucinations. Over the last several months, there has been concern for significant insomnia with worsening tremors over the last month. Unclear etiology of involuntary movements and would likely benefit from further examination when less somnolent. Would proceed with diagnostic studies and neurology will continue to follow. 1. MRI brain 2. EEG 3. ammonia, B12, ceruloplasmin, serum copper, 24 hours urinary copper, urine heavy metals 4. On thiamine 500 mg IV q8 and folic acid 1 mg qam 5. Infectious work-up. If any concern for infection and no source, low threshold for LP 6. Minimize sedating medications and encourage frequent redirection 7. Neurology will continue to follow 8. Sleep Medicine referral Telehealth Consultation Telehealth Information Telehealth Information: I performed this visit using a real-time telehealth connection between my location and the patients location ([facility]). After connecting through interactive tele-video, patient was identified by name and date of and/or wristband check.Patient (or authorized healthcare patient services representative) was informed that this was a telemedicine visit and it was being conducted confidentially over secure lines. My office door was closed and no one else was present in the room with me.Patient (or authorized healthcare patient services representative) provided consent to proceed with the visit, expressed an understanding of privacy and security of the telemedicine visit, and gave permission to have a hospital patient services representative in the room in order to assist with the visit and to conduct portions of the visit, as needed. I informed the patient (or authorized healthcare patient services representative) that I reviewed their record and presented the opportunity for them to ask any questions regarding the visit today. The patient agreed to participate. History of Present Illness Reason for Consultation: movement disorder Requesting Physician: Sunday Chávez MD Attending Physician: Sunday Chávez MD History of Present Illness His sister states that he had a concussion in March 2022 after a fall at work. Within weeks, he started to have dizzy spells and mild tremors involving the hands. He was released to go back to work in May 2022. Then last fall, she states that he was getting very tired and having difficulty working. Then in July 2022, the tremors involving his hands started to worsen. This was occurring both at rest and with use of his hands. For months, he has complained of difficulty sleeping. Over the last few weeks, she noticed that he started to decline. His mobility is okay and he does not have falls at home. However, he had stopped getting out of the house or going to the gym. He was also preoccupies with spamming emails and seemed to be confused, believing he was in hospice care. Since being in the hospital, he has reported hallucinations of music at night. She states that when they came to the ED, he told them he was seeing people. However, she was unaware of any visual or auditory hallucinations that preceded admission. At the time of my examination, he is lethargic after receiving ativan for agitation and does not contribute to the history. Allergies Allergy/AdvReac Type Severity Reaction Status Date / Time No Known Allergies Allergy Verified 08/25/23 16:19 Home Medications Medication Instructions Recorded Confirmed Type amlodipine 5 mg tablet 5 mg PO QAM 08/25/23 08/25/23 History famotidine 20 mg tablet 20 mg PO QAM 08/25/23 08/25/23 History levalbuterol tartrate 45 1 puff inhalation Q4H PRN Wheezing 08/25/23 08/25/23 History mcg/actuation aerosol inhaler levothyroxine 25 mcg tablet 25 mcg PO DAILYBB 08/25/23 08/25/23 History carvedilol 3.125 mg tablet 3.125 mg PO BIDM #1 tab 08/30/23 Rx Patient History Medical History (Updated 08/30/23 @ 12:22 by Deirdre Tadeo MD) Hypothyroidism Tobacco use GERD (gastroesophageal reflux disease) History of drug abuse Emphysema/COPD Chronic hepatitis Hepatitis C Acute exacerbation of chronic obstructive pulmonary disease Concussion HTN (hypertension) Surgical History No pertinent past surgical history Family History (Updated 08/27/23 @ 14:04 by Cathy De Luna PA-C) Other Cancer Hypertension Social History Smoking Status: Current every day smoker Tobacco Type: Cigarettes Hx Alcohol Use: No Hx Substance Use: Yes Non-Prescribed Medications: Marijuana and Other Non- Prescribed Medications Comment: Opiates Last Used Substance: Unknown Substance Use Type Other:: Benzo's Preferred Language: Setswana Communication Ability: Effective 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 Beliefs That Will Affect Care: None Current Living Situation: Family Current Living Situation Comment: Lives with sister Other Information That Helps Us Care for You: No Feels Safe at Home: Yes Gender Identity: Male Assistive Devices: Denture - Upper, Denture - Lower and Glasses Physical Exam Opens eyes briefly to noxious stimuli, otherwise resists eye opening Intermittently follows simple commands Not oriented No obvious facial asymmery Move bilateral upper extremities spontaneously, withdrawal equally in lower extremities Grimaces/withdraws to noxious stimuli in extremities Involuntary upper extremity movements Results & Data Vital Signs (Past 12 Hours) Vital Signs Temp Pulse Pulse Resp BP BP Pulse Ox 08/30/23 10:57 113 H 124/81 08/30/23 10:42 110 H 23 106/83 98 08/30/23 10:00 113 H 26 H 124/71 92 08/30/23 09:00 88 22 146/81 H 94 08/30/23 08:39 94 H 27 H 130/60 96 08/30/23 08:00 08/30/23 08:00 99 H 31 H 145/81 H 94 08/30/23 07:01 37.2 C 105 H 32 H 137/79 96 08/30/23 07:00 107 H 27 H 137/79 95 08/30/23 06:54 114 H 39 H 141/96 H 92 O2 Del Method O2 Flow Rate 08/30/23 10:57 08/30/23 10:42 Oxymask 3 08/30/23 10:00 Oxymask 3 08/30/23 09:00 Oxymask 3 08/30/23 08:39 Oxymask 3 08/30/23 08:00 Oxymask 3 08/30/23 08:00 Oxymask 3 08/30/23 07:01 Oxymask 3 08/30/23 07:00 Oxymask 3 08/30/23 06:54 Oxymask 3 Laboratory Results ABG 7.34, Po2 138, PcO2 45. Na 143, Potassium 4.3, Carbon Dioxide 23, BUN 67, Creatinine 1.39, Glucose 73, Magnesium 2.6, Total bilirubin 1.2, AST 89, ALT 121, alkaline phosphatase 24, troponin 13.4, WBC 10.85, HGB 16.1, HCT 47, Plts 256, INR 1.1, TSH 3.214, Urinalysis negative nitrite and leukocyte esterase, UDS positive for benzodiazepines Diagnostic Findings CXR: Cardiomegaly and emphysema with no acute cardiopulmonary abnormality identified. CTH: No acute intracranial abnormality.
[2023-08-30] MEDS: carvediloL 3.125 MG TAB PO SCH (12:08)
[2023-08-30] MEDS: BUPRENORPHINE/NALOXONE 2/0.5MG 1 TAB SL SCH (12:08)
[2023-08-30] MEDS: amLODIPine BESYLATE 5 MG TAB PO SCH (12:08)
[2023-08-30] MEDS: FAMOTIDINE 20 MG TAB PO SCH (12:08)
[2023-08-30] MEDS: NICOTINE 14 MG/24 HR PATCH TD SCH (12:50)
[2023-08-30] MEDS: chlordiazePOXIDE HCl 25 MG CAP PO SCH (13:28)
[2023-08-30] MEDS ORDERED: Nursing to Pharmacy Communication SCH (13:30)
[2023-08-30 13:45] LABS: INR 1.2 (0.9-1.1)
--- NOTE | 2023-08-30 13:45 | Electrocardiogram Report ---
Test Reason : Blood Pressure : / mmHG Vent. Rate : 100 BPM Atrial Rate : 100 BPM P-R Int : 150 ms QRS Dur : 082 ms QT Int : 332 ms P-R-T Axes : 086 -55 077 degrees QTc Int : 428 ms Normal sinus rhythm Indeterminate axis Possible Inferior infarct , age undetermined Abnormal ECG When compared with ECG of 29-AUG-2023 11:32, Questionable change in QRS axis Confirmed by Roger Scruggs ([id number]) on 08/30/2023 1:45:00 PM Referred By: Alexi Irvin Confirmed By:Roger Scruggs
--- NOTE | 2023-08-30 14:44 | Electrocardiogram Report ---
Test Reason : Blood Pressure : / mmHG Vent. Rate : 098 BPM Atrial Rate : 090 BPM P-R Int : 000 ms QRS Dur : 080 ms QT Int : 342 ms P-R-T Axes : 000 031 073 degrees QTc Int : [address] elevation, consider early repolarization, pericarditis, or injury Abnormal ECG When compared with ECG of 30-AUG-2023 07:39, (unconfirmed) Atrial fibrillation has replaced Sinus rhythm Confirmed by Roger Scruggs ([id number]) on 08/30/2023 2:44:09 PM Referred By: Alexi Irvin Confirmed By:Roger Scruggs
--- NOTE | 2023-08-30 15:12 | Magnetic Resonance Report ---
MRI OF THE BRAIN WITHOUT IV CONTRAST CLINICAL HISTORY: Change in mental status. COMPARISON STUDY: CT of the brain dated 08/25/2023. MRI of the brain dated 05/06/2022. TECHNIQUE: MRI of the brain was performed utilizing various T1 and T2-weighted sequences in the axial , sagittal, and coronal planes. IV contrast was not administered for this examination. The examinatio n is degraded by motion artifact. FINDINGS: Brain parenchyma: There is age-related involutional change noting mild to moderate subcortical and pe riventricular microangiopathic disease. There is no hemorrhage or mass effect. There is no restricted diffusion to suggest acute ischemia. Gagnon-white matter differentiation is preserved. No extra-axial fluid collection is seen. The cerebellar tonsils are normal in configuration. Ventricles, sulci, and cisterns: Prominent secondary to involutional change. Pituitary and sella: Unremarkable. Intracranial vasculature: Normal flow voids are maintained at the skull base. Orbits: The bony orbits are grossly intact. Orbital contents are normal in appearance. Sinuses and mastoids: Clear. Calvarium: Unremarkable. Cervical cord: Partially visualized cervical spinal cord is normal in morphology and signal intensity . IMPRESSION: No acute intracranial abnormality. ACT 112: Negative or not required by law. Electronically signed by: Elder Chu M.D. 08/30/2023 3:11 PM
[2023-08-30] MEDS: HEPARIN SOD 5,000 UNIT/0.5 ML VIAL SQ SCH (15:22)
--- NOTE | 2023-08-30 15:56 | Discharge Summary ---
Date of Service August 30, 2023 History of Present Illness History reviewed and confirmed as per ED CM: Pt was brought to the ER by his sister whom he lives with. Pt reports that he has not slept for 4 months and if he does sleep for an hour or two he has nightmares. His sister reports that he has been talking to people who arent there. When asked if he hears voices he states only when we are talking to each other. He reports that he struggles because his hands shake sometimes. He is afraid to leave his house. He states that he feels confused at times. His sister reports that he is paranoid and ruminates on things like getting scammed on the internet, although that has never happened. He denies SI with a plan but reports he does not want to live like this. He reports that he got a concussion a year ago and some of these symptoms started at that time but it has gotten worse in the past 3 months. In the past two weeks his symptoms have gotten so bad that he cant function and wont leave the house. Pt lives with his sister and nephew. His sister reports that things have gotten so bad she is afraid to leave him alone. She reports that he cant sleep and walks around the house talking to people who arent there. Pt has no history of mental illness. Pt has rapid speech. He is pleasant and his affect is anxious. Pt has history of drug use but has been clean for several years. He smokes cigarettes daily. He denies D&A use. 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 Pt is requesting inpatient psychiatric treatment at this time and his sister also believes that is the best course of action. Per Dr. Bell who admitted the patient to the [facility]: The patient states he used to be quite physically active and states that his "whole life" changed after falling from a 15 ft retaining wall in May 2023. He has been unable to work, struggles with focus and memory, and more recently developed an increase in tremor and new onset auditory hallucinations, typically at night. His anxiety about these nonspecific voices, "they say I should but don't say what" disrupts his sleep and he may wander and seem more confused, like urinating on himself and not realizing it. He was more irritable last pm and staff do report that he urinated on the floor in his room overnight. He feels that his tremor is worse with intention. Otherwise he has a history of opiod abuse but has been doing well on MAT for years following an extended rehab program 6-7 years ago while still residing in [place]. He moved with his sister to "make better choices" but has more limited vocational options. He denies wanting to harm himself but admit that he gets frustrated as he wants to get back to work again. His family reported that the timing of the worsening of his symptoms seems to have coincided with starting Synthroid which may or may not be related. Re: his positive drug screen, he denies use of benzodiazepines but does use NSAIDs regularly, mainly for back in am. Physical Exam Psychiatric Patient was asleep when I met him today. He had been given Librium due to his delirium tremens. He was disheveled in a hospital gown. Eye contact was poor. He did not speak. Mood could not be assessed but affect was not distressed. We could nt assess thought process. There was no evidence of any hallucinations or delusions, but he had been hallucinating early this morning. We could not assess lethality. Memory and concentration were poor. No abnormal movements were seen while sleeping, but there were significant tremors early this morning. I did not evaluate gait. Insight and judgment are poor. Vital Signs (Past 24 Hours) Last Vital Signs Temp 36.5 C 08/30/23 12:23 Pulse 101 H 08/30/23 15:30 Resp 16 08/30/23 15:09 BP 134/80 08/30/23 15:30 Pulse Ox 96 08/30/23 15:09 O2 Del Method Room Air 08/30/23 15:09 O2 Flow Rate 2 08/30/23 13:00 Principal Diagnosis Benzodiazepine Use Disorder, Severe. Benzodiazepine Withdrawal Opioid Use Disorder, severe, on suboxone. Psychiatric Data Patient was admitted to our unit for safety, further evaluation, and treatment. At the time of admission, patient was denying any benzodiazepine use and had been on Suboxone since May. Over the next few days he became even more confused and somewhat agitated, often pacing and trying to exit seek. His tremors became worse over time and he had very poor sleep. He was very confused. Staff would often see him hallucinating and talking to people that were not there or believing there were people in his bathroom or in other places. This became worse as we progressed. Dr. Padilla met with the patient initially and started some Seroquel which made the patient somewhat dizzy and transitioned that to Zyprexa. That really did not help much. On Wednesday, August 28, I gave him a dose of Ativan which did offer a little bit of support along with some oral Haldol. However things continued to deteriorate and he became more confused over the weekend. On the evening of August 29, we pushed the lorazepam further and that offered a little bit of support but the patient became more confused. Medically, he was also somewhat unstable with tachycardia and elevated blood pressures. Our medical colleagues were following him and were trying to use some blood pressure medications to help. Over the weekend, we also found out that he was positive for oxazepam which was confirmed and was at a high level on admission. Early in the morning of August 30, we felt that this was very likely a benzodiazepine withdrawal and it was very likely that he was abusing a long-acting benzodiazepine and that it had just taken some time for delirium tremens to form. We do not think alcohol was really involved. That morning, early, we tried giving him a higher dose of lorazepam but he became more unsteady and had a fall in the bathroom. At that point, we called a code purple and he ended up being transferred to the intensive care unit and is currently on telemetry. Day of Discharge Assessment Patient is medically unstable and requires medical hospitalization. He was transferred to the ICU but is on a telemetry bed. Advance Directives Advance Directives Information Provided: No Advance Directives: No Advance Directives on File: No Living Will: No Power of Machine Repairman: No Advance Directives Reason:: Declines as Mental Health Visit. Suicide Risk Level Suicide Risk Level: Low (q15 min observation checks) Risk Factors Assessment Male: Yes : Yes Health Problems: Yes Substance Use Disorders: Yes Antipsychotic Medications We were using antipsychotic medications early on for his psychotic symptoms, but but just symptomatically lately. Discharge Data Consultations 08/30/23 06:45 Consult Psychiatry Routine 08/30/23 07:32 Consult Neurology Routine 08/30/23 08:38 Consult Cardiology Routine Lab Results 08/30/23 08/30/23 08/30/23 07:08 07:37 08:55 WBC Cancelled RBC Cancelled Hgb Cancelled Hct Cancelled MCV Cancelled MCH Cancelled MCHC Cancelled RDW Std Deviation Cancelled RDW Coeff of Naun Cancelled Plt Count Cancelled MPV Cancelled Immature Gran % (Auto) Cancelled Neut % (Auto) Cancelled Lymph % (Auto) Cancelled Gregg % (Auto) Cancelled Eos % (Auto) Cancelled Baso % (Auto) Cancelled Neut # (Auto) Cancelled Lymph # (Auto) Cancelled Gregg # (Auto) Cancelled Eos # (Auto) Cancelled Baso # (Auto) Cancelled Immature Gran # (Auto) Cancelled Absolute Nucleated RBC Cancelled Nucleated RBC % (auto) Cancelled Neutrophils % (Manual) Cancelled Band Neutrophils % Cancelled Lymphocytes % (Manual) Cancelled Prolymphocyte % Cancelled Reactive Lymphs % (Man) Cancelled Monocytes % (Manual) Cancelled Eosinophils % (Manual) Cancelled Basophils % (Manual) Cancelled Metamyelocytes % (Man) Cancelled Myelocytes % (Man) Cancelled Promyelocytes % (Man) Cancelled Blast Cells % (Manual) Cancelled Plasma Cell % (Manual) Cancelled Other Cells % Cancelled Nucleated RBC % Cancelled Neutrophils # (Manual) Cancelled Band Neutrophils # Cancelled Total Absolute Neuts Cancelled Lymphocytes # (Manual) Cancelled Prolymphocyte # Cancelled Reactive Lymphs # Cancelled Total Abs Lymphocytes Cancelled Monocytes # (Manual) Cancelled Eosinophils # (Manual) Cancelled Basophils # (Manual) Cancelled Metamyelocytes # (Man) Cancelled Myelocytes # (Manual) Cancelled Promyelocytes # (Man) Cancelled Blast Cells # (Man) Cancelled Plasma Cell # (Manual) Cancelled Other Cells # Cancelled Nucleated RBCs # (Man) Cancelled Hypersegmented Neuts Cancelled Hyposegmented Neuts Cancelled Hypogranular Neuts Cancelled Large Granular Lymphs Cancelled # Lrg Granular Lymphs Cancelled Hairy Cells Cancelled Smudge Cells Cancelled Toxic Granulation Cancelled Toxic Vacuolation Cancelled Dohle Bodies Cancelled Aracelis Rods Cancelled Platelet Estimate Cancelled Hypogranular Platelets Cancelled Giant Platelets Cancelled Platelet Satelliting Cancelled RBC Morphology Cancelled Polychromasia Cancelled Hypochromasia Cancelled Poikilocytosis Cancelled Basophilic Stippling Cancelled Anisocytosis Cancelled Microcytosis Cancelled Macrocytosis Cancelled Spherocytes Cancelled Pappenheimer Bodies Cancelled Sickle Cells Cancelled Target Cells Cancelled Tear Drop Cells Cancelled Ovalocytes Cancelled Stomatocytes Cancelled [place] Bodies Cancelled Echinocytes Cancelled Acanthocytes (Spur) Cancelled Rouleaux Cancelled RBC Agglutinates Cancelled Schistocytes Cancelled Sezary Cell Cancelled PT INR APTT 25 PTT Ratio 0.9 ABG pH 7.34 L ABG pCO2 45 ABG pO2 138 H ABG HCO3 24 ABG O2 Saturation 95.3 H ABG Base Excess -1.7 Jace Test Pos Oxygen Given 3L Sodium 143 Potassium 4.8 Chloride 105 Carbon Dioxide 23 Anion Gap 15 H BUN 67 H Creatinine 1.39 Est Cr Clr Drug Dosing 41.0 Est GFR ( Amer) 60.8 Est GFR (Non-Af Amer) 52.4 BUN/Creatinine Ratio 48.2 H Glucose 73 POC Glucose 90 Calcium 10.1 Magnesium 2.6 H Total Bilirubin 1.2 H AST 89 H ALT 121 H Alkaline Phosphatase 24 L Ammonia Troponin I High Sens 13.4 Total Protein 7.4 Albumin 4.5 Globulin 2.9 Albumin/Globulin Ratio 1.6 Lipase 11 Blood Parasites ID Cancelled 08/30/23 08/30/23 12:32 12:55 WBC RBC Hgb Hct MCV MCH MCHC RDW Std Deviation RDW Coeff of Naun Plt Count MPV Immature Gran % (Auto) Neut % (Auto) Lymph % (Auto) Gregg % (Auto) Eos % (Auto) Baso % (Auto) Neut # (Auto) Lymph # (Auto) Gregg # (Auto) Eos # (Auto) Baso # (Auto) Immature Gran # (Auto) Absolute Nucleated RBC Nucleated RBC % (auto) Neutrophils % (Manual) Band Neutrophils % Lymphocytes % (Manual) Prolymphocyte % Reactive Lymphs % (Man) Monocytes % (Manual) Eosinophils % (Manual) Basophils % (Manual) Metamyelocytes % (Man) Myelocytes % (Man) Promyelocytes % (Man) Blast Cells % (Manual) Plasma Cell % (Manual) Other Cells % Nucleated RBC % Neutrophils # (Manual) Band Neutrophils # Total Absolute Neuts Lymphocytes # (Manual) Prolymphocyte # Reactive Lymphs # Total Abs Lymphocytes Monocytes # (Manual) Eosinophils # (Manual) Basophils # (Manual) Metamyelocytes # (Man) Myelocytes # (Manual) Promyelocytes # (Man) Blast Cells # (Man) Plasma Cell # (Manual) Other Cells # Nucleated RBCs # (Man) Hypersegmented Neuts Hyposegmented Neuts Hypogranular Neuts Large Granular Lymphs # Lrg Granular Lymphs Hairy Cells Smudge Cells Toxic Granulation Toxic Vacuolation Dohle Bodies Aracelis Rods Platelet Estimate Hypogranular Platelets Giant Platelets Platelet Satelliting RBC Morphology Polychromasia Hypochromasia Poikilocytosis Basophilic Stippling Anisocytosis Microcytosis Macrocytosis Spherocytes Pappenheimer Bodies Sickle Cells Target Cells Tear Drop Cells Ovalocytes Stomatocytes [place] Bodies Echinocytes Acanthocytes (Spur) Rouleaux RBC Agglutinates Schistocytes Sezary Cell PT 13.0 H INR 1.2 H APTT PTT Ratio ABG pH ABG pCO2 ABG pO2 ABG HCO3 ABG O2 Saturation ABG Base Excess Jace Test Oxygen Given Sodium Potassium Chloride Carbon Dioxide Anion Gap BUN Creatinine Est Cr Clr Drug Dosing Est GFR ( Amer) Est GFR (Non-Af Amer) BUN/Creatinine Ratio Glucose POC Glucose 83 Calcium Magnesium Total Bilirubin AST ALT Alkaline Phosphatase Ammonia 36.0 Troponin I High Sens 19.0 D Total Protein Albumin Globulin Albumin/Globulin Ratio Lipase Blood Parasites ID Discharge Plan Discharge Items Patient Disposition: Transfer Acute Care Hospital Reason For Visit: CHEST PAIN, AGITATION, TACHY Discharge Diagnosis: Benzodiazepine Use Disorder, Severe Benzodiazepine Withdrawal Opioid Use Disorder, Severe Condition on Discharge: Serious Activity: As commented below Activity Comment: Per medical tieam Non-emergency contact: Primary Care Provider and Hospitalist Call non-emergency contact if: you have any medication questions and your symptoms worsen Follow-up/Referrals: Nathaniel Masterson MD [Primary Care Provider] - Diet: Regular Addtl Attending Provider Instructions: SPECIAL CARE INSTRUCTIONS: 1. Follow through with your scheduled aftercare appointments. If unable to keep an appointment, please call to reschedule. 2. Take your medication only as prescribed. Medication should not be changed or stopped without the approval of your doctor. In the event of worsening symptoms or concerns about side effects, contact your doctor immediately. 3. Utilize new healthy coping skills, anger management skills, and stress management skills learned during your hospitalization. Journal feelings and process them with a support person. Identify stressors or situations that may result in relapse, deterioration or inappropriate behaviors and develop a plan to deal with those issues. 4. If your coping skills are ineffective and you are in crisis, contact your outpatient providers for direction. If unable to reach your providers, please call the [facility] CRISIS LINE AT , go to the [facility] walk-in center at [address], [address], [place], or go to the closest Emergency Room. 5. Avoid alcohol and un-prescribed drugs. 6. You have been provided with the Mental Health Advance Directives Pamphlet for your review. 7. Your condition is stable for discharge to outpatient level of care, but recovery is an ongoing process. Ifthoughts to harm yourself or others return, follow the safety plan developed during your stay. Planning for a safe return home includes securing weapons. Our treatment team recommends weaponsbe removed from the home until your outpatient provider reassesses your progress. In rare cases where the items themselvescannot be removed, guns and ammunitionshould be secured separatelyand keys stored by a reliable personoutside of the home. If you were admitted on an involuntary commitment, the police or other legal authorities may be involved in this process. AFTERCARE APPOINTMENTS: * Please call your insurance company prior to your scheduled appointment to confirm your aftercare providers are covered. Take your insurance information to your appointments. WHO TO CALL AND WHEN: Medical Emergencies: For questions or emergencies related to your hospital stay, please contact the Inpatient Behavioral Health Unit at [phone]. A psychology clinician is on-call 25/01 for the Behavioral Health Unit for emergencies At any time you feel your situation is an emergency, you may also call 911 immediately. Pending Studies at Discharge: Yes Stand-Alone Forms: My [facility] Skilled Items Patient informed of condition?: Yes DNR: No Discharge Level of Care: Other Communicable Disease: No Discharge Prognosis: Stable Lines: Peripheral IV Urinary Catheter: No Medications and DC Order Prescriptions: No Action amlodipine 5 mg tablet 5 mg PO QAM levothyroxine 25 mcg tablet 25 mcg PO DAILYBB Rx Instructions: PER FAMILY "JUST STARTED THIS MED AND THIS MIND THING STARTED HAPPENING". famotidine 20 mg tablet 20 mg PO QAM levalbuterol tartrate 45 mcg/actuation HFA aerosol inhaler 1 puff INHALATION Q4H PRN (Reason: Wheezing) carvedilol 3.125 mg Tablet 3.125 mg PO BIDM Qty: 1 0RF Admission Data Admit Date/Time: 08/30/23 06:44 Attending Provider: Sunday Chávez Admit Provider: Alexi Irvin Primary Care Provider: Nathaniel Masterson Other Providers: Oxana Hahn; Estella Bell; Naun Rainey; Shahid Cervantes; Deepak Osorio Jr; Vibha Kelley; Natan Schneider; Vibha Desai; Naun Espinosa; Kin Amaral; Marco A Stephens; Galo Molina; Estefania Sales; Zach Arzola; Wyatt Simon; Lois Espinosa; Manuel Xiong; Deirdre Tadeo; Ashley Youngblood; Galo Cummings; Molly Villalpando; Deepak Adams; Primitivo Hamilton; Eric Wayne; Keo Briones; Shahid Gomez; Radha Bautista; Vibha Bates; Molly Ferguson; Jose Humphrey; Bib Wilson; Cristina Knutson; Mounika Sandoval; Ifeanyi Grey; Mak Ayala
--- NOTE | 2023-08-30 16:45 | Psychiatric Consultation ---
Date of Consultation August 30, 2023 Impression / Recommendations Impression At this time, the attending physician and I agree that this is very likely a benzodiazepine withdrawal, possibly from a long-acting benzodiazepine. He is very likely in delirium tremens although this is not an alcohol-related problem. He is currently receiving Librium and was finally able to get some sleep. (1) Severe benzodiazepine use disorder: (2) Benzodiazepine withdrawal with delirium: Plan At this time, we will continue to monitor the patient and are available to answer any questions or concerns from a psychiatric point of view. At the time of discharge, if he is willing, we would recommend substance treatment, possibly at a residential care level. Other than his substance issues and subsequent withdrawal, we do not feel that he has a primary psychiatric diagnosis at this time otherwise. His Suboxone it is a very low dose. However, we will need to be careful of the use of Suboxone along with a benzodiazepine as both can be very sedating and possibly interfere with respiration. We will just need to keep this in mind and monitor. Psych History Identifying Data ANGELICA LANDEROS is a 68-year-old M who currently lives in [place], has a history of TBI, and was admitted on 08/25/23 20:43 on a 201 voluntary commitment for inability to function, terrell, and suicidal statement. He was transferred to the medical unit the morning of 08/30/23 due to delirium tremens. Chief Complaint Patient was asleep. History of Present Illness Please refer to the documentation from his psychiatric hospitalization August 25. Patient was on our unit due to concerns of possible Lewy body dementia and was denying any benzodiazepine use at the time. Later, we discovered that he had in fact been using benzodiazepines that he was obtaining illicitly. He slowly went into withdrawals and eventually delirium tremens. Early in the morning of August 30, a ellen larkin was called and he ended up being transferred to the intensive care unit on telemetry for safety and medical treatment. Allergies Allergy/AdvReac Type Severity Reaction Status Date / Time No Known Allergies Allergy Verified 08/25/23 16:19 Home Medications Medication Instructions Recorded Confirmed Type amlodipine 5 mg tablet 5 mg PO QAM 08/25/23 08/25/23 History famotidine 20 mg tablet 20 mg PO QAM 08/25/23 08/25/23 History levalbuterol tartrate 45 1 puff inhalation Q4H PRN Wheezing 08/25/23 08/25/23 History mcg/actuation aerosol inhaler levothyroxine 25 mcg tablet 25 mcg PO DAILYBB 08/25/23 08/25/23 History carvedilol 3.125 mg tablet 3.125 mg PO BIDM #1 tab 08/30/23 Rx Patient History Medical History (Updated 08/30/23 @ 16:44 by Deepak Osorio Jr, MD) Opioid use disorder, severe, dependence Hypothyroidism Tobacco use GERD (gastroesophageal reflux disease) History of drug abuse Emphysema/COPD Chronic hepatitis Hepatitis C Acute exacerbation of chronic obstructive pulmonary disease Concussion HTN (hypertension) Surgical History No pertinent past surgical history Family History Other Cancer Hypertension Social History Smoking Status: Current every day smoker Tobacco Type: Cigarettes Hx Alcohol Use: No Hx Substance Use: Yes Non-Prescribed Medications: Marijuana and Other Non- Prescribed Medications Comment: Opiates Last Used Substance: Unknown Substance Use Type Other:: Benzo's Preferred Language: Arabic Communication Ability: Effective Manager Medical Device Required: No Beliefs That Will Affect Care: None Current Living Situation: Family Current Living Situation Comment: Lives with sister Other Information That Helps Us Care for You: No Feels Safe at Home: Yes Gender Identity: Male Assistive Devices: Denture - Upper, Denture - Lower and Glasses Physical Exam Psychiatric: Patient was asleep when I met him today. He had been given Librium due to his delirium tremens. He was disheveled in a hospital gown. Eye contact was poor. He did not speak. Mood could not be assessed but affect was not distressed. We could nt assess thought process. There was no evidence of any hallucinations or delusions, but he had been hallucinating early this morning. We could not assess lethality. Memory and concentration were poor. No abnormal movements were seen while sleeping, but there were significant tremors early this morning. I did not evaluate gait. Insight and judgment are poor. Vital Signs (Past 24 Hours): Last Vital Signs Temp 36.5 C 08/30/23 12:23 Pulse 101 H 08/30/23 15:30 Resp 18 08/30/23 15:29 BP 134/80 08/30/23 15:30 Pulse Ox 97 08/30/23 15:29 O2 Del Method Room Air 08/30/23 15:29 O2 Flow Rate 2 08/30/23 13:00 Results & Data (PSY) Diagnostic Findings CT of the brain this morning without IV contrast showed no acute intracranial abnormality. Chest X chest x-ray this morning showed cardiomegaly and emphysema with no acute cardiopulmonary abnormality identified. EKG this morning showed: --Atrial fibrillation --ST elevation, consider early repolarization, pericarditis, or injury. --Abnormal ECG Medications Administered Amlodipine Besylate (Amlodipine Besylate 5 Mg Tab) 5 mg PO [facility] Stop: 09/29/23 08:59 Last Admin: 08/30/23 12:08 Dose: Not Given Documented By: ANTONI Buprenorphine/Naloxone (Buprenorphine/Naloxone 2/0.5mg 1 Tab) 0.5 tab SL [facility] Stop: 09/29/23 08:59 Last Admin: 08/30/23 12:08 Dose: Not Given Documented By: ANTONI Carvedilol (Carvedilol 3.125 Mg Tab) 3.125 mg PO BIDM [facility] Stop: 09/29/23 07:59 Last Admin: 08/30/23 12:08 Dose: Not Given Documented By: ANTONI Chlordiazepoxide HCl (Chlordiazepoxide Hcl 25 Mg Cap) 50 mg PO Q6H [facility] Stop: 08/31/23 06:01 Last Admin: 08/30/23 15:38 Dose: 50 mg Documented By: Admin: 08/30/23 13:28 Dose: Not Given Documented By: ANTONI Famotidine (Famotidine 20 Mg Tab) 20 mg PO [facility] Stop: 09/29/23 08:59 Last Admin: 08/30/23 12:08 Dose: Not Given Documented By: ANTONI Heparin Sodium (Porcine) (Heparin Sod 5,000 Unit/0.5 Ml Vial) 5,000 units SQ Q8 [facility] Stop: 09/29/23 13:59 Last Admin: 08/30/23 15:22 Dose: 5,000 units Documented By: ANTONI Lorazepam 0.5 mg/ Syringe 0.5 mls @ 2 mls/min IV Q4H PRN PRN Reason: Anxiety/Agitation Stop: 09/29/23 06:42 Last Admin: 08/30/23 14:36 Dose: 2 mls/min Documented By: VICTOR HUGO Admin: 08/30/23 10:30 Dose: 2 mls/min Documented By: ANTONI Sodium Chloride (Nss) 1,000 mls @ 80 mls/hr IV .[id number] [facility] Stop: 08/31/23 10:29 Last Admin: 08/30/23 10:30 Dose: 80 mls/hr Documented By: ANTONI Thiamine HCl 500 mg/ Sodium (Chloride) 55 mls @ 210 mls/hr IV Q8H [facility] Stop: 09/02/23 10:59 Last Infusion: 08/30/23 11:34 Dose: Infused Documented By: Admin: 08/30/23 11:18 Dose: 210 mls/hr Documented By: ANTONI Metoprolol Tartrate (Metoprolol Tartrate 1 Mg/Ml Vial) 2.5 mg IV Q4H [facility] Stop: 09/29/23 10:59 Last Admin: 08/30/23 15:30 Dose: Not Given Documented By: Admin: 08/30/23 10:57 Dose: 2.5 mg Documented By: ANTONI Nicotine (Nicotine 14 Mg/24 Hr Patch) 14 mg TD QAM [facility] Stop: 09/29/23 11:14 Last Admin: 08/30/23 12:50 Dose: 14 mg Documented By: ANTONI Coding Level of Care Code None Diagnoses Severe benzodiazepine use disorder F13.20 Benzodiazepine withdrawal with delirium F13.931 Time Spent (min) 30 Comment discharge visit on same day
[2023-08-30] MEDS ORDERED: METOPROLOL TARTRATE 1 MG/ML VIAL IV PRN (17:46)
--- NOTE | 2023-08-30 20:08 | Hospitalist Progress Note ---
Date of Service August 30, 2023 Assessment & Plan (1) Chest pain: Plan: Acute metabolic encephalopathy Likely delirium tremors secondary to benzo withdrawal --Less likely infectious source H/O traumatic brain injury H/O opioid use in the past currently on Suboxone Auditory hallucinations likely from withdrawal --MRI brain: No acute intracranial abnormality. --- Toxicology screen positive for oxazepam -- Normal TSH --Normal ammonia --VBG showed no signs of hypercarbia --Blood cultures pending -- EEG, urine for heavy metal, vitamin B12, copper levels pending --Added on Librium protocol Also started on thiamine Appreciate neurology, psychiatry input A-fib RVR Chest pain likely secondary to above Troponin negative Echo showed no wall motion abnormality. Continue IV metoprolol per cardiology Consider adding IV anticoagulation if needed Hypertension Likely situational Continue amlodipine, carvedilol COPD No signs of exacerbation Nebs as needed Tobacco use disorder Continue nicotine patch H/O HCV Hypothyroidism--continue levothyroxine H/O substance abuse--on Suboxone Severe protein calorie malnutrition: BMI 18 DVT Px: Heparin SQ DVT Px: Heparin SQ Code Status Full code Admission and Anticipated Discharge Date Admission Date: August 30, 2023 Subjective Patient is seen and examined at bedside Patient unable to provide any history due to lethargy Discussed with patient's sister at bedside Was found to be in A-fib RVR this morning Also discussed with psychiatrist today Likely in delirium tremors due to benzo withdrawal Review of Systems Review of Systems: All systems reviewed & are unremarkable except as noted in Subjective Physical Exam Physical Exam: Physical Exam: Vitals signs as noted above General Appearance:Thin, frail, restless Head: normocephalic, Atraumatic Eyes: normal inspection, EOMI Neck: supple, Trachea midline Respiratory/Chest: Normal breath sounds, CTA, No accessory muscle use Cardiovascular: Irregularly irregular, Tachycardia Abdomen/GI:Soft, Non tender, Bowel sounds present Extremities/Musculoskeletal:normal inspection, no edema Neurologic/Psych:AA, grossly no focal neurological deficits, +Tremor, confused Skin: normal color, warm Results & Data Results & Data Vital Signs (Past 12 Hours) Vital Signs Temp Pulse Resp BP Pulse Ox O2 Del Method O2 Flow Rate 08/30/23 17:29 91 H 23 142/69 H 97 Room Air 08/30/23 16:01 96 H 21 103/83 96 Room Air 08/30/23 16:00 36.6 C 08/30/23 15:30 101 H 134/80 08/30/23 15:29 101 H 18 134/80 97 Room Air 08/30/23 15:09 99 H 16 110/92 96 Room Air 08/30/23 14:00 85 20 129/76 94 Room Air 08/30/23 13:00 83 29 H 114/85 98 Oxymask 2 08/30/23 12:23 36.5 C 08/30/23 12:23 90 26 H 116/76 97 Oxymask 22 08/30/23 11:30 74 25 H 127/79 97 Oxymask 2 08/30/23 11:24 84 129/92 08/30/23 11:21 92 H 27 H 129/92 98 Oxymask 3 08/30/23 11:03 93 H 24 114/81 97 Oxymask 3 08/30/23 11:00 105 H 23 113/80 97 Oxymask 3 08/30/23 10:58 116 H 30 H 124/81 97 Oxymask 3 08/30/23 10:57 113 H 124/81 08/30/23 10:42 110 H 23 106/83 98 Oxymask 3 08/30/23 10:00 113 H 26 H 124/71 92 Oxymask 3 08/30/23 09:00 88 22 146/81 H 94 Oxymask 3 08/30/23 08:39 94 H 27 H 130/60 96 Oxymask 3 Laboratory Results Short CBC 08/30/23 Range/Units 07:08 WBC Cancelled Hgb Cancelled Hct Cancelled Plt Count Cancelled BMP 08/30/23 07:08 Sodium 143 Potassium 4.8 Chloride 105 Carbon Dioxide 23 BUN 67 H Creatinine 1.39 Glucose 73 Calcium 10.1 Liver Function 08/30/23 Range/Units 07:08 Total Bilirubin 1.2 H (0.2-1.0) mg/dl AST 89 H (13-39) U/L ALT 121 H (7-52) U/L Alkaline Phosphatase 24 L (34-104) U/L Albumin 4.5 (3.4-5.0) gm/dl (1) Chest pain Chest pain type: unspecified Qualified Code(s): R07.9 - Chest pain, unspecified
[2023-08-31 04:33] LABS: Hematocrit (blood only) 42.5 % (42.0-52.0); Hemoglobin 14.6 g/dl (14.0-18.0); Mean Corpuscular Hemoglobin 30.6 pg (25.0-34.0); Mean Corpuscular Hgb Conc 34.4 g/dL (32.0-36.0); Mean Corpuscular Volume 89.1 fL (80.0-100.0); Mean Platelet Volume 10.2 fL (9.4-12.4); Platelet Count 205 K/uL (130-400); RDW Coefficient of Variation 14.9 % (11.5-14.5); RDW Standard Deviation 49.1 fL (36.4-46.3); Red Blood Count 4.77 M/uL (4.70-6.10)
[2023-08-31 04:54] LABS: Albumin Level 3.5 gm/dl (3.4-5.0); BUN Creatinine Ratio 51.2 (10-20); Bilirubin Direct 0.2 mg/dl (0-0.2); Bilirubin,Total 1.1 mg/dl (0.2-1.0); Creatinine Clr Calc Pharmacy 66.2 ml/min; Est GFR (African American) 104.7 ml/min; Est GFR (Non-African American) 90.4 ml/min; Magnesium 2.3 mg/dl (1.7-2.4); Potassium 3.7 mmol/L (3.5-5.1)
[2023-08-31] MEDS: LEVOTHYROXINE SODIUM 25 MCG TABLET PO SCH (05:24)
[2023-08-31] MEDS: FOLIC ACID 1 MG TAB PO SCH (09:52)
--- NOTE | 2023-08-31 10:45 | Electrocardiogram Report ---
Test Reason : Blood Pressure : / mmHG Vent. Rate : 077 BPM Atrial Rate : 077 BPM P-R Int : 152 ms QRS Dur : 080 ms QT Int : 386 ms P-R-T Axes : 084 -55 079 degrees QTc Int : 436 ms Normal sinus rhythm Left axis deviation Abnormal ECG When compared with ECG of 30-AUG-2023 10:04, Sinus rhythm has replaced Atrial fibrillation Confirmed by Roger Scruggs ([id number]) on 08/31/2023 10:44:43 AM Referred By: Alexi Irvin Confirmed By:Roger Scruggs
[2023-08-31] MEDS: BUPRENORPHINE/NALOXONE 2/0.5MG 1 TAB SL SCH (10:54)
--- NOTE | 2023-08-31 11:36 | Cardiology Progress Note ---
Date of Service August 31, 2023 Assessment & Plan (1) Paroxysmal atrial fibrillation: (2) Benzodiazepine withdrawal with delirium: Plan Patient admitted to [facility] on 08/[facility] with confusion/delirium/suicidal ideation. Diagnosed with benzodiazepine withdrawal and delirium. Developed paroxysmal atrial fibrillation yesterday to 08/30/2023 in the setting of benzodiazepine withdrawal. Patient spontaneously converted to normal sinus rhythm at 3 PM after beta-sonal therapy. Echocardiogram without evidence of valvular disease or LV dysfunction. Recommend continue oral beta-sonal therapy. Will not add anticoagulant at this time as the episode of atrial fibrillation was brief and in the setting of reversible causes (benzodiazepine withdrawal). Continue telemetry. Add low-dose aspirin 81 mg daily. I spent a total of 40 minutes on the date of service in preparation, delivery, and documentation of the care provided to this patient, excluding any time spent in the performance of separately billed services. Admission and Anticipated Discharge Date Admission Date: August 30, 2023 Subjective 68-year-old male seen and examined at the bedside. Sedated. Unable to answer questions. Cannot offer meaningful history. Converted to sinus rhythm on telemetry yesterday at approximately 3 PM. No recurrence overnight. Able to take oral medications per discussion with nursing. Carvedilol restarted. Review of Systems Review of Systems: Unobtainable due to cognitive status Physical Exam Constitutional: well developed and well nourished; no acute distress Respiratory: + abnormal respiratory effort, no respir atory distress and no retractions Auscultation: lungs clear to auscultation bilaterally; no crackles, no rales, no rhonchi and no wheezes Cardiovascular: Rate/Rhythm: regular rate and regular rhythm Heart Sounds: normal S1 and normal S2; no murmur Vessels: radial pulses present; no JVD and no carotid bruit Gastrointestinal (Abdomen): Inspection/Auscultation: abdomen normal to inspection and normal bowel sounds; abdomen not distended Percussion/Palpation: abdomen soft; abdomen nontender, no guarding and abdomen not rigid Results & Data Vital Signs (Past 12 Hours) Vital Signs Temp Pulse Pulse Resp BP BP Pulse Ox 08/31/23 11:00 36.5 C 08/31/23 10:01 91 H 19 126/66 93 08/31/23 09:54 84 25 H 106/75 08/31/23 07:44 36.4 C L 84 28 H 134/82 94 08/31/23 07:42 80 17 134/82 08/31/23 03:21 36.6 C 84 14 124/71 96 08/31/23 02:00 36.6 C 78 14 152/83 H 94 08/31/23 00:00 96 H 19 O2 Del Method 08/31/23 11:00 08/31/23 10:01 Room Air 08/31/23 09:54 08/31/23 07:44 Room Air 08/31/23 07:42 08/31/23 03:21 Room Air 08/31/23 02:00 Room Air 08/31/23 00:00 Laboratory Results Cardiac Enzymes 08/30/23 08/31/23 Range/Units 12:55 03:52 AST 56 H (13-39) U/L Troponin I High Sens 19.0 D (0-20) pg/ml Coagulation 08/30/23 Range/Units 12:55 PT 13.0 H (9.0-12.0) Seconds CBC 08/31/23 Range/Units 03:52 WBC 9.50 (4.8-10.8) K/ul RBC 4.77 (4.70-6.10) M/uL Hgb 14.6 (14.0-18.0) g/dl Hct 42.5 (42.0-52.0) % Plt Count 205 (130-400) K/uL Comprehensive Metabolic Panel 08/31/23 Range/Units 03:52 Sodium 138 (136-145) mmol/L Potassium 3.7 D (3.5-5.1) mmol/L Chloride 105 (98-107) mmol/L Carbon Dioxide 26 (21-32) mmol/L BUN 44 H D (6-23) mg/dl Creatinine 0.86 D (0.6-1.4) mg/dl Glucose 91 (70-99(Fasting)) mg/dl Calcium 8.0 L D (8.6-10.3) mg/dl Direct Bilirubin 0.2 (0-0.2) mg/dl AST 56 H (13-39) U/L ALT 87 H (7-52) U/L Alkaline Phosphatase 19 L (34-104) U/L Total Protein 6.0 (6.0-8.3) gm/dl Albumin 3.5 (3.4-5.0) gm/dl Intake and Output 08/30/23 08/31/23 08/31/23 22:59 06:59 14:59 Intake Total 952.333 / 1162.333 55 / 7863.732 8537 / 1055 Output Total 650 / 0 775 / 1890 Balance 302.333 / -727.667 -720 / -542.103 7844 / 1055 Intake: IV 952.333 / 1162.333 55 / 5603.986 9224 / 1055 Sodium Chloride 0.9% 1,000 ml @ 897.333 / 403.110 4869 / 1000 80 mls/hr IV .[id number] [facility] Rx#: [id number] Thiamine HCl 500 mg In Sodium 55 / 165 55 / 165 55 / 55 Chloride 0.9% 50 ml @ 210 mls/ hr IV Q8H [facility] Rx#:[id number] Output: Urine Amount (Catheter) 650 / 0 775 / 1890 Turner/Indwelling 650 / 0 775 / 1890 Other: Weight 56.3 kg Weight Measurement Method Built in [facility]
[2023-08-31] MEDS: chlordiazePOXIDE HCl 25 MG CAP PO SCH (13:57)
[2023-08-31] MEDS: ACETAMINOPHEN 325 MG TAB PO PRN (15:53)
--- NOTE | 2023-08-31 16:43 | Hospitalist Progress Note ---
Date of Service August 31, 2023 Assessment & Plan (1) Chest pain: Plan: Acute metabolic encephalopathy Likely delirium tremors secondary to benzo withdrawal --Less likely infectious source H/O traumatic brain injury H/O opioid use in the past currently on Suboxone Auditory hallucinations likely from withdrawal --MRI brain: No acute intracranial abnormality. --- Toxicology screen positive for oxazepam -- Normal TSH --Normal ammonia, vitamin B12 levels --VBG showed no signs of hypercarbia --Blood cultures: No growth -- EEG, urine for heavy metal, copper levels pending -- Continue Librium protocol, thiamine Appreciate neurology, psychiatry input Mental status much improved Plan to slowly wean off of Suboxone A-fib RVR Chest pain likely secondary to above Troponin negative Echo showed no wall motion abnormality, valvular heart disease Spontaneously converted to sinus. Given brief episode, no plan for anticoagulation Continue Coreg, aspirin 81 mg daily per cardiology Appreciate cardiology input Hypertension Likely situational Continue amlodipine, carvedilol COPD No signs of exacerbation Nebs as needed Tobacco use disorder Continue nicotine patch H/O HCV Hypothyroidism--continue levothyroxine H/O substance abuse--on Suboxone Severe protein calorie malnutrition: BMI 18 DVT Px: Heparin SQ Code Status Full code Admission and Anticipated Discharge Date Admission Date: August 30, 2023 Subjective Patient is seen and examined at bedside Patient's mental status much improved Alert, awake, oriented x 2 during my encounter Discussed with psychiatry today Patient offers no new complaints today Denies any chest pain, dyspnea, dizziness, nausea, vomiting, abdominal pain In sinus this morning Hallucinations resolved per patient Sitter at bedside Review of Systems Review of Systems: All systems reviewed & are unremarkable except as noted in Subjective Physical Exam Physical Exam: Physical Exam: Vitals signs as noted above General Appearance:Thin, frail, no apparent distress Head: normocephalic, Atraumatic Eyes: normal inspection, EOMI Neck: supple, Trachea midline Respiratory/Chest: Normal breath sounds, CTA, No accessory muscle use Cardiovascular:S1, S2, no murmur Abdomen/GI:Soft, Non tender, Bowel sounds present Extremities/Musculoskeletal:normal inspection, no edema Neurologic/Psych:AAOX2, grossly no focal neurological deficits Skin: normal color, warm Results & Data Results & Data Vital Signs (Past 12 Hours) Vital Signs Temp Pulse Pulse Resp BP BP Pulse Ox 08/31/23 16:00 36.4 C L 08/31/23 15:47 81 25 H 138/75 96 08/31/23 12:03 87 24 139/76 92 08/31/23 12:01 36.3 C L 85 20 139/76 95 08/31/23 11:00 36.5 C 08/31/23 10:01 91 H 19 126/66 93 08/31/23 09:54 84 25 H 106/75 08/31/23 07:44 36.4 C L 84 28 H 134/82 94 08/31/23 07:42 80 17 134/82 O2 Del Method O2 Flow Rate 08/31/23 16:00 08/31/23 15:47 Nasal Cannula 2 08/31/23 12:03 Room Air 08/31/23 12:01 Room Air 08/31/23 11:00 08/31/23 10:01 Room Air 08/31/23 09:54 08/31/23 07:44 Room Air 08/31/23 07:42 Laboratory Results Short CBC 08/31/23 Range/Units 03:52 WBC 9.50 (4.8-10.8) K/ul Hgb 14.6 (14.0-18.0) g/dl Hct 42.5 (42.0-52.0) % Plt Count 205 (130-400) K/uL BMP 08/31/23 03:52 Sodium 138 Potassium 3.7 D Chloride 105 Carbon Dioxide 26 BUN 44 H D Creatinine 0.86 D Glucose 91 Calcium 8.0 L D Liver Function 08/31/23 Range/Units 03:52 Total Bilirubin 1.1 H (0.2-1.0) mg/dl Direct Bilirubin 0.2 (0-0.2) mg/dl AST 56 H (13-39) U/L ALT 87 H (7-52) U/L Alkaline Phosphatase 19 L (34-104) U/L Albumin 3.5 (3.4-5.0) gm/dl (1) Chest pain Chest pain type: unspecified Qualified Code(s): R07.9 - Chest pain, unspecified
--- NOTE | 2023-08-31 17:02 | Psychiatric Progress Note ---
Date of Service August 31, 2023 Impression / Recommendations Impression At this time, the attending physician and I agree that this is very likely a benzodiazepine withdrawal, possibly from a long-acting benzodiazepine. He is very likely in delirium tremens although this is not an alcohol-related problem. He is currently receiving Librium and was finally able to get some sleep. 08/31/23: Patient is definitely improved significantly but is still going through withdrawals and requiring benzodiazepines to keep things under control. Given the recent substance abuse with the benzodiazepines, it is pretty unlikely that his outpatient provider will be willing to continue to prescribe Suboxone. As he gets closer to discharge, we need to determine where he is going to discharge to. He cannot stay with his sister while she is on vacation, but I do not yet know when she is going to return. (1) Severe benzodiazepine use disorder: (2) Benzodiazepine withdrawal with delirium: Plan At this time, we will continue to monitor the patient and are available to answer any questions or concerns from a psychiatric point of view. At the time of discharge, if he is willing, we would recommend substance treatment, possibly at a residential care level. Other than his substance issues and subsequent withdrawal, we do not feel that he has a primary psychiatric diagnosis at this time otherwise. His Suboxone it is a very low dose. However, we will need to be careful of the use of Suboxone along with a benzodiazepine as both can be very sedating and possibly interfere with respiration. We will just need to keep this in mind and monitor. 08/31/23: Psychiatry will continue to follow this gentleman. I provided a PDMP report to Dr. Chávez showing that the Suboxone had started in May. There is no evidence of any benzodiazepines that had been prescribed in the last several years. I suggest having the pharmacist get involved to see how quickly we can get him off the Suboxone. He was not on a very big dose, but I do not want to make him feel worse especially in the midst of a benzodiazepine withdrawal. Today I spent 39 minutes on the case. This included meeting with the patient, meeting with the ICU nurse, meeting with the mental health nurse liaison, discussing the case with Dr. Chávez, review of the chart, and documentation. Suicide Risk Level Suicide Risk Level: Low (q15 min observation checks) Interval History Identifying Information ANGELICA LANDEROS is a 68-year-old M who currently lives in [place], has a history of TBI, and was admitted on 08/25/23 20:43 on a 201 voluntary commitment for inability to function, terrell, and suicidal statement. He was transferred to the medical unit the morning of 08/30/23 due to delirium tremens. Chief Complaint "What is going on?" Subjective Subjective Today I met with the patient, received nursing report, and reviewed the chart. I also discussed the case with Dr. Chávez, the attending. I also discussed the case with the mental health nurse liaison. Angelica has been going through severe benzodiazepine withdrawal with delirium tremens but is doing much better today. Nurse reported that the tremors have subsided quite a bit but are not completely gone. He has been able to rest and he is eating and much more coherent. When I met with the patient today, he was laying in bed taking a nap but easily awakened. He is a little bit confused about what happened over the last few days and he was disoriented to time, but he is much clearer in his interactions. The tremors have significantly decreased although I did see a very mild tremor in his hands. The nurse reported that the patient is worried that he will no longer be able to get his Suboxone. He also does not know where he is going to go next because his sister is going away on vacation in a day or 2 and will not allow him to live in her house during that time. The patient denied any suicidal or homicidal thoughts. He just seems somewhat frustrated about the helplessness that he has right now. Physical Exam Psychiatric Patient was alert and oriented x 2. He knew he was at [facility] in [place], but he did not know what floor. He also did not know the date at all. He was disheveled in a hospital gown in bed. Speech was normal. Mood was frustrated. Affect was congruent. Thought process seem much more logical but not very goal-directed right now. There was no evidence of any hallucinations or delusions today. He denied suicidal or homicidal thoughts. Memory seems a lot better but still not great. Concentration was better. No abnormal movements were seen other than the mild tremor I described above. I did not evaluate his gait. Insight and judgment are still pretty poor. Vital Signs (Past 24 Hours) Last Vital Signs Temp 36.4 C L 08/31/23 16:00 Pulse 81 08/31/23 15:47 Resp 25 H 08/31/23 15:47 BP 138/75 08/31/23 15:47 Pulse Ox 96 08/31/23 15:47 O2 Del Method Nasal Cannula 08/31/23 15:47 O2 Flow Rate 2 08/31/23 15:47 Results & Data ([facility] [email or web address] Laboratory Results Laboratory Results - last 24 hr 08/30/23 08/30/23 08/30/23 07:15 18:37 23:34 WBC RBC Hgb Hct MCV MCH MCHC RDW Std Deviation RDW Coeff of Naun Plt Count MPV Sodium Potassium Chloride Carbon Dioxide Anion Gap BUN Creatinine Est Cr Clr Drug Dosing Est GFR ( Amer) Est GFR (Non-Af Amer) BUN/Creatinine Ratio Glucose POC Glucose 83 78 Calcium Magnesium Total Bilirubin Direct Bilirubin AST ALT Alkaline Phosphatase Total Protein Albumin Vitamin B12 Nasal Screen MRSA (PCR) Negative Serum Copper 08/31/23 03:52 WBC 9.50 RBC 4.77 Hgb 14.6 Hct 42.5 MCV 89.1 MCH 30.6 MCHC 34.4 RDW Std Deviation 49.1 H RDW Coeff of Naun 14.9 H Plt Count 205 MPV 10.2 Sodium 138 Potassium 3.7 D Chloride 105 Carbon Dioxide 26 Anion Gap 7 BUN 44 H D Creatinine 0.86 D Est Cr Clr Drug Dosing 66.2 Est GFR ( Amer) 104.7 Est GFR (Non-Af Amer) 90.4 BUN/Creatinine Ratio 51.2 H Glucose 91 POC Glucose Calcium 8.0 L D Magnesium 2.3 Total Bilirubin 1.1 H Direct Bilirubin 0.2 AST 56 H ALT 87 H Alkaline Phosphatase 19 L Total Protein 6.0 Albumin 3.5 Vitamin B12 629 Nasal Screen MRSA (PCR) Serum Copper Pending Current Inpatient Medications Current Inpatient Medications: Current Inpatient Medications Acetaminophen (Acetaminophen 325 Mg Tab) 650 mg PO Q4H PRN PRN Reason: Pain or Fever Stop: 09/29/23 06:44 Last Admin: 08/31/23 15:53 Dose: 650 mg Amlodipine Besylate (Amlodipine Besylate 5 Mg Tab) [facility] [place]: 09/29/23 08:59 Last Admin: 08/31/23 09:52 Dose: 5 mg Aspirin (Aspirin 81 Mg Ectab) 81 [facility] [place]: 10/01/23 08:59 Buprenorphine/Naloxone (Buprenorphine/Naloxone 2/0.5mg 1 Tab) 1 tab SL Q2D [facility] Stop: 10/01/23 08:59 Carvedilol (Carvedilol 3.125 Mg Tab) 3.125 mg PO BIDM [facility] Stop: 09/29/23 07:59 Last Admin: 08/31/23 16:35 Dose: 3.125 mg Chlordiazepoxide HCl (Chlordiazepoxide Hcl 25 Mg Cap) 25 mg PO Q8H [facility] Stop: 09/02/23 06:01 Chlordiazepoxide HCl (Chlordiazepoxide Hcl 10 Mg Cap) 10 mg PO Q12H [facility] Stop: 09/03/23 06:01 Chlordiazepoxide HCl (Chlordiazepoxide Hcl 25 Mg Cap) 50 mg PO Q8H [facility] Stop: 09/01/23 06:01 Last Admin: 08/31/23 13:57 Dose: 50 mg Famotidine (Famotidine 20 Mg Tab) 20 mg PO QAM [facility] Stop: 09/29/23 08:59 Last Admin: 08/31/23 09:52 Dose: 20 mg Folic Acid (Folic Acid 1 Mg Tab) 1 mg PO QAM [facility] Stop: 09/30/23 08:59 Last Admin: 08/31/23 09:52 Dose: 1 mg Heparin Sodium (Porcine) (Heparin Sod 5,000 Unit/0.5 Ml Vial) 5,000 units SQ Q8 [facility] Stop: 09/29/23 13:59 Last Admin: 08/31/23 13:58 Dose: 5,000 units Lorazepam 0.5 mg/ Syringe 0.5 mls @ 2 mls/min IV Q4H PRN PRN Reason: Anxiety/Agitation Stop: 09/29/23 06:42 Last Admin: 08/30/23 22:20 Dose: 2 mls/min Thiamine HCl 500 mg/ Sodium (Chloride) 55 mls @ 210 mls/hr IV Q8H [facility] Stop: 09/02/23 10:59 Last Infusion: 08/31/23 11:15 Dose: Infused Ipratropium [place] (Ipratropium [place] Neb Soln 0.02% 0.5mg/2.5ml Vial) 0.5 mg INH Q4H PRN PRN Reason: sob Stop: 09/29/23 06:59 Levalbuterol HCl (Levalbuterol 1.25 Mg/3 Ml Neb) 1.25 mg NEB Q4H PRN PRN Reason: sob Stop: 09/29/23 06:59 Levothyroxine Sodium (Levothyroxine Sodium 25 Mcg Tablet) 25 mcg PO DAILYBB [facility] Stop: 09/30/23 06:29 Last Admin: 08/31/23 05:24 Dose: 25 mcg Metoprolol Tartrate (Metoprolol Tartrate 1 Mg/Ml Vial) 2.5 mg IV Q4H PRN PRN Reason: Tachycardia Stop: 09/29/23 10:59 Miscellaneous (Remove Nicoderm Patch) 1 each N/A DAILY@0859 [facility] Stop: 09/30/23 08:58 Last Admin: 08/31/23 09:20 Dose: 1 each Nicotine (Nicotine 14 Mg/24 Hr Patch) 14 mg TD QAM [facility] Stop: 09/29/23 11:14 Last Admin: 08/31/23 09:20 Dose: 14 mg Nitroglycerin (Nitroglycerin Sl 0.4 Mg/Tab Tab) 0.4 mg SL Q5M PRN PRN Reason: Chest Pain Stop: 09/29/23 06:44
--- NOTE | 2023-08-31 23:24 | Electroencephalogram ---
EEG Procedure Note Date of Service August 31, 2023 Start / End Times Start Time: 06:43 End Time: 07:03 Referring Physician Sunday Chávez History A 68 year old male with altered mental status. EEG performed for evaluation of epileptiform activity. Home Medication List Medication Instructions Recorded Confirmed Type amlodipine 5 mg tablet 5 mg PO QAM 08/25/23 08/30/23 History famotidine 20 mg tablet 20 mg PO QAM 08/25/23 08/30/23 History levalbuterol tartrate 45 1 puff inhalation Q4H PRN Wheezing 08/25/23 08/30/23 History mcg/actuation aerosol inhaler levothyroxine 25 mcg tablet 25 mcg PO DAILYBB 08/25/23 08/30/23 History buprenorphine 2 mg-naloxone 0.5 mg 1 tab sublingual DAILY 08/30/23 08/30/23 History sublingual tablet carvedilol 3.125 mg tablet (Coreg) 0 mg PO BID 08/30/23 08/30/23 History naloxone 4 mg/actuation nasal spray 1 spray intranasal UD 08/30/23 08/30/23 History Inpatient Medication List Acetaminophen (Acetaminophen 325 Mg Tab) 650 mg PO Q4H PRN PRN Reason: Pain or Fever Stop: 09/29/23 06:44 Last Admin: 08/31/23 15:53 Dose: 650 mg Documented By: ANTONI Amlodipine Besylate (Amlodipine Besylate 5 Mg Tab) 5 mg PO QAM [facility] Stop: 09/29/23 08:59 Last Admin: 08/31/23 09:52 Dose: 5 mg Documented By: Admin: 08/30/23 12:08 Dose: Not Given Documented By: ANTONI Carvedilol (Carvedilol 3.125 Mg Tab) 3.125 mg PO BIDM [facility] Stop: 09/29/23 07:59 Last Admin: 08/31/23 16:35 Dose: 3.125 mg Documented By: Admin: 08/31/23 09:20 Dose: 3.125 mg Documented By: Admin: 08/30/23 17:27 Dose: 3.125 mg Documented By: Admin: 08/30/23 12:08 Dose: Not Given Documented By: ANTONI Chlordiazepoxide HCl (Chlordiazepoxide Hcl 25 Mg Cap) 50 mg PO Q8H [facility] Stop: 09/01/23 06:01 Last Admin: 08/31/23 21:35 Dose: 50 mg Documented By: Admin: 08/31/23 13:57 Dose: 50 mg Documented By: ANTONI Famotidine (Famotidine 20 Mg Tab) 20 mg PO [facility] Stop: 09/29/23 08:59 Last Admin: 08/31/23 09:52 Dose: 20 mg Documented By: Admin: 08/30/23 12:08 Dose: Not Given Documented By: ANTONI Folic Acid (Folic Acid 1 Mg Tab) 1 mg PO [facility] Stop: 09/30/23 08:59 Last Admin: 08/31/23 09:52 Dose: 1 mg Documented By: ANTONI Heparin Sodium (Porcine) (Heparin Sod 5,000 Unit/0.5 Ml Vial) 5,000 units SQ Q8 [facility] Stop: 09/29/23 13:59 Last Admin: 08/31/23 21:35 Dose: 5,000 units Documented By: Admin: 08/31/23 13:58 Dose: 5,000 units Documented By: Admin: 08/31/23 05:23 Dose: 5,000 units Documented By: Admin: 08/30/23 21:42 Dose: 5,000 units Documented By: Admin: 08/30/23 15:22 Dose: 5,000 units Documented By: ANTONI Lorazepam 0.5 mg/ Syringe 0.5 mls @ 2 mls/min IV Q4H PRN PRN Reason: Anxiety/Agitation Stop: 09/29/23 06:42 Last Admin: 08/30/23 22:20 Dose: 2 mls/min Documented By: Admin: 08/30/23 14:36 Dose: 2 mls/min Documented By: VICTOR HUGO Admin: 08/30/23 10:30 Dose: 2 mls/min Documented By: ANTONI Thiamine HCl 500 mg/ Sodium (Chloride) 55 mls @ 210 mls/hr IV Q8H [facility] Stop: 09/02/23 10:59 Last Infusion: 08/31/23 18:31 Dose: Infused Documented By: Admin: 08/31/23 18:13 Dose: 210 mls/hr Documented By: Infusion: 08/31/23 11:15 Dose: Infused Documented By: Admin: 08/31/23 10:55 Dose: 210 mls/hr Documented By: Infusion: 08/31/23 03:20 Dose: Infused Documented By: Admin: 08/31/23 03:00 Dose: 210 mls/hr Documented By: Infusion: 08/30/23 18:39 Dose: Infused Documented By: Admin: 08/30/23 18:23 Dose: 210 mls/hr Documented By: Infusion: 08/30/23 11:34 Dose: Infused Documented By: Admin: 08/30/23 11:18 Dose: 210 mls/hr Documented By: ANTONI Levothyroxine Sodium (Levothyroxine Sodium 25 Mcg Tablet) [facility] Stop: 09/30/23 06:29 Last Admin: 08/31/23 05:24 Dose: 25 mcg Documented By: JUAN Miscellaneous (Remove Nicoderm Patch) 1 each N/A DAILY@0859 [facility] Stop: 09/30/23 08:58 Last Admin: 08/31/23 09:20 Dose: 1 each Documented By: ANTONI Nicotine (Nicotine 14 Mg/24 Hr Patch) 14 mg TD [facility] Stop: 09/29/23 11:14 Last Admin: 08/31/23 09:20 Dose: 14 mg Documented By: Admin: 08/30/23 12:50 Dose: 14 mg Documented By: ANTONI Discontinued Medications Buprenorphine/Naloxone (Buprenorphine/Naloxone 2/0.5mg 1 Tab) 0.5 tab [facility] Stop: 09/29/23 08:59 Last Admin: 08/31/23 10:08 Dose: Not Given Documented By: Admin: 08/30/23 12:08 Dose: Not Given Documented By: ANTONI Buprenorphine/Naloxone (Buprenorphine/Naloxone 2/0.5mg 1 Tab) 1 tab [facility] Stop: 09/30/23 10:14 Last Admin: 08/31/23 10:54 Dose: Not Given Documented By: ANTONI Chlordiazepoxide HCl (Chlordiazepoxide Hcl 25 Mg Cap) 50 mg PO Q6H [facility] Stop: 08/31/23 06:01 Last Admin: 08/31/23 05:24 Dose: 50 mg Documented By: Admin: 08/30/23 23:52 Dose: 50 mg Documented By: Admin: 08/30/23 15:38 Dose: 50 mg Documented By: Admin: 08/30/23 13:28 Dose: Not Given Documented By: ANTONI Lorazepam 0.25 mg/ Syringe 0.25 mls @ 2 mls/min IV NOW STA Stop: 08/30/23 06:45 Last Admin: 08/30/23 06:50 Dose: 2 mls/min Documented By: ANTONI Acetaminophen (Ofirmev) 1,000 mg in 100 mls @ 400 mls/hr IV NOW STA Stop: 08/30/23 07:01 Last Infusion: 08/30/23 07:44 Dose: Infused Documented By: Admin: 08/30/23 07:29 Dose: 400 mls/hr Documented By: ANTONI Sodium Chloride (Nss) 1,000 mls @ 80 mls/hr IV .[id number] [facility] Stop: 08/31/23 10:29 Last Infusion: 08/31/23 09:33 Dose: Infused Documented By: Admin: 08/30/23 21:43 Dose: 80 mls/hr Documented By: Infusion: 08/30/23 21:43 Dose: Infused Documented By: Admin: 08/30/23 10:30 Dose: 80 mls/hr Documented By: ANTONI Metoprolol Tartrate (Metoprolol Tartrate 1 Mg/Ml Vial) 2.5 mg IV Q4H [facility] Stop: 09/29/23 10:59 Last Admin: 08/30/23 15:30 Dose: Not Given Documented By: Admin: 08/30/23 10:57 Dose: 2.5 mg Documented By: ANTONI Miscellaneous (Patient's Height &/Or Weight Needed) 1 each N/A NOW STA Stop: 08/30/23 06:56 Last Admin: 08/30/23 07:28 Dose: 1 each Documented By: ANTONI Description This is a 21 electrode EEG with a single channel dedicated to limited EKG. The electrodes were placed in accordance with the International 10-20 system. REPORT: At the onset of the EEG the patient is an altered mental state. The b ackground is symmetric. The posterior rhythm is not seen. The background is suppressed with superimposed low amplitude beta activity. Photic does not induce any abnormalities. Interpretation IMPRESSION: This is an abnormal routine EEG in a patient with altered mentation due to 1. Generalized background slowing suggestive of a non specific encepha lopathy, 2. Excessive beta activity is a normal variant and likely secondary to medication side effect ( ie benzodiazepines). No epileptiform activity is seen.
[2023-09-01] MEDS: MELATONIN 3 MG TAB PO PRN (03:24)
[2023-09-01 05:00] LABS: Hematocrit (blood only) 45.8 % (42.0-52.0); Hemoglobin 15.3 g/dl (14.0-18.0); Mean Corpuscular Hemoglobin 30.4 pg (25.0-34.0); Mean Corpuscular Hgb Conc 33.4 g/dL (32.0-36.0); Mean Corpuscular Volume 90.9 fL (80.0-100.0); Mean Platelet Volume 10.4 fL (9.4-12.4); Platelet Count 179 K/uL (130-400); RDW Coefficient of Variation 15.1 % (11.5-14.5); RDW Standard Deviation 50.3 fL (36.4-46.3); Red Blood Count 5.04 M/uL (4.70-6.10)
[2023-09-01 05:11] LABS: Calcium 8.3 mg/dl (8.6-10.3); Creatinine Clr Calc Pharmacy 79.3 ml/min; Est GFR (Non-African American) 96.7 ml/min
[2023-09-01] MEDS: ASPIRIN 81 MG ECTAB PO SCH (08:39)
[2023-09-01] MEDS: BUPRENORPHINE/NALOXONE 2/0.5MG 1 TAB SL SCH (08:45)
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
[2023-09-01] MEDS: chlordiazePOXIDE HCl 25 MG CAP PO SCH (13:19)
--- NOTE | 2023-09-01 16:08 | Hospitalist Progress Note ---
Date of Service September 01, 2023 Assessment & Plan (1) Chest pain: Plan: Acute metabolic encephalopathy Likely delirium tremors secondary to benzo withdrawal --Less likely infectious source H/O traumatic brain injury H/O opioid use in the past currently on Suboxone Auditory hallucinations likely from withdrawal --MRI brain: No acute intracranial abnormality. --- Toxicology screen positive for oxazepam -- Normal TSH --EEG:This is an abnormal routine EEG in a patient with altered mentation due to 1. Generalized background slowing suggestive of a non specific encephalopathy, 2. Excessive beta activity is a normal variant and likely secondary to medication side effect ( ie benzodiazepines). No epileptiform activity is seen. --Normal ammonia, vitamin B12 levels --VBG showed no signs of hypercarbia --Blood cultures: No growth --Urine for heavy metal, copper levels pending -- Continue Librium protocol, thiamine Appreciate neurology, psychiatry input Continue to taper down Suboxone as able Transition to p.o. thiamine after 3 days of IV treatment Blood cultures remain negative Psychiatry following A-fib RVR Chest pain likely secondary to above Troponin negative Echo showed no wall motion abnormality, valvular heart disease Spontaneously converted to sinus. Given brief episode, no plan for anticoagulation Continue Coreg, aspirin 81 mg daily per cardiology Appreciate cardiology input Hypertension Likely situational Continue amlodipine, carvedilol COPD No signs of exacerbation Nebs as needed Tobacco use disorder Continue nicotine patch H/O HCV Hypothyroidism--continue levothyroxine H/O substance abuse--on Suboxone Severe protein calorie malnutrition: BMI 18 DVT Px: Heparin SQ Code Status Full code Admission and Anticipated Discharge Date Admission Date: August 30, 2023 Subjective Patient is seen and examined at bedside No new complaints Denies any chest pain, dyspnea, dizziness, nausea, vomiting, abdominal pain Tolerating current diet Discussed with psychiatry today Denies any hallucinations today Currently has no withdrawal symptoms Review of Systems Review of Systems: All systems reviewed & are unremarkable except as noted in Subjective Physical Exam Physical Exam: Physical Exam: Vitals signs as noted above General Appearance:Thin, frail, no apparent distress Head: normocephalic, Atraumatic Eyes: normal inspection, EOMI Neck: supple, Trachea midline Respiratory/Chest: Normal breath sounds, CTA, No accessory muscle use Cardiovascular:S1, S2, no murmur Abdomen/GI:Soft, Non tender, Bowel sounds present Extremities/Musculoskeletal:normal inspection, no edema Neurologic/Psych:AAOX2, grossly no focal neurological deficits Skin: normal color, warm Results & Data Results & Data Vital Signs (Past 12 Hours) Vital Signs Temp Pulse Resp BP Pulse Ox O2 Del Method O2 Flow Rate 09/01/23 12:00 78 25 H 96 09/01/23 12:00 123/76 09/01/23 12:00 37.1 C 09/01/23 10:00 70 23 98 09/01/23 08:00 69 24 95 09/01/23 08:00 138/70 09/01/23 08:00 Nasal Cannula 2 09/01/23 08:00 36.5 C Laboratory Results Short CBC 09/01/23 Range/Units 04:24 WBC 6.40 (4.8-10.8) K/ul Hgb 15.3 (14.0-18.0) g/dl Hct 45.8 (42.0-52.0) % Plt Count 179 (130-400) K/uL BMP 09/01/23 04:24 Sodium 137 Potassium 4.0 Chloride 106 Carbon Dioxide 26 BUN 27 H Creatinine 0.73 Glucose 102 H Calcium 8.3 L (1) Chest pain Chest pain type: unspecified Qualified Code(s): R07.9 - Chest pain, unspecified
[2023-09-02 04:29] LABS: BUN Creatinine Ratio 25.6 (10-20); Calcium 8.2 mg/dl (8.6-10.3); Creatinine Clr Calc Pharmacy 75.6 ml/min; Est GFR (Non-African American) 94.1 ml/min; Potassium 3.8 mmol/L (3.5-5.1)
--- NOTE | 2023-09-02 13:36 | Psychiatric Progress Note ---
Date of Service September 02, 2023 Impression / Recommendations Impression At this time, the attending physician and I agree that this is very likely a benzodiazepine withdrawal, possibly from a long-acting benzodiazepine. He is very likely in delirium tremens although this is not an alcohol-related problem. He is currently receiving Librium and was finally able to get some sleep. 08/31/23: Patient is definitely improved significantly but is still going through withdrawals and requiring benzodiazepines to keep things under control. Given the recent substance abuse with the benzodiazepines, it is pretty unlikely that his outpatient provider will be willing to continue to prescribe Suboxone. As he gets closer to discharge, we need to determine where he is going to discharge to. He cannot stay with his sister while she is on vacation, but I do not yet know when she is going to return. 09/01/23: Patient is continuing to improve and seems to be tolerating the detox well. Cognitively, he is doing much better and I think that all of the problems were basically just benzodiazepine withdrawals. Hopefully, we will continue to see further improvement. 09/02/23: Continued improvement. Cognitively intact at this time and goal- directed thinking about his future and what is next. (1) Severe benzodiazepine use disorder: (2) Benzodiazepine withdrawal with delirium: Plan At this time, we will continue to monitor the patient and are available to answer any questions or concerns from a psychiatric point of view. At the time of discharge, if he is willing, we would recommend substance treatment, possibly at a residential care level. Other than his substance issues and subsequent withdrawal, we do not feel that he has a primary psychiatric diagnosis at this time otherwise. His Suboxone it is a very low dose. However, we will need to be careful of the use of Suboxone along with a benzodiazepine as both can be very sedating and possibly interfere with respiration. We will just need to keep this in mind and monitor. 08/31/23: Psychiatry will continue to follow this gentleman. I provided a PDMP report to Dr. Chávez showing that the Suboxone had started in May. There is no evidence of any benzodiazepines that had been prescribed in the last several years. I suggest having the pharmacist get involved to see how quickly we can get him off the Suboxone. He was not on a very big dose, but I do not wa nt to make him feel worse especially in the midst of a benzodiazepine withdrawal. 09/01/23: Psychiatry will continue to follow this gentleman. I asked the patient to try to find out from his sister when she is returning from her vacation so we can plan discharge better. He says there is no one else that he can live with. I support tapering off the Suboxone. Getting him into some type of substance treatment will be important if he is willing. I do not feel he is an acute danger to himself or others. He does not require any psychiatric hospitalization at this point. 09/02/23: We will continue to follow this gentleman. He seems to be doing quite well at this point, though. Getting him into rehab would be important, especially if he may be homeless at this point. Today I spent 39 minutes on the case. This included meeting with the patient, meeting with the ICU nurse, meeting with the mental health nurse liaison, discussing the case with Dr. Chávez, review of the chart, and documentation. Suicide Risk Level Suicide Risk Level: Low (q15 min observation checks) Interval History Identifying Information ANGELICA LANDEROS is a 68-year-old M who currently lives in [place], has a history of TBI, and was admitted on 08/25/23 20:43 on a 201 voluntary commitment for inability to function, terrell, and suicidal statement. He was transferred to the medical unit the morning of 08/30/23 due to delirium tremens. Chief Complaint "I am doing fine." Subjective Subjective Today I met with the patient, received nursing report, and reviewed the chart. I also discussed the case with Dr. Chávez, the attending. I also discussed the case with the mental health nurse liaison. Angelica is finishing up benzodiazepine detox. There is been no more symptoms of delirium tremens and he is much more articulate and logical now. He is no longer hallucinating. He denies any suicidal or homicidal thoughts. The nurse said that there were no problems in the last 24 hours with behavior. It sounds like they are working on trying to get him into rehab. Patient is worried because his sister is going on vacation, possibly already left and will be back until September 09. The nurse mentioned that she had heard that the sister does not want him back in the home ever again which is different from what I had heard. I had been told that he just cannot stay at the house while his sister is gone. The patient himself is feeling better and stronger. Physical Exam Psychiatric Patient was alert and oriented x 3. He was disheveled in a hospital gown in bed. Speech was normal. Mood was "good." Affect is still restricted, but less frustrated. Thought process was logical and goal-directed. There was no evidence of any hallucinations or delusions. He denied suicidal or homicidal thoughts. Memory and concentration were adequate. No abnormal movements were seen at all. Insight and judgment seem better today. Vital Signs (Past 24 Hours) Last Vital Signs Temp 36.5 C 09/02/23 11:05 Pulse 73 09/02/23 10:00 Resp 20 09/02/23 10:00 BP 154/87 H 09/02/23 08:00 Pulse Ox 100 09/02/23 07:27 O2 Del Method Room Air 09/02/23 07:27 O2 Flow Rate 2 09/02/23 04:00 Results & Data ([facility]) Laboratory Results Laboratory Results - last 24 hr 09/02/23 03:27 Sodium 139 Potassium 3.8 Chloride 106 Carbon Dioxide 29 Anion Gap 4 BUN 20 Creatinine 0.78 Est Cr Clr Drug Dosing 75.6 Est GFR ( Amer) 109.0 Est GFR (Non-Af Amer) 94.1 BUN/Creatinine Ratio 25.6 H Glucose 116 H Calcium 8.2 L Current Inpatient Medications Current Inpatient Medications: Current Inpatient Medications Acetaminophen (Acetaminophen 325 Mg Tab) 650 mg PO Q4H PRN PRN Reason: Pain or Fever Stop: 09/29/23 06:44 Last Admin: 08/31/23 15:53 Dose: 650 mg Amlodipine Besylate (A[facility]ipine Besylate 5 Mg Tab) [facility] [place] Stop: 09/29/23 08:59 Last Admin: 09/02/23 08:15 Dose: 5 mg Aspirin (Aspirin 81 Mg Ectab) 81 mg PO QAM [facility] Stop: 10/01/23 08:59 Last Admin: 09/02/23 08:15 Dose: 81 mg Buprenorphine/Naloxone (Buprenorphine/Naloxone 2/0.5mg 1 Tab) 1 tab SL Q2D [facility] Stop: 10/01/23 08:59 Last Admin: 09/01/23 08:45 Dose: 1 tab Carvedilol (Carvedilol 3.125 Mg Tab) 3.125 mg PO BIDM [facility] Stop: 09/29/23 07:59 Last Admin: 09/02/23 08:14 Dose: 3.125 mg Chlordiazepoxide HCl (Chlordiazepoxide Hcl 10 Mg Cap) 10 mg PO Q12H [facility] Stop: 09/03/23 06:01 Docusate Sodium (Docusate Sodium 100 Mg Cap) 100 mg PO BID [facility] Stop: 10/02/23 13:34 Famotidine (Famotidine 20 Mg Tab) 20 mg PO QAM [facility] Stop: 09/29/23 08:59 Last Admin: 09/02/23 08:13 Dose: 20 mg Folic Acid (Folic Acid 1 Mg Tab) 1 mg PO QAM [facility] Stop: 09/30/23 08:59 Last Admin: 09/02/23 08:15 Dose: 1 mg Heparin Sodium (Porcine) (Heparin Sod 5,000 Unit/0.5 Ml Vial) 5,000 units SQ Q8 [facility] Stop: 09/29/23 13:59 Last Admin: 09/02/23 05:40 Dose: 5,000 units Lorazepam 0.5 mg/ Syringe 0.5 mls @ 2 mls/min IV Q4H PRN PRN Reason: Anxiety/Agitation Stop: 09/29/23 06:42 Last Admin: 08/30/23 22:20 Dose: 2 mls/min Ipratropium [place] (Ipratropium [place] Neb Soln 0.02% 0.5mg/2.5ml Vial) 0.5 mg INH Q4H PRN PRN Reason: sob Stop: 09/29/23 06:59 Levalbuterol HCl (Levalbuterol 1.25 Mg/3 Ml Neb) 1.25 mg NEB Q4H PRN PRN Reason: sob Stop: 09/29/23 06:59 Levothyroxine Sodium (Levothyroxine Sodium 25 Mcg Tablet) 25 mcg PO DAILYBB [facility] Stop: 09/30/23 06:29 Last Admin: 09/02/23 05:40 Dose: 25 mcg Melatonin (Melatonin 3 Mg Tab) 3 mg PO HS PRN PRN Reason: Sleep Stop: 10/01/23 03:17 Last Admin: 09/01/23 21:57 Dose: 3 mg Metoprolol Tartrate (Metoprolol Tartrate 1 Mg/Ml Vial) 2.5 mg IV Q4H PRN PRN Reason: Tachycardia Stop: 09/29/23 10:59 Miscellaneous (Remove Nicoderm Patch) 1 each N/A DAILY@0859 [facility] Stop: 09/30/23 08:58 Last Admin: 09/02/23 08:15 Dose: 1 each Nicotine (Nicotine 14 Mg/24 Hr Patch) [facility] [place] Stop: 09/29/23 11:14 Last Admin: 09/02/23 08:13 Dose: 14 mg Nitroglycerin (Nitroglycerin Sl 0.4 Mg/Tab Tab) 0.4 mg SL Q5M PRN PRN Reason: Chest Pain Stop: 09/29/23 06:44 Polyethylene Glycol (Polyethylene (Miralax) 17 Gm Pack) 17 gm PO DAILY PRN PRN Reason: Constipation Stop: 10/02/23 13:29 Thiamine HCl (Thiamine Hcl 50 Mg Tablet) [facility] [place] Stop: 10/03/23 08:59
[2023-09-02] MEDS: DOCUSATE SODIUM 100 MG CAP PO SCH (13:59)
[2023-09-02] MEDS: POLYETHYLENE (MIRALAX) 17 GM PACK PO PRN (13:59)
--- NOTE | 2023-09-02 14:17 | Hospitalist Progress Note ---
Date of Service September 02, 2023 Assessment & Plan (1) Chest pain: Plan: Acute metabolic encephalopathy Likely delirium tremors secondary to benzo withdrawal --Less likely infectious source H/O traumatic brain injury H/O opioid use in the past currently on Suboxone Auditory hallucinations likely from withdrawal --MRI brain: No acute intracranial abnormality. --- Toxicology screen positive for oxazepam -- Normal TSH --EEG:This is an abnormal routine EEG in a patient with altered mentation due to 1. Generalized background slowing suggestive of a non specific encephalopathy, 2. Excessive beta activity is a normal variant and likely secondary to medication side effect ( ie benzodiazepines). No epileptiform activity is seen. --Normal ammonia, vitamin B12 levels --VBG showed no signs of hypercarbia --Blood cultures: No growth --Urine for heavy metal, copper levels pending -- Continue Librium protocol, thiamine Appreciate neurology, psychiatry input Continue to taper down Suboxone as able Transition to p.o. thiamine tomorrow Clinically improved Case management to help with discharge planning A-fib RVR Chest pain likely secondary to above Troponin negative Echo showed no wall motion abnormality, valvular heart disease Spontaneously converted to sinus. Given brief episode, no plan for anticoagulation Continue Coreg, aspirin 81 mg daily per cardiology Appreciate cardiology input Hypertension Continue amlodipine, carvedilol BP variable COPD No signs of exacerbation Nebs as needed Tobacco use disorder Continue nicotine patch H/O HCV Hypothyroidism--continue levothyroxine H/O substance abuse--on Suboxone Severe protein calorie malnutrition: BMI 18 DVT Px: Heparin SQ Code Status Full code Admission and Anticipated Discharge Date Admission Date: August 30, 2023 Subjective Patient is seen and examined at bedside States feeling well Offers no complaints Denies any chest pain, dyspnea, dizziness, nausea, vomiting, abdominal pain Review of Systems Review of Systems: All systems reviewed & are unremarkable except as noted in Subjective Physical Exam Physical Exam: Physical Exam: Vitals signs as noted above General Appearance:Thin, frail, no apparent distress Head: normocephalic, Atraumatic Eyes: normal inspection, EOMI Neck: supple, Trachea midline Respiratory/Chest: Normal breath sounds, CTA, No accessory muscle use Cardiovascular:S1, S2, no murmur Abdomen/GI:Soft, Non tender, Bowel sounds present Extremities/Musculoskeletal:normal inspection, no edema Neurologic/Psych:AAOX2, grossly no focal neurological deficits Skin: normal color, warm Results & Data Results & Data Vital Signs (Past 12 Hours) Vital Signs Temp Pulse Pulse Resp BP BP Pulse Ox 09/02/23 11:05 36.5 C 09/02/23 10:00 73 20 09/02/23 08:00 154/87 H 09/02/23 08:00 78 22 09/02/23 08:00 59 L 09/02/23 07:58 36.6 C 09/02/23 07:27 132/72 09/02/23 07:27 75 18 100 09/02/23 06:00 65 20 09/02/23 04:00 36.6 C 68 14 122/71 95 O2 Del Method O2 Flow Rate 09/02/23 11:05 09/02/23 10:00 09/02/23 08:00 09/02/23 08:00 09/02/23 08:00 09/02/23 07:58 09/02/23 07:27 09/02/23 07:27 Room Air 09/02/23 06:00 09/02/23 04:00 Nasal Cannula 2 Laboratory Results BMP 09/02/23 03:27 Sodium 139 Potassium 3.8 Chloride 106 Carbon Dioxide 29 BUN 20 Creatinine 0.78 Glucose 116 H Calcium 8.2 L (1) Chest pain Chest pain type: unspecified Qualified Code(s): R07.9 - Chest pain, unspecified
[2023-09-03 04:36] LABS: Hematocrit (blood only) 48.5 % (42.0-52.0); Hemoglobin 16.4 g/dl (14.0-18.0); Mean Corpuscular Hemoglobin 30.5 pg (25.0-34.0); Mean Corpuscular Hgb Conc 33.8 g/dL (32.0-36.0); Mean Corpuscular Volume 90.3 fL (80.0-100.0); Mean Platelet Volume 10.5 fL (9.4-12.4); Platelet Count 175 K/uL (130-400); RDW Standard Deviation 49.9 fL (36.4-46.3); Red Blood Count 5.37 M/uL (4.70-6.10); White Blood Count 5.17 K/ul (4.8-10.8)
[2023-09-03 04:46] LABS: BUN Creatinine Ratio 28.6 (10-20); Calcium 8.6 mg/dl (8.6-10.3); Creatinine Clr Calc Pharmacy 76.9 ml/min; Est GFR (African American) 109.6 ml/min; Est GFR (Non-African American) 94.6 ml/min; Magnesium 1.8 mg/dl (1.7-2.4); Potassium 4.1 mmol/L (3.5-5.1)
[2023-09-03 06:01] LABS: Arsenic, Urine None Detected; Creatinine Ur 93 mg/dL (20-320); Lead, Urine None Detected; Mercury, Urine None Detected
[2023-09-03] MEDS: THIAMINE HCL 50 MG TABLET PO SCH (08:41)
--- NOTE | 2023-09-03 11:18 | Hospitalist Progress Note ---
Date of Service September 03, 2023 Assessment & Plan (1) Chest pain: Plan: Acute metabolic encephalopathy Likely delirium tremors secondary to benzo withdrawal --Less likely infectious source H/O traumatic brain injury H/O opioid use in the past currently on Suboxone Auditory hallucinations likely from withdrawal --MRI brain: No acute intracranial abnormality. --- Toxicology screen positive for oxazepam -- Normal TSH --EEG:This is an abnormal routine EEG in a patient with altered mentation due to 1. Generalized background slowing suggestive of a non specific encephalopathy, 2. Excessive beta activity is a normal variant and likely secondary to medication side effect ( ie benzodiazepines). No epileptiform activity is seen. --Normal ammonia, vitamin B12 levels --VBG showed no signs of hypercarbia --Blood cultures: No growth --Urine for heavy metal - negative, copper level - wnl -- Continue Librium protocol, thiamine Appreciate neurology, psychiatry input Continue to taper down Suboxone as able Transition to p.o. thiamine Clinically improved Case management to help with discharge planning A-fib RVR Chest pain likely secondary to above Troponin negative Echo showed no wall motion abnormality, valvular heart disease Spontaneously converted to sinus. Given brief episode, no plan for anticoagulation Continue Coreg, aspirin 81 mg daily per cardiology Appreciate cardiology input Hypertension Continue amlodipine, carvedilol BP variable COPD No signs of exacerbation Nebs as needed Tobacco use disorder Continue nicotine patch H/O HCV Hypothyroidism--continue levothyroxine H/O substance abuse--on Suboxone Severe protein calorie malnutrition: BMI 18 DVT Px: Heparin SQ Code Status Full code Admission and Anticipated Discharge Date Admission Date: August 30, 2023 Subjective Patient is seen and examined at bedside States he " feels out of it", wants to sleep Offers no complaints Denies any chest pain, dyspnea, dizziness, nausea, vomiting, abdominal pain Review of Systems Review of Systems: All systems reviewed & are unremarkable except as noted in Subjective Physical Exam Physical Exam: General Appearance:Thin, frail, no apparent distress Head: normocephalic, Atraumatic Eyes: normal inspection, EOMI Neck: supple Respiratory/Chest: Normal breath sounds, CTA, No accessory muscle use Cardiovascular:S1, S2, no murmur Abdomen/GI:Soft, Non tender, Bowel sounds present Extremities/Musculoskeletal:normal inspection, no edema Neurologic/Psych: drowsy but able to to answer some simple questions appropriately, speech fluent, moves extremities Skin: normal color, warm Results & Data Results & Data Vital Signs (Past 12 Hours) Vital Signs Temp Pulse Pulse Resp BP BP Pulse Ox 09/03/23 08:00 71 09/03/23 07:52 36.7 C 85 18 130/97 95 09/03/23 03:32 36.5 C 73 20 112/78 97 09/02/23 23:55 72 O2 Del Method 09/03/23 08:00 09/03/23 07:52 Room Air 09/03/23 03:32 Room Air 09/02/23 23:55 Laboratory Results 09/03/23 08/31/23 08/30/23 Range/Units 04:15 03:52 15:50 WBC 5.17 (4.8-10.8) K/ul RBC 5.37 (4.70-6.10) M/uL Hgb 16.4 (14.0-18.0) g/dl Hct 48.5 (42.0-52.0) % MCV 90.3 (80.0-100.0) fL MCH 30.5 (25.0-34.0) pg MCHC 33.8 (32.0-36.0) g/dL RDW Std Deviation 49.9 H (36.4-46.3) fL RDW Coeff of Naun 15.0 H (11.5-14.5) % Plt Count 175 (130-400) K/uL MPV 10.5 (9.4-12.4) fL Sodium 138 (136-145) mmol/L Potassium 4.1 (3.5-5.1) mmol/L Chloride 106 (98-107) mmol/L Carbon Dioxide 30 (21-32) mmol/L Anion Gap 2 L (3-11) BUN 22 (6-23) mg/dl Creatinine 0.77 (0.6-1.4) mg/dl Est Cr Clr Drug Dosing 76.9 ml/min Est GFR ( Amer) 109.6 ml/min Est GFR (Non-Af Amer) 94.6 ml/min BUN/Creatinine Ratio 28.6 H (10-20) Glucose 102 H (70-99(Fasting)) mg/dl Calcium 8.6 (8.6-10.3) mg/dl Magnesium 1.8 (1.7-2.4) mg/dl Ur Random Creatinine 93 (20-320) mg/dL Urine Arsenic None Detected Serum Copper 89 (70-175) mcg/dL Urine Lead None Detected Urine Mercury None Detected Medications Administered Current Inpatient Medications Acetaminophen (Acetaminophen 325 Mg Tab) 650 mg PO Q4H PRN PRN Reason: Pain or Fever Stop: 09/29/23 06:44 Last Admin: 09/02/23 20:23 Dose: 650 mg Amlodipine Besylate (Amlodipine Besylate 5 Mg Tab) 5 mg PO [facility] Stop: 09/29/23 08:59 Last Admin: 09/03/23 08:41 Dose: 5 mg Aspirin (Aspirin 81 Mg Ectab) 81 mg PO [facility] Stop: 10/01/23 08:59 Last Admin: 09/03/23 08:41 Dose: 81 mg Buprenorphine/Naloxone (Buprenorphine/Naloxone 2/0.5mg 1 Tab) 1 tab SL Q2D [facility] Stop: 10/01/23 08:59 Last Admin: 09/03/23 08:54 Dose: 1 tab Carvedilol (Carvedilol 3.125 Mg Tab) 3.125 mg PO BIDM [facility] Stop: 09/29/23 07:59 Last Admin: 09/03/23 08:40 Dose: 3.125 mg Docusate Sodium (Docusate Sodium 100 Mg Cap) 100 mg PO BID [facility] Stop: 10/02/23 13:34 Last Admin: 09/03/23 08:40 Dose: 100 mg Famotidine (Famotidine 20 Mg Tab) 20 mg PO [facility] Stop: 09/29/23 08:59 Last Admin: 09/03/23 08:41 Dose: 20 mg Folic Acid (Folic Acid 1 Mg Tab) 1 mg PO QAM [facility] Stop: 09/30/23 08:59 Last Admin: 09/03/23 08:41 Dose: 1 mg Heparin Sodium (Porcine) (Heparin Sod 5,000 Unit/0.5 Ml Vial) 5,000 units SQ Q8 [facility] Stop: 09/29/23 13:59 Last Admin: 09/03/23 05:48 Dose: 5,000 units Lorazepam 0.5 mg/ Syringe 0.5 mls @ 2 mls/min IV Q4H PRN PRN Reason: Anxiety/Agitation Stop: 09/29/23 06:42 Last Admin: 08/30/23 22:20 Dose: 2 mls/min Ipratropium [place] (Ipratropium [place] Neb Soln 0.02% 0.5mg/2.5ml Vial) 0.5 mg INH Q4H PRN PRN Reason: sob Stop: 09/29/23 06:59 Levalbuterol HCl (Levalbuterol 1.25 Mg/3 Ml Neb) 1.25 mg NEB Q4H PRN PRN Reason: sob Stop: 09/29/23 06:59 Levothyroxine Sodium (Levothyroxine Sodium 25 Mcg Tablet) 25 mcg PO DAILYBB [facility] Stop: 09/30/23 06:29 Last Admin: 09/03/23 05:49 Dose: 25 mcg Melatonin (Melatonin 3 Mg Tab) 3 mg PO HS PRN PRN Reason: Sleep Stop: 10/01/23 03:17 Last Admin: 09/02/23 20:20 Dose: 3 mg Metoprolol Tartrate (Metoprolol Tartrate 1 Mg/Ml Vial) 2.5 mg IV Q4H PRN PRN Reason: Tachycardia Stop: 09/29/23 10:59 Miscellaneous (Remove Nicoderm Patch) 1 each N/A DAILY@0859 [facility] Stop: 09/30/23 08:58 Last Admin: 09/03/23 08:42 Dose: 1 each Nicotine (Nicotine 14 Mg/24 Hr Patch) [facility] Stop: 09/29/23 11:14 Last Admin: 09/03/23 08:41 Dose: 14 mg Nitroglycerin (Nitroglycerin Sl 0.4 Mg/Tab Tab) 0.4 mg SL Q5M PRN PRN Reason: Chest Pain Stop: 09/29/23 06:44 Polyethylene Glycol (Polyethylene (Miralax) 17 Gm Pack) 17 gm PO DAILY PRN PRN Reason: Constipation Stop: 10/02/23 13:29 Last Admin: 09/02/23 13:59 Dose: 17 gm Thiamine HCl (Thiamine Hcl 50 Mg Tablet) 250 mg PO QAM [facility] Stop: 10/03/23 08:59 Last Admin: 09/03/23 08:41 Dose: 250 mg (1) Chest pain Chest pain type: unspecified Qualified Code(s): R07.9 - Chest pain, unspecified
--- NOTE | 2023-09-04 07:46 | Hospitalist Progress Note ---
Date of Service September 04, 2023 Assessment & Plan (1) Chest pain: Plan: Acute metabolic encephalopathy Likely delirium tremors secondary to benzo withdrawal --Less likely infectious source H/O traumatic brain injury H/O opioid use in the past currently on Suboxone Auditory hallucinations likely from withdrawal --MRI brain: No acute intracranial abnormality. --- Toxicology screen positive for oxazepam -- Normal TSH --EEG:This is an abnormal routine EEG in a patient with altered mentation due to 1. Generalized background slowing suggestive of a non specific encephalopathy, 2. Excessive beta activity is a normal variant and likely secondary to medication side effect ( ie benzodiazepines). No epileptiform activity is seen. --Normal ammonia, vitamin B12 levels --VBG showed no signs of hypercarbia --Blood cultures: No growth --Urine for heavy metal - negative, copper level - wnl -- Continue Librium protocol, thiamine Appreciate neurology, psychiatry input Continue to taper down Suboxone as able Transition to p.o. thiamine Clinically improved Case management to help with discharge planning A-fib RVR Chest pain likely secondary to above Troponin negative Echo showed no wall motion abnormality, valvular heart disease Spontaneously converted to sinus. Given brief episode, no plan for anticoagulation Continue Coreg, aspirin 81 mg daily per cardiology Appreciate cardiology input Hypertension Continue amlodipine, carvedilol BP variable COPD No signs of exacerbation Nebs as needed Tobacco use disorder Continue nicotine patch H/O HCV Hypothyroidism--continue levothyroxine H/O substance abuse--on Suboxone Severe protein calorie malnutrition: BMI 18 DVT Px: Heparin SQ Code Status Full code Admission and Anticipated Discharge Date Admission Date: August 30, 2023 Subjective Patient is seen and examined at bedside, seen in follow up of hallucinations, likely benzo withdrawal Currently sitting up in bed, in no acute distress. He is awake alert and able to answer appropriately. Says that he is feeling quite well today. He does recall that yesterday he "felt out of it" and was very tired. Offers no complaints Denies any chest pain, dyspnea, dizziness, nausea, vomiting, abdominal pain Denies any hallucinations Review of Systems Review of Systems: All systems reviewed & are unremarkable except as noted in Subjective Physical Exam Physical Exam: General Appearance:Thin, frail, no apparent distress Head: normocephalic, Atraumatic Eyes: normal inspection, EOMI Neck: supple Respiratory/Chest: Normal breath sounds, CTA, No accessory muscle use Cardiovascular:S1, S2, no murmur Abdomen/GI:Soft, Non tender, Bowel sounds present Extremities/Musculoskeletal:normal inspection, no edema Neurologic/Psych: awake, alert, able to to answer questions appropriately, speech fluent, moves extremities Skin: normal color, warm Results & Data Results & Data Vital Signs (Past 12 Hours) Vital Signs Temp Pulse Pulse Pulse Resp BP Pulse Ox 09/04/23 07:05 36.5 C 72 18 113/70 92 09/04/23 03:11 36.4 C L 71 15 118/72 93 09/03/23 22:00 87 09/03/23 21:45 36.5 C 86 16 148/91 H 95 09/03/23 19:50 36.8 C 86 18 144/86 H 96 O2 Del Method 09/04/23 07:05 Room Air 09/04/23 03:11 Room Air 09/03/23 22:00 09/03/23 21:45 Room Air 09/03/23 19:50 Room Air Medications Administered Current Inpatient Medications Acetaminophen (Acetaminophen 325 Mg Tab) 650 mg PO Q4H PRN PRN Reason: Pain or Fever Stop: 09/29/23 06:44 Last Admin: 09/02/23 20:23 Dose: 650 mg Amlodipine Besylate (Amlodipine Besylate 5 Mg Tab) 5 mg PO QAM [facility] Stop: 09/29/23 08:59 Last Admin: 09/03/23 08:41 Dose: 5 mg Aspirin (Aspirin 81 Mg Ectab) 81 mg PO QAM [facility] Stop: 10/01/23 08:59 Last Admin: 09/03/23 08:41 Dose: 81 mg Buprenorphine/Naloxone (Buprenorphine/Naloxone 2/0.5mg 1 Tab) 1 tab SL Q2D [facility] Stop: 10/01/23 08:59 Last Admin: 09/03/23 08:54 Dose: 1 tab Carvedilol (Carvedilol 3.125 Mg Tab) 3.125 mg PO BIDM [facility] Stop: 09/29/23 07:59 Last Admin: 09/03/23 16:31 Dose: 3.125 mg Docusate Sodium (Docusate Sodium 100 Mg Cap) 100 mg PO BID [facility] Stop: 10/02/23 13:34 Last Admin: 09/03/23 20:12 Dose: 100 mg Famotidine (Famotidine 20 Mg Tab) 20 mg PO QAM [facility] Stop: 09/29/23 08:59 Last Admin: 09/03/23 08:41 Dose: 20 mg Folic Acid (Folic Acid 1 Mg Tab) 1 mg PO QAM [facility] Stop: 09/30/23 08:59 Last Admin: 09/03/23 08:41 Dose: 1 mg Heparin Sodium (Porcine) (Heparin Sod 5,000 Unit/0.5 Ml Vial) 5,000 units SQ Q8 [facility] Stop: 09/29/23 13:59 Last Admin: 09/04/23 06:31 Dose: 5,000 units Lorazepam 0.5 mg/ Syringe 0.5 mls @ 2 mls/min IV Q4H PRN PRN Reason: Anxiety/Agitation Stop: 09/29/23 06:42 Last Admin: 08/30/23 22:20 Dose: 2 mls/min Ipratropium [place] (Ipratropium [place] Neb Soln 0.02% 0.5mg/2.5ml Vial) 0.5 mg INH Q4H PRN PRN Reason: sob Stop: 09/29/23 06:59 Levalbuterol HCl (Levalbuterol 1.25 Mg/3 Ml Neb) 1.25 mg NEB Q4H PRN PRN Reason: sob Stop: 09/29/23 06:59 Levothyroxine Sodium (Levothyroxine Sodium 25 Mcg Tablet) 25 mcg PO DAILYBB [facility] Stop: 09/30/23 06:29 Last Admin: 09/04/23 06:31 Dose: 25 mcg Melatonin (Melatonin 3 Mg Tab) 3 mg PO HS PRN PRN Reason: Sleep Stop: 10/01/23 03:17 Last Admin: 09/02/23 20:20 Dose: 3 mg Metoprolol Tartrate (Metoprolol Tartrate 1 Mg/Ml Vial) 2.5 mg IV Q4H PRN PRN Reason: Tachycardia Stop: 09/29/23 10:59 Miscellaneous (Remove Nicoderm Patch) 1 each N/A DAILY@0859 [facility] Stop: 09/30/23 08:58 Last Admin: 09/03/23 08:42 Dose: 1 each Nicotine (Nicotine 14 Mg/24 Hr Patch) [facility] [place] [place] Stop: 09/29/23 11:14 Last Admin: 09/03/23 08:41 Dose: 14 mg Nitroglycerin (Nitroglycerin Sl 0.4 Mg/Tab Tab) 0.4 mg SL Q5M PRN PRN Reason: Chest Pain Stop: 09/29/23 06:44 Polyethylene Glycol (Polyethylene (Miralax) 17 Gm Pack) 17 gm PO DAILY PRN PRN Reason: Constipation Stop: 10/02/23 13:29 Last Admin: 09/02/23 13:59 Dose: 17 gm Thiamine HCl (Thiamine Hcl 50 Mg Tablet) 250 mg PO QAM [facility] Stop: 10/03/23 08:59 Last Admin: 09/03/23 08:41 Dose: 250 mg (1) Chest pain Chest pain type: unspecified Qualified Code(s): R07.9 - Chest pain, unspecified
[2023-09-04 08:28] LABS: Hematocrit (blood only) 49.7 % (42.0-52.0); Hemoglobin 16.2 g/dl (14.0-18.0); Mean Corpuscular Hemoglobin 30.2 pg (25.0-34.0); Mean Corpuscular Hgb Conc 32.6 g/dL (32.0-36.0); Mean Corpuscular Volume 92.6 fL (80.0-100.0); Mean Platelet Volume 10.7 fL (9.4-12.4); Platelet Count 178 K/uL (130-400); RDW Standard Deviation 51.2 fL (36.4-46.3); Red Blood Count 5.37 M/uL (4.70-6.10); White Blood Count 4.93 K/ul (4.8-10.8)
[2023-09-04 08:46] LABS: BUN Creatinine Ratio 23.7 (10-20); Calcium 8.7 mg/dl (8.6-10.3); Est GFR (African American) 98.8 ml/min; Est GFR (Non-African American) 85.2 ml/min; Magnesium 1.7 mg/dl (1.7-2.4); Phosphorus 4.3 mg/dl (2.5-4.9); Potassium 4.5 mmol/L (3.5-5.1)
--- NOTE | 2023-09-04 09:17 | Neurology Progress Note ---
Date of Service September 04, 2023 Assessment & Plan (1) Benzodiazepine withdrawal with delirium: Plan 68 y/o male with history of opioid use disorder on suboxone, HTN, TBI/concussion, and GERD that presented with suicidal ideation, hallucinations, and tremors. EEG with generalized slowing and excessive beta activity. UDS positive for oxazepam and pt was treated with librium protocol for suspected benzodiazepine withdrawal. Now significantly improved, with resolution of involuntary movements and hallucinations. Atrial fibrillation on 08/30 and cardiology recommended against anticoagulation as episode occurred in the setting of benzodiazepine withdrawal. Outpatient sleep medicine referral given prior history of insomnia. If any future concern for involuntary movements, outpatient neurology referral. Subjective Telehealth Information I performed this visit using a real-time telehealth connection between my location and the patients location ([facility]). After connecting through interactive tele-video, patient was identified by name and date of and/or wristband check.Patient (or authorized healthcare corporate representative) was informed that this was a telemedicine visit and it was being conducted confidentially over secure lines. My office door was closed and no one else was present in the room with me.Patient (or authorized healthcare corporate representative) provided consent to proceed with the visit, expressed an understanding of privacy and security of the telemedicine visit, and gave permission to have a hospital corporate representative in the room in order to assist with the visit and to conduct portions of the visit, as needed. I informed the patient (or authorized healthcare corporate representative) that I reviewed their record and presented the opportunity for them to ask any questions regarding the visit today. The patient agreed to participate. He states that he is feeling improved. He really does not remember much about coming into the hospital. However, he states that he could not tell the difference between reality and dreams. He states that he had been obtaining valium and xanax off the internet. He thought about two to three months ago, he was concerned that he was developing a habit and flushed the medications. He also endorses use of steroids. He reports that he had a very active lifestyle prior to his accident at work. Over the last couple of weeks, he states that he had tremors when attempting to use his hands. He states that his tremor have now resolved. Physical Exam AAO X 3 No aphasia or dysarthria VFF EOMI, no nystagmus Facial sensations intact No facial asymmetry Tongue protrudes midline Motor: Moves all four extremities antigravity, no drift. No involuntary moveme nts noted. Sensation: Intact to light touch throughout. Cerebellar: FTN and HTS intact Results & Data Vital Signs (Past 12 Hours) Vital Signs Temp Pulse Pulse Pulse Resp BP Pulse Ox 09/04/23 08:00 71 09/04/23 07:05 36.5 C 72 18 113/70 92 09/04/23 03:11 36.4 C L 71 15 118/72 93 09/03/23 22:00 87 09/03/23 21:45 36.5 C 86 16 148/91 H 95 O2 Del Method 09/04/23 08:00 09/04/23 07:05 Room Air 09/04/23 03:11 Room Air 09/03/23 22:00 09/03/23 21:45 Room Air Laboratory Results Ammonia 36, B12 629, urine heavy metals none detected, TSH 3.124, serum copper 89, ceruplasmin and 24 hour urinary copper not obtained Diagnostic Findings MRI brain: No acute intracranial abnormality. EEG: This is an abnormal routine EEG in a patient with altered mentation due to 1. Generalized background slowing suggestive of a non specific encephalopathy, 2. Excessive beta activity is a normal variant and likely secondary to medication side effect ( ie benzodiazepines). No epileptiform activity is seen.
[2023-09-05 06:41] LABS: Hematocrit (blood only) 49.5 % (42.0-52.0); Hemoglobin 16.6 g/dl (14.0-18.0); Mean Corpuscular Hemoglobin 30.7 pg (25.0-34.0); Mean Corpuscular Hgb Conc 33.5 g/dL (32.0-36.0); Mean Corpuscular Volume 91.7 fL (80.0-100.0); Mean Platelet Volume 10.8 fL (9.4-12.4); Platelet Count 203 K/uL (130-400); RDW Standard Deviation 50.8 fL (36.4-46.3)
[2023-09-05 07:13] LABS: BUN Creatinine Ratio 20.2 (10-20); Calcium 8.7 mg/dl (8.6-10.3); Creatinine Clr Calc Pharmacy 77.1 ml/min; Est GFR (African American) 105.7 ml/min; Est GFR (Non-African American) 91.2 ml/min; Magnesium 1.8 mg/dl (1.7-2.4); Phosphorus 3.3 mg/dl (2.5-4.9); Potassium 4.1 mmol/L (3.5-5.1)
--- NOTE | 2023-09-05 11:50 | Hospitalist Progress Note ---
Date of Service September 05, 2023 Assessment & Plan (1) Chest pain: Plan: Acute metabolic encephalopathy Likely delirium tremors secondary to benzo withdrawal --Less likely infectious source H/O traumatic brain injury H/O opioid use in the past currently on Suboxone Auditory hallucinations likely from withdrawal --MRI brain: No acute intracranial abnormality. --- Toxicology screen positive for oxazepam -- Normal TSH --EEG:This is an abnormal routine EEG in a patient with altered mentation due to 1. Generalized background slowing suggestive of a non specific encephalopathy, 2. Excessive beta activity is a normal variant and likely secondary to medication side effect ( ie benzodiazepines). No epileptiform activity is seen. --Normal ammonia, vitamin B12 levels --VBG showed no signs of hypercarbia --Blood cultures: No growth --Urine for heavy metal - negative, copper level - wnl -- Continue Librium protocol, thiamine Appreciate neurology, psychiatry input Continue to taper down Suboxone as able Transitioned to p.o. thiamine Clinically improved Case management to help with discharge planning A-fib RVR Chest pain likely secondary to above Troponin negative Echo showed no wall motion abnormality, valvular heart disease Spontaneously converted to sinus. Given brief episode, no plan for anticoagulation Continue Coreg, aspirin 81 mg daily per cardiology Appreciate cardiology input Hypertension Continue amlodipine, carvedilol BP variable COPD No signs of exacerbation Nebs as needed Tobacco use disorder Continue nicotine patch H/O HCV Hypothyroidism--continue levothyroxine H/O substance abuse--on Suboxone Severe protein calorie malnutrition: BMI 18 DVT Px: Heparin SQ Code Status Full code Admission and Anticipated Discharge Date Admission Date: August 30, 2023 Subjective Patient is seen and examined at bedside, seen in follow up of hallucinations, likely benzo withdrawal Currently sitting up in bed, in no acute distress. He is awake alert and able to answer appropriately. Offers no complaints Denies any chest pain, dyspnea, dizziness, nausea, vomiting, abdominal pain Denies any hallucinations Review of Systems Review of Systems: All systems reviewed & are unremarkable except as noted in Subjective Physical Exam Physical Exam: General Appearance:Thin, frail, no apparent distress Head: normocephalic, Atraumatic Eyes: normal inspection, EOMI Neck: supple Respiratory/Chest: Normal breath sounds, CTA, No accessory muscle use Cardiovascular:S1, S2, no murmur Abdomen/GI:Soft, Non tender, Bowel sounds present Extremities/Musculoskeletal:normal inspection, no edema Neurologic/Psych: awake, alert, able to to answer questions appropriately, speech fluent, moves extremities Skin: normal color, warm Results & Data Results & Data Vital Signs (Past 12 Hours) Vital Signs Temp Pulse Pulse Resp BP Pulse Ox O2 Del Method 09/05/23 11:08 36.4 C L 93 H 18 149/77 H 92 Room Air 09/05/23 08:08 36.3 C L 76 22 131/84 92 Room Air 09/05/23 08:00 73 09/05/23 05:00 36.6 C 74 15 131/84 94 Room Air Laboratory Results 09/05/23 Range/Units 05:13 WBC 5.00 (4.8-10.8) K/ul RBC 5.40 (4.70-6.10) M/uL Hgb 16.6 (14.0-18.0) g/dl Hct 49.5 (42.0-52.0) % MCV 91.7 (80.0-100.0) fL MCH 30.7 (25.0-34.0) pg MCHC 33.5 (32.0-36.0) g/dL RDW Std Deviation 50.8 H (36.4-46.3) fL RDW Coeff of Naun 15.0 H (11.5-14.5) % Plt Count 203 (130-400) K/uL MPV 10.8 (9.4-12.4) fL Sodium 136 (136-145) mmol/L Potassium 4.1 (3.5-5.1) mmol/L Chloride 103 (98-107) mmol/L Carbon Dioxide 31 (21-32) mmol/L Anion Gap 2 L (3-11) BUN 17 (6-23) mg/dl Creatinine 0.84 (0.6-1.4) mg/dl Est Cr Clr Drug Dosing 77.1 ml/min Est GFR ( Amer) 105.7 ml/min Est GFR (Non-Af Amer) 91.2 ml/min BUN/Creatinine Ratio 20.2 H (10-20) Glucose 86 (70-99(Fasting)) mg/dl Calcium 8.7 (8.6-10.3) mg/dl Phosphorus 3.3 D (2.5-4.9) mg/dl Magnesium 1.8 (1.7-2.4) mg/dl Medications Administered Current Inpatient Medications Acetaminophen (Acetaminophen 325 Mg Tab) 650 mg PO Q4H PRN PRN Reason: Pain or Fever Stop: 09/29/23 06:44 Last Admin: 09/02/23 20:23 Dose: 650 mg Amlodipine Besylate (Amlodipine Besylate 5 Mg Tab) 5 mg PO [facility] Stop: 09/29/23 08:59 Last Admin: 09/05/23 08:33 Dose: 5 mg Aspirin (Aspirin 81 Mg Ectab) 81 mg PO [facility] Stop: 10/01/23 08:59 Last Admin: 09/05/23 09:32 Dose: 81 mg Buprenorphine/Naloxone (Buprenorphine/Naloxone 2/0.5mg 1 Tab) 1 tab SL Q2D [facility] Stop: 10/01/23 08:59 Last Admin: 09/05/23 09:32 Dose: 1 tab Carvedilol (Carvedilol 3.125 Mg Tab) 3.125 mg PO BIDM [facility] Stop: 09/29/23 07:59 Last Admin: 09/05/23 08:33 Dose: 3.125 mg Docusate Sodium (Docusate Sodium 100 Mg Cap) 100 mg PO BID [facility] Stop: 10/02/23 13:34 Last Admin: 09/05/23 08:34 Dose: 100 mg Famotidine (Famotidine 20 Mg Tab) 20 mg PO [facility] Stop: 09/29/23 08:59 Last Admin: 09/05/23 08:34 Dose: 20 mg Folic Acid (Folic Acid 1 Mg Tab) 1 mg PO [facility] Stop: 09/30/23 08:59 Last Admin: 09/05/23 08:34 Dose: 1 mg Heparin Sodium (Porcine) (Heparin Sod 5,000 Unit/0.5 Ml Vial) 5,000 units SQ Q8 [facility] Stop: 09/29/23 13:59 Last Admin: 09/05/23 06:00 Dose: 5,000 units Lorazepam 0.5 mg/ Syringe 0.5 mls @ 2 mls/min IV Q4H PRN PRN Reason: Anxiety/Agitation Stop: 09/29/23 06:42 Last Admin: 08/30/23 22:20 Dose: 2 mls/min Ipratropium [place] (Ipratropium [place] Neb Soln 0.02% 0.5mg/2.5ml Vial) 0.5 mg INH Q4H PRN PRN Reason: sob Stop: 09/29/23 06:59 Levalbuterol HCl (Levalbuterol 1.25 Mg/3 Ml Neb) 1.25 mg NEB Q4H PRN PRN Reason: sob Stop: 09/29/23 06:59 Levothyroxine Sodium (Levothyroxine Sodium 25 Mcg Tablet) 25 mcg PO DAILYBB [facility] Stop: 09/30/23 06:29 Last Admin: 09/05/23 06:00 Dose: 25 mcg Melatonin (Melatonin 3 Mg Tab) 3 mg PO HS PRN PRN Reason: Sleep Stop: 10/01/23 03:17 Last Admin: 09/02/23 20:20 Dose: 3 mg Metoprolol Tartrate (Metoprolol Tartrate 1 Mg/Ml Vial) 2.5 mg IV Q4H PRN PRN Reason: Tachycardia Stop: 09/29/23 10:59 Miscellaneous (Remove Nicoderm Patch) 1 each N/A DAILY@0859 [facility] Stop: 09/30/23 08:58 Last Admin: 09/05/23 08:33 Dose: 1 each Nicotine (Nicotine 14 Mg/24 Hr Patch) 14 mg TD QAM [facility] Stop: 09/29/23 11:14 Last Admin: 09/05/23 08:34 Dose: 14 mg Nitroglycerin (Nitroglycerin Sl 0.4 Mg/Tab Tab) 0.4 mg SL Q5M PRN PRN Reason: Chest Pain Stop: 09/29/23 06:44 Polyethylene Glycol (Polyethylene (Miralax) 17 Gm Pack) 17 gm PO DAILY PRN PRN Reason: Constipation Stop: 10/02/23 13:29 Last Admin: 09/02/23 13:59 Dose: 17 gm Thiamine HCl (Thiamine Hcl 50 Mg Tablet) 250 mg PO QAM [facility] Stop: 10/03/23 08:59 Last Admin: 09/05/23 08:34 Dose: 250 mg (1) Chest pain Chest pain type: unspecified Qualified Code(s): R07.9 - Chest pain, unspecified
--- NOTE | 2023-09-06 08:24 | Hospitalist Progress Note ---
Date of Service September 06, 2023 Assessment & Plan (1) Chest pain: Plan: Acute metabolic encephalopathy Likely delirium tremors secondary to benzo withdrawal --Less likely infectious source H/O traumatic brain injury H/O opioid use in the past currently on Suboxone Auditory hallucinations likely from withdrawal --MRI brain: No acute intracranial abnormality. --- Toxicology screen positive for oxazepam -- Normal TSH --EEG:This is an abnormal routine EEG in a patient with altered mentation due to 1. Generalized background slowing suggestive of a non specific encephalopathy, 2. Excessive beta activity is a normal variant and likely secondary to medication side effect ( ie benzodiazepines). No epileptiform activity is seen. --Normal ammonia, vitamin B12 levels --VBG showed no signs of hypercarbia --Blood cultures: No growth --Urine for heavy metal - negative, copper level - wnl -- Continue Librium protocol, thiamine Appreciate neurology, psychiatry input Continue to taper down Suboxone as able Transitioned to p.o. thiamine Clinically improved Case management to help with discharge planning A-fib RVR Chest pain likely secondary to above Troponin negative Echo showed no wall motion abnormality, valvular heart disease Spontaneously converted to sinus. Given brief episode, no plan for anticoagulation Continue Coreg, aspirin 81 mg daily per cardiology Appreciate cardiology input Hypertension Continue amlodipine, carvedilol BP variable COPD No signs of exacerbation Nebs as needed Tobacco use disorder Continue nicotine patch H/O HCV Hypothyroidism--continue levothyroxine H/O substance abuse--on Suboxone Severe protein calorie malnutrition: BMI 18 DVT Px: Heparin SQ Code Status Full code Admission and Anticipated Discharge Date Admission Date: August 30, 2023 Subjective Patient is seen and examined at bedside, seen in follow up of hallucinations, likely benzo withdrawal Currently sitting up in bed, in no acute distress. He is awake alert and able to answer appropriately. Offers no complaints Denies any chest pain, dyspnea, dizziness, nausea, vomiting, abdominal pain Denies any hallucinations Review of Systems Review of Systems: All systems reviewed & are unremarkable except as noted in Subjective Physical Exam Physical Exam: General Appearance:Thin, frail, no apparent distress Head: normocephalic, Atraumatic Eyes: normal inspection, EOMI Neck: supple Respiratory/Chest: Normal breath sounds, CTA, No accessory muscle use Cardiovascular:S1, S2, no murmur Abdomen/GI:Soft, Non tender, Bowel sounds present Extremities/Musculoskeletal:normal inspection, no edema Neurologic/Psych: awake, alert, able to to answer questions appropriately, speech fluent, moves extremities Skin: normal color, warm Results & Data Results & Data Vital Signs (Past 12 Hours) Vital Signs Temp Pulse Pulse Resp BP Pulse Ox O2 Del Method 09/06/23 07:56 36.4 C L 80 16 121/82 95 Room Air 09/06/23 07:31 74 09/06/23 04:20 36.6 C 75 20 122/77 94 Room Air 09/06/23 00:14 37.1 C 87 20 116/78 94 Room Air 09/06/23 00:00 81 09/05/23 20:45 83 Medications Administered Current Inpatient Medications Acetaminophen (Acetaminophen 325 Mg Tab) 650 mg PO Q4H PRN PRN Reason: Pain or Fever Stop: 09/29/23 06:44 Last Admin: 09/02/23 20:23 Dose: 650 mg Amlodipine Besylate (Amlodipine Besylate 5 Mg Tab) 5 mg PO QAM [facility] Stop: 09/29/23 08:59 Last Admin: 09/05/23 08:33 Dose: 5 mg Aspirin (Aspirin 81 Mg Ectab) [facility] [place] Stop: 10/01/23 08:59 Last Admin: 09/05/23 09:32 Dose: 81 mg Buprenorphine/Naloxone (Buprenorphine/Naloxone 2/0.5mg 1 Tab) 1 tab SL Q2D [facility] Stop: 10/01/23 08:59 Last Admin: 09/05/23 09:32 Dose: 1 tab Carvedilol (Carvedilol 3.125 Mg Tab) 3.125 mg PO BIDM [facility] Stop: 09/29/23 07:59 Last Admin: 09/05/23 17:54 Dose: 3.125 mg Docusate Sodium (Docusate Sodium 100 Mg Cap) 100 mg PO BID [facility] Stop: 10/02/23 13:34 Last Admin: 09/05/23 20:35 Dose: Not Given Famotidine (Famotidine 20 Mg Tab) [facility] [place] [facility] [place] Stop: 09/29/23 08:59 Last Admin: 09/05/23 08:34 Dose: 20 mg Folic Acid (Folic Acid 1 Mg Tab) 1 mg PO QAM [facility] Stop: 09/30/23 08:59 Last Admin: 09/05/23 08:34 Dose: 1 mg Heparin Sodium (Porcine) (Heparin Sod 5,000 Unit/0.5 Ml Vial) 5,000 units SQ Q8 [facility] Stop: 09/29/23 13:59 Last Admin: 09/06/23 06:09 Dose: 5,000 units Lorazepam 0.5 mg/ Syringe 0.5 mls @ 2 mls/min IV Q4H PRN PRN Reason: Anxiety/Agitation Stop: 09/29/23 06:42 Last Admin: 08/30/23 22:20 Dose: 2 mls/min Ipratropium [place] (Ipratropium [place] Neb Soln 0.02% 0.5mg/2.5ml Vial) 0.5 mg INH Q4H PRN PRN Reason: sob Stop: 09/29/23 06:59 Levalbuterol HCl (Levalbuterol 1.25 Mg/3 Ml Neb) 1.25 mg NEB Q4H PRN PRN Reason: sob Stop: 09/29/23 06:59 Levothyroxine Sodium (Levothyroxine Sodium 25 Mcg Tablet) 25 mcg PO DAILYBB [facility] Stop: 09/30/23 06:29 Last Admin: 09/06/23 06:09 Dose: 25 mcg Melatonin (Melatonin 3 Mg Tab) 3 mg PO HS PRN PRN Reason: Sleep Stop: 10/01/23 03:17 Last Admin: 09/02/23 20:20 Dose: 3 mg Metoprolol Tartrate (Metoprolol Tartrate 1 Mg/Ml Vial) 2.5 mg IV Q4H PRN PRN Reason: Tachycardia Stop: 09/29/23 10:59 Miscellaneous (Remove Nicoderm Patch) 1 each N/A DAILY@0859 [facility] Stop: 09/30/23 08:58 Last Admin: 09/05/23 08:33 Dose: 1 each Nicotine (Nicotine 14 Mg/24 Hr Patch) 14 mg TD QAM [facility] Stop: 09/29/23 11:14 Last Admin: 09/05/23 08:34 Dose: 14 mg Nitroglycerin (Nitroglycerin Sl 0.4 Mg/Tab Tab) 0.4 mg SL Q5M PRN PRN Reason: Chest Pain Stop: 09/29/23 06:44 Polyethylene Glycol (Polyethylene (Miralax) 17 Gm Pack) 17 gm PO DAILY PRN PRN Reason: Constipation Stop: 10/02/23 13:29 Last Admin: 09/02/23 13:59 Dose: 17 gm Thiamine HCl (Thiamine Hcl 50 Mg Tablet) 250 [facility] [place] Stop: 10/03/23 08:59 Last Admin: 09/05/23 08:34 Dose: 250 mg (1) Chest pain Chest pain type: unspecified Qualified Code(s): R07.9 - Chest pain, unspecifi ed
--- NOTE | 2023-09-06 13:06 | Communication Note ---
Date of Service: September 06, 2023 interim progress reviewed, patient known to me from psych admit prior to his medical hospitalization. His encephalopathy is essentially resolved, he is no l onger hallucinating per liaison. Patient did sign a release for his suboxone prescriber so that can confirm his outpatient follow up. He has expressed an interest in tapering suboxone over time. My understanding is that tremor and strength are improving and he does not qualify for rehab services so would be returning to sister's home upon discharge. No additional recs at this time.
--- NOTE | 2023-09-07 11:07 | Hospitalist Progress Note ---
Date of Service September 07, 2023 Assessment & Plan (1) Chest pain: Plan: Acute metabolic encephalopathy Likely delirium tremors secondary to benzo withdrawal --Less likely infectious source H/O traumatic brain injury H/O opioid use in the past currently on Suboxone Auditory hallucinations likely from withdrawal --MRI brain: No acute intracranial abnormality. --- Toxicology screen positive for oxazepam -- Normal TSH --EEG:This is an abnormal routine EEG in a patient with altered mentation due to 1. Generalized background slowing suggestive of a non specific encephalopathy, 2. Excessive beta activity is a normal variant and likely secondary to medication side effect ( ie benzodiazepines). No epileptiform activity is seen. --Normal ammonia, vitamin B12 levels --VBG showed no signs of hypercarbia --Blood cultures: No growth --Urine for heavy metal - negative, copper level - wnl -- Continue Librium protocol, thiamine Appreciate neurology, psychiatry input Continue to taper down Suboxone as able Transitioned to p.o. thiamine Clinically improved Case management to help with discharge planning A-fib RVR Chest pain likely secondary to above Troponin negative Echo showed no wall motion abnormality, valvular heart disease Spontaneously converted to sinus. Given brief episode, no plan for anticoagulation Continue Coreg, aspirin 81 mg daily per cardiology Appreciate cardiology input Hypertension Continue amlodipine, carvedilol BP variable COPD No signs of exacerbation Nebs as needed Tobacco use disorder Continue nicotine patch H/O HCV Hypothyroidism--continue levothyroxine H/O substance abuse--on Suboxone Severe protein calorie malnutrition: BMI 18 DVT Px: Heparin SQ Code Status Full code Admission and Anticipated Discharge Date Admission Date: August 30, 2023 Subjective Patient is seen and examined at bedside, seen in follow up of hallucinations, likely benzo withdrawal Currently sitting up in bed, in no acute distress. He is awake alert and able to answer appropriately. Offers no complaints Denies any chest pain, dyspnea, dizziness, nausea, vomiting, abdominal pain Denies any hallucinations Tells me he is in contact with his sister who is currently in [place] (via texts) Review of Systems Review of Systems: All systems reviewed & are unremarkable except as noted in Subjective Physical Exam Physical Exam: General Appearance:Thin, frail, no apparent distress Head: normocephalic, Atraumatic Eyes: normal inspection, EOMI Neck: supple Respiratory/Chest: Normal breath sounds, CTA, No accessory muscle use Cardiovascular:S1, S2, no murmur Abdomen/GI:Soft, Non tender, Bowel sounds present Extremities/Musculoskeletal:normal inspection, no edema Neurologic/Psych: awake, alert, able to to answer questions appropriately, speech fluent, moves extremities Skin: normal color, warm Results & Data Results & Data Vital Signs (Past 12 Hours) Vital Signs Temp Pulse Pulse Resp BP BP Pulse Ox 09/07/23 08:35 36.3 C L 72 18 151/95 H 96 09/07/23 07:01 79 09/07/23 04:25 36.3 C L 83 20 130/82 93 09/06/23 23:32 36.6 C 93 H 20 128/82 95 O2 Del Method 09/07/23 08:35 Room Air 09/07/23 07:01 09/07/23 04:25 Room Air 09/06/23 23:32 Room Air Medications Administered Current Inpatient Medications Acetaminophen (Acetaminophen 325 Mg Tab) 650 mg PO Q4H PRN PRN Reason: Pain or Fever Stop: 09/29/23 06:44 Last Admin: 09/02/23 20:23 Dose: 650 mg Amlodipine Besylate (Amlodipine Besylate 5 Mg Tab) 5 mg PO [facility] Stop: 09/29/23 08:59 Last Admin: 09/07/23 08:35 Dose: 5 mg Aspirin (Aspirin 81 Mg Ectab) [facility] [place] Stop: 10/01/23 08:59 Last Admin: 09/07/23 08:35 Dose: 81 mg Buprenorphine/Naloxone (Buprenorphine/Naloxone 2/0.5mg 1 Tab) 1 tab SL Q72H [facility] Stop: 10/10/23 08:59 Carvedilol (Carvedilol 3.125 Mg Tab) 3.[facility] [place] Stop: 09/29/23 07:59 Last Admin: 09/07/23 08:35 Dose: 3.125 mg Docusate Sodium (Docusate Sodium 100 Mg Cap) 100 mg PO BID [facility] Stop: 10/02/23 13:34 Last Admin: 09/07/23 08:36 Dose: 100 mg Famotidine (Famotidine 20 Mg Tab) [facility] [place] Stop: 09/29/23 08:59 Last Admin: 09/07/23 08:35 Dose: 20 mg Folic Acid (Folic Acid 1 Mg Tab) 1 mg PO [facility] Stop: 09/30/23 08:59 Last Admin: 09/07/23 08:35 Dose: 1 mg Heparin Sodium (Porcine) (Heparin Sod 5,000 Unit/0.5 Ml Vial) 5,000 units SQ Q8 [facility] Stop: 09/29/23 13:59 Last Admin: 09/07/23 05:29 Dose: Not Given Lorazepam 0.5 mg/ Syringe 0.5 mls @ 2 mls/min IV Q4H PRN PRN Reason: Anxiety/Agitation Stop: 09/29/23 06:42 Last Admin: 08/30/23 22:20 Dose: 2 mls/min Ipratropium [place] (Ipratropium [place] Neb Soln 0.02% 0.5mg/2.5ml Vial) 0.5 mg INH Q4H PRN PRN Reason: sob Stop: 09/29/23 06:59 Levalbuterol HCl (Levalbuterol 1.25 Mg/3 Ml Neb) 1.25 mg NEB Q4H PRN PRN Reason: sob Stop: 09/29/23 06:59 Levothyroxine Sodium (Levothyroxine Sodium 25 Mcg Tablet) 25 mcg PO DAILYBB [facility] Stop: 09/30/23 06:29 Last Admin: 09/07/23 05:30 Dose: 25 mcg Melatonin (Melatonin 3 Mg Tab) 3 mg PO HS PRN PRN Reason: Sleep Stop: 10/01/23 03:17 Last Admin: 09/02/23 20:20 Dose: 3 mg Metoprolol Tartrate (Metoprolol Tartrate 1 Mg/Ml Vial) 2.5 mg IV Q4H PRN PRN Reason: Tachycardia Stop: 09/29/23 10:59 Miscellaneous (Remove Nicoderm Patch) 1 each N/A DAILY@0859 [facility] Stop: 09/30/23 08:58 Last Admin: 09/07/23 08:35 Dose: 1 each Nicotine (Nicotine 14 Mg/24 Hr Patch) 14 mg TD QAM [facility] Stop: 09/29/23 11:14 Last Admin: 09/07/23 08:35 Dose: 14 mg Nitroglycerin (Nitroglycerin Sl 0.4 Mg/Tab Tab) 0.4 mg SL Q5M PRN PRN Reason: Chest Pain Stop: 09/29/23 06:44 Polyethylene Glycol (Polyethylene (Miralax) 17 Gm Pack) 17 gm PO DAILY PRN PRN Reason: Constipation Stop: 10/02/23 13:29 Last Admin: 09/02/23 13:59 Dose: 17 gm Thiamine HCl (Thiamine Hcl 50 Mg Tablet) 250 mg PO QAM [facility] Stop: 10/03/23 08:59 Last Admin: 09/07/23 08:35 Dose: 250 mg (1) Chest pain Chest pain type: unspecified Qualified Code(s): R07.9 - Chest pain, unspecified
--- NOTE | 2023-09-08 10:06 | Hospitalist Progress Note ---
Date of Service September 08, 2023 Assessment & Plan (1) Chest pain: Plan: Acute metabolic encephalopathy Likely delirium tremors secondary to benzo withdrawal --Less likely infectious source H/O traumatic brain injury H/O opioid use in the past currently on Suboxone Auditory hallucinations likely from withdrawal --MRI brain: No acute intracranial abnormality. --- Toxicology screen positive for oxazepam -- Normal TSH --EEG:This is an abnormal routine EEG in a patient with altered mentation due to 1. Generalized background slowing suggestive of a non specific encephalopathy, 2. Excessive beta activity is a normal variant and likely secondary to medication side effect ( ie benzodiazepines). No epileptiform activity is seen. --Normal ammonia, vitamin B12 levels --VBG showed no signs of hypercarbia --Blood cultures: No growth --Urine for heavy metal - negative, copper level - wnl --Finished Librium protocol, cont. thiamine Appreciate neurology, psychiatry input Continue to taper down Suboxone as able Transitioned to p.o. thiamine Clinically improved Case management to help with discharge planning A-fib RVR Chest pain likely secondary to above Troponin negative Echo showed no wall motion abnormality, valvular heart disease Spontaneously converted to sinus. Given brief episode, no plan for anticoagulation Continue Coreg, aspirin 81 mg daily per cardiology Appreciate cardiology input Hypertension Continue amlodipine, carvedilol BP variable COPD No signs of exacerbation Nebs as needed Tobacco use disorder Continue nicotine patch H/O HCV Hypothyroidism--continue levothyroxine H/O substance abuse--on Suboxone Severe protein calorie malnutrition: BMI 18 DVT Px: Heparin SQ Code Status Full code Admission and Anticipated Discharge Date Admission Date: August 30, 2023 Subjective Patient is seen and examined at bedside, seen in follow up of hallucinations, likely benzo withdrawal Currently sitting up in bed, in no acute distress. He is awake alert and able to answer appropriately. Offers no complaints Denies any chest pain, dyspnea, dizziness, nausea, vomiting, abdominal pain Denies any hallucinations Yesterday he was walking in hallway, today he says he stayed in bed whole day, m huabe he will go for a walk later, Review of Systems Review of Systems: All systems reviewed & are unremarkable except as noted in Subjective Physical Exam Physical Exam: General Appearance:Thin, frail, no apparent distress Head: normocephalic, Atraumatic Eyes: normal inspection, EOMI Neck: supple Respiratory/Chest: Normal breath sounds, CTA, No accessory muscle use Cardiovascular:S1, S2, no murmur Abdomen/GI:Soft, Non tender, Bowel sounds present Extremities/Musculoskeletal:normal inspection, no edema Neurologic/Psych: awake, alert, able to to answer questions appropriately, speech fluent, moves extremities Skin: normal color, warm Results & Data Results & Data Vital Signs (Past 12 Hours) Vital Signs Temp Pulse Pulse Resp BP Pulse Ox O2 Del Method 09/08/23 07:48 36.5 C 69 18 135/80 94 Room Air 09/08/23 07:31 65 09/08/23 05:58 68 09/08/23 04:04 36.4 C L 69 20 123/75 92 Room Air 09/07/23 23:33 36.6 C 77 20 130/77 93 Room Air Medications Administered Current Inpatient Medications Acetaminophen (Acetaminophen 325 Mg Tab) 650 mg PO Q4H PRN PRN Reason: Pain or Fever Stop: 09/29/23 06:44 Last Admin: 09/02/23 20:23 Dose: 650 mg Amlodipine Besylate (Amlodipine Besylate 5 Mg Tab) 5 mg PO [facility] Stop: 09/29/23 08:59 Last Admin: 09/08/23 08:25 Dose: 5 mg Aspirin (Aspirin 81 Mg Ectab) 81 mg PO [facility] Stop: 10/01/23 08:59 Last Admin: 09/08/23 08:25 Dose: 81 mg Buprenorphine/Naloxone (Buprenorphine/Naloxone 2/0.5mg 1 Tab) 1 tab SL Q72H [facility] Stop: 10/10/23 08:59 Carvedilol (Carvedilol 3.125 Mg Tab) 3.125 mg PO BIDM [facility] Stop: 09/29/23 07:59 Last Admin: 09/08/23 08:25 Dose: 3.125 mg Docusate Sodium (Docusate Sodium 100 Mg Cap) 100 mg PO BID [facility] Stop: 10/02/23 13:34 Last Admin: 09/08/23 08:28 Dose: 100 mg Famotidine (F[facility]otidine 20 Mg Tab) [facility] Stop: 09/29/23 08:59 Last Admin: 09/08/23 08:25 Dose: 20 mg Folic Acid (Folic Acid 1 Mg Tab) 1 mg PO [facility] Stop: 09/30/23 08:59 Last Admin: 09/08/23 08:25 Dose: 1 mg Heparin Sodium (Porcine) (Heparin Sod 5,000 Unit/0.5 Ml Vial) 5,000 units SQ Q8 [facility] Stop: 09/29/23 13:59 Last Admin: 09/08/23 08:27 Dose: Not Given Lorazepam 0.5 mg/ Syringe 0.5 mls @ 2 mls/min IV Q4H PRN PRN Reason: Anxiety/Agitation Stop: 09/29/23 06:42 Last Admin: 08/30/23 22:20 Dose: 2 mls/min Ipratropium [place] (Ipratropium [place] Neb Soln 0.02% 0.5mg/2.5ml Vial) 0.5 mg INH Q4H PRN PRN Reason: sob Stop: 09/29/23 06:59 Levalbuterol HCl (Levalbuterol 1.25 Mg/3 Ml Neb) 1.25 mg NEB Q4H PRN PRN Reason: sob Stop: 09/29/23 06:59 Levothyroxine Sodium (Levothyroxine Sodium 25 Mcg Tablet) 25 mcg PO DAILYBB [facility] Stop: 09/30/23 06:29 Last Admin: 09/08/23 05:36 Dose: 25 mcg Melatonin (Melatonin 3 Mg Tab) 3 mg PO HS PRN PRN Reason: Sleep Stop: 10/01/23 03:17 Last Admin: 09/02/23 20:20 Dose: 3 mg Metoprolol Tartrate (Metoprolol Tartrate 1 Mg/Ml Vial) 2.5 mg IV Q4H PRN PRN Reason: Tachycardia Stop: 09/29/23 10:59 Miscellaneous (Remove Nicoderm Patch) 1 each N/A DAILY@0859 [facility] Stop: 09/30/23 08:58 Last Admin: 09/08/23 08:24 Dose: 1 each Nicotine (Nicotine 14 Mg/24 Hr Patch) 14 mg TD QAM [facility] Stop: 09/29/23 11:14 Last Admin: 09/08/23 08:24 Dose: 14 mg Nitroglycerin (Nitroglycerin Sl 0.4 Mg/Tab Tab) 0.4 mg SL Q5M PRN PRN Reason: Chest Pain Stop: 09/29/23 06:44 Polyethylene Glycol (Polyethylene (Miralax) 17 Gm Pack) 17 gm PO DAILY PRN PRN Reason: Constipation Stop: 10/02/23 13:29 Last Admin: 09/02/23 13:59 Dose: 17 gm Thiamine HCl (Thiamine Hcl 50 Mg Tablet) [facility] Stop: 10/03/23 08:59 Last Admin: 09/08/23 08:26 Dose: 250 mg (1) Chest pain Chest pain type: unspecified Qualified Code(s): R07.9 - Chest pain, unspecified
--- NOTE | 2023-09-09 05:59 | Hospitalist Progress Note ---
Date of Service September 09, 2023 Assessment & Plan (1) Chest pain: Plan: Acute metabolic encephalopathy Likely delirium tremors secondary to benzo withdrawal --Less likely infectious source H/O traumatic brain injury H/O opioid use in the past currently on Suboxone Auditory hallucinations likely from withdrawal --MRI brain: No acute intracranial abnormality. --- Toxicology screen positive for oxazepam -- Normal TSH --EEG:This is an abnormal routine EEG in a patient with altered mentation due to 1. Generalized background slowing suggestive of a non specific encephalopathy, 2. Excessive beta activity is a normal variant and likely secondary to medication side effect ( ie benzodiazepines). No epileptiform activity is seen. --Normal ammonia, vitamin B12 levels --VBG showed no signs of hypercarbia --Blood cultures: No growth --Urine for heavy metal - negative, copper level - wnl --Finished Librium protocol, cont. thiamine Appreciate neurology, psychiatry input Continue to taper down Suboxone as able - currently on Q3 day Transitioned to p.o. thiamine Clinically improved Case management to help with discharge planning A-fib RVR Chest pain likely secondary to above Troponin negative Echo showed no wall motion abnormality, valvular heart disease Spontaneously converted to sinus. Given brief episode, no plan for anticoagulation Continue Coreg, aspirin 81 mg daily per cardiology Appreciate cardiology input Hypertension Continue amlodipine, carvedilol BP variable COPD No signs of exacerbation Nebs as needed Tobacco use disorder Continue nicotine patch H/O HCV Hypothyroidism--continue levothyroxine H/O substance abuse--on Suboxone Severe protein calorie malnutrition: BMI 18 DVT Px: Heparin SQ Code Status Full code Admission and Anticipated Discharge Date Admission Date: August 30, 2023 Subjective Patient is seen and examined at bedside, seen in follow up of hallucinations, likely benzo withdrawal Currently sitting up in bed, in no acute distress. He is awake alert and able to answer appropriately. Offers no complaints Denies any chest pain, dyspnea, dizziness, nausea, vomiting, abdominal pain Denies any hallucinations Review of Systems Review of Systems: All systems reviewed & are unremarkable except as noted in Subjective Physical Exam Physical Exam: General Appearance:Thin, frail, no apparent distress Head: normocephalic, Atraumatic Eyes: normal inspection, EOMI Neck: supple Respiratory/Chest: Normal breath sounds, CTA, No accessory muscle use Cardiovascular:S1, S2, no murmur Abdomen/GI:Soft, Non tender, Bowel sounds present Extremities/Musculoskeletal:normal inspection, no edema Neurologic/Psych: awake, alert, able to to answer questions appropriately, speech fluent, moves extremities Skin: normal color, warm Results & Data Results & Data Vital Signs (Past 12 Hours) Vital Signs Temp Pulse Pulse Resp BP Pulse Ox O2 Del Method 09/09/23 03:39 36.3 C L 73 18 126/79 93 Room Air 09/08/23 23:22 36.4 C L 80 18 118/75 95 Room Air 09/08/23 22:00 89 09/08/23 20:06 36.5 C 79 18 144/82 H 93 Room Air Medications Administered Current Inpatient Medications Acetaminophen (Acetaminophen 325 Mg Tab) 650 mg PO Q4H PRN PRN Reason: Pain or Fever Stop: 09/29/23 06:44 Last Admin: 09/09/23 08:58 Dose: 650 mg Amlodipine Besylate (Amlodipine Besylate 5 Mg Tab) 5 mg PO [facility] Stop: 09/29/23 08:59 Last Admin: 09/09/23 08:55 Dose: 5 mg Aspirin (Aspirin 81 Mg Ectab) 81 mg PO [facility] Stop: 10/01/23 08:59 Last Admin: 09/09/23 08:56 Dose: 81 mg Buprenorphine/Naloxone (Buprenorphine/Naloxone 2/0.5mg 1 Tab) 1 tab SL Q72H [facility] Stop: 10/10/23 08:59 Carvedilol (Carvedilol 3.125 Mg Tab) 3.125 mg PO BIDM [facility] Stop: 09/29/23 07:59 Last Admin: 09/09/23 08:55 Dose: 3.125 mg Docusate Sodium (Docusate Sodium 100 Mg Cap) 100 mg PO BID [facility] Stop: 10/02/23 13:34 Last Admin: 09/09/23 08:55 Dose: Not Given Famotidine (Famotidine 20 Mg Tab) 20 mg PO [facility] Stop: 09/29/23 08:59 Last Admin: 09/09/23 08:56 Dose: 20 mg Folic Acid (Folic Acid 1 Mg Tab) [facility] Stop: 09/30/23 08:59 Last Admin: 09/09/23 08:55 Dose: 1 mg Heparin Sodium (Porcine) (Heparin Sod 5,000 Unit/0.5 Ml Vial) 5,000 units SQ Q8 [facility] Stop: 09/29/23 13:59 Last Admin: 09/09/23 08:55 Dose: Not Given Lorazepam 0.5 mg/ Syringe 0.5 mls @ 2 mls/min IV Q4H PRN PRN Reason: Anxiety/Agitation Stop: 09/29/23 06:42 Last Admin: 08/30/23 22:20 Dose: 2 mls/min Ipratropium [place] (Ipratropium [place] Neb Soln 0.02% 0.5mg/2.5ml Vial) 0.5 mg INH Q4H PRN PRN Reason: sob Stop: 09/29/23 06:59 Levalbuterol HCl (Levalbuterol 1.25 Mg/3 Ml Neb) 1.25 mg NEB Q4H PRN PRN Reason: sob Stop: 09/29/23 06:59 Levothyroxine Sodium (Levothyroxine Sodium 25 Mcg Tablet) 25 mcg PO DAILYBB [facility] Stop: 09/30/23 06:29 Last Admin: 09/09/23 05:40 Dose: 25 mcg Melatonin (Melatonin 3 Mg Tab) 3 mg PO HS PRN PRN Reason: Sleep Stop: 10/01/23 03:17 Last Admin: 09/02/23 20:20 Dose: 3 mg Metoprolol Tartrate (Metoprolol Tartrate 1 Mg/Ml Vial) 2.5 mg IV Q4H PRN PRN Reason: Tachycardia Stop: 09/29/23 10:59 Miscellaneous (Remove Nicoderm Patch) 1 each N/A DAILY@0859 [facility] Stop: 09/30/23 08:58 Last Admin: 09/09/23 08:55 Dose: 1 each Nicotine (Nicotine 14 Mg/24 Hr Patch) 14 mg TD QAM [facility] Stop: 09/29/23 11:14 Last Admin: 09/09/23 08:56 Dose: 14 mg Nitroglycerin (Nitroglycerin Sl 0.4 Mg/Tab Tab) 0.4 mg SL Q5M PRN PRN Reason: Chest Pain Stop: 09/29/23 06:44 Polyethylene Glycol (Polyethylene (Miralax) 17 Gm Pack) 17 gm PO DAILY PRN PRN Reason: Constipation Stop: 10/02/23 13:29 Last Admin: 09/02/23 13:59 Dose: 17 gm Thiamine HCl (Thiamine Hcl 50 Mg Tablet) 250 mg PO QAM [facility] Stop: 10/03/23 08:59 Last Admin: 09/09/23 08:56 Dose: 250 mg (1) Chest pain Chest pain type: unspecified Qualified Code(s): R07.9 - Chest pain, unspecified
[2023-09-10] MEDS: ONDANSETRON INJ 2 MG/ML 2 ML VIAL IV PRN (03:34)
[2023-09-10] MEDS: KETOROLAC TROMETHAMINE 15 MG/ML VIAL IV ONE (03:34)
--- NOTE | 2023-09-10 03:49 | Communication Note ---
Date of Service: September 10, 2023 Patient with 10/10 abdominal pain and nausea symptoms. Last BM was yesterday as per RN. CT abdomen pelvis 1. Fluid-filled and distended small bowel. The terminal ileum is decompressed, this could represent a transition point however is not definitive. This could represent a small bowel obstruction, ileus or enteritis. 2. Mild ascites. 3. Thickening of the urinary bladder wall could relate to nondistention or cystitis. 4. Emphysema. AP Abdominal pain with emesis Possible SBO Possible cystitis on imaging Bowel rest NGT insertion if with recurrent emesis General surgery consult Re: Possible SBO Check UA Will relay to AM provider.
[2023-09-10] MEDS: OPTIRAY 320 100ml IV ONE (04:17)
--- NOTE | 2023-09-10 06:08 | CT Scan Report ---
Exam(s): CT ABDOMEN + PELVIS With Contrast IV Amt: 91 ML OPTIRAY 320 EXAM: CT Abdomen and Pelvis With Intravenous Contrast CLINICAL HISTORY: Abdominal pain. TECHNIQUE: Axial computed tomography images of the abdomen and pelvis with intravenous contrast. CTDI is 9.73 mGy and DLP is 463.02 mGy-cm. Automated exposure control was utilized for the study. A dose lowering technique was utilized adhering to the principles of ALARA. CONTRAST: Patient received 91 ML OPTIRAY 320 of IV contrast COMPARISON: No relevant prior studies available. FINDINGS: Lung bases: Emphysema. No consolidation. ABDOMEN: Liver: Unremarkable. No mass. Gallbladder and bile ducts: Unremarkable. No calcified stones. No ductal dilation. Pancreas: Unremarkable. No mass. No ductal dilation. Spleen: Unremarkable. No splenomegaly. Adrenals: Unremarkable. No mass. Kidneys and ureters: Unremarkable. No solid mass. No hydronephrosis. Stomach and bowel: Fluid-filled and distended small bowel. The terminal ileum is decompressed, this could represent a transition point however is not definitive. No mucosal thickening. PELVIS: Appendix: No findings to suggest acute appendicitis. Bladder: Thickening of the urinary bladder wall could relate to nondistention or cystitis. Reproductive: Unremarkable as visualized. ABDOMEN and PELVIS: Intraperitoneal space: Mild ascites. No free air. Bones/joints: There are degenerative changes of the spine. No acute fracture. No dislocation. Soft tissues: Unremarkable. Vasculature: Mild atherosclerosis. No abdominal aortic aneurysm. Lymph nodes: Unremarkable. No enlarged lymph nodes. IMPRESSION: 1. Fluid-filled and distended small bowel. The terminal ileum is decompressed, this could represent a transition point however is not definitive. This could represent a small bowel obstruction, ileus or enteritis. 2. Mild ascites. 3. Thickening of the urinary bladder wall could relate to nondistention or cystitis. 4. Emphysema. Electronically signed by: Mariana Christianson MD 09/10/23 06:07 AM
[2023-09-10] MEDS: D5W AND NSS 1,000 ML IV SCH (06:29)
[2023-09-10 06:41] LABS: Basophils # (auto) 0.06 K/uL (0.00-0.20); Basophils % (auto) 0.4 %; Eosinophils # (auto) 0.16 K/uL (0.00-0.50); Eosinophils % (auto) 1.2 %; Hematocrit (blood only) 54.5 % (42.0-52.0); Hemoglobin 18.1 g/dl (14.0-18.0); Immature Granulocytes % (auto) 0.7 %; Lymphocytes # (auto) 1.15 K/uL (1.20-3.40); Lymphocytes % (auto) 8.3 %; Mean Corpuscular Hemoglobin 30.1 pg (25.0-34.0); Mean Corpuscular Hgb Conc 33.2 g/dL (32.0-36.0); Mean Corpuscular Volume 90.7 fL (80.0-100.0); Mean Platelet Volume 9.7 fL (9.4-12.4); Monocytes # (auto) 0.78 K/uL (0.11-0.59); Monocytes % (auto) 5.6 %; Neutrophils # (auto) 11.58 K/uL (1.40-6.50); Neutrophils % (auto) 83.8 %; Platelet Count 318 K/uL (130-400); RDW Coefficient of Variation 15.7 % (11.5-14.5); RDW Standard Deviation 50.2 fL (36.4-46.3); Red Blood Count 6.01 M/uL (4.70-6.10); White Blood Count 13.83 K/ul (4.8-10.8)
[2023-09-10 06:51] LABS: Albumin Globulin Ratio 1.4 (0.9-2); Albumin Level 3.8 gm/dl (3.4-5.0); BUN Creatinine Ratio 28.7 (10-20); Bilirubin,Total 0.3 mg/dl (0.2-1.0); Calcium 9.2 mg/dl (8.6-10.3); Creatinine Clr Calc Pharmacy 57.7 ml/min; Est GFR (African American) 82.5 ml/min; Est GFR (Non-African American) 71.1 ml/min; Globulin 2.7 gm/dl (2.5-4.0); Potassium 4.9 mmol/L (3.5-5.1); Total Protein 6.5 gm/dl (6.0-8.3)
[2023-09-10 06:56] LABS: Appearance Urine Clear (Clear); Bacteria Urine Automated Negative (Negative); Bilirubin Urine Negative (Negative); Blood Urine Negative (Negative); Cast Urine Automated 0 /lpf (0-5); Color Urine Yellow; Epithelial Cell Urine Auto 0-5 /lpf (0-5); Glucose Urine UA Negative (Negative); Ketones Urine Negative (Negative); Leukocyte Esterase Urine Negative (Negative); Nitrite Urine Negative (Negative); Protein Urine Trace (Negative); RBC Urine Automated 0-4 /hpf (0-4); Specific Gravity Urine > 1.045 (1.000-1.030); Urobilinogen Urine Negative (Negative)
[2023-09-10] MEDS: BUPRENORPHINE/NALOXONE 2/0.5MG 1 TAB SL SCH (09:03)
--- NOTE | 2023-09-10 11:06 | Surgery Consultation ---
Date of Consultation September 10, 2023 Assessment & Plan (1) Ileus: (2) Enteritis: (3) Benzodiazepine withdrawal with delirium: (4) Encephalopathy: (5) Emphysema/COPD: Plan 68-year-old gentleman presents with few day history of vague abdominal pain culminating in severe pain last night. The pain has resolved this morning. CT scan demonstrates ileus versus enteritis versus possible partial bowel obstruction. He continues to pass flatus this morning. I believe he probably has an ileus due to his hospitalization as well as his medication usage. No surgical indications at this time. We will sign off. Please call with questions or concerns. History of Present Illness Reason for Consultation: Possible partial small bowel obstruction Requesting Physician: Sunday Chávez MD Attending Physician: Sunday Chávez MD History of Present Illness 68-year-old gentleman has been hospitalized for the past week with agitation and benzodiazepine withdrawal now presents with 4-day history of vague abdominal pain and mild distention. Last night, he developed severe abdominal pain and nausea. He did not vomit. He had a normal bowel movement yesterday. He has been passing gas yesterday and today. Today he states that the pain has ameliorated significantly. He rates his pain a 5 out of 10. Of note, he is on Suboxone. CT scan last night noted diffuse distention and mild thickening fluid-filled small bowel down to the colon. There is a possible partial small bowel obstruction but no distinct transition point. he denies fevers and Chills. denies any other Complaints today Allergies Allergy/AdvReac Type Severity Reaction Status Date / Time No Known Allergies Allergy Verified 08/25/23 16:19 Home Medications Medication Instructions Recorded Confirmed Type amlodipine 5 mg tablet 5 mg PO QAM 08/25/23 08/30/23 History famotidine 20 mg tablet 20 mg PO QAM 08/25/23 08/30/23 History levalbuterol tartrate 45 1 puff inhalation Q4H PRN Wheezing 08/25/23 08/30/23 History mcg/actuation aerosol inhaler levothyroxine 25 mcg tablet 25 mcg PO DAILYBB 08/25/23 08/30/23 History buprenorphine 2 mg-naloxone 0.5 mg 1 tab sublingual DAILY 08/30/23 08/30/23 History sublingual tablet carvedilol 3.125 mg tablet (Coreg) 0 mg PO BID 08/30/23 08/30/23 History naloxone 4 mg/actuation nasal spray 1 spray intranasal UD 08/30/23 08/30/23 History Patient History Medical History Opioid use disorder, severe, dependence Hypothyroidism Tobacco use GERD (gastroesophageal reflux disease) History of drug abuse Emphysema/COPD Chronic hepatitis Hepatitis C Acute exacerbation of chronic obstructive pulmonary disease Concussion HTN (hypertension) Surgical History No pertinent past surgical history Family History Other Cancer Hypertension Social History Smoking Status: Current every day smoker Tobacco Type: Cigarettes Hx Alcohol Use: No Hx Substance Use: Yes Non-Prescribed Medications: Marijuana and Other Non- Prescribed Medications Comment: Opiates Last Used Substance: Unknown Substance Use Type Other:: Benzo's Preferred Language: Belarusian Communication Ability: 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 Beliefs That Will Affect Care: None Current Living Situation: Family Current Living Situation Comment: Lives with sister Other Information That Helps Us Care for You: No Feels Safe at Home: Yes Gender Identity: Male Assistive Devices: None Review of Systems Review of Systems: All systems reviewed & are unremarkable except as noted in HPI & below Physical Exam Constitutional: WD/WN, vitals as above Eyes: PERRL, conjunctivae normal, anicteric sclerae Neck: trachea midline, no thyromegaly Respiratory: normal respiratory effort, lungs clear to auscultation Cardiovascular: RRR, no murmur, no edema Gastrointestinal (Abdomen): Inspection/Auscultation: abdomen normal to inspection and + abdomen distended ( mild) Percussion/Palpation: + abdomen tender ( minimal diffuse tenderness) and abdomen soft; no guarding and abdomen not rigid Skin: no rashes, warm and dry Psychiatric: A+Ox3, euthymic affect Results & Data Vital Signs (Past 12 Hours) Vital Signs Temp Pulse Pulse Resp BP BP Pulse Ox 09/10/23 10:44 36.7 C 75 16 133/79 94 09/10/23 07:24 36.6 C 83 18 145/77 H 93 09/10/23 06:00 85 09/10/23 03:05 36.4 C L 83 18 136/90 92 09/09/23 23:12 36.4 C L 82 18 122/83 94 O2 Del Method 09/10/23 10:44 Room Air 09/10/23 07:24 Room Air 09/10/23 06:00 09/10/23 03:05 Room Air 09/09/23 23:12 Room Air Laboratory Results 09/10/23 09/10/23 Range/Units Unknown 06:13 WBC 13.83 H (4.8-10.8) K/ul RBC 6.01 (4.70-6.10) M/uL Hgb 18.1 H (14.0-18.0) g/dl Hct 54.5 H (42.0-52.0) % MCV 90.7 (80.0-100.0) fL MCH 30.1 (25.0-34.0) pg MCHC 33.2 (32.0-36.0) g/dL RDW Std Deviation 50.2 H (36.4-46.3) fL RDW Coeff of Naun 15.7 H (11.5-14.5) % Plt Count 318 (130-400) K/uL MPV 9.7 (9.4-12.4) fL Immature Gran % (Auto) 0.7 % Neut % (Auto) 83.8 % Lymph % (Auto) 8.3 % [place] % (Auto) 5.6 % Eos % (Auto) 1.2 % Baso % (Auto) 0.4 % Neut # (Auto) 11.58 H (1.40-6.50) K/uL Lymph # (Auto) 1.15 L (1.20-3.40) K/uL [place] # (Auto) 0.78 H (0.11-0.59) K/uL Eos # (Auto) 0.16 (0.00-0.50) K/uL Baso # (Auto) 0.06 (0.00-0.20) K/uL Immature Gran # (Auto) 0.10 (0.01-0.20) K/uL Sodium 136 (136-145) mmol/L Potassium 4.9 (3.5-5.1) mmol/L Chloride 104 (98-107) mmol/L Carbon Dioxide 27 (21-32) mmol/L Anion Gap 5 (3-11) BUN 31 H (6-23) mg/dl Creatinine 1.08 (0.6-1.4) mg/dl Est Cr Clr Drug Dosing 57.7 ml/min Est GFR ( Amer) 82.5 ml/min Est GFR (Non-Af Amer) 71.1 ml/min BUN/Creatinine Ratio 28.7 H (10-20) Glucose 107 H (70-99(Fasting)) mg/dl Calcium 9.2 (8.6-10.3) mg/dl Total Bilirubin 0.3 (0.2-1.0) mg/dl AST 42 H (13-39) U/L ALT 125 H (7-52) U/L Alkaline Phosphatase 27 L (34-104) U/L Total Protein 6.5 (6.0-8.3) gm/dl Albumin 3.8 (3.4-5.0) gm/dl Globulin 2.7 (2.5-4.0) gm/dl Albumin/Globulin Ratio 1.4 (0.9-2) Lipase 32 (11-82) U/L Urine Color Yellow Urine Appearance Clear (Clear) Urine pH 6.0 (4.5-7.5) Ur Specific [place] > 1.045 H (1.000-1.030) Urine Protein Trace H (Negative) Urine Glucose (UA) Negative (Negative) Urine Ketones Negative (Negative) Urine Blood Negative (Negative) Urine Nitrite Negative (Negative) Urine Bilirubin Negative (Negative) Urine Urobilinogen Negative (Negative) Ur Leukocyte Esterase Negative (Negative) Urine WBC (Auto) 1-5 (0-5) /hpf Urine RBC (Auto) 0-4 (0-4) /hpf U Hyaline Cast (Auto) 0 (0-5) /lpf U Epithel Cells (Auto) 0-5 (0-5) /lpf Urine Bacteria (Auto) Negative (Negative) Diagnostic Findings Exam(s): CT ABDOMEN + PELVIS With Contrast IV Amt: 91 ML OPTIRAY 320 EXAM: CT Abdomen and Pelvis With Intravenous Contrast CLINICAL HISTORY: Abdominal pain. TECHNIQUE: Axial computed tomography images of the abdomen and pelvis with intravenous contrast. CTDI is 9.73 mGy and DLP is 463.02 mGy-cm. Automated exposure control was utilized for the study. A dose lowering technique was utilized adhering to the principles of ALARA. CONTRAST: Patient received 91 ML OPTIRAY 320 of IV contrast COMPARISON: No relevant prior studies available. FINDINGS: Lung bases: Emphysema. No consolidation. ABDOMEN: Liver: Unremarkable. No mass. Gallbladder and bile ducts: Unremarkable. No calcified stones. No ductal dilation. Pancreas: Unremarkable. No mass. No ductal dilation. Spleen: Unremarkable. No splenomegaly. Adrenals: Unremarkable. No mass. Kidneys and ureters: Unremarkable. No solid mass. No hydronephrosis. Stomach and bowel: Fluid-filled and distended small bowel. The terminal ileum is decompressed, this could represent a transition point however is not definitive. No mucosal thickening. PELVIS: Appendix: No findings to suggest acute appendicitis. Bladder: Thickening of the urinary bladder wall could relate to nondistention or cystitis. Reproductive: Unremarkable as visualized. ABDOMEN and PELVIS: Intraperitoneal space: Mild ascites. No free air. Bones/joints: There are degenerative changes of the spine. No acute fracture. No dislocation. Soft tissues: Unremarkable. Vasculature: Mild atherosclerosis. No abdominal aortic aneurysm. Lymph nodes: Unremarkable. No enlarged lymph nodes. IMPRESSION: 1. Fluid-filled and distended small bowel. The terminal ileum is decompressed, this could represent a transition point however is not definitive. This could represent a small bowel obstruction, ileus or enteritis. 2. Mild ascites. 3. Thickening of the urinary bladder wall could relate to nondistention or cystitis. 4. Emphysema. Electronically signed by: Mariana Christianson MD 09/10/23 06:07 AM
--- NOTE | 2023-09-10 20:53 | Hospitalist Progress Note ---
Date of Service September 10, 2023 Assessment & Plan (1) Chest pain: Plan: Acute metabolic encephalopathy Likely delirium tremors secondary to benzo withdrawal --Less likely infectious source H/O traumatic brain injury H/O opioid use in the past currently on Suboxone Auditory hallucinations likely from withdrawal --MRI brain: No acute intracranial abnormality. --- Toxicology screen positive for oxazepam -- Normal TSH --EEG:This is an abnormal routine EEG in a patient with altered mentation due to 1. Generalized background slowing suggestive of a non specific encephalopathy, 2. Excessive beta activity is a normal variant and likely secondary to medication side effect ( ie benzodiazepines). No epileptiform activity is seen. --Normal ammonia, vitamin B12 levels --VBG showed no signs of hypercarbia --Blood cultures: No growth --Urine for heavy metal - negative, copper level - wnl --Finished Librium protocol, cont. thiamine Appreciate neurology, psychiatry input Continue to taper down Suboxone as able - currently on Q3 day Transitioned to p.o. thiamine Mental status back to baseline Ileus --CT ABD:Fluid-filled and distended small bowel. The terminal ileum is decompressed, this could represent a transition point however is not definitive. This could represent a small bowel obstruction, ileus or enteritis. Mild ascites. -- Appreciate surgery input: No surgical intervention needed currently Liquid diet today Will recheck KUB tomorrow Will order stool studies if develops diarrhea A-fib RVR Chest pain likely secondary to above Troponin negative Echo showed no wall motion abnormality, valvular heart disease Spontaneously converted to sinus. Given brief episode, no plan for anticoagulation Continue Coreg, aspirin 81 mg daily per cardiology Appreciate cardiology input Hypertension Continue amlodipine, carvedilol BP variable COPD No signs of exacerbation Nebs as needed Tobacco use disorder Continue nicotine patch H/O HCV Hypothyroidism--continue levothyroxine H/O substance abuse--on Suboxone Severe protein calorie malnutrition: BMI 18 DVT Px: Heparin SQ Code Status Full code Admission and Anticipated Discharge Date Admission Date: August 30, 2023 Subjective Patient is seen and examined at bedside Admits to have abdominal pain overnight which resolved this morning + Flatus but no bowel movement today Tolerating liquid diet Denies any nausea, vomiting, chest pain, dysuria, hematuria, increased urinary frequency No new complaints Review of Systems Review of Systems: All systems reviewed & are unremarkable except as noted in Subjective Physical Exam Physical Exam: Physical Exam: Vitals signs as noted above General Appearance:Thin, frail, no apparent distress Head: normocephalic, Atraumatic Eyes: normal inspection, EOMI Neck: supple, Trachea midline Respiratory/Chest: Normal breath sounds, CTA, No accessory muscle use Cardiovascular:S1, S2, no murmur Abdomen/GI:Soft, Non tender, Bowel sounds present Extremities/Musculoskeletal:normal inspection, no edema Neurologic/Psych:AAOX2, grossly no focal neurological deficits Skin: normal color, warm Results & Data Results & Data Vital Signs (Past 12 Hours) Vital Signs Temp Pulse Pulse Resp BP Pulse Ox O2 Del Method 09/10/23 19:24 36.4 C L 80 18 131/82 95 Room Air 09/10/23 16:36 36.5 C 69 16 122/69 96 Room Air 09/10/23 14:02 66 09/10/23 10:44 36.7 C 75 16 133/79 94 Room Air Laboratory Results Short CBC 09/10/23 Range/Units 06:13 WBC 13.83 H (4.8-10.8) K/ul Hgb 18.1 H (14.0-18.0) g/dl Hct 54.5 H (42.0-52.0) % Plt Count 318 (130-400) K/uL BMP 09/10/23 06:13 Sodium 136 Potassium 4.9 Chloride 104 Carbon Dioxide 27 BUN 31 H Creatinine 1.08 Glucose 107 H Calcium 9.2 Liver Function 09/10/23 Range/Units 06:13 Total Bilirubin 0.3 (0.2-1.0) mg/dl AST 42 H (13-39) U/L ALT 125 H (7-52) U/L Alkaline Phosphatase 27 L (34-104) U/L Albumin 3.8 (3.4-5.0) gm/dl Urine 09/10/23 Range/Units Unknown Urine Color Yellow Urine Appearance Clear (Clear) Urine pH 6.0 (4.5-7.5) Ur Specific Morris > 1.045 H (1.000-1.030) Urine Protein Trace H (Negative) Urine Glucose (UA) Negative (Negative) (1) Chest pain Chest pain type: unspecified Qualified Code(s): R07.9 - Chest pain, unspecified
[2023-09-11 06:07] LABS: BUN Creatinine Ratio 23.8 (10-20); Calcium 8.4 mg/dl (8.6-10.3); Creatinine Clr Calc Pharmacy 61.3 ml/min; Est GFR (African American) 89.4 ml/min; Est GFR (Non-African American) 77.1 ml/min; Magnesium 1.9 mg/dl (1.7-2.4); Potassium 4.7 mmol/L (3.5-5.1)
[2023-09-11 06:33] LABS: Hematocrit (blood only) 44.9 % (42.0-52.0); Hemoglobin 15.1 g/dl (14.0-18.0); Mean Corpuscular Hemoglobin 30.8 pg (25.0-34.0); Mean Corpuscular Hgb Conc 33.6 g/dL (32.0-36.0); Mean Corpuscular Volume 91.6 fL (80.0-100.0); Mean Platelet Volume 9.8 fL (9.4-12.4); Platelet Count 247 K/uL (130-400); RDW Coefficient of Variation 15.2 % (11.5-14.5); RDW Standard Deviation 51.3 fL (36.4-46.3); White Blood Count 6.05 K/ul (4.8-10.8)
--- NOTE | 2023-09-11 09:13 | XRay Report ---
XR KUB/Abdomen 1 view CLINICAL HISTORY: Ileus TECHNIQUE: 1 view of the abdomen was obtained. Comparison: None available at the time of this dictation. FINDINGS: Lung bases are unremarkable. The osseous structures are grossly unremarkable. The bowel gas pattern i s nonobstructive. A moderate amount of stool is noted within the large bowel. IMPRESSION: Nonobstructive bowel gas pattern. ACT 112: Negative or not required by law. Electronically signed by: Abhi Jo M.D. 09/11/2023 9:11 AM
[2023-09-11] MEDS ORDERED: DOCUSATE SODIUM 100 MG CAP PO SCH (09:15)
[2023-09-11] MEDS ORDERED: bisacodyL 10 MG SUPP PR PRN (09:17)
[2023-09-11] MEDS: POLYETHYLENE (MIRALAX) 17 GM PACK PO SCH (09:53)
[2023-09-11] MEDS: SENNA 8.6 MG TAB PO SCH (09:53)
[2023-09-11] MEDS: POLYETHYLENE (MIRALAX) 17 GM PACK PO ONE (14:37)
--- NOTE | 2023-09-11 16:07 | Hospitalist Progress Note ---
Date of Service September 11, 2023 Assessment & Plan (1) Chest pain: Plan: Acute metabolic encephalopathy Likely delirium tremors secondary to benzo withdrawal --Less likely infectious source H/O traumatic brain injury H/O opioid use in the past currently on Suboxone Auditory hallucinations likely from withdrawal --MRI brain: No acute intracranial abnormality. --- Toxicology screen positive for oxazepam -- Normal TSH --EEG:This is an abnormal routine EEG in a patient with altered mentation due to 1. Generalized background slowing suggestive of a non specific encephalopathy, 2. Excessive beta activity is a normal variant and likely secondary to medication side effect ( ie benzodiazepines). No epileptiform activity is seen. --Normal ammonia, vitamin B12 levels --VBG showed no signs of hypercarbia --Blood cultures: No growth --Urine for heavy metal - negative, copper level - wnl --Finished Librium protocol, cont. thiamine Appreciate neurology, psychiatry input Continue to taper down Suboxone as able - currently on Q3 day Transitioned to p.o. thiamine Mental status back to baseline Likely plan to discharge tomorrow if remains stable Ileus --CT ABD:Fluid-filled and distended small bowel. The terminal ileum is decompressed, this could represent a transition point however is not definitive. This could represent a small bowel obstruction, ileus or enteritis. Mild a scites. -- Appreciate surgery input: No surgical intervention needed currently Nonobstructive bowel gas pattern on KUB today Advance to low fiber diet Continue bowel regimen A-fib RVR Chest pain likely secondary to above Troponin negative Echo showed no wall motion abnormality, valvular heart disease Spontaneously converted to sinus. Given brief episode, no plan for anticoagulation Continue Coreg, aspirin 81 mg daily per cardiology Appreciate cardiology input Hypertension Continue amlodipine, carvedilol BP stable COPD No signs of exacerbation Nebs as needed Tobacco use disorder Continue nicotine patch H/O HCV Hypothyroidism--continue levothyroxine H/O substance abuse--on Suboxone Severe protein calorie malnutrition: BMI 18 DVT Px: Heparin SQ Code Status Full code Admission and Anticipated Discharge Date Admission Date: August 30, 2023 Subjective Patient is seen and examined at bedside Abdominal pain resolved Had small bowel movement today Tolerating current diet Denies any nausea, vomiting, chest pain, dysuria, hematuria, increased urinary frequency No other complaints Review of Systems Review of Systems: All systems reviewed & are unremarkable except as noted in Subjective Physical Exam Physical Exam: Physical Exam: Vitals signs as noted above General Appearance:Thin, frail, no apparent distress Head: normocephalic, Atraumatic Eyes: normal inspection, EOMI Neck: supple, Trachea midline Respiratory/Chest: Normal breath sounds, CTA, No accessory muscle use Cardiovascular:S1, S2, no murmur Abdomen/GI:Soft, Non tender, Bowel sounds present Extremities/Musculoskeletal:normal inspection, no edema Neurologic/Psych:AAOX2, grossly no focal neurological deficits Skin: normal color, warm Results & Data Results & Data Vital Signs (Past 12 Hours) Vital Signs Temp Pulse Pulse Resp BP BP Pulse Ox 09/11/23 11:45 36.6 C 66 18 138/79 95 09/11/23 08:00 36.9 C 75 18 126/73 92 09/11/23 07:34 70 09/11/23 04:16 36.3 C L 69 18 119/74 94 O2 Del Method 09/11/23 11:45 Room Air 09/11/23 08:00 Room Air 09/11/23 07:34 09/11/23 04:16 Room Air Laboratory Results Short CBC 09/11/23 Range/Units 05:30 WBC 6.05 (4.8-10.8) K/ul Hgb 15.1 D (14.0-18.0) g/dl Hct 44.9 (42.0-52.0) % Plt Count 247 (130-400) K/uL BMP 09/11/23 05:30 Sodium 138 Potassium 4.7 Chloride 105 Carbon Dioxide 32 BUN 24 H Creatinine 1.01 Glucose 86 Calcium 8.4 L (1) Chest pain Chest pain type: unspecified Qualified Code(s): R07.9 - Chest pain, unspecified
[2023-09-12 06:24] LABS: Hematocrit (blood only) 44.8 % (42.0-52.0); Hemoglobin 15.3 g/dl (14.0-18.0); Mean Corpuscular Hemoglobin 30.5 pg (25.0-34.0); Mean Corpuscular Hgb Conc 34.2 g/dL (32.0-36.0); Mean Corpuscular Volume 89.2 fL (80.0-100.0); Mean Platelet Volume 9.6 fL (9.4-12.4); Platelet Count 261 K/uL (130-400); RDW Coefficient of Variation 14.8 % (11.5-14.5); RDW Standard Deviation 48.8 fL (36.4-46.3); Red Blood Count 5.02 M/uL (4.70-6.10); White Blood Count 5.65 K/ul (4.8-10.8)
[2023-09-12 06:29] LABS: BUN Creatinine Ratio 23.8 (10-20); Calcium 8.5 mg/dl (8.6-10.3); Creatinine Clr Calc Pharmacy 74.1 ml/min; Est GFR (African American) 105.7 ml/min; Est GFR (Non-African American) 91.2 ml/min
--- NOTE | 2023-09-12 13:08 | Hospitalist Progress Note ---
Date of Service September 12, 2023 Assessment & Plan (1) Chest pain: Plan: Acute metabolic encephalopathy Likely delirium tremors secondary to benzo withdrawal --Less likely infectious source H/O traumatic brain injury H/O opioid use in the past currently on Suboxone Auditory hallucinations likely from withdrawal --MRI brain: No acute intracranial abnormality. --- Toxicology screen positive for oxazepam -- Normal TSH --EEG:This is an abnormal routine EEG in a patient with altered mentation due to 1. Generalized background slowing suggestive of a non specific encephalopathy, 2. Excessive beta activity is a normal variant and likely secondary to medication side effect ( ie benzodiazepines). No epileptiform activity is seen. --Normal ammonia, vitamin B12 levels --VBG showed no signs of hypercarbia --Blood cultures: No growth --Urine for heavy metal - negative, copper level - wnl --Finished Librium protocol, cont. thiamine Appreciate neurology, psychiatry input Continue to taper down Suboxone as able - currently on Q3 day Transitioned to p.o. thiamine Mental status back to baseline Plan to discharge home today Ileus --CT ABD:Fluid-filled and distended small bowel. The terminal ileum is decompressed, this could represent a transition point however is not definitive. This could represent a small bowel obstruction, ileus or enteritis. Mild ascites. -- Appreciate surgery input: No surgical intervention needed currently Nonobstructive bowel gas pattern on KUB today Advance to low fiber diet Continue bowel regimen Resolved A-fib RVR Chest pain likely secondary to above Troponin negative Echo showed no wall motion abnormality, valvular heart disease Spontaneously converted to sinus. Given brief episode, no plan for ant icoagulation Continue Coreg, aspirin 81 mg daily per cardiology Appreciate cardiology input Hypertension Continue amlodipine, carvedilol BP stable COPD No signs of exacerbation Nebs as needed Tobacco use disorder Continue nicotine patch H/O HCV Hypothyroidism--continue levothyroxine H/O substance abuse--on Suboxone Severe protein calorie malnutrition: BMI 18 DVT Px: Heparin SQ Code Status Full code Disposition Home Admission and Anticipated Discharge Date Admission Date: August 30, 2023 Subjective Patient is seen and examined at bedside Reports having large bowel movement Tolerating diet No recurrence of abdominal pain Denies any nausea, vomiting, chest pain, dysuria, hematuria, increased urinary frequency No other complaints Plan to be discharged home today Review of Systems Review of Systems: All systems reviewed & are unremarkable except as noted in Subjective Physical Exam Physical Exam: Physical Exam: Vitals signs as noted above General Appearance:Thin, frail, no apparent distress Head: normocephalic, Atraumatic Eyes: normal inspection, EOMI Neck: supple, Trachea midline Respiratory/Chest: Normal breath sounds, CTA, No accessory muscle use Cardiovascular:S1, S2, no murmur Abdomen/GI:Soft, Non tender, Bowel sounds present Extremities/Musculoskeletal:normal inspection, no edema Neurologic/Psych:AAOX2, grossly no focal neurological deficits Skin: normal color, warm Results & Data Results & Data Vital Signs (Past 12 Hours) Vital Signs Temp Pulse Pulse Resp BP Pulse Ox O2 Del Method 09/12/23 11:58 36.6 C 78 18 132/77 95 Room Air 09/12/23 08:03 36.3 C L 69 18 134/78 Room Air 09/12/23 07:07 65 09/12/23 03:32 36.4 C L 71 18 123/68 93 Room Air Laboratory Results Short CBC 09/12/23 Range/Units 05:28 WBC 5.65 (4.8-10.8) K/ul Hgb 15.3 (14.0-18.0) g/dl Hct 44.8 (42.0-52.0) % Plt Count 261 (130-400) K/uL BMP 09/12/23 05:28 Sodium 138 Potassium 4.0 Chloride 104 Carbon Dioxide 29 BUN 20 Creatinine 0.84 Glucose 88 Calcium 8.5 L (1) Chest pain Chest pain type: unspecified Qualified Code(s): R07.9 - Chest pain, unspecified
--- NOTE | 2023-09-12 13:15 | Discharge Summary ---
Date of Service September 12, 2023 Admission HPI Per Admitting Provider History obtained from [facility] staff, family, and records. Unable to obtain history from patient secondary to agitated state. Medical history significant for hypertension, COPD, HCV, history of traumatic brain injury as per records, hypothyroidism, substance abuse, ongoing tobacco abuse. Patient confined at [facility] since 08/25/2023 for suicidality. Patient noted to have increased agitation, tremors, involuntary movements overnight. Code chaya called at 6 AM today. Patient responded yes when asked about chest pain but unable to give additional details. 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 Admission Exam Per Admitting Provider GENERAL: Agitated, disoriented, underweight SKIN: Normal color, warm HEENT: Alopecia, [place] palpebral conjunctivae, no ptosis, dry buccal mucosa, nasal cannula in place NECK : Supple, no tenderness CHEST : Decreased breath sounds, no tenderness HEART : Tachycardic, no obvious murmurs ABDOMEN: no distention, nontender EXTREMITIES : No LE swelling/tenderness, no other conspicuous deformities noted NEUROLOGIC : Agitated, no facial asymmetry, incessant bilateral arm flailing Principal Diagnosis Benzodiazepine Use Disorder, Severe Benzodiazepine Withdrawal Opioid Use Disorder, Severe Ileus Discharge Data Allergies Allergy/AdvReac Type Severity Reaction Status Date / Time No Known Allergies Allergy Verified 08/25/23 16:19 Consultations 08/30/23 06:45 Consult Psychiatry Routine 08/30/23 07:32 Consult Neurology Routine 08/30/23 08:38 Consult Cardiology Routine 09/10/23 06:11 Consult General Surgery Routine Procedures Performed Laboratory Results WBC 5.65 K/ul (4.8-10.8) 09/12/23 05:28 RBC 5.02 M/uL (4.70-6.10) 09/12/23 05:28 Hgb 15.3 g/dl (14.0-18.0) 09/12/23 05:28 Hct 44.8 % (42.0-52.0) 09/12/23 05:28 MCV 89.2 fL (80.0-100.0) 09/12/23 05:28 MCH 30.5 pg (25.0-34.0) 09/12/23 05:28 MCHC 34.2 g/dL (32.0-36.0) 09/12/23 05:28 RDW Std Deviation 48.8 fL (36.4-46.3) H 09/12/23 05:28 RDW Coeff of Naun 14.8 % (11.5-14.5) H 09/12/23 05:28 Plt Count 261 K/uL (130-400) 09/12/23 05:28 MPV 9.6 fL (9.4-12.4) 09/12/23 05:28 Immature Gran % (Auto) 0.7 % 09/10/23 06:13 Neut % (Auto) 83.8 % 09/10/23 06:13 Lymph % (Auto) 8.3 % 09/10/23 06:13 Lamoure % (Auto) 5.6 % 09/10/23 06:13 Eos % (Auto) 1.2 % 09/10/23 06:13 Baso % (Auto) 0.4 % 09/10/23 06:13 Neut # (Auto) 11.58 K/uL (1.40-6.50) H 09/10/23 06:13 Lymph # (Auto) 1.15 K/uL (1.20-3.40) L 09/10/23 06:13 Lamoure # (Auto) 0.78 K/uL (0.11-0.59) H 09/10/23 06:13 Eos # (Auto) 0.16 K/uL (0.00-0.50) 09/10/23 06:13 Baso # (Auto) 0.06 K/uL (0.00-0.20) 09/10/23 06:13 Immature Gran # (Auto) 0.10 K/uL (0.01-0.20) 09/10/23 06:13 Absolute Nucleated RBC Cancelled 08/30/23 07:08 Nucleated RBC % (auto) Cancelled 08/30/23 07:08 Neutrophils % (Manual) Cancelled 08/30/23 07:08 Band Neutrophils % Cancelled 08/30/23 07:08 Lymphocytes % (Manual) Cancelled 08/30/23 07:08 Prolymphocyte % Cancelled 08/30/23 07:08 Reactive Lymphs % (Man) Cancelled 08/30/23 07:08 Monocytes % (Manual) Cancelled 08/30/23 07:08 Eosinophils % (Manual) Cancelled 08/30/23 07:08 Basophils % (Manual) Cancelled 08/30/23 07:08 Metamyelocytes % (Man) Cancelled 08/30/23 07:08 Myelocytes % (Man) Cancelled 08/30/23 07:08 Promyelocytes % (Man) Cancelled 08/30/23 07:08 Blast Cells % (Manual) Cancelled 08/30/23 07:08 Plasma Cell % (Manual) Cancelled 08/30/23 07:08 Other Cells % Cancelled 08/30/23 07:08 Nucleated RBC % Cancelled 08/30/23 07:08 Neutrophils # (Manual) Cancelled 08/30/23 07:08 Band Neutrophils # Cancelled 08/30/23 07:08 Total Absolute Neuts Cancelled 08/30/23 07:08 Lymphocytes # (Manual) Cancelled 08/30/23 07:08 Prolymphocyte # Cancelled 08/30/23 07:08 Reactive Lymphs # Cancelled 08/30/23 07:08 Total Abs Lymphocytes Cancelled 08/30/23 07:08 Monocytes # (Manual) Cancelled 08/30/23 07:08 Eosinophils # (Manual) Cancelled 08/30/23 07:08 Basophils # (Manual) Cancelled 08/30/23 07:08 Metamyelocytes # (Man) Cancelled 08/30/23 07:08 Myelocytes # (Manual) Cancelled 08/30/23 07:08 Promyelocytes # (Man) Cancelled 08/30/23 07:08 Blast Cells # (Man) Cancelled 08/30/23 07:08 Plasma Cell # (Manual) Cancelled 08/30/23 07:08 Other Cells # Cancelled 08/30/23 07:08 Nucleated RBCs # (Man) Cancelled 08/30/23 07:08 Hypersegmented Neuts Cancelled 08/30/23 07:08 Hyposegmented Neuts Cancelled 08/30/23 07:08 Hypogranular Neuts Cancelled 08/30/23 07:08 Large Granular Lymphs Cancelled 08/30/23 07:08 # Lrg Granular Lymphs Cancelled 08/30/23 07:08 Hairy Cells Cancelled 08/30/23 07:08 Smudge Cells Cancelled 08/30/23 07:08 Toxic Granulation Cancelled 08/30/23 07:08 Toxic Vacuolation Cancelled 08/30/23 07:08 Dohle Bodies Cancelled 08/30/23 07:08 Aracelis Rods Cancelled 08/30/23 07:08 Platelet Estimate Cancelled 08/30/23 07:08 Hypogranular Platelets Cancelled 08/30/23 07:08 Giant Platelets Cancelled 08/30/23 07:08 Platelet Satelliting Cancelled 08/30/23 07:08 RBC Morphology Cancelled 08/30/23 07:08 Polychromasia Cancelled 08/30/23 07:08 Hypochromasia Cancelled 08/30/23 07:08 Poikilocytosis Cancelled 08/30/23 07:08 Basophilic Stippling Cancelled 08/30/23 07:08 Anisocytosis Cancelled 08/30/23 07:08 Microcytosis Cancelled 08/30/23 07:08 Macrocytosis Cancelled 08/30/23 07:08 Spherocytes Cancelled 08/30/23 07:08 Pappenheimer Bodies Cancelled 08/30/23 07:08 Sickle Cells Cancelled 08/30/23 07:08 Target Cells Cancelled 08/30/23 07:08 Tear Drop Cells Cancelled 08/30/23 07:08 Ovalocytes Cancelled 08/30/23 07:08 Stomatocytes Cancelled 08/30/23 07:08 [place] Bodies Cancelled 08/30/23 07:08 Echinocytes Cancelled 08/30/23 07:08 Acanthocytes (Spur) Cancelled 08/30/23 07:08 Rouleaux Cancelled 08/30/23 07:08 RBC Agglutinates Cancelled 08/30/23 07:08 Schistocytes Cancelled 08/30/23 07:08 Sezary Cell Cancelled 08/30/23 07:08 PT 13.0 Seconds (9.0-12.0) H 08/30/23 12:55 INR 1.2 (0.9-1.1) H 08/30/23 12:55 APTT 25 Seconds (21-31) 08/30/23 07:08 PTT Ratio 0.9 08/30/23 07:08 ABG pH 7.34 (7.35-7.45) L 08/30/23 07:37 ABG pCO2 45 mmHg (35-46) 08/30/23 07:37 ABG pO2 138 mmHg (80-95) H 08/30/23 07:37 ABG HCO3 24 mmol/L (19-24) 08/30/23 07:37 ABG O2 Saturation 95.3 % (90-95) H 08/30/23 07:37 ABG Base Excess -1.7 mEq/L (-9-1.8) 08/30/23 07:37 Jace Test Pos (Pos) 08/30/23 07:37 Oxygen Given 3L 08/30/23 07:37 Sodium 138 mmol/L (136-145) 09/12/23 05:28 Potassium 4.0 mmol/L (3.5-5.1) 09/12/23 05:28 Chloride 104 mmol/L (98-107) 09/12/23 05:28 Carbon Dioxide 29 mmol/L (21-32) 09/12/23 05:28 Anion Gap 5 (3-11) 09/12/23 05:28 BUN 20 mg/dl (6-23) 09/12/23 05:28 Creatinine 0.84 mg/dl (0.6-1.4) 09/12/23 05:28 Est Cr Clr Drug Dosing 74.1 ml/min 09/12/23 05:28 Est GFR ( Amer) 105.7 ml/min 09/12/23 05:28 Est GFR (Non-Af Amer) 91.2 ml/min 09/12/23 05:28 BUN/Creatinine Ratio 23.8 (10-20) H 09/12/23 05:28 Glucose 88 mg/dl (70-99(Fasting)) 09/12/23 05:28 POC Glucose 78 mg/dl (70-99) 08/30/23 23:34 Calcium 8.5 mg/dl (8.6-10.3) L 09/12/23 05:28 Phosphorus 3.3 mg/dl (2.5-4.9) D 09/05/23 05:13 Magnesium 1.9 mg/dl (1.7-2.4) 09/11/23 05:30 Total Bilirubin 0.3 mg/dl (0.2-1.0) 09/10/23 06:13 Direct Bilirubin 0.2 mg/dl (0-0.2) 08/31/23 03:52 AST 42 U/L (13-39) H 09/10/23 06:13 ALT 125 U/L (7-52) H 09/10/23 06:13 Alkaline Phosphatase 27 U/L (34-104) L 09/10/23 06:13 Ammonia 36.0 umol/L (18-72) 08/30/23 12:55 Troponin I High Sens 19.0 pg/ml (0-20) D 08/30/23 12:55 Total Protein 6.5 gm/dl (6.0-8.3) 09/10/23 06:13 Albumin 3.8 gm/dl (3.4-5.0) 09/10/23 06:13 Globulin 2.7 gm/dl (2.5-4.0) 09/10/23 06:13 Albumin/Globulin Ratio 1.4 (0.9-2) 09/10/23 06:13 Lipase 32 U/L (11-82) 09/10/23 06:13 Vitamin B12 629 pg/ml (180-914) 08/31/23 03:52 Urine Color Yellow 09/10/23 Unknown Urine Appearance Clear (Clear) 09/10/23 Unknown Urine pH 6.0 (4.5-7.5) 09/10/23 Unknown Ur Specific Clarissa > 1.045 (1.000-1.030) H 09/10/23 Unknown Urine Protein Trace (Negative) H 09/10/23 Unknown Urine Glucose (UA) Negative (Negative) 09/10/23 Unknown Urine Ketones Negative (Negative) 09/10/23 Unknown Urine Blood Negative (Negative) 09/10/23 Unknown Urine Nitrite Negative (Negative) 09/10/23 Unknown Urine Bilirubin Negative (Negative) 09/10/23 Unknown Urine Urobilinogen Negative (Negative) 09/10/23 Unknown Ur Leukocyte Esterase Negative (Negative) 09/10/23 Unknown Urine WBC (Auto) 1-5 /hpf (0-5) 09/10/23 Unknown Urine RBC (Auto) 0-4 /hpf (0-4) 09/10/23 Unknown U Hyaline Cast (Auto) 0 /lpf (0-5) 09/10/23 Unknown U Epithel Cells (Auto) 0-5 /lpf (0-5) 09/10/23 Unknown Urine Bacteria (Auto) Negative (Negative) 09/10/23 Unknown Ur Random Creatinine 93 mg/dL (20-320) 08/30/23 15:50 Nasal Screen MRSA (PCR) Negative (Negative) 08/30/23 07:15 Urine Arsenic None Detected 08/30/23 15:50 Serum Copper 89 mcg/dL (70-175) 08/31/23 03:52 Urine Lead None Detected 08/30/23 15:50 Urine Mercury None Detected 08/30/23 15:50 Blood Parasites ID Cancelled 08/30/23 07:08 Impressions Chest X-Ray 08/30/23 06:46 SINGLE VIEW CHEST CLINICAL HISTORY: Atypical chest pain. FINDINGS: An AP, portable, upright chest radiograph is compared to study dated 04/03/2022. The heart is mildly enlarged noting atherosclerotic calcification of the thoracic aorta. The pulmonary vasculature is noncongested. Emphysema and chronic interstitial thickening is similar to previous. There is bibasilar scarring/atelectasis. No airspace consolidation or large pleural effusion is identified. No pneumothorax is seen. The skeletal structures are osteopenic. The bony thorax is grossly intact. IMPRESSION: Cardiomegaly and emphysema with no acute cardiopulmonary abnormality identified. ACT 112: Negative or not required by law. Electronically signed by: Elder Chu M.D. 08/30/2023 7:16 AM Brain MRI 08/30/23 10:46 MRI OF THE BRAIN WITHOUT IV CONTRAST CLINICAL HISTORY: Change in mental status. COMPARISON STUDY: CT of the brain dated 08/25/2023. MRI of the brain dated 05/06/2022. TECHNIQUE: MRI of the brain was performed utilizing various T1 and T2-weighted sequences in the axial, sagittal, and coronal planes. IV contrast was not administered for this examination. The examination is degraded by motion artifact. FINDINGS: Brain parenchyma: There is age-related involutional change noting mild to moderate subcortical and periventricular microangiopathic disease. There is no hemorrhage or mass effect. There is no restricted diffusion to suggest acute ischemia. Gagnon-white matter differentiation is preserved. No extra-axial fluid collection is seen. The cerebellar tonsils are normal in configuration. Ventricles, sulci, and cisterns: Prominent secondary to involutional change. Pituitary and sella: Unremarkable. Intracranial vasculature: Normal flow voids are maintained at the skull base. Orbits: The bony orbits are grossly intact. Orbital contents are normal in appearance. Sinuses and mastoids: Clear. Calvarium: Unremarkable. Cervical cord: Partially visualized cervical spinal cord is normal in morphology and signal intensity. IMPRESSION: No acute intracranial abnormality. ACT 112: Negative or not required by law. Electronically signed by: Edler Chu M.D. 08/30/2023 3:11 PM Abdomen/Pelvis CT 09/10/23 03:15 Exam(s): CT ABDOMEN + PELVIS With Contrast IV Amt: 91 ML OPTIRAY 320 EXAM: CT Abdomen and Pelvis With Intravenous Contrast CLINICAL HISTORY: Abdominal pain. TECHNIQUE: Axial computed tomography images of the abdomen and pelvis with intravenous contrast. CTDI is 9.73 mGy and DLP is 463.02 mGy-cm. Automated exposure control was utilized for the study. A dose lowering technique was utilized adhering to the principles of ALARA. CONTRAST: Patient received 91 ML OPTIRAY 320 of IV contrast COMPARISON: No relevant prior studies available. FINDINGS: Lung bases: Emphysema. No consolidation. ABDOMEN: Liver: Unremarkable. No mass. Gallbladder and bile ducts: Unremarkable. No calcified stones. No ductal dilation. Pancreas: Unremarkable. No mass. No ductal dilation. Spleen: Unremarkable. No splenomegaly. Adrenals: Unremarkable. No mass. Kidneys and ureters: Unremarkable. No solid mass. No hydronephrosis. Stomach and bowel: Fluid-filled and distended small bowel. The terminal ileum is decompressed, this could represent a transition point however is not definitive. No mucosal thickening. PELVIS: Appendix: No findings to suggest acute appendicitis. Bladder: Thickening of the urinary bladder wall could relate to nondistention or cystitis. Reproductive: Unremarkable as visualized. ABDOMEN and PELVIS: Intraperitoneal space: Mild ascites. No free air. Bones/joints: There are degenerative changes of the spine. No acute fracture. No dislocation. Soft tissues: Unremarkable. Vasculature: Mild atherosclerosis. No abdominal aortic aneurysm. Lymph nodes: Unremarkable. No enlarged lymph nodes. IMPRESSION: 1. Fluid-filled and distended small bowel. The terminal ileum is decompressed, this could represent a transition point however is not definitive. This could represent a small bowel obstruction, ileus or enteritis. 2. Mild ascites. 3. Thickening of the urinary bladder wall could relate to nondistention or cystitis. 4. Emphysema. Electronically signed by: Mariana Christianson MD 09/10/23 06:07 AM KUB X-Ray 09/11/23 15:36 XR KUB/Abdomen 1 view CLINICAL HISTORY: Ileus TECHNIQUE: 1 view of the abdomen was obtained. Comparison: None available at the time of this dictation. FINDINGS: Lung bases are unremarkable. The osseous structures are grossly unremarkable. The bowel gas pattern is nonobstructive. A moderate amount of stool is noted within the large bowel. IMPRESSION: Nonobstructive bowel gas pattern. ACT 112: Negative or not required by law. Electronically signed by: Abhi Jo M.D. 09/11/2023 9:11 AM Ordered Studies 08/30/23 10:46 MRI Brain [MR brain wo con] Urgent 09/10/23 03:15 CT Abd and Pelvis [CT abd pelvis IV con only] Stat Hospital Course (1) Chest pain: Acute metabolic encephalopathy Likely delirium tremors secondary to benzo withdrawal --Less likely infectious source H/O traumatic brain injury H/O opioid use in the past currently on Suboxone Auditory hallucinations likely from withdrawal --MRI brain: No acute intracranial abnormality. --- Toxicology screen positive for oxazepam -- Normal TSH --EEG:This is an abnormal routine EEG in a patient with altered mentation due to 1. Generalized background slowing suggestive of a non specific encephalopathy, 2. Excessive beta activity is a normal variant and likely secondary to medication side effect ( ie benzodiazepines). No epileptiform activity is seen. --Normal ammonia, vitamin B12 levels --VBG showed no signs of hypercarbia --Blood cultures: No growth --Urine for heavy metal - negative, copper level - wnl --Finished Librium protocol, cont. thiamine Appreciate neurology, psychiatry input Continue to taper down Suboxone as able - currently on Q3 day Transitioned to p.o. thiamine Mental status back to baseline Plan to discharge home today Ileus --CT ABD:Fluid-filled and distended small bowel. The terminal ileum is decompressed, this could represent a transition point however is not definitive. This could represent a small bowel obstruction, ileus or enteritis. Mild ascites. -- Appreciate surgery input: No surgical intervention needed currently Nonobstructive bowel gas pattern on KUB today Advance to low fiber diet Continue bowel regimen Resolved A-fib RVR Chest pain likely secondary to above Troponin negative Echo showed no wall motion abnormality, valvular heart disease Spontaneously converted to sinus. Given brief episode, no plan for anticoag ulation Continue Coreg, aspirin 81 mg daily per cardiology Appreciate cardiology input Hypertension Continue amlodipine, carvedilol BP stable COPD No signs of exacerbation Nebs as needed Tobacco use disorder Continue nicotine patch H/O HCV Hypothyroidism--continue levothyroxine H/O substance abuse--on Suboxone Severe protein calorie malnutrition: BMI 18 DVT Px: Heparin SQ Code Status Full code Disposition Home Total Time Total Time Spent Total Time Spent (In Minutes): 56 minutes Discharge Plan Discharge Items Patient Disposition: Home - Self-Care Reason For Visit: CHEST PAIN, AGITATION, TACHY Discharge Diagnosis: Benzodiazepine Use Disorder, Severe Benzodiazepine Withdrawal Opioid Use Disorder, Severe Ileus Condition on Discharge: Serious Activity: As commented below Activity Comment: Per medical team Exercise/Sports: Gradually increase as tolerated Non-emergency contact: Primary Care Provider Call non-emergency contact if: you have any medication questions, your symptoms worsen and your pain is concerning for you Follow-up/Referrals: Nathaniel Masterson MD [Primary Care Provider] - (Date & Time 09/16/2023 2:20 PM Provider Luna Chambers MD Department General Internal Medicine [facility] ) Diet: Heart Healthy and Low Fiber Addtl Attending Provider Instructions: SPECIAL CARE INSTRUCTIONS: 1. Follow through with your scheduled aftercare appointments. If unable to keep an appointment, please call to reschedule. 2. Take your medication only as prescribed. Medication should not be changed or stopped without the approval of your doctor. In the event of worsening symptoms or concerns about side effects, contact your doctor immediately. 3. Utilize new healthy coping skills, anger management skills, and stress management skills learned during your hospitalization. Journal feelings and process them with a support person. Identify stressors or situations that may result in relapse, deterioration or inappropriate behaviors and develop a plan to deal with those issues. 4. If your coping skills are ineffective and you are in crisis, contact your outpatient providers for direction. If unable to reach your providers, please call the [facility] CRISIS LINE AT , go to the [facility] walk-in center at [address], [address], [place], or go to the closest Emergency Room. 5. Avoid alcohol and un-prescribed drugs. 6. You have been provided with the Mental Health Advance Directives Pamphlet for your review. 7. Your condition is stable for discharge to outpatient level of care, but recovery is an ongoing process. Ifthoughts to harm yourself or others return, follow the safety plan developed during your stay. Planning for a safe return home includes securing weapons. Our treatment team recommends weaponsbe removed from the home until your outpatient provider reassesses your progress. In rare cases where the items themselvescannot be removed, guns and ammunitionshould be secured separatelyand keys stored by a reliable personoutside of the home. If you were admitted on an involuntary commitment, the police or other legal authorities may be involved in this process. AFTERCARE APPOINTMENTS: * Please call your insurance company prior to your scheduled appointment to confirm your aftercare providers are covered. Take your insurance information to your appointments. WHO TO CALL AND WHEN: Medical Emergencies: For questions or emergencies related to your hospital stay, please contact the Inpatient Behavioral [facility] Unit at [phone]. A rn acute care is on-call 25/01 for the Behavioral Health Unit for emergencies At any time you feel your situation is an emergency, you may also call 911 immediately. Addtl Clinical Sciences Professor Provider Instructions: Follow-up with your primary care physician Dr. Masterson on 09/16/2023 2:20 PM -- Continue to wean off of Suboxone as recommended. Discussed with your primary care physician for further instructions. --Quit using drugs as advised Seek immediate medical attention if your symptoms reoccur or worsen Please take all medications as instructed on discharge list below. Please call if you have any questions or problems. You can reach a [facility] hospitalist on duty at [facility] 24 hours a day by calling [phone] Pending Studies at Discharge: No Stand-Alone Forms: My [facility], Smoking Cessation Medications and DC Order Prescriptions: New aspirin 81 mg Tablet,Delayed Release (Dr/Ec) 81 mg PO QAM Qty: 30 0RF docusate sodium 100 mg Capsule 100 mg PO BID PRN (Reason: constipation) Qty: 60 0RF polyethylene glycol 3350 [Miralax] 17 gram Powder In Packet 17 g PO DAILY PRN (Reason: constipation) Qty: 30 0RF thiamine HCl (vitamin B1) 100 mg tablet 100 mg PO DAILY Qty: 30 1RF Continued amlodipine 5 mg tablet 5 mg PO QAM levothyroxine 25 mcg tablet 25 mcg PO DAILYBB Rx Instructions: PER FAMILY "JUST STARTED THIS MED AND THIS MIND THING STARTED HAPPENING". famotidine 20 mg tablet 20 mg PO QAM levalbuterol tartrate 45 mcg/actuation HFA aerosol inhaler 1 puff INHALATION Q4H PRN (Reason: Wheezing) naloxone 4 mg/actuation spray,non-aerosol 1 spray INTRANASAL UD carvedilol [Coreg] 3.125 mg Tablet 0 mg PO BID Rx Instructions: Unable to verify w/ patient/pharmacy that pt is taking this medication, not showing it has been filled. Original Directions: 3.125mg by mouth twice daily must administer with a meal/food Changed buprenorphine-naloxone 2-0.5 mg tablet, sublingual 1 tab SUBLINGUAL Q3D Qty: 1 0RF Discharge Orders: Discharge Order (Routine); Ordered 09/12/23 Ordered By: Sunday Chávez Admission Data Admit Date/Time: 08/30/23 06:44 Attending Provider: Sunday Chávez Admit Provider: Alexi Irvin Primary Care Provider: Nathaniel Masterson Other Providers: Sunday Chávez; Oxana Hahn; Estella Bell; Naun Rainey; Shahid Cervantes; Deepak Osorio Jr; Vibha Kelley; Natan Schneider; Vibha Desai; Naun Espinosa; Kin Amaral; Marco A Stephens; Galo Molina; Estefania Sales; Zach Arzola; Wyatt Simon; Lois Espinosa; Manuel Xiong; Deirdre Tadeo; Ashley Youngblood; Galo Cummings; Danilo Fermin; Shahid Lagunas; Miriam Aguayo; Eze Verdin; Keo Tiwari; Katalina Busch; Cindy Goyal; Clifford Abel Jr; Jasmin Bernstein; Chris Aragon; Kamala Blount Other Interventions: PSY Interdisciplinary Discharge Planning Last Done: 09/07/23 11:42
== END 2023-09-12 15:11 | disposition home or self-care (01) | DRG 896 ==
LOC: 1E 06:44 → SUATTDRO 06:44 → 2S 09-03 18:23 → 4W 09-03 21:31 → 3N 09-05 19:38 → 2N 09-05 20:11